=== PATIENT | female | born 1975 | race Asian ===

== ENCOUNTER 2020-04-06 10:17 | Outpatient (REF) | payer OTHER, SELFPAY ==
--- NOTE | 2020-04-06 10:37 | PM.PROC ---
Brief Operative Note Procedure: Patient presented for FNA biopsy of a LMP 1.0 cm thyroid nodule today. US at the time of procedure revealed that this nodule was measuring 0.75 cm in maximum dimension. No FNA biopsy indicated given that this nodule is less than 1 cm and has decreased in size. No concerning radiographic features were seen. This was explained to the Patient in detail.
== END 2020-04-06 10:18 | disposition home or self-care (01) ==
LOC: HO.US 10:17
PROVIDERS: PCP Internal Medicine; Visit Provider Internal Medicine
DX: E04.2 Nontoxic multinodular goiter (principal)
CPT/HCPCS: 76536

== ENCOUNTER 2020-04-21 13:35 | Outpatient (REF) | payer OTHER, SELFPAY ==
[2020-04-21 15:33] LABS: Vitamin D 25-OH Total 47.9 ng/mL (>30)
== END 2020-04-21 13:36 | disposition home or self-care (01) ==
LOC: HO.LAB 13:35
PROVIDERS: PCP Hospitalist; Visit Provider Internal Medicine
DX: E55.9 Vitamin D deficiency, unspecified (principal)
CPT/HCPCS: 82306

== ENCOUNTER 2020-05-02 11:58 | Outpatient (REF) | payer OTHER, SELFPAY ==
[2020-05-02 13:24] LABS: Alanine Aminotransferase 19 U/L (0-31); Albumin Level 4.3 g/dL (3.5-5.0); Alkaline Phosphatase 59 U/L (39-117); Anion Gap 17 (12-20); Aspartate Amino Transferase 13 U/L (5-31); Bilirubin Total 0.6 mg/dL (0.0-1.0); Blood Urea Nitrogen 15 mg/dL (9-16); Calcium 9.3 mg/dL (8.4-10.2); Carbon Dioxide 21 mmol/L (22-29); Chloride 103 mmol/L (96-108); Estimated Glomerular Filt Rate > 60; Glucose Random 197 mg/dL (60-115); Potassium 3.7 mmol/l (3.3-5.1); Sodium 137 mmol/L (135-145); Total Protein 6.9 g/dL (6.5-8.0)
[2020-05-02 13:33] LABS: Vitamin D 25-OH Total 48.9 ng/mL (>30)
== END 2020-05-02 11:59 | disposition home or self-care (01) ==
LOC: HO.LAB 11:58
PROVIDERS: PCP Hospitalist; Visit Provider Internal Medicine
DX: E11.65 Type 2 diabetes mellitus with hyperglycemia (principal); E78.5 Hyperlipidemia, unspecified; I10 Essential (primary) hypertension; E55.9 Vitamin D deficiency, unspecified; E04.2 Nontoxic multinodular goiter
CPT/HCPCS: 80053; 82306

== ENCOUNTER → 2020-05-31 09:43 | Outpatient (BNVA) | payer OTHER, SELFPAY | PROVIDERS: PCP Hospitalist; Referring Provider Hospitalist; Visit Provider Internal Medicine | DX: Z76.89 Persons encountering health services in other specified circumstances (principal) ==

== ENCOUNTER → 2020-07-11 15:00 | Outpatient (BNV) | payer OTHER, SELFPAY | PROVIDERS: PCP Hospitalist; Visit Provider Internal Medicine Medical Oncology | DX: D51.9 Vitamin B12 deficiency anemia, unspecified (principal); D50.9 Iron deficiency anemia, unspecified | CPT/HCPCS: 99212; 99213; 99214 ==

== ENCOUNTER → 2020-09-14 08:20 | Outpatient (BNVA) | payer OTHER, SELFPAY | PROVIDERS: PCP Hospitalist; Visit Provider Internal Medicine | DX: E11.65 Type 2 diabetes mellitus with hyperglycemia (principal); E78.5 Hyperlipidemia, unspecified; E04.2 Nontoxic multinodular goiter; E55.9 Vitamin D deficiency, unspecified; I10 Essential (primary) hypertension; Z71.3 Dietary counseling and surveillance | CPT/HCPCS: 82947; 99212 ==

== ENCOUNTER 2020-12-15 09:58 | Outpatient (REF) | payer OTHER, SELFPAY ==
[2020-12-15 11:55] LABS: Alanine Aminotransferase 13 U/L (0-31); Albumin Level 4.2 g/dL (3.5-5.0); Alkaline Phosphatase 64 U/L (39-117); Anion Gap 13 (12-20); Aspartate Amino Transferase 13 U/L (5-31); Bilirubin Total 0.3 mg/dL (0.0-1.0); Blood Urea Nitrogen 12 mg/dL (9-16); Calcium 9.1 mg/dL (8.4-10.2); Carbon Dioxide 26 mmol/L (22-29); Chloride 106 mmol/L (96-108); Cholesterol 106 mg/dL; Estimated Glomerular Filt Rate > 60; Glucose Random 154 mg/dL (60-115); HDL Cholesterol 28 mg/dL; LDL Cholesterol Calculated 64 mg/dl; Sodium 141 mmol/L (135-145); Total Protein 6.9 g/dL (6.5-8.0); Triglycerides 73 mg/dL
[2020-12-15 12:22] LABS: Estimated Average Glucose 154 mg/dL
[2020-12-16 06:52] LABS: LDL Cholesterol Direct 70 mg/dL (<100)
== END 2020-12-15 09:59 | disposition home or self-care (01) ==
LOC: HO.LAB 09:58
PROVIDERS: PCP Hospitalist; Visit Provider Internal Medicine
DX: E11.65 Type 2 diabetes mellitus with hyperglycemia (principal)
CPT/HCPCS: 36415; 80053; 80061; 82043; 83036; 83721

== ENCOUNTER → 2020-12-18 11:05 | Outpatient (BNVA) | payer OTHER, SELFPAY | PROVIDERS: PCP Hospitalist; Visit Provider Internal Medicine | DX: E11.65 Type 2 diabetes mellitus with hyperglycemia (principal); E78.5 Hyperlipidemia, unspecified; E04.2 Nontoxic multinodular goiter; E55.9 Vitamin D deficiency, unspecified; I10 Essential (primary) hypertension | CPT/HCPCS: 82947; 99212 ==

== ENCOUNTER 2021-02-22 08:43 | Outpatient (REF) | payer OTHER, SELFPAY ==
--- NOTE | ~2021-02-22 | US_ITS ---
EXAMINATION: US THYROID CLINICAL INFORMATION: Nontoxic multinodular goiter. COMPARISON: Ultrasound soft tissue head/neck thyroid dated 02/08/2020 and 06/04/2018. TECHNIQUE: Linear transducer grayscale and color Doppler examination with attention to the region of the thyroid. FINDINGS: SIZE: Measurements of the thyroid lobes and nodules are given in sagittal, anteroposterior and transverse dimensions respectively. Right Thyroid Lobe: 4.7 x 1.6 x 2.1 cm, volume 8.4 mL. Previously 4.7 x 1.7 x 2.0 cm, volume 8.4 mL. Parenchyma: The gland echotexture is heterogeneous. Thyroid vascularity is normal. Left Thyroid Lobe: 5.4 x 1.7 x 2.0 cm, volume 9.5 mL. Previously 4.6 x 1.6 x 2.1 cm, volume 8.0 mL. Parenchyma: The gland echotexture is heterogeneous. Thyroid vascularity is normal. Isthmus: 0.3 cm in maximum AP dimension. Previously 0.4 cm. Estimated total number of nodules greater than or equal to 1 cm: 1. Rental Representative nodules are described as follows: 1. Location: Right superior. Size: 0.44 x 0.34 x 0.45 cm, volume 0.03 mL. Previously: 0.44 x 0.40 x 0.42 cm, volume 0.04 mL. Nodule characteristics: Composition: Cystic(0). ACR TI-RADS total points: 0 ACR TI-RADS category: 1 Significant change in size (>/= 20% in 2 dimensions and minimal increase of 2 mm or 50% or greater increase in volume): No Change in features: No Change in ACR TI-RADS risk category: No 2. Location: Left mid. Size: 0.7 x 0.59 x 0.63 cm, volume 0.14 mL. Previously: 0.75 x 0.59 x 0.61 cm, volume 0.14 mL. Nodule characteristics: Composition: Spongiform (0). Echogenicity: Anechoic (0). Shape: Not taller than wide (0). Margins: Smooth (0). Echogenic Foci: None (0). ACR TI-RADS total points: 0 ACR TI-RADS category: 1 Significant change in size (>/= 20% in 2 dimensions and minimal increase of 2 mm or 50% or greater increase in volume): No Change in features: No Change in ACR TI-RADS risk category: No 3. Location: Left inferior. Size: 1.59 x 1.3 x 1.5 cm, volume 1.62 mL. Previously: 1.42 x 1.17 x 1.17 cm, volume 1.02 mL. Nodule characteristics: Composition: Solid/almost completely solid (2). Echogenicity: Hypoechoic (2). Shape: Not taller than wide (0). Margins: Lobulated (2). Echogenic Foci: None (0). ACR TI-RADS total points: 6 ACR TI-RADS category: 4 Significant change in size (>/= 20% in 2 dimensions and minimal increase of 2 mm or 50% or greater increase in volume): Yes Change in features: No Change in ACR TI-RADS risk category: No 4. Location: Left inferior lateral. Size: 0.87 x 0.46 x 0.45 cm, volume 0.09 mL. Previously: 1.03 x 0.58 x 0.4 cm, volume 0.12 mL. Nodule characteristics: Composition: Solid (2). Echogenicity: Hypoechoic (2). Shape: Taller than wide (3). Margins: Smooth (0). Echogenic Foci: None (0). ACR TI-RADS total points: 7 ACR TI-RADS category: 5 Significant change in size (>/= 20% in 2 dimensions and minimal increase of 2 mm or 50% or greater increase in volume): No Change in features: No Change in ACR TI-RADS risk category: No NODES: No lymphadenopathy is seen in the tissue surrounding the thyroid gland. US/US thyroid IMPRESSION: 1. An increased 1.6 cm in maximal diameter inferior left thyroid lobe nodule meets ACR biopsy criteria and is amenable to ultrasound-guided biopsy, if clinically indicated and not already performed. 2. There is heterogeneous thyroid echotexture, which can be associated with thyroiditis. 3. There is a borderline goiter. ACR TI-RADS RECOMMENDATION REFERENCE: Ultrasound-guided fine-needle aspiration, followup ultrasound, no further follow up. * TR1 (0 point) and TR 2 (2 points): No FNA or follow up * TR3 (3 points): FNA if more than or equal to 2.5 cm in maximum dimension, followup ultrasound in 1, 3 and 5 years if 1.5 to 2.4 cm in maximum dimension. * TR4 (4-6 points): FNA if more than or equal to 1.5 cm in maximum dimension, followup ultrasound in 1, 2, 3 and 5 years if 1 to 1.4 cm in maximum dimension. * TR5 (more than or equal to 7 points): FNA if more than or equal to 1 cm in maximum dimension, followup ultrasound every year for 5 years if 0.5 to 0.9 cm in maximum dimension. * TR3, TR4 or TR5 nodules that are below the size threshold for follow up receive no follow up.
== END 2021-02-22 08:44 | disposition home or self-care (01) ==
LOC: HO.US 08:43
PROVIDERS: PCP Internal Medicine; Visit Provider Internal Medicine
DX: E04.2 Nontoxic multinodular goiter (principal)
CPT/HCPCS: 76536

== ENCOUNTER → 2021-03-21 13:39 | Outpatient (BNVA) | payer OTHER, SELFPAY | PROVIDERS: Visit Provider Physician Assistant ==

== ENCOUNTER → 2021-03-26 12:57 | Outpatient (BNVA) | payer OTHER, SELFPAY | PROVIDERS: Visit Provider Internal Medicine | DX: I95.9 Hypotension, unspecified (principal); E04.2 Nontoxic multinodular goiter; R42 Dizziness and giddiness; R10.9 Unspecified abdominal pain; R11.2 Nausea with vomiting, unspecified; E11.9 Type 2 diabetes mellitus without complications; E78.5 Hyperlipidemia, unspecified; E55.9 Vitamin D deficiency, unspecified; Z79.4 Long term (current) use of insulin; Z79.899 Other long term (current) drug therapy | CPT/HCPCS: 82947; 83036; 99212 ==

== ENCOUNTER 2021-03-26 14:03 | Emergency (ER) | payer OTHER, SELFPAY ==
--- NOTE | ~2021-03-26 | CT_ITS ---
EXAMINATION: CT ABDOMEN AND PELVIS WITH CONTRAST CLINICAL INFORMATION: Epigastric pain and hypotension COMPARISON: Previous abdominal ultrasound December 2017 TECHNIQUE: Multidetector volumetric images were obtained from the superior aspect of the liver through the pubic symphysis following administration 85 mL of Omnipaque 350 intravenous contrast. Sagittal and coronal reformatted images were obtained on the technologist's workstation. Oral contrast: Yes This CT examination was performed using dose optimization techniques as appropriate, variously including the following: *Automated exposure control *Adjustment of mA and/or kV according to patient size (this includes techniques or standardized protocols for targeted exams where dose is matched to indication/reason for exam; i.e. extremities or head) *Use of iterative reconstruction technique DLP: 843 mGy-cm FINDINGS: LUNG BASES: The visualized lung bases are unremarkable. LIVER, GALLBLADDER, AND BILIARY TREE: The liver is normal in size, shape, and attenuation. No focal hepatic lesion or biliary ductal dilatation is present. The gallbladder is unremarkable with no evidence of radiopaque gallstones, gallbladder wall thickening, or obvious pericholecystic inflammatory changes. PANCREAS: Unremarkable. SPLEEN: Unremarkable. ADRENAL GLANDS: Unremarkable. KIDNEYS AND URETERS: The kidneys are normal in size, shape, and attenuation. No hydronephrosis, hydroureter, or calculi seen. No perinephric stranding. BLADDER: Unremarkable. GASTROINTESTINAL TRACT: The colon is slightly distended and filled with fluid suggestive of an ileus. The small and large bowel are otherwise unremarkable. The appendix is unremarkable. No ascites or free air is seen. There is question of mild wall thickening of the distal stomach versus changes due to contraction/peristalsis. Stomach is otherwise unremarkable. ABDOMINAL WALL: No significant hernia is appreciated. LYMPH NODES: Normal. VASCULAR: Unremarkable. PELVIC VISCERA: Unremarkable. OSSEOUS STRUCTURES: Unremarkable. CT/CT abdomen pelvis w con IMPRESSION: Slightly distended fluid-filled colon suggestive of an ileus. Question mild wall thickening of the distal stomach versus changes due to contraction/peristalsis.
--- NOTE | ~2021-03-26 | XR_ITS ---
EXAMINATION: XR CHEST CLINICAL INFORMATION: Dizziness. Hypotension. COMPARISON: None TECHNIQUE: Frontal view of the chest was obtained. FINDINGS: No significant abnormality is noted involving the heart, lungs, mediastinum, bony thorax or soft tissues. XR/XR chest 1V IMPRESSION: Unremarkable examination.
[2021-03-26 14:11] VITALS: BP 95/65; O2SAT 95
[2021-03-26 14:13] VITALS: BP 105/63; PULSE 80; RESP 18; O2SAT 99; BMI 37.9
--- NOTE | 2021-03-26 14:18 | ECG_ITS ---
Test Reason : MEDICL Blood Pressure : / mmHG Vent. Rate : 078 BPM Atrial Rate : 078 BPM P-R Int : 168 ms QRS Dur : 090 ms QT Int : 396 ms P-R-T Axes : 056 045 043 degrees QTc Int : 451 ms Normal sinus rhythm Normal ECG No previous ECGs available Referred By: Ross Worthington Electronically Signed By:KATELIN ELIZONDO
--- NOTE | 2021-03-26 14:27 | ED.GENADULT ---
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 She states that she has been feeling dizzy, like the room is spinning around her for about 3 days, and it seems to be worsening over time. She denies any falls or loss of conciousness. She states she has had nausea, and vomiting for 3 days. She has not been able to keep down solids, or liquids. Every time she tries to eat, she states that she vomits her food. She reports they epigastric pain with no radiation. Past medical history significant for GERD, diabetes, multinodular thyroid, and anemia. She denies chest pain, shortness of breath, fevers, chills, blood per rectum, hematemesis, diarrhea, recent sick contacts. She is not currently taking any NSAIDs,or aspirin. Onset (ago): day(s) (3) Associated symptoms: nausea/vomiting and other (Dizziness) Treatments prior to arrival: none Related Data Home Medications Medication Instructions Recorded Confirmed baclofen 10 mg tablet 10 mg PO BID PRN 05/31/20 03/26/21 duloxetine 30 mg capsule,delayed 30 mg PO DAILY 05/31/20 03/26/21 release fluticasone propionate 50 1 spray INTRANASAL DAILY 05/31/20 03/26/21 mcg/actuation nasal spray,suspension gabapentin 300 mg capsule 300 mg PO DAILY 05/31/20 03/26/21 hydrocortisone valerate 0.2 % 0.2 applic TOPICAL DAILY 05/31/20 03/26/21 topical cream lisinopril 20 1 tab PO DAILY 05/31/20 03/26/21 mg-hydrochlorothiazide 25 mg tablet loratadine 10 mg tablet 10 mg PO DAILY 05/31/20 03/26/21 lorazepam 0.5 mg tablet 0.5 mg PO DAILY 05/31/20 03/26/21 omeprazole 40 mg capsule,delayed 40 mg PO DAILY 05/31/20 03/26/21 release topiramate 50 mg tablet 50 mg PO DAILY 05/31/20 03/26/21 zolpidem 10 mg tablet 10 mg PO BEDTIME PRN 05/31/20 03/26/21 bupropion HCl (smoking deter) 150 150 mg PO DAILY 03/21/21 03/26/21 mg tablet,12 hr sustained-release(smoking deterrent) docusate sodium 100 mg capsule 100 mg PO BID 03/21/21 03/26/21 hydroxyzine pamoate 25 mg capsule 25 mg PO BID 03/21/21 03/26/21 mirtazapine 45 mg tablet 45 mg PO BEDTIME 03/21/21 03/26/21 sennosides 8.6 mg tablet (Senna mg PO 03/21/21 03/26/21 Laxative) sucralfate 1 gram tablet 1 g PO BID 03/21/21 03/26/21 Previous Rx's Medication Instructions Recorded blood sugar diagnostic (FreeStyle #100 ea 05/10/20 Lite Strips) atorvastatin 40 mg tablet 40 mg PO DAILY 30 Days #30 tab 05/31/20 blood sugar diagnostic (Blood #100 ea 05/31/20 Glucose Test) metformin 1,000 mg tablet 1,000 mg PO BID 30 Days #60 tab 06/26/20 metoclopramide HCl 10 mg tablet 10 mg PO TID 30 Days #90 tab 06/28/20 pioglitazone 15 mg tablet (Actos) 15 mg PO DAILY 30 Days #30 tab 12/25/20 liraglutide 0.6 mg/0.1 mL (18 mg/3 1.8 mg SUBCUT DAILY 30 Days #9 ml 01/28/21 mL) subcutaneous pen injector empagliflozin 25 mg tablet 25 mg PO QAM 30 Days #30 tab 02/25/21 pen needle, diabetic 32 gauge x #100 ea 02/25/21 omeprazole 20 mg capsule,delayed 20 mg PO DAILY #30 cap 03/21/21 release meclizine 25 mg tablet (Dramamine 25 mg PO TID PRN #20 tab 03/26/21 Less Drowsy) Allergies Allergy/AdvReac Type Severity Reaction Status Date / Time No Known Allergies Allergy Verified 03/26/21 13:17 [No Known Allergies*] Review of Systems Review of Systems: Yes all other systems are reviewed and are negative Constitutional: Constitutional: Reports anorexia Eyes: Eyes: Reports no additional eye complaints ENT: Reports system reviewed and no additional complaints, except as documented, Reports vertigo and Reports dizziness Cardiovascular: Cardiovascular: Reports no additional cardiovascular complaints and Reports epigastric discomfort Respiratory: Respiratory: Reports no additional respiratory complaints and Reports no additional respiratory complaints Gastrointestinal: Gastrointestinal: Reports no additional gastrointestinal complaints, Reports nausea and Reports vomiting Genitourinary: Genitourinary: Reports no additional female genitourinary complaints Musculoskeletal: Musculoskeletal: Reports no additional musculoskeletal complaints Neurologic: Reports vertigo and Reports dizziness Psychiatric: Psychiatric: Reports no additional psychiatric complaints Endocrine: Endocrine: Reports no additional endocrine complaints [facility] Past Medical History Medical History (Updated 03/26/21 @ 16:48 by Ross Worthington MD) HLD (hyperlipidemia) HTN (hypertension) Hypotension Multinodular thyroid T2DM (type 2 diabetes mellitus) Vitamin D deficiency Surgical History History of carpal tunnel surgery of left wrist Hx of esophagogastroduodenoscopy Family History Family History Father No family history of disorders Mother No family history of disorders Social History Social History Housing Other:: spouse/ kids Alcohol intake: never Patient Tobacco Use Status: Never used Tobacco Use of substances other than those prescribed or required for medical reasons: No Advance Directives: No Advance Directives Information Provided: No Patient : No Current occupational status: unemployed Physical Exam Vital Signs: Vital Signs: Last Vital Signs Pulse 90 03/26/21 16:32 Resp 18 03/26/21 16:32 BP 108/65 03/26/21 16:32 Pulse Ox 98 03/26/21 16:32 Body Mass Index 37.9 Const: General: cooperative and no acute distress Orientation/consciousness: oriented to person and oriented to place Limitations: no limitations HENMT: Head: Yes normal to inspection, Yes normocephalic and Yes atraumatic Ears: external ears normal General nose exam: Normal external nose present Face and sinus: Yes normal facial exam Mouth: Normal oral and palatal mucosa present Throat: Yes posterior oropharynx normal Eyes: General: appearance normal, both eyes and all related structures Pupils: Equal, round and reactive pupils present Neck: Neck: Yes normal visual inspection, Yes no lymphadenopathy, Yes trachea midline and Yes supple Chest: Chest palpation & inspection: normal inspection of the chest and normal palpation of entire chest wall Resp: Effort & Inspection: normal respiratory effort and able to speak in complete sentences Auscultation: clear to auscultation bilaterally Cardio: Rate: regular rate Rhythm: regular rhythm Heart sounds: S1 normal heart sound present, S2 normal heart sound present and no murmurs GI: Inspection: Yes normal to inspection Palpation (GI): Soft to palpation, Tenderness to palpation present (GI) in the epigastrum and no guarding Auscultation: normal bowel sounds : General: Yes no CVA tenderness Back/Spine/Pelvis: Back: no CVA tenderness Skin: General skin exam: no rashes or lesions noted Neuro: General: oriented to person and oriented to place Cranial nerves: Yes CN's II-XII intact bilaterally and Yes Equal, round and reactive pupils present Cognition (Neuro): normal cognition Motor exam (neuro): 5/5 motor strength present throughout Extrem: General: Yes normal to inspection Psych: Appearance: grossly normal Speech and movement: Normal speech and movement present Affect: normal affect Attitude: cooperative Thought process: Normal thought process present Thought content: Normal thought content present Course Course Course Narrative: This is a 45-year-old female that is brought in to the emergency department via EMS from her court recording monitor's office for symptomatic hypotension her blood pressure court recording monitor office was 84/48. She felt dizzy at the time. Today she reports nausea, vomiting, vertigo X3 days. Upon physical examination there is tenderness to palpation in the epigastric region. Her blood pressure was 105/63. And she reports dizziness with changes in position. 1425- Basic laboratories have been ordered as well as a CT of the abdomen and pelvis, EKG, urine, orthostatic vital signs, troponin, COVID test, lactic and blood cultures. Reevaluation(s) Reevaluation #1: No significant findings on laboratory studies. Chest x-ray is normal. Pending normal CT of abd/pelvis patient will be discharged home with Meclozine for vertigo. Reevaluation #2: Patient on liter 2/2 here in the emergency department. BP have improved 103/67, patient is no longer dizzy and has recieved meclizine [address] of the abdomen and pelvis shoes slightly distended fluid filled colon suggestive of an illeus, however, this does not meet the patients clinical picture. Patient is not constipated, she has normo active bowel sounds in all four quadrants and she has tenderness to palpation only to the epigastric region. Plan is to discharge the patient home on meclizine for vertigo, she has been instructed to drink plenty of fluids. She is safe to be discharged home and to follow up with her PCP in two days. Time: 16:42 Medical Decision Making Lab Data Result diagrams: 03/26/21 14:47 03/26/21 14:47 Labs: Lab Results 03/26/21 03/26/21 03/26/21 Range/Units 14:47 14:47 14:47 WBC 7.5 (4.8-10.8) X10*3/uL RBC 5.06 (4.20-5.50) X10*6/uL Hgb 12.0 (12.0-16.0) g/dl Hct 38.2 (37-47) % MCV 75.5 L (80-98) fL MCH 23.7 L (27.0-33.0) pg MCHC 31.4 (31.0-35.0) g/dl RDW 15.6 (11.0-16.0) % Plt Count 343 (160-400) X10*3/uL MPV 9.9 (9.4-12.3) fL Immature Gran % (Auto) 0.8 H (0.0-0.4) % Neut % (Auto) 56.1 (45-73) % Lymph % (Auto) 30.1 (20-40) % Hitchcock % (Auto) 7.5 (2-11) % Eos % (Auto) 4.8 H (0-4) % Baso % (Auto) 0.7 (0-2) % Lymph # (Auto) 2.2 (1.2-4.9) X10*3/uL Hitchcock # (Auto) 0.6 (0.1-1.2) X10*3/uL Eos # (Auto) 0.4 (0.0-0.4) X10*3/uL Baso # (Auto) 0.1 (0.0-0.2) X10*3/uL Abs Immat Gran (auto) 0.06 H (0.00-0.03) X10*3/uL Absolute Neuts (auto) 4.2 (2.0-8.3) X10*3/uL Absolute Nucleated RBC 0.000 (0.0-0.012) X10*3/uL Nucleated RBC % (auto) 0.0 (0.0-0.2) /100WBC Sodium Cancelled 136 Potassium Cancelled 4.3 Chloride Cancelled 106 Carbon Dioxide Cancelled 18 L Anion Gap Cancelled 16 BUN Cancelled 20 H Creatinine Cancelled 1.05 Estim Creat Clear Calc Cancelled 75.8 Estimated GFR Cancelled 57 Random Glucose Cancelled 122 H Lactic Acid (0.5-2.0) mmol/L Calcium Cancelled 9.3 Total Bilirubin Cancelled 0.5 AST Cancelled 16 ALT Cancelled 15 Alkaline Phosphatase Cancelled 53 D Troponin I High Sens (<3.5-17.0) ng/L Total Protein Cancelled 7.4 Albumin Cancelled 4.5 Lipase 55 (8-78) U/L COVID-19 (REGLA) (Negative) COVID-19 Clin Com 03/26/21 03/26/21 03/26/21 Range/Units 14:47 14:47 14:48 WBC (4.8-10.8) X10*3/uL RBC (4.20-5.50) X10*6/uL Hgb (12.0-16.0) g/dl Hct (37-47) % MCV (80-98) fL MCH (27.0-33.0) pg MCHC (31.0-35.0) g/dl RDW (11.0-16.0) % Plt Count (160-400) X10*3/uL MPV (9.4-12.3) fL Immature Gran % (Auto) (0.0-0.4) % Neut % (Auto) (45-73) % Lymph % (Auto) (20-40) % Hitchcock % (Auto) (2-11) % Eos % (Auto) (0-4) % Baso % (Auto) (0-2) % Lymph # (Auto) (1.2-4.9) X10*3/uL Hitchcock # (Auto) (0.1-1.2) X10*3/uL Eos # (Auto) (0.0-0.4) X10*3/uL Baso # (Auto) (0.0-0.2) X10*3/uL Abs Immat Gran (auto) (0.00-0.03) X10*3/uL Absolute Neuts (auto) (2.0-8.3) X10*3/uL Absolute Nucleated RBC (0.0-0.012) X10*3/uL Nucleated RBC % (auto) (0.0-0.2) /100WBC Sodium Potassium Chloride Carbon Dioxide Anion Gap BUN Creatinine Estim Creat Clear Calc Estimated GFR Random Glucose Lactic Acid 1.7 (0.5-2.0) mmol/L Calcium Total Bilirubin AST ALT Alkaline Phosphatase Troponin I High Sens < 3.5 (<3.5-17.0) ng/L Total Protein Albumin Lipase (8-78) U/L COVID-19 (REGLA) Negative (Negative) COVID-19 Clin Com See Note Imaging Data Chest x-ray: Attestation: I personally reviewed and interpreted this imaging study as follows: Radiologist's impression: FINDINGS: No significant abnormality is noted involving the heart, lungs, mediastinum, bony thorax or soft tissues. XR/XR chest 1V IMPRESSION: Unremarkable examination. ? ECG Data Attestation: I personally reviewed and interpreted this ECG as follows: Prior ECG tracings: not available for review Interpretation: 1711- Ventricular rate 78 CT interval normal QRS normal QTC QTC normal normal sinus rhythm normal ECG no signs of acute ischemia. No prior EKG to compare. Discharge Plan Discharge Clinical Impression: Dehydration, Vertigo Hypotension Qualifiers: Hypotension type: unspecified hypotension type Qualified Code(s): I95.9 - Hypotension, unspecified Abdominal pain Qualifiers: Abdominal location: epigastric Qualified Code(s): R10.13 - Epigastric pain Patient Disposition: Home, Self-Care Instructions: Dehydration (ED), Vertigo (ED), Abdominal Pain (ED) Additional Instructions: Follow up with PCP in 2 days Drink plenty of fluids Meclizine was sent to your pharmacy take it as prescribed for dizziness, nausea and vomiting Return to the emergency department with new or worsening symptoms or if you develop chest pain, shortness of breath, fevers or chills. Prescriptions: New meclizine [Dramamine Less Drowsy] 25 mg tablet 25 mg PO TID PRN (Reason: dizziness) Qty: 20 RF: 0 No Action (DME) FreeStyle Lite Strips Strip See Rx Instructions .ROUTE .MEDSUPPLY Qty: 100 RF: 11 metformin 1,000 mg tablet 1,000 mg PO BID 30 Days Qty: 60 RF: 11 metoclopramide HCl 10 mg tablet 10 mg PO TID 30 Days Qty: 90 RF: 3 pioglitazone [Actos] 15 mg tablet 15 mg PO DAILY 30 Days Qty: 30 RF: 11 liraglutide 0.6 mg/0.1 mL (18 mg/3 mL) pen injector 1.8 mg subcut DAILY 30 Days Qty: 9 RF: 11 (DME) pen needle, diabetic 32 gauge x 5/32 needle See Rx Instructions ea subcut DAILY Qty: 100 RF: 11 empagliflozin 25 mg tablet 25 mg PO QAM 30 Days Qty: 30 RF: 11 topiramate 50 mg tablet 50 mg PO DAILY RF: 0 duloxetine 30 mg capsule,delayed release(DR/EC) 30 mg PO DAILY RF: 0 lisinopril-hydrochlorothiazide 20-25 mg tablet 1 tab PO DAILY RF: 0 omeprazole 40 mg capsule,delayed release(DR/EC) 40 mg PO DAILY RF: 0 baclofen 10 mg tablet 10 mg PO BID PRN (Reason: Pain) RF: 0 loratadine 10 mg tablet 10 mg PO DAILY RF: 0 fluticasone propionate 50 mcg/actuation spray,suspension 1 spray intranasal DAILY RF: 0 gabapentin 300 mg capsule 300 mg PO DAILY RF: 0 zolpidem 10 mg tablet 10 mg PO BEDTIME PRN (Reason: Insomnia) RF: 0 lorazepam 0.5 mg tablet 0.5 mg PO DAILY RF: 0 hydrocortisone valerate 0.2 % cream 0.2 applic topical DAILY RF: 0 atorvastatin 40 mg tablet 40 mg PO DAILY 30 Days Qty: 30 RF: 11 (DME) Blood Glucose Test Strip See Rx Instructions .ROUTE .MEDSUPPLY Qty: 100 RF: 11 mirtazapine 45 mg tablet 45 mg PO BEDTIME RF: 0 bupropion HCl (smoking deter) 150 mg tablet extended release 12 hr 150 mg PO DAILY RF: 0 sucralfate 1 gram tablet 1 g PO BID RF: 0 docusate sodium 100 mg capsule 100 mg PO BID RF: 0 sennosides [Senna Laxative] 8.6 mg tablet PO RF: 0 hydroxyzine pamoate 25 mg capsule 25 mg PO BID RF: 0 omeprazole 20 mg capsule,delayed release(DR/EC) 20 mg PO DAILY Qty: 30 RF: 5 Referrals: Edgar Centeno MD [Primary Care Provider] - 2 days
[2021-03-26] MEDS: ondansetron HCL 4 MG/2 ML VIAL IVPUSH (14:53)
[2021-03-26] MEDS: 0.9 % Sodium Chloride 1,000 ML 999 ML IV ×2 (14:53→16:28)
[2021-03-26 14:56] LABS: MANUAL DIFF FLAG NO
[2021-03-26 14:57] LABS: Basophils Absolute Auto 0.1 X10*3/uL (0.0-0.2); Basophils Percent Auto 0.7 % (0-2); Eosinophils Absolute Auto 0.4 X10*3/uL (0.0-0.4); Eosinophils Percent Auto 4.8 % (0-4); Hematocrit 38.2 % (37-47); Imm Gran Abs Auto 0.06 X10*3/uL (0.00-0.03); Imm Gran Pct Auto 0.8 % (0.0-0.4); Lymphocytes Absolute Auto 2.2 X10*3/uL (1.2-4.9); Lymphocytes Percent Auto 30.1 % (20-40); Mean Corpuscular HGB Conc 31.4 g/dl (31.0-35.0); Mean Corpuscular Hemoglobin 23.7 pg (27.0-33.0); Mean Corpuscular Volume 75.5 fL (80-98); Mean Platelet Volume 9.9 fL (9.4-12.3); Monocytes Absolute Auto 0.6 X10*3/uL (0.1-1.2); Monocytes Percent Auto 7.5 % (2-11); Neutrophils Absolute Auto 4.2 X10*3/uL (2.0-8.3); Neutrophils Percent Auto 56.1 % (45-73); Platelet Count 343 X10*3/uL (160-400); Red Blood Count 5.06 X10*6/uL (4.20-5.50); Red Cell Distribution Width 15.6 % (11.0-16.0); White Blood Count 7.5 X10*3/uL (4.8-10.8)
[2021-03-26 15:08] LABS: Lactic Acid 1.7 mmol/L (0.5-2.0)
[2021-03-26 15:12] LABS: COVID-19 Test Negative (Negative); IDNOW Serial# 9DD0AD1C
[2021-03-26 15:17] LABS: Troponin-I High Sensitivity < 3.5 ng/L (<3.5-17.0)
[2021-03-26 15:21] LABS: Alanine Aminotransferase 15 U/L (0-31); Albumin Level 4.5 g/dL (3.5-5.0); Alkaline Phosphatase 53 U/L (39-117); Anion Gap 16 (12-20); Aspartate Amino Transferase 16 U/L (5-31); Bilirubin Total 0.5 mg/dL (0.0-1.0); Blood Urea Nitrogen 20 mg/dL (9-16); Calcium 9.3 mg/dL (8.4-10.2); Carbon Dioxide 18 mmol/L (22-29); Chloride 106 mmol/L (96-108); Creatinine Clr Calc Pharmacy 75.8; Estimated Glomerular Filt Rate 57; Glucose Random 122 mg/dL (60-115); Lipase 55 U/L (8-78); Potassium 4.3 mmol/L (3.3-5.1); Sodium 136 mmol/L (135-145); Total Protein 7.4 g/dL (6.5-8.0)
[2021-03-26] MEDS: iohexoL 350 MG/ML 100 ML INFUS..BTL IV (15:55)
[2021-03-26 16:32] VITALS: BP 108/65; PULSE 90; RESP 18; O2SAT 98
[2021-03-26] MEDS: Meclizine HCl 25 MG TABLET PO (16:32)
[2021-03-26 17:50] VITALS: BP 96/52; PULSE 82
[2021-03-26 17:52] VITALS: BP 95/49; PULSE 83
[2021-03-26 17:54] VITALS: BP 98/45; PULSE 85
== END 2021-03-26 18:13 | disposition home or self-care (01) ==
PROVIDERS: Emergency Provider Emergency Medicine Emergency Medical Services; PCP Internal Medicine
DX: I95.9 Hypotension, unspecified (principal); R10.13 Epigastric pain; R42 Dizziness and giddiness; Z79.899 Other long term (current) drug therapy; Z20.822 Contact with and (suspected) exposure to COVID-19
CPT/HCPCS: 36415; 71045; 74177; 80053; 82947; 83036; 83605; 83690; 84484; 85025; 87040; 87635; 93005; 96361; 96374; 99212; 99284; 99285; J2405; Q9967

== ENCOUNTER → 2021-04-05 14:46 | Outpatient (BNVA) | payer OTHER, SELFPAY | PROVIDERS: PCP Internal Medicine; Visit Provider Internal Medicine | DX: E11.65 Type 2 diabetes mellitus with hyperglycemia (principal); E78.5 Hyperlipidemia, unspecified; E04.2 Nontoxic multinodular goiter; E55.9 Vitamin D deficiency, unspecified; I10 Essential (primary) hypertension | CPT/HCPCS: 82947; 99212 ==

== ENCOUNTER 2021-05-17 08:28 | Outpatient (REF) | payer OTHER, SELFPAY ==
--- NOTE | 2021-05-17 09:30 | PM.OP ---
Brief Operative Note Date of Service: 05/17/21 Pre-op diagnosis: Multinodular Thyroid Procedure: This is doctor Lydia Boyer. This is an ultrasound-guided fine-needle aspiration report. Date of Examination: 05/17/2021 Indication: Multinodular Thyroid Porcedure: Procedure was explained to the patient. Alternatives, the risk and benefits were discussed. Written consent was obtained. A time-out was also obtained. After sterile preparation, fine-needle aspiration of a left inferior pole 1.6 cm thyroid nodule was performed using direct ultrasound guidance to confirm accurate needle placement. Four aspirations were made using 27 gauge needles. Samples were submitted for cytology. One pass was dedicated for [employer] Gene sequencing vinyl dipper testing. The patient tolerated the procedure well. Aftercare instructions were provided. Impression: Uncomplicated fine needle aspiration biopsy of a left inferior pole 1.6 cm thyroid nodule under ultrasound guidance. Surgeon: Lydia Boyer, DO Was an Gifted Program Teacher used for this Procedure?: No Estimated blood loss (mL): 0
[2021-05-17] MEDS: Lidocaine HCl 1 % MPF 5 ML VIAL SUBCUT (10:52)
== END 2021-05-17 08:29 | disposition home or self-care (01) ==
LOC: HO.US 08:28
PROVIDERS: PCP Internal Medicine; Visit Provider Internal Medicine
DX: E04.2 Nontoxic multinodular goiter (principal)
CPT/HCPCS: 10005; 88172; 88173

== ENCOUNTER → 2021-06-08 10:15 | Outpatient (BNVA) | payer OTHER, SELFPAY | PROVIDERS: PCP Internal Medicine; Visit Provider Internal Medicine Gastroenterology ==

== ENCOUNTER 2021-06-13 11:14 | Outpatient (REF) | payer OTHER, SELFPAY ==
[2021-06-13 13:00] LABS: Estimated Average Glucose 134 mg/dL; Hemoglobin A1c % 6.3 %
[2021-06-13 13:15] LABS: Alanine Aminotransferase 23 U/L (0-31); Albumin Level 4.1 g/dL (3.5-5.0); Alkaline Phosphatase 46 U/L (39-117); Anion Gap 13 (12-20); Aspartate Amino Transferase 18 U/L (5-31); Bilirubin Total 0.6 mg/dL (0.0-1.0); Blood Urea Nitrogen 11 mg/dL (9-16); Calcium 9.6 mg/dL (8.4-10.2); Carbon Dioxide 27 mmol/L (22-29); Chloride 105 mmol/L (96-108); Estimated Glomerular Filt Rate > 60; Glucose Random 113 mg/dL (60-115); Potassium 4.3 mmol/L (3.3-5.1); Sodium 141 mmol/L (135-145); Total Protein 6.7 g/dL (6.5-8.0)
[2021-06-13 13:41] LABS: Free T4 (Free Thyroxine) 0.91 ng/dL (0.71-1.85)
[2021-06-13 14:11] LABS: Thyroid Stimulating Hormone 1.31 uIU/mL (0.32-4.0); Vitamin D 25-OH Total 19.5 ng/mL (>30)
== END 2021-06-13 11:15 | disposition home or self-care (01) ==
LOC: HO.LAB 11:14
PROVIDERS: PCP Hospitalist; Visit Provider Internal Medicine
DX: E11.65 Type 2 diabetes mellitus with hyperglycemia (principal); E04.2 Nontoxic multinodular goiter; E55.9 Vitamin D deficiency, unspecified
CPT/HCPCS: 36415; 80053; 82306; 83036; 84439; 84443

== ENCOUNTER → 2021-06-18 08:51 | Outpatient (BNVA) | payer OTHER, SELFPAY | PROVIDERS: PCP Hospitalist; Visit Provider Internal Medicine ==

== ENCOUNTER 2021-08-23 07:47 | Outpatient (REF) | payer OTHER, SELFPAY | END 2021-08-23 07:48 | disposition home or self-care (01) | LOC: HO.MDS 07:47 | PROVIDERS: PCP Hospitalist; Visit Provider Internal Medicine Medical Oncology | DX: D50.9 Iron deficiency anemia, unspecified (principal) | CPT/HCPCS: 96365; 96372; J2916 ==

== ENCOUNTER 2021-08-30 11:44 | Outpatient (REF) | payer OTHER, SELFPAY | END 2021-08-30 11:45 | disposition home or self-care (01) | LOC: HO.MDS 11:44 | PROVIDERS: Visit Provider Internal Medicine Medical Oncology | DX: D50.9 Iron deficiency anemia, unspecified (principal) | CPT/HCPCS: 96365; J2916 ==

== ENCOUNTER 2021-09-04 07:50 | Outpatient (REF) | payer OTHER, SELFPAY | END 2021-09-04 07:51 | disposition home or self-care (01) | LOC: HO.MDS 07:50 | PROVIDERS: Visit Provider Internal Medicine Medical Oncology | DX: D50.9 Iron deficiency anemia, unspecified (principal) | CPT/HCPCS: 96365; J2916 ==

== ENCOUNTER → 2021-09-05 14:11 | Outpatient (BNVA) | payer OTHER, SELFPAY | PROVIDERS: PCP Hospitalist; Visit Provider Internal Medicine | DX: E11.65 Type 2 diabetes mellitus with hyperglycemia (principal); E11.40 Type 2 diabetes mellitus with diabetic neuropathy, unspecified; E11.21 Type 2 diabetes mellitus with diabetic nephropathy; I10 Essential (primary) hypertension; E04.2 Nontoxic multinodular goiter; E78.5 Hyperlipidemia, unspecified; E55.9 Vitamin D deficiency, unspecified; Z79.84 Long term (current) use of oral hypoglycemic drugs; Z79.899 Other long term (current) drug therapy | CPT/HCPCS: 82947; 99212 ==

== ENCOUNTER 2021-09-14 07:45 | Outpatient (REF) | payer OTHER, SELFPAY ==
[2021-09-14 08:43] LABS: MANUAL DIFF FLAG NO
[2021-09-14 08:47] LABS: Basophils Percent Auto 0.6 % (0-2); Eosinophils Absolute Auto 0.4 X10*3/uL (0.0-0.4); Eosinophils Percent Auto 7.8 % (0-4); Hematocrit 35.6 % (37.0-47.0); Hemoglobin 10.2 g/dl (12.0-16.0); Imm Gran Abs Auto 0.02 X10*3/uL (0.00-0.03); Imm Gran Pct Auto 0.4 % (0.0-0.4); Lymphocytes Absolute Auto 1.8 X10*3/uL (1.2-4.9); Lymphocytes Percent Auto 36.9 % (20-40); Mean Corpuscular HGB Conc 28.7 g/dl (31.0-35.0); Mean Corpuscular Hemoglobin 20.9 pg (27.0-33.0); Mean Corpuscular Volume 73.1 fL (80.0-98.0); Mean Platelet Volume 10.2 fL (9.4-12.3); Monocytes Absolute Auto 0.3 X10*3/uL (0.1-1.2); Monocytes Percent Auto 6.8 % (2-11); Neutrophils Absolute Auto 2.4 x10*3/uL (2.0-8.3); Neutrophils Percent Auto 47.5 % (45-73); Platelet Count 323 X10*3/uL (160-400); Red Blood Count 4.87 X10*6/uL (4.20-5.50); Red Cell Distribution Width 23.8 % (11.0-16.0)
== END 2021-09-14 07:46 | disposition home or self-care (01) ==
LOC: HO.MDS 07:45
PROVIDERS: Visit Provider Internal Medicine Medical Oncology
DX: D50.9 Iron deficiency anemia, unspecified (principal)
CPT/HCPCS: 36415; 85025; 96365; 96372; J2916

== ENCOUNTER → 2021-09-21 09:11 | Outpatient (BNVA) | payer OTHER, SELFPAY | PROVIDERS: PCP Hospitalist; Referring Provider Hospitalist; Visit Provider Internal Medicine Gastroenterology | DX: Z13.89 Encounter for screening for other disorder (principal) ==

== ENCOUNTER 2021-09-27 13:46 | Day surgery (SDC) | payer OTHER, SELFPAY ==
--- NOTE | 2021-09-26 10:38 | HO.ANESPROP2 ---
Documented by User: Zara Gonzales NP 09/26/21 10:40 HPI - Anesthesia Eval Consult details Narrative: 45yo F for Upper Endoscopy PMFSH Active Problems Active Problems: All Active Problems (Updated 07/20/21 @ 15:27 by Irlanda Farooq MD) Gastric wall thickening (Acute) Ileus, unspecified (Acute) Hypotension (Acute) Chronic GERD (Acute) Poor historian (Acute) Anemia (Acute) Multinodular thyroid (Acute) HLD (hyperlipidemia) (Acute) HTN (hypertension) (Acute) T2DM (type 2 diabetes mellitus) (Acute) Vitamin D deficiency (Acute) Past Medical History Medical History HLD (hyperlipidemia) HTN (hypertension) Hypotension Multinodular thyroid T2DM (type 2 diabetes mellitus) Vitamin D deficiency Family History Family History Father No family history of disorders Mother No family history of disorders Surgical History Surgical History History of carpal tunnel surgery of left wrist Hx of colonoscopy Hx of esophagogastroduodenoscopy Social History Social History Housing Other:: spouse/ kids Alcohol intake: never Patient Tobacco Use Status: Never used Tobacco Use of substances other than those prescribed or required for medical reasons: No Are you DNR?: No Advance Directives: No Advance Directives Information Provided: Yes Recently lost weight without trying: No Patient : No (ug negative) Current occupational status: unemployed Meds Allergies Allergy/AdvReac Type Severity Reaction Status Date / Time No Known Allergies Allergy Verified 09/21/21 09:17 [No Known Allergies*] Home Medications Medication Instructions Recorded Confirmed Last Taken Type baclofen 10 mg tablet 10 mg PO BID PRN 05/31/20 09/05/21 Unknown History duloxetine 30 mg capsule,delayed 30 mg PO DAILY 05/31/20 09/05/21 Unknown History release fluticasone propionate 50 1 spray INTRANASAL DAILY 05/31/20 09/05/21 Unknown History mcg/actuation nasal spray,suspension lisinopril 20 1 tab PO DAILY 05/31/20 09/05/21 Unknown History mg-hydrochlorothiazide 25 mg tablet topiramate 50 mg tablet 50 mg PO DAILY 05/31/20 09/05/21 Unknown History bupropion HCl (smoking deter) 150 150 mg PO DAILY 03/21/21 09/05/21 Unknown History mg tablet,12 hr sustained-release(smoking deterrent) hydroxyzine pamoate 25 mg capsule 25 mg PO BID 03/21/21 09/05/21 Unknown History mirtazapine 45 mg tablet 45 mg PO BEDTIME 03/21/21 09/05/21 Unknown History gabapentin 300 mg capsule 300 mg PO DAILY 04/05/21 09/05/21 Unknown History omeprazole 20 mg capsule,delayed 20 mg PO DAILY 09/05/21 09/05/21 Unknown History release Exam Exam Date and Time: September 26, 2021 1038 Pertinent Lab Results Pertinent Lab Results: Laboratory Tests 07/20/21 09/14/21 15:04 08:26 WBC 5.0 Hgb 10.2 L Hct 35.6 L Plt Count 323 Sodium 140 Potassium 3.9 Chloride 108 Carbon Dioxide 23 BUN 13 Creatinine 0.74 Assessment and Plan Assessment Anesthesia Assessment: Chart Reviewed Documented by User: Vane Isaac MD 09/27/21 14:15 PMF Past Medical History Medical History HLD (hyperlipidemia) HTN (hypertension) Hypotension Multinodular thyroid T2DM (type 2 diabetes mellitus) Vitamin D deficiency Functional capacity: independent ambulation Patient : No Family History Family History Father No family history of disorders Mother No family history of disorders Surgical History Surgical History History of carpal tunnel surgery of left wrist Hx of colonoscopy Hx of esophagogastroduodenoscopy History of Problems with Anesthesia: No Social History Social History Housing Other:: spouse/ kids Alcohol intake: never Patient Tobacco Use Status: Never used Tobacco Use of substances other than those prescribed or required for medical reasons: No Are you DNR?: No Advance Directives: No Advance Directives Information Provided: Yes Recently lost weight without trying: No Patient : No (ug negative) Current occupational status: unemployed Meds Allergies Allergy/AdvReac Type Severity Reaction Status Date / Time No Known Allergies Allergy Verified 09/21/21 09:17 [No Known Allergies*] Home Medications Medication Instructions Recorded Confirmed Last Taken Type baclofen 10 mg tablet 10 mg PO BID PRN 05/31/20 09/05/21 Unknown History duloxetine 30 mg capsule,delayed 30 mg PO DAILY 05/31/20 09/05/21 Unknown History release fluticasone propionate 50 1 spray INTRANASAL DAILY 05/31/20 09/05/21 Unknown History mcg/actuation nasal spray,suspension lisinopril 20 1 tab PO DAILY 05/31/20 09/05/21 Unknown History mg-hydrochlorothiazide 25 mg tablet topiramate 50 mg tablet 50 mg PO DAILY 05/31/20 09/05/21 Unknown History bupropion HCl (smoking deter) 150 150 mg PO DAILY 03/21/21 09/05/21 Unknown History mg tablet,12 hr sustained-release(smoking deterrent) hydroxyzine pamoate 25 mg capsule 25 mg PO BID 03/21/21 09/05/21 Unknown History mirtazapine 45 mg tablet 45 mg PO BEDTIME 03/21/21 09/05/21 Unknown History gabapentin 300 mg capsule 300 mg PO DAILY 04/05/21 09/05/21 Unknown History omeprazole 20 mg capsule,delayed 20 mg PO DAILY 09/05/21 09/05/21 Unknown History release Exam Airway Mallampati Class: III TM Dist: >3cm Neck ROM: Full Heart: RRR Lungs: CTA Assessment and Plan Final Anesthetic Review History of Problems with Anesthesia: No ASA Class: III Final Preanesthetic Review: No Changes in Pt Med Stat, Meds/Allgs Chart Reviewed, Consent Obtained/Reviewed and Anes Risks/Benef Reviewed Patient Risk: Low Procedure Risk: Low Anesthetic Plan Anesthetic Plan: MAC: Disposition: Standard PACU
[2021-09-27 14:07] LABS: UPreg QC Valid YES; Urine Pregnancy NEGATIVE (NEGATIVE)
[2021-09-27 14:10] VITALS: BMI 37.2
--- NOTE | 2021-09-27 14:11 | MHC.SHP ---
Pre-Procedural Eval Section A Date of Service: 09/27/21 The patient is an INPATIENT: No The History & Physical has been completed within 30 days and I have reviewed it.: Yes Section B Chief Complaint: Epigastric pain Allergies: Allergies Allergy/AdvReac Type Severity Reaction Status Date / Time No Known Allergies Allergy Verified 09/21/21 09:17 [No Known Allergies*] Review of Systems Sugical H&P ROS: Negative: Constitution, Cardiovascular, Respiratory, Neurological, Psychiatric, Hem-Onc, Allergic/Immunologic, Gastrointestinal, Genitourinary, Musculoskeletal, Integumentary, Endocrine and Eyes/Ears/Nose/Throat Exam Surgical H&P Exam: Normal: HEENT, Normal: Heart, Normal: Lungs, Normal: Extremities, Normal: Abdomen, Normal: Skin and Normal: Neurological Plan Diagnosis/Plan: Unchanged I have reviewed the history and physical and performed a pertinent physical examination on my patient. No changes have occurred unless specified.
[2021-09-27 14:15] VITALS: BP 130/71; PULSE 86; RESP 18; TEMP 37.6; O2SAT 98
--- NOTE | 2021-09-27 14:20 | HO.ANESPROP2 ---
[facility] Active Problems Active Problems: All Active Problems (Updated 07/20/21 @ 15:27 by Irlanda Farooq MD) Gastric wall thickening (Acute) Ileus, unspecified (Acute) Hypotension (Acute) Chronic GERD (Acute) Poor historian (Acute) Anemia (Acute) Multinodular thyroid (Acute) HLD (hyperlipidemia) (Acute) HTN (hypertension) (Acute) T2DM (type 2 diabetes mellitus) (Acute) Vitamin D deficiency (Acute) Past Medical History Medical History HLD (hyperlipidemia) HTN (hypertension) Hypotension Multinodular thyroid T2DM (type 2 diabetes mellitus) Vitamin D deficiency Functional capacity: independent ambulation Family History Family History Father No family history of disorders Mother No family history of disorders Family history of problems with anesthesia: No Surgical History Surgical History History of carpal tunnel surgery of left wrist Hx of colonoscopy Hx of esophagogastroduodenoscopy History of Problems with Anesthesia: No Social History Social History Housing Other:: spouse/ kids Alcohol intake: never Patient Tobacco Use Status: Never used Tobacco Use of substances other than those prescribed or required for medical reasons: No Are you DNR?: No Advance Directives: No Advance Directives Information Provided: Yes Recently lost weight without trying: No Patient : No Current occupational status: unemployed Meds Allergies Allergy/AdvReac Type Severity Reaction Status Date / Time No Known Allergies Allergy Verified 09/21/21 09:17 [No Known Allergies*] Active Medications: Current Medications Lactated Ringer's (Lr) 1,000 mls @ 100 mls/hr IVCONT .Q10H [facility] Home Medications Medication Instructions Recorded Confirmed Last Taken Type baclofen 10 mg tablet 10 mg PO BID PRN 05/31/20 09/05/21 Unknown History duloxetine 30 mg capsule,delayed 30 mg PO DAILY 05/31/20 09/05/21 Unknown History release fluticasone propionate 50 1 spray INTRANASAL DAILY 05/31/20 09/05/21 Unknown History mcg/actuation nasal spray,suspension lisinopril 20 1 tab PO DAILY 05/31/20 09/05/21 Unknown History mg-hydrochlorothiazide 25 mg tablet topiramate 50 mg tablet 50 mg PO DAILY 05/31/20 09/05/21 Unknown History bupropion HCl (smoking deter) 150 150 mg PO DAILY 03/21/21 09/05/21 Unknown History mg tablet,12 hr sustained-release(smoking deterrent) hydroxyzine pamoate 25 mg capsule 25 mg PO BID 03/21/21 09/05/21 Unknown History mirtazapine 45 mg tablet 45 mg PO BEDTIME 03/21/21 09/05/21 Unknown History gabapentin 300 mg capsule 300 mg PO DAILY 04/05/21 09/05/21 Unknown History omeprazole 20 mg capsule,delayed 20 mg PO DAILY 09/05/21 09/05/21 Unknown History release Exam Exam Date and Time: September 27, 2021 1420 Height,Weight and Vital Signs: Height 5 ft 3 in Weight 95 kg Pertinent Lab Results Pertinent Lab Results: Laboratory Tests 09/27/21 13:45 Urine Test NEGATIVE Airway Mallampati Class: III TM Dist: >3cm Neck ROM: Full Heart: RRR Lungs: CTA Assessment and Plan Assessment Anesthesia Assessment: Anesthesia Plan Discussed Final Anesthetic Review Family History of Problems with Anesthesia: No History of Problems with Anesthesia: No NPO: Yes ASA Class: III Final Preanesthetic Review: No Changes in Pt Med Stat, Meds/Allgs Chart Reviewed, Consent Obtained/Reviewed and Anes Risks/Benef Reviewed Patient Risk: Intermediate Procedure Risk: Low Anesthetic Plan Anesthetic Plan: MAC: Disposition: Standard PACU
[2021-09-27] MEDS: Lactated Ringers 1,000 ML 100 ML IVCONT (14:35)
[2021-09-27 14:47] LABS: Glucose, Whole Blood 104 mg/dL (60-115)
--- NOTE | 2021-09-27 14:56 | P.BOP_ITS ---
Brief Operative Note Date of Service: 09/27/21 Pre-op diagnosis: epigastric pain Post-op diagnosis: same Procedure: see op note Surgeon: Dean Grubbs MD Anesthesia: MAC Was an Business Performance Advisor used for this Procedure?: No Estimated blood loss (mL): 0 Condition: stable Disposition: PACU
--- NOTE | 2021-09-27 14:57 | W.PM.OPN ---
Operative Note Operative Note Date of Service: 09/27/21 Narrative: Procedure Description: EGD FLEXIBLE TRANSORAL UPPER GASTROINTESTINAL ENDOSCOPY UPPER ENDOSCOPY Consent: Indications for the procedure and potential complications of bleeding, perforation, reaction to medications and missed diagnosis were discussed with the patient and informed consent was obtained. Instrument: Olympus GIF H 190 J mid size upper endoscope Monitoring: Vital signs and clinical assessment, continuous EKG monitoring, Pulse oximetry, Carbon Dioxide monitoring and blood pressure monitoring were done throughout the procedure. Procedure: The patient was placed in the left lateral decubitis position and pre-procedure medications were administered and a bite block was placed. The endoscope was inserted into the mouth and advanced under direct vision to the third part of duodenum. A careful inspection was made as the upper endoscope was withdrawn including a retroflexed examination of the proximal stomach; Findings and interventions are described below. Findings: Larynx:normal Esophagus: GE junction at 38 cm, diaphragm hiatus at 38 cm, no varices or esophagitis. random esophagus biopsies taken. Stomach: very mild gastric erythema. Biopsies were obtained. Grade 2 flap valve on retroflexed examination of the cardia. There appeared to be a lack of gastric peristasis. Duodenum: Normal bulb and descending duodenum, bx taken Intervention: Biopsies as noted above Impression/Findings: possible gastroparesis PLAN: await bx results, if neg then GES to evaluate for gastroparesis
[2021-09-27 15:30] VITALS: BP 118/73; PULSE 85; RESP 16; TEMP 36.7; O2SAT 98
[2021-09-27 15:45] VITALS: BP 121/77; PULSE 82; RESP 16; TEMP 36.3; O2SAT 100
[2021-09-27] MEDS: Magnesium Hydrox/Alum Hydrox 30 ML ORAL.SUSP 15 ML PO (15:52)
[2021-09-27 16:00] VITALS: BP 121/71; PULSE 84; RESP 16; TEMP 36.4; O2SAT 100
--- NOTE | 2021-09-27 16:01 | HO.POSTANES ---
Post Anesthesia Evaluation Post Anesthesia Evaluation Vital Signs: Vital Signs Temp Pulse Resp BP Pulse Ox 09/27/21 15:45 97.4 F 82 16 121/77 100 09/27/21 15:30 98.0 F 85 16 118/73 98 09/27/21 14:15 99.6 F 86 18 130/71 98 Anesthesia: Monitored Mental Status: Awake Pain Control: Satisfactory Nausea/Vomiting: None Hydration: Adequate Anesthesia-Related Issues: No Anes. Related Issues
== END 2021-09-27 16:24 | disposition home or self-care (01) ==
PROVIDERS: Nurse Practitioner; PCP Hospitalist; Visit Provider Internal Medicine Gastroenterology
PROC: 0DJ08ZZ Inspection of Upper Intestinal Tract, Via Natural or Artificial Opening Endoscopic (ICD-10-PCS; CPT 43235; principal; 2021-09-27 14:20)
DX: R10.13 Epigastric pain (principal); K29.50 Unspecified chronic gastritis without bleeding; K44.9 Diaphragmatic hernia without obstruction or gangrene; K21.9 Gastro-esophageal reflux disease without esophagitis; K59.00 Constipation, unspecified; E78.5 Hyperlipidemia, unspecified; I10 Essential (primary) hypertension; I95.9 Hypotension, unspecified; E11.9 Type 2 diabetes mellitus without complications; E55.9 Vitamin D deficiency, unspecified; E04.2 Nontoxic multinodular goiter; F32.9 Major depressive disorder, single episode, unspecified; Z79.4 Long term (current) use of insulin; Z79.899 Other long term (current) drug therapy
CPT/HCPCS: 43239; 81025; 82947; 88305; 88342

== ENCOUNTER 2022-01-10 10:42 | Outpatient (REF) | payer OTHER, SELFPAY ==
[2022-01-10 11:32] LABS: Estimated Average Glucose 126 mg/dL
[2022-01-10 12:03] LABS: Alanine Aminotransferase 11 U/L (0-31); Albumin Level 3.9 g/dL (3.5-5.0); Alkaline Phosphatase 48 U/L (39-117); Anion Gap 11 (12-20); Aspartate Amino Transferase 12 U/L (5-31); Bilirubin Total 0.4 mg/dL (0.0-1.0); Blood Urea Nitrogen 13 mg/dL (9-16); Calcium 9.1 mg/dL (8.4-10.2); Carbon Dioxide 28 mmol/L (22-29); Chloride 105 mmol/L (96-108); Cholesterol 139 mg/dL; Estimated Glomerular Filt Rate > 60; Glucose Random 106 mg/dL (60-115); HDL Cholesterol 38 mg/dL; LDL Cholesterol Calculated 81 mg/dl; Potassium 4.6 mmol/L (3.3-5.1); Sodium 139 mmol/L (135-145); Total Protein 6.5 g/dL (6.5-8.0); Triglycerides 104 mg/dL
[2022-01-10 12:20] LABS: Vitamin B12 343 pg/mL (200-900)
[2022-01-10 12:26] LABS: Free T4 (Free Thyroxine) 0.92 ng/dL (0.71-1.85); Vitamin D 25-OH Total 29.2 ng/mL (>30)
[2022-01-10 12:52] LABS: Creatinine Urine 157.11 mg/dL; Microalbum/Creatinine Ratio Ur 5.7 ug/mg cr
[2022-01-12 13:12] LABS: LDL Cholesterol Direct 89 mg/dL (<100)
== END 2022-01-10 10:43 | disposition home or self-care (01) ==
LOC: HO.LAB 10:42
PROVIDERS: PCP Hospitalist; Visit Provider Internal Medicine
DX: E11.65 Type 2 diabetes mellitus with hyperglycemia (principal); E04.2 Nontoxic multinodular goiter; E55.9 Vitamin D deficiency, unspecified
CPT/HCPCS: 36415; 80053; 80061; 82043; 82306; 82607; 83036; 83721; 84439; 84443

== ENCOUNTER → 2022-01-14 10:53 | Outpatient (BNVA) | payer OTHER, SELFPAY | PROVIDERS: PCP Hospitalist; Visit Provider Internal Medicine | DX: E11.65 Type 2 diabetes mellitus with hyperglycemia (principal); E78.5 Hyperlipidemia, unspecified; I10 Essential (primary) hypertension; E55.9 Vitamin D deficiency, unspecified; E04.2 Nontoxic multinodular goiter; Z79.84 Long term (current) use of oral hypoglycemic drugs; Z79.899 Other long term (current) drug therapy | CPT/HCPCS: 82947; 99212 ==

== ENCOUNTER → 2022-03-25 12:20 | Outpatient (BNVA) | payer OTHER, SELFPAY | PROVIDERS: PCP Hospitalist; Referring Provider Hospitalist; Visit Provider Internal Medicine Gastroenterology | DX: G89.29 Other chronic pain (principal); R10.11 Right upper quadrant pain; Z98.890 Other specified postprocedural states | CPT/HCPCS: 99212 ==

== ENCOUNTER 2022-03-29 08:33 | Outpatient (REF) | payer OTHER, SELFPAY ==
--- NOTE | ~2022-03-29 | US_ITS ---
EXAMINATION: US ABDOMEN COMPLETE CLINICAL INFORMATION: Right upper quadrant pain. COMPARISON: CT abdomen and pelvis 03/26/2021. Ultrasound abdomen complete 01/16/2021 and 12/22/2017. TECHNIQUE: Real-time imaging of the abdominal viscera. FINDINGS: PANCREAS: Not well visualized due to bowel gas ABDOMINAL AORTA: The proximal, mid, and distal segments are normal in caliber. INFERIOR VENA CAVA: Visualized portions are normal. LIVER: The liver is normal in size. The liver contour is normal. Liver echotexture is normal. No focal hepatic lesion. There is no intrahepatic biliary duct dilatation seen. GALLBLADDER: There is a 5 x 3 x 5 mm hyperechoic area adjacent to the gallbladder wall questionable for a small polyp versus sludge. Gallbladder wall is slightly thickened measuring 4 mm. The gallbladder is normal in size. No gallstones. No pericholecystic fluid. COMMON BILE DUCT: Normal in caliber measuring 0.2 cm in diameter. RIGHT KIDNEY: Normal. No hydronephrosis. No renal calculi or focal parenchymal lesions. The kidney measures 11.9 cm in maximum dimension. LEFT KIDNEY: Normal. No hydronephrosis. No renal calculi or focal parenchymal lesions. The kidney measures 11.9 cm in maximum dimension. SPLEEN: Upper normal in size. The spleen measures 13.4 cm in maximum dimension. FREE FLUID: None. US/US abdomen complete IMPRESSION: Question small polyp or sludge in the gallbladder. No definite gallstones are seen. Upper normal-size spleen. Limited visualization of the pancreas.
== END 2022-03-29 08:34 | disposition home or self-care (01) ==
LOC: HO.US 08:33
PROVIDERS: Visit Provider Internal Medicine Gastroenterology
DX: R10.11 Right upper quadrant pain (principal); G89.29 Other chronic pain
CPT/HCPCS: 76700

== ENCOUNTER 2022-04-08 12:51 | Outpatient (REF) | payer OTHER, SELFPAY ==
--- NOTE | ~2022-04-08 | US_ITS ---
EXAMINATION: US THYROID CLINICAL INFORMATION: Nontoxic multinodular goiter. COMPARISON: Ultrasound thyroid 02/22/2021 and 02/08/2020. US-guided thyroid biopsy 05/17/2021. TECHNIQUE: Linear transducer grayscale and color Doppler examination with attention to the region of the thyroid. FINDINGS: SIZE: Measurements of the thyroid lobes and nodules are given in sagittal, anteroposterior and transverse dimensions respectively. Right Thyroid Lobe: 5.4 x 1.3 x 2.0 cm, volume 7.2 mL. Previously 4.7 x 1.6 x 2.1 cm, volume 8.4 mL. Parenchyma: The gland echotexture is heterogeneous. Thyroid vascularity is normal. Left Thyroid Lobe: 5.4 x 1.6 x 2.0 cm, volume 8.9 mL. Previously 5.4 x 1.7 x 2.0 cm, volume 9.5 mL. Parenchyma: The gland echotexture is heterogeneous. Thyroid vascularity is normal. Isthmus: 0.3 cm in maximum AP dimension. Previously 0.3 cm. Estimated total number of nodules greater than or equal to 1 cm: 2. Pan Devulcanizer nodules are described as follows: 1. Location: Right superior. Size: 0.4 x 0.4 x 0.4 cm, volume 0.03 mL. Previously: 0.4 x 0.4 x 0.4 cm, volume 0.04 mL. Nodule characteristics: Composition: Solid/almost completely solid (2). Echogenicity: Hypoechoic (2). Shape: Not taller than wide (0). Margins: Smooth (0). Echogenic Foci: Comet-tail artifacts (0). ACR TI-RADS total points: 4 Previous: 0 ACR TI-RADS category: 4 Previous: 1 Significant change in size (>/= 20% in 2 dimensions and minimal increase of 2 mm or 50% or greater increase in volume): None. Change in features: Slight change. Change in ACR TI-RADS risk category: Slight increase in total points and Ti-Rads no. 2. Location: Right mid. Size: 0.5 x 0.3 x 0.4 cm, volume 0.03 mL. Previously: New since the previous study. Nodule characteristics: Composition: Solid (2). Echogenicity: Isoechoic (1). Shape: Not taller than wide (0). Margins: Ill-defined (0). Echogenic Foci: None (0). ACR TI-RADS total points: 3 ACR TI-RADS category: 3 3. Location: Left superior. Size: 0.8 x 0.7 x 0.8 cm, volume 0.2 mL. Previously: 0.7 x 0.5 x 0.6 cm, volume 0.14 mL. Nodule characteristics: Composition: Solid/almost completely solid (2). Echogenicity: Hypoechoic (2). Shape: Not taller than wide (0). Margins: Irregular (2). Echogenic Foci: Punctate echogenic foci (3). ACR TI-RADS total points: 9 Previous: 0 ACR TI-RADS category: 5 Previous: 1 Significant change in size (>/= 20% in 2 dimensions and minimal increase of 2 mm or 50% or greater increase in volume): None. Change in features: Slight change. Change in ACR TI-RADS risk category: Increase in total points and TI-RADS however still subcentimeter in size. 4. Location: Left mid/inferior. Size: 1.7 x 1.0 x 1.2 cm, volume 1.1 mL. Previously: 1.59 x 1.3 x 1.5 cm, volume 1.6 mL. Nodule characteristics: Composition: Solid (2). Echogenicity: Hypoechoic (2). Shape: Not taller than wide (0). Margins: Lobulated (2). Echogenic Foci: None (0). ACR TI-RADS total points: 6 Previous: 6 ACR TI-RADS category: 4 Previous: 4 Significant change in size (>/= 20% in 2 dimensions and minimal increase of 2 mm or 50% or greater increase in volume): None. Change in features: None. Change in ACR TI-RADS risk category: None. 5. Location: Left inferior lateral. Size: 1.1 x 0.4 x 0.5 cm, volume 0.1 mL. Previously: 0.87 x 0.46 x 0.45 cm, volume 0.09 mL. Nodule characteristics: Composition: Solid (2). Echogenicity: Isoechoic (1). Shape: Not taller than wide (0). Margins: Ill-defined (0). Echogenic Foci: None (0). ACR TI-RADS total points: 3 Previous: 7 ACR TI-RADS category: 3 Previous: 5 Significant change in size (>/= 20% in 2 dimensions and minimal increase of 2 mm or 50% or greater increase in volume): None. Change in features: Improved. Change in ACR TI-RADS risk category: Improved. NODES: Solitary 2.0 x 0.4 x 0.6 cm lymph node left lateral neck level 3. US/US thyroid IMPRESSION: Heterogeneous thyroid gland with multiple nodules. There is only one solitary nodule which is 1.1 cm and nonsuspicious and improved in total points and TI-RADS category from previous exam 02/22/2021. Recommend continued followup. ACR TI-RADS RECOMMENDATION REFERENCE: Ultrasound-guided fine-needle aspiration, followup ultrasound, no further follow up. * TR1 (0 point) and TR 2 (2 points): No FNA or follow up. * TR3 (3 points): FNA if more than or equal to 2.5 cm in maximum dimension, followup ultrasound in 1, 3 and 5 years if 1.5 to 2.4 cm in maximum dimension. * TR4 (4-6 points): FNA if more than or equal to 1.5 cm in maximum dimension, followup ultrasound in 1, 2, 3 and 5 years if 1 to 1.4 cm in maximum dimension. * TR5 (more than or equal to 7 points): FNA if more than or equal to 1 cm in maximum dimension, followup ultrasound every year for 5 years if 0.5 to 0.9 cm in maximum dimension. * TR3, TR4 or TR5 nodules that are below the size threshold for followup receive no follow up.
== END 2022-04-08 12:52 | disposition home or self-care (01) ==
LOC: HO.US 12:51
PROVIDERS: Visit Provider Internal Medicine
DX: E04.2 Nontoxic multinodular goiter (principal)
CPT/HCPCS: 76536

== ENCOUNTER 2022-05-20 11:49 | Outpatient (REF) | payer OTHER, SELFPAY | END 2022-05-20 11:50 | disposition home or self-care (01) | LOC: HO.MDS 11:49 | PROVIDERS: Visit Provider Internal Medicine Medical Oncology | DX: D50.9 Iron deficiency anemia, unspecified (principal) | CPT/HCPCS: 96365; J1756 ==

== ENCOUNTER 2022-05-27 11:12 | Outpatient (REF) | payer OTHER, SELFPAY | END 2022-05-27 11:13 | disposition home or self-care (01) | LOC: HO.MDS 11:12 | PROVIDERS: Visit Provider Internal Medicine Medical Oncology | DX: D50.9 Iron deficiency anemia, unspecified (principal) | CPT/HCPCS: 96365; J1756 ==

== ENCOUNTER 2022-06-03 13:26 | Outpatient (REF) | payer OTHER, SELFPAY ==
[2022-06-03 16:50] LABS: Estimated Average Glucose 108 mg/dL; Hemoglobin A1c % 5.4 %
[2022-06-03 17:19] LABS: Alanine Aminotransferase 16 U/L (0-31); Albumin Level 4.1 g/dL (3.5-5.0); Alkaline Phosphatase 49 U/L (39-117); Anion Gap 13 (12-20); Aspartate Amino Transferase 17 U/L (5-31); Bilirubin Total 0.3 mg/dL (0.0-1.0); Blood Urea Nitrogen 13 mg/dL (9-16); Calcium 9.7 mg/dL (8.4-10.2); Carbon Dioxide 26 mmol/L (22-29); Chloride 105 mmol/L (96-108); Estimated Glomerular Filt Rate > 60; Glucose Random 80 mg/dL (60-115); Sodium 140 mmol/L (135-145); Thyroid Stimulating Hormone 0.94 uIU/mL (0.32-4.0); Total Protein 6.7 g/dL (6.5-8.0)
== END 2022-06-03 13:27 | disposition home or self-care (01) ==
LOC: HO.MDS 13:26
PROVIDERS: Absent Provider Internal Medicine; PCP Hospitalist; Visit Provider Internal Medicine Medical Oncology
DX: D50.9 Iron deficiency anemia, unspecified (principal); E11.65 Type 2 diabetes mellitus with hyperglycemia; E04.2 Nontoxic multinodular goiter
CPT/HCPCS: 36415; 80053; 83036; 84439; 84443; 96365; J1756

== ENCOUNTER → 2022-06-05 13:42 | Outpatient (BNVA) | payer OTHER, SELFPAY | PROVIDERS: PCP Hospitalist; Visit Provider Internal Medicine | DX: E11.65 Type 2 diabetes mellitus with hyperglycemia (principal); E78.5 Hyperlipidemia, unspecified; I10 Essential (primary) hypertension; E55.9 Vitamin D deficiency, unspecified; E04.2 Nontoxic multinodular goiter | CPT/HCPCS: 82947; 99212 ==

== ENCOUNTER 2022-06-10 13:27 | Outpatient (REF) | payer OTHER, SELFPAY ==
[2022-06-10 13:56] LABS: Baso%MD 0.7 %; Hematocrit 35.6 % (37.0-47.0); Hemoglobin 10.6 g/dl (12.0-16.0); IG%MD 0.4 %; Lymph%MD 24.4 %; Mean Corpuscular HGB Conc 29.8 g/dl (31.0-35.0); Mean Corpuscular Hemoglobin 21.3 pg (27.0-33.0); Mean Corpuscular Volume 71.6 fL (80.0-98.0); Mean Platelet Volume 9.5 fL (9.4-12.3); Mono%MD 7.6 %; Neut%MD 61.9 %; Platelet Count 304 X10*3/uL (160-400); Red Blood Count 4.97 X10*6/uL (4.20-5.50); Red Cell Distribution Width 25.3 % (11.0-16.0); White Blood Count 5.4 X10*3/uL (4.8-10.8)
[2022-06-10 15:40] LABS: Eosinophils Absolute Manual 0.1 X10*3/uL (0.0-0.4); Eosinophils Percent Manual 1 % (0-4); Lymphocytes Absolute Manual 1.5 X10*3/uL (1.2-4.9); Lymphocytes Percent Manual 28 % (20-40); Monocytes Absolute Manual 0.3 X10*3/uL (0.1-1.2); Monocytes Percent Manual 6 % (2-11); Neutrophils Percent Manual 65 % (45-73)
[2022-06-10 15:41] LABS: Platelet Estimate NORMAL (NORMAL); Platelet Morphology Comment NORMAL; RBC Morphology NORMAL
[2022-06-10 15:42] LABS: Neutrophils Absolute Manual 3.5 X10*3/uL (2.0-8.3)
== END 2022-06-10 13:28 | disposition home or self-care (01) ==
LOC: HO.MDS 13:27
PROVIDERS: Visit Provider Internal Medicine Medical Oncology
DX: D50.9 Iron deficiency anemia, unspecified (principal)
CPT/HCPCS: 36415; 85007; 85027; 96365; J1756

== ENCOUNTER 2022-06-17 13:54 | Outpatient (REF) | payer OTHER, SELFPAY | END 2022-06-17 13:55 | disposition home or self-care (01) | LOC: HO.MDS 13:54 | PROVIDERS: Visit Provider Internal Medicine Medical Oncology | DX: D50.9 Iron deficiency anemia, unspecified (principal) | CPT/HCPCS: 96365; J1756 ==

== ENCOUNTER → 2022-06-18 08:07 | Outpatient (REF) | payer OTHER, SELFPAY ==
--- NOTE | ~2022-06-18 | NM_ITS ---
EXAMINATION: NV RADIONUCLIDE SOLID FOOD GASTRIC EMPTYING 4-HOUR STUDY CLINICAL INFORMATION: Early satiety. COMPARISON: None TECHNIQUE: A standard meal consisting of 4 oz of Egg Beaters brand tagged with 970 microcuries Tc-99m Sulfur Colloid, 8 oz water and 2 slices of toast with jelly was administered orally to the patient. Images were obtained using a dual head gamma camera in the anterior and posterior projections over of the stomach immediately post ingestion and at hourly intervals up to 4 hours post ingestion. The anterior and posterior counts at each time interval were averaged using the geometric mean and expressed as percentage of the immediate post ingestion counts. FINDINGS: There is good visualization of activity in the stomach immediately post ingestion. As the study progresses, there is good clearance of activity from the stomach and visualization of progressively increasing small bowel activity. By the end of the study, there is almost no retention noted in the stomach. Retention in the stomach at each time interval was: 1 hour 87% (normal 37%-90%) 2 hours 47% (normal 30%-60%) 3 hours 7% 4 hours 2% (normal 0%-10%) NV/NV gastric emptying study IMPRESSION: Normal 4-hour solid food gastric emptying study.
== END ==
LOC: HO.NUCMED 08:07
PROVIDERS: Visit Provider Internal Medicine Gastroenterology
DX: R68.81 Early satiety (principal)
CPT/HCPCS: 78264; A9541

== ENCOUNTER 2022-06-24 13:45 | Outpatient (REF) | payer OTHER, SELFPAY | END 2022-06-24 13:46 | disposition home or self-care (01) | LOC: HO.MDS 13:45 | PROVIDERS: Visit Provider Internal Medicine Medical Oncology | DX: D50.9 Iron deficiency anemia, unspecified (principal) | CPT/HCPCS: 96365; J1756 ==

== ENCOUNTER 2022-07-02 13:50 | Outpatient (REF) | payer OTHER, SELFPAY | END 2022-07-02 13:51 | disposition home or self-care (01) | LOC: HO.MDS 13:50 | PROVIDERS: Visit Provider Internal Medicine Medical Oncology | DX: D50.9 Iron deficiency anemia, unspecified (principal) | CPT/HCPCS: 96365; J1756 ==

== ENCOUNTER → 2022-07-03 07:37 | Outpatient (REF) | payer OTHER, SELFPAY ==
--- NOTE | ~2022-07-03 | NM_ITS ---
EXAMINATION: BILIARY TRACT IMAGING STUDY WITH CCK CLINICAL INFORMATION: Right upper quadrant pain.. COMPARISON: No previous biliary scan is available for comparison. Abdominal ultrasound dated 03/29/[address] scan of the abdomen and pelvis dated 03/26/2021 are available for comparison.. TECHNIQUE: Serial gamma scintillation camera images were obtained over the abdomen for a total observation period of 100 minutes following the intravenous administration of 5 mCi Tc-99m Mebrofenin. FINDINGS: There is good concentration of activity in the liver by 5 minutes post injection. Biliary activity is visualized by a minutes. The gallbladder is well visualized by 20 minutes. Small bowel is well visualized by 75 minutes. At 70 minutes post radiopharmaceutical injection, a 30-minute infusion of 2.0 micrograms Sincalide was then begun and an additional 40 minutes of images were obtained. There is good emptying of the gallbladder. By the end of the study there is good clearance of activity from the liver and visualization of diffuse small bowel activity. The calculated gallbladder ejection fraction is 85% (normal gallbladder ejection fraction is greater than 35%). NM/NM hepatobiliary w pharm IMPRESSION: Visualization of the gallbladder is evidence of a patent cystic duct and strong evidence against the diagnosis of acute cholecystitis. The common bile duct is patent. Gallbladder emptying and ejection fraction are normal. Liver function appears normal.
== END ==
LOC: HO.NUCMED 07:37
PROVIDERS: Visit Provider Internal Medicine Gastroenterology
DX: R10.11 Right upper quadrant pain (principal); G89.29 Other chronic pain
CPT/HCPCS: 78227; A9537

== ENCOUNTER 2022-07-11 13:40 | Outpatient (REF) | payer OTHER, SELFPAY ==
[2022-07-11 14:18] LABS: Basophils Percent Auto 0.6 % (0-2); Eosinophils Absolute Auto 0.4 X10*3/uL (0.0-0.4); Eosinophils Percent Auto 5.2 % (0-4); Hematocrit 40.8 % (37.0-47.0); Hemoglobin 12.7 g/dl (12.0-16.0); Imm Gran Abs Auto 0.02 X10*3/uL (0.00-0.03); Imm Gran Pct Auto 0.3 % (0.0-0.4); Lymphocytes Absolute Auto 1.8 X10*3/uL (1.2-4.9); Lymphocytes Percent Auto 27.2 % (20-40); MANUAL DIFF FLAG NO; Mean Corpuscular HGB Conc 31.1 g/dl (31.0-35.0); Mean Corpuscular Hemoglobin 24.3 pg (27.0-33.0); Mean Corpuscular Volume 78.2 fL (80.0-98.0); Mean Platelet Volume 9.8 fL (9.4-12.3); Monocytes Absolute Auto 0.5 X10*3/uL (0.1-1.2); Monocytes Percent Auto 7.7 % (2-11); Platelet Count 275 X10*3/uL (160-400); Red Blood Count 5.22 X10*6/uL (4.20-5.50); Red Cell Distribution Width 24.3 % (11.0-16.0); White Blood Count 6.7 X10*3/uL (4.8-10.8)
== END 2022-07-11 13:41 | disposition home or self-care (01) ==
LOC: HO.MDS 13:40
PROVIDERS: Visit Provider Internal Medicine Medical Oncology
DX: D50.9 Iron deficiency anemia, unspecified (principal)
CPT/HCPCS: 36415; 85025; 96365; J1756

== ENCOUNTER → 2022-08-23 11:30 | Outpatient (BNVA) | payer OTHER, SELFPAY | PROVIDERS: PCP Hospitalist; Visit Provider Internal Medicine Gastroenterology | DX: K21.9 Gastro-esophageal reflux disease without esophagitis (principal); E66.9 Obesity, unspecified; E11.9 Type 2 diabetes mellitus without complications; E78.5 Hyperlipidemia, unspecified; E55.9 Vitamin D deficiency, unspecified | CPT/HCPCS: 99212 ==

== ENCOUNTER 2022-11-29 11:09 | Outpatient (REF) | payer OTHER, SELFPAY ==
[2022-11-29 11:58] LABS: Estimated Average Glucose 108 mg/dL; Hemoglobin A1c % 5.4 %
[2022-11-29 12:29] LABS: Alanine Aminotransferase 12 U/L (0-31); Albumin Level 4.1 g/dL (3.5-5.0); Alkaline Phosphatase 47 U/L (39-117); Anion Gap 12 (12-20); Aspartate Amino Transferase 10 U/L (5-31); Bilirubin Total 0.5 mg/dL (0.0-1.0); Blood Urea Nitrogen 14 mg/dL (9-16); Calcium 9.1 mg/dL (8.4-10.2); Carbon Dioxide 23 mmol/L (22-29); Chloride 110 mmol/L (96-108); Cholesterol 156 mg/dL; Estimated Glomerular Filt Rate > 60; Glucose Random 120 mg/dL (60-115); HDL Cholesterol 43 mg/dL; LDL Cholesterol Calculated 99 mg/dl; Potassium 3.9 mmol/L (3.3-5.1); Sodium 141 mmol/L (135-145); Total Protein 6.7 g/dL (6.5-8.0); Triglycerides 71 mg/dL
[2022-11-29 12:43] LABS: Creatinine Urine 107.31 mg/dL; Microalbum/Creatinine Ratio Ur 7.4 ug/mg cr
[2022-11-29 12:53] LABS: Free T4 (Free Thyroxine) 0.94 ng/dL (0.71-1.85); Thyroid Stimulating Hormone 1.08 uIU/mL (0.32-4.0); Vitamin D 25-OH Total 24.2 ng/mL (>30)
[2022-12-02 05:28] LABS: LDL Cholesterol Direct 102 mg/dL (<100)
== END 2022-11-29 11:10 | disposition home or self-care (01) ==
LOC: HO.LAB 11:09
PROVIDERS: PCP Hospitalist; Visit Provider Internal Medicine
DX: E11.65 Type 2 diabetes mellitus with hyperglycemia (principal); E04.2 Nontoxic multinodular goiter; E55.9 Vitamin D deficiency, unspecified
CPT/HCPCS: 36415; 80053; 80061; 82043; 82306; 83036; 83721; 84439; 84443

== ENCOUNTER → 2023-01-01 09:44 | Outpatient (BNVA) | payer OTHER, SELFPAY | PROVIDERS: PCP Hospitalist; Visit Provider Internal Medicine ==

== ENCOUNTER 2023-02-21 12:03 | Outpatient (AMB) | payer OTHER, SELFPAY ==
--- NOTE | 2023-02-21 12:06 | MHC.OFFVIS ---
Intake Vital Signs 02/21/23 12:16 Height 5 ft 3 in Weight 214 lb BMI 37.9 BP 130/80 Blood Pressure Location Lt brachial Position Sitting Pulse 80 Intake Visit Reasons: 6 month fu Intake Note: Patient 6 month follow up for quadrant pain. Patient cc: Nauseas, abdominal cramping, and acid reflex. Driver License Reviewing Officer Required: Yes Accompanied by: Self / Same As Patient Allergies No Known Allergies [No Known Allergies*] Allergy (Verified 02/21/23 12:06) HPI 6 month fu HPI Details 47 yr old f here for f/u RECAP: she has chronic joint pains in back and spine--takes gabapentin ongoing depression with poor sleep--erratic hours EGD July 2019 with biopsies no H pylori, inactive gastritis GES was nml CT 03/2021-- ileus, fluid filled colon, wall thickening of distal stomach, EGD: 09/2021-- essentially normal US 03/28- GB with sludge vs polyp, otherwise nml GES 06/2022-- nml 4 hr emptying, fast in the 1st hour HIDA- 06/27---nml INTERIM: she tried nortriptiline for 1 month and felt no benefit she felt some benefit from ABx in the past lasted about 1 month depression is ongoing she only manages 3-4 hours a night she has had sleep study-and was told to take melatonin --?done at [facility] or [facility] ongoing bloating and discomfort EXAM: GENERAL: The patient is frail VITAL SIGNS:see workflow HEENT: Nonicteric sclerae, PERRLA, EOMI. Oropharynx clear. Moist mucous membranes. Conjunctivae appear well perfused. No thyroid mass. CHEST: Chest wall is nontender. HEART: Regular rate and rhythm without murmurs. LUNGS: Clear to auscultation bilaterally. ABDOMEN: Soft, positive bowel sounds, tender epigastrium and RUQ, no organomegaly.no flank tenderness SKIN: No rash, no excessive bruising, petechiae, or purpura. NEUROLOGIC: Cranial nerves II-XII intact without motor/sensory deficit. A/P: 1/ Ongoing sx with upper abdo pain, bloating---appears functional given severe depressive overlap also related to poor sleep, also maybe related to her meds PLAN: 1/ will get new sleep study, discussed techniques for helping sleep, diet, and environmental factors 2/ discussed CBT again and referral to [facility], she will consider 3/ ? refilled on Vit D and PPI 4/ trial of probiotics ? PFSH Medical History HLD (hyperlipidemia) HTN (hypertension) Hypotension Multinodular thyroid T2DM (type 2 diabetes mellitus) Vitamin D deficiency Surgical History History of carpal tunnel surgery of left wrist History of esophagogastroduodenoscopy (EGD) Hx of colonoscopy Hx of esophagogastroduodenoscopy Family History Father No family history of disorders Mother No family history of disorders Social History Household Members: Spouse and Children Housing: House Housing Other:: spouse/ kids Are you a primary neonatal intensive care nurse to a significant other at home: Yes Do you presently have visiting nurse or other home services: No Alcohol intake: never Patient Tobacco Use Status: Never used Tobacco service: No Current occupational status: unemployed Assessment & Plan Assessment & Plan (1) Disordered sleep: Code(s): G47.9 - Sleep disorder, unspecified (2) Chronic GERD: Code(s): K21.9 - Gastro-esophageal reflux disease without esophagitis (3) Functional dyspepsia: Code(s): K30 - Functional dyspepsia Orders: Referrals Sleep Medicine Referral G47.9 - Sleep disorder, unspecified Medications: New pantoprazole 20 mg PO DAILY 90 tabs 2RF Refilled cholecalciferol (vitamin D3) 50 mcg PO DAILY 90 days 90 caps 11RF E55.9 - Vitamin D deficiency, unspecified Discontinued nortriptyline Discontinued Reason: Doctor's Order 10 mg PO BEDTIME 30 caps 2RF Coding Level of Care Code Est Pt Level 3 (21768) Diagnoses Disordered sleep G47.9 Chronic GERD K21.9 Functional dyspepsia K30
[2023-02-21 12:16] VITALS: BP 130/80; PULSE 80; BMI 37.9
== END 2023-02-21 12:39 | disposition home or self-care (01) ==
PROVIDERS: Visit Provider Internal Medicine Gastroenterology
DX: G47.9 Sleep disorder, unspecified (principal); K21.9 Gastro-esophageal reflux disease without esophagitis; K30 Functional dyspepsia
CPT/HCPCS: 99213

== ENCOUNTER → 2023-02-21 12:03 | Outpatient (BNVA) | payer OTHER, SELFPAY | PROVIDERS: Visit Provider Internal Medicine Gastroenterology | DX: G47.9 Sleep disorder, unspecified (principal); K21.9 Gastro-esophageal reflux disease without esophagitis; K30 Functional dyspepsia | CPT/HCPCS: 99212 ==

== ENCOUNTER 2023-04-01 13:08 | Outpatient (REF) | payer OTHER, SELFPAY | END 2023-04-01 13:09 | disposition home or self-care (01) | LOC: HO.MDS 13:08 | PROVIDERS: Visit Provider Internal Medicine Medical Oncology | DX: D50.8 Other iron deficiency anemias (principal) | CPT/HCPCS: 96365; J1756 ==

== ENCOUNTER 2023-04-07 15:13 | Outpatient (REF) | payer OTHER, SELFPAY | END 2023-04-07 15:14 | disposition home or self-care (01) | LOC: HO.MDS 15:13 | PROVIDERS: Visit Provider Internal Medicine Medical Oncology | DX: D50.8 Other iron deficiency anemias (principal) | CPT/HCPCS: 96365; J1756 ==

== ENCOUNTER 2023-04-16 14:58 | Outpatient (REF) | payer OTHER, SELFPAY | END 2023-04-16 14:59 | disposition home or self-care (01) | LOC: HO.MDS 14:58 | PROVIDERS: Visit Provider Internal Medicine Medical Oncology | DX: D50.8 Other iron deficiency anemias (principal) | CPT/HCPCS: 96365; J1756 ==

== ENCOUNTER 2023-04-23 15:06 | Outpatient (REF) | payer OTHER, SELFPAY ==
[2023-04-23 16:03] LABS: MANUAL DIFF FLAG NO
[2023-04-23 16:06] LABS: Basophils Percent Auto 0.7 % (0-2); Eosinophils Absolute Auto 0.3 X10*3/uL (0.0-0.4); Eosinophils Percent Auto 4.9 % (0-4); Hematocrit 40.4 % (37.0-47.0); Hemoglobin 12.6 g/dl (12.0-16.0); Imm Gran Abs Auto 0.02 X10*3/uL (0.00-0.03); Imm Gran Pct Auto 0.4 % (0.0-0.4); Lymphocytes Absolute Auto 1.4 X10*3/uL (1.2-4.9); Lymphocytes Percent Auto 24.9 % (20-40); Mean Corpuscular HGB Conc 31.2 g/dl (31.0-35.0); Mean Corpuscular Hemoglobin 24.8 pg (27.0-33.0); Mean Corpuscular Volume 79.5 fL (80.0-98.0); Mean Platelet Volume 9.8 fL (9.4-12.3); Monocytes Absolute Auto 0.5 X10*3/uL (0.1-1.2); Monocytes Percent Auto 8.2 % (2-11); Neutrophils Absolute Auto 3.4 x10*3/uL (2.0-8.3); Neutrophils Percent Auto 60.9 % (45-73); Platelet Count 273 X10*3/uL (160-400); Red Blood Count 5.08 X10*6/uL (4.20-5.50); Red Cell Distribution Width 19.9 % (11.0-16.0); White Blood Count 5.5 X10*3/uL (4.8-10.8)
== END 2023-04-23 15:07 | disposition home or self-care (01) ==
LOC: HO.MDS 15:06
PROVIDERS: Visit Provider Internal Medicine Medical Oncology
DX: D50.8 Other iron deficiency anemias (principal)
CPT/HCPCS: 36415; 85025; 96365; J1756

== ENCOUNTER 2023-06-03 09:06 | Outpatient (AMB) | payer OTHER, SELFPAY ==
--- NOTE | 2023-06-03 09:15 | MHC.OFFVIS ---
Intake Vital Signs 06/03/23 09:19 Height 5 ft 3 in Weight 216 lb 14.958 oz BMI 38.4 BP 132/78 Blood Pressure Location Rt brachial Position Sitting Pulse 78 Pulse Source Pulse Oximeter Intake Visit Reasons: F/U [id number] Intake Note: Patient present today to follow up on Type 2 Diabetes Mellitus. Previously followed by Dr. Bautista. Last Diabetic Eye exam: approx 2 months ago Last Podiatry Visit: Does not see a Hearing Instrument Specialist Random Glucose: 90 mg/dl HgA1C: 5.8% Routing Machine Operator Required: Yes Routing Machine Operator Language: Polish Routing Machine Operator Name: Anabel [id number] Information Interpreted: non-clinical & clinical Allergies No Known Allergies [No Known Allergies*] Allergy (Verified 06/03/23 09:24) Medication List - Last Reviewed 06/03/23 by OLEG Yancey ammonium lactate 12% 1 appl topical DAILY atorvastatin 40 mg PO DAILY 30 days blood sugar diagnostic (Blood Glucose Test strips) 3x daily blood sugar diagnostic (FreeStyle Lite Strips) 3x daily bupropion HCl (smoking deter) 150 mg PO DAILY cholecalciferol (vitamin D3) 50 mcg PO DAILY 90 days clotrimazole 1% 1 appl topical BID diltiazem HCl ER 120 mg PO DAILY duloxetine 30 mg PO DAILY empagliflozin (Jardiance) 25 mg PO QAM empagliflozin (Jardiance) 25 mg PO DAILY ferrous sulfate 325 mg PO BID fluticasone propionate 50 mcg/actuation 1 spray intranasal DAILY gabapentin 300 mg PO DAILY hydrocortisone valerate 0.2% 1 appl topical BID hydroxyzine pamoate (Vistaril) 25 mg PO BID liraglutide (Victoza 3-Mor) 1.8 mg (0.3 mL) subcut DAILY lisinopril-hydrochlorothiazide 20-25 mg 1 tab PO DAILY lorazepam 0.5 mg PO DAILY meclizine 25 mg PO TID meloxicam 7.5 mg PO DAILY PRN metformin 1,000 mg PO BID 90 days metoclopramide HCl (Reglan) 10 mg PO TID pantoprazole 20 mg PO DAILY pen needle, diabetic 4x daily pioglitazone 30 mg PO DAILY polysaccharide iron complex 150 mg PO DAILY propafenone 225 mg PO BID sucralfate 1 g PO BID topiramate 25 mg PO DAILY PRN tramadol 50 mg PO DAILY PRN triamcinolone acetonide 0.1% 1 appl topical BID HPI HPI Comments History of Present Illness Details 47 YO F with PMHx T2DM, Nontoxic MNG who is seen in F/U for the same. She was previously a patient of Iona Smith. The patient last saw Dr. Bautista on 01/01/2023 Initially diagnosed with T2DM in 2011. Current regimen is Metformin 1000 mg PO BID, Jardiance 25 mg PO daily Pioglitazone 30 mg PO daily and Victoza 1.8 mg daily. Review her glucometer of she is checking her point cares sporadically shows readings in the glucometer. The range 101-142 . Average is 121. Has hypoglycemia awareness, but has not had a low sugar in a long time. She is aware of the rule of 15's to treat. Denies a family history of T2DM. Has eyes checked yearly, last eye exam 2 mos ago No retinopathy. Has neuropathy. Has nephropathy, on Lisinopril 20 mg PO daily. UAC 5.7 01/10/2022. Has HLD, On Atorvastatin 40 mg PO daily. LDL 89 01/10/2022. Denies any history of CAD. 6 Has not had diabetes education. Has refused. 2) NTMNG: Has longstanding nontoxic MNG. Had prior FNA biopsy by Dr. Washington 12/05/16 of the L lower pole 1.2 cm nodule, with benign cytology. Underwent FNA biopsy 05/17/2021 of her L inferior pole 1.6 cm thyroid nodule, with benign (bethesda category II) cytology. Thyroid US: 04/08/2022 Right Thyroid Lobe: 5.4 x 1.3 x 2.0 cm, volume 7.2 mL. Previously 4.7 x 1.6 x 2.1 cm, volume 8.4 mL. Parenchyma: The gland echotexture is heterogeneous. Thyroid vascularity is normal. Left Thyroid Lobe: 5.4 x 1.6 x 2.0 cm, volume 8.9 mL. Previously 5.4 x 1.7 x 2.0 cm, volume 9.5 mL. Parenchyma: The gland echotexture is heterogeneous. Thyroid vascularity is normal. Isthmus: 0.3 cm in maximum AP dimension. Previously 0.3 cm. Estimated total number of nodules greater than or equal to 1 cm: 2. Safety Belt Installer nodules are described as follows: 1.? Location: Right superior. ?? ? Size: 0.4 x 0.4 x 0.4 cm, volume 0.03 mL. ?? ? Previously: 0.4 x 0.4 x 0.4 cm, volume 0.04 mL. ?? ? Nodule characteristics: ?? ? Composition: Solid/almost completely solid (2). ?? ? Echogenicity: Hypoechoic (2). ?? ? Shape: Not taller than wide (0). ?? ? Margins: Smooth (0). ?? ? Echogenic Foci: Comet-tail artifacts (0).? ACR TI-RADS total points: 4 Previous: 0 ?? ? ACR TI-RADS category: 4 Previous: 1 ? Significant change in size (>/= 20% in 2 dimensions and minimal increase of 2 mm or 50% or greater increase in volume): None. ?? ? Change in features: Slight change. ?? ? Change in ACR TI-RADS risk category: Slight increase in total points and Ti-Rads no. 2.? Location: Right mid. ?? ? Size: 0.5 x 0.3 x 0.4 cm, volume 0.03 mL. ?? ? Previously: New since the previous study. ?? ? Nodule characteristics: ?? ? Composition: Solid (2). ?? ? Echogenicity: Isoechoic (1). ?? ? Shape: Not taller than wide (0). ?? ? Margins: Ill-defined (0). ?? ? Echogenic Foci: None (0). ?? ? ACR TI-RADS total points: 3 ?? ? ACR TI-RADS category: 3 3.? Location: Left superior. ?? ? Size: 0.8 x 0.7 x 0.8 cm, volume 0.2 mL. ?? ? Previously: 0.7 x 0.5 x 0.6 cm, volume 0.14 mL. ?? ? Nodule characteristics: ?? ? Composition: Solid/almost completely solid (2). ?? ? Echogenicity: Hypoechoic (2). ?? ? Shape: Not taller than wide (0). ?? ? Margins: Irregular (2). ?? ? Echogenic Foci: Punctate echogenic foci (3).? ACR TI-RADS total points: 9 Previous: 0 ?? ? ACR TI-RADS category: 5 Previous: 1 ? Significant change in size (>/= 20% in 2 dimensions and minimal increase of 2 mm or 50% or greater increase in volume): None. ?? ? Change in features: Slight change. ?? ? Change in ACR TI-RADS risk category: Increase in total points and TI-RADS however still subcentimeter in size. 4.? Location: Left mid/inferior. ?? ? Size: 1.7 x 1.0 x 1.2 cm, volume 1.1 mL. ?? ? Previously: 1.59 x 1.3 x 1.5 cm, volume 1.6 mL. ?? ? Nodule characteristics: ?? ? Composition: Solid (2). ?? ? Echogenicity: Hypoechoic (2). ?? ? Shape: Not taller than wide (0). ?? ? Margins: Lobulated (2). ?? ? Echogenic Foci: None (0). ?? ? ACR TI-RADS total points: 6 Previous: 6 ?? ? ACR TI-RADS category: 4 Previous: 4 ? Significant change in size (>/= 20% in 2 dimensions and minimal increase of 2 mm or 50% or greater increase in volume): None. ?? ? Change in features: None. ?? ? Change in ACR TI-RADS risk category: None. 5.? Location: Left inferior lateral. ?? ? Size: 1.1 x 0.4 x 0.5 cm, volume 0.1 mL. ?? ? Previously: 0.87 x 0.46 x 0.45 cm, volume 0.09 mL. ?? ? Nodule characteristics: ?? ? Composition: Solid (2). ?? ? Echogenicity: Isoechoic (1). ?? ? Shape: Not taller than wide (0). ?? ? Margins: Ill-defined (0). ?? ? Echogenic Foci: None (0). ? ACR TI-RADS total points: 3 Previous: 7 ?? ? ACR TI-RADS category: 3 Previous: 5 ? Significant change in size (>/= 20% in 2 dimensions and minimal increase of 2 mm or 50% or greater increase in volume): None. ?? ? Change in features: Improved. ?? ? Change in ACR TI-RADS risk category: Improved. NODES: Solitary 2.0 x 0.4 x 0.6 cm lymph node left lateral neck level 3. Labs: Laboratory Tests 11/29/22 11/29/22 11/29/22 11:13 11:13 11:13 Hemoglobin A1c % 5.4 LDL Cholesterol Di rect 102 H TSH 1.08 Microalb/Creat Rat io 11/29/22 11:13 Hemoglobin A1c % LDL Cholesterol Di rect TSH Microalb/Creat Rat io 7.4 PFSH Medical History (Updated 05/01/23 @ 16:11 by Irlanda Farooq MD) Hypotension Multinodular thyroid HLD (hyperlipidemia) HTN (hypertension) T2DM (type 2 diabetes mellitus) Vitamin D deficiency Surgical History History of carpal tunnel surgery of left wrist History of esophagogastroduodenoscopy (EGD) Hx of colonoscopy Hx of esophagogastroduodenoscopy Family History Father No family history of disorders Mother No family history of disorders Household Members: Spouse and Children Housing: House Housing Other:: spouse/ kids Are you a primary manager wound care to a significant other at home: Yes Do you presently have visiting nurse or other home services: No Alcohol intake: never Patient Tobacco Use Status: Never used Tobacco service: No Current occupational status: unemployed Physical Exam Vital Signs: Last Vital Signs Pulse 78 06/03/23 09:19 BP 132/78 06/03/23 09:19 BMI result Body Mass Index 38.4 Absence of Cushingoid features. Absence of acromegalic features. Neck exam reveals nl size thyroid about 15 gms. No thyroid nodules palpable. No carotid bruits present. Lungs CTA. Heart S1 S2, Reg R/R. No M/R/ G. Skin exam reveals absence of vitiligo or acanthosis nigricans. Abdominal exam reveals Soft NT/ND with NA BS. No organomegaly present. Neck Other: . Extrem Other: Visual exam of foot performed. No ulcerations or open lesions. No onchomycosis, no callouses.Pulses 2 + distally Sensation intact to monofilament exam. Vibratory sensation sensed is intact with 128 Hz tuning fork Results AMB Hemoglobin A1c AMB Hemoglobin A1c 5.8 % Last Edit by OLEG Yancey on 06/03/23 09:45 Results Reviewed Results Reviewed: Laboratory Last Values Glucose (Clinic) 90 mg/dL (60-115) 06/03/23 09:32 Assessment & Plan Assessment & Plan (1) T2DM (type 2 diabetes mellitus): Code(s): E11.9 - Type 2 diabetes mellitus without complications Qualifiers: Diabetes mellitus residential insulin use: without terminal clerk use Diabetes mellitus complication status: with hyperglycemia Qualified Code(s): E11.65 - Type 2 diabetes mellitus with hyperglycemia Plan: This is a 47-year-old female with history of type 2 diabetes being treated with Metformin 1000 mg PO BID, Jardiance 25 mg PO daily Pioglitazone 30 mg PO daily and Victoza 1.8 mg daily with glycemic control and no known microvascular macrovascular complication. Plan is to continue the current regimen. At this point, patient returned to the care of her primary care provider for management of diabetes and back to endocrinology sure HbA1c deteriorate (2) Multinodular thyroid: Code(s): E04.2 - Nontoxic multinodular goiter Plan: Status post FNA of left lower pole nodule twice with benign cytology. Recent thyroid ultrasound shows stability in the size of the nodules. She appears to be clinically biochemically euthyroid. At This point, patient can follow up with primary care provider. A follow-up ultrasound should be obtained about 2-3 years time in the patient's primary care provider. Should be any significant change in the size or characteristics of the nodules, the patient returned back to endocrine Orders: Orders AMB Hemoglobin A1c Today E11.9 - Type 2 diabetes mellitus without complications Coding Level of Care Code Est Pt Level 4 (36204) Diagnoses Type 2 diabetes mellitus with hyperglycemia, without long-term current use of insulin E11.65 Diabetes mellitus residential insulin use: without residential use Diabetes mellitus complication status: with hyperglycemia Multinodular thyroid E04.2
[2023-06-03 09:19] VITALS: BP 132/78; PULSE 78; BMI 38.4
[2023-06-03 09:37] LABS: Glucose, Whole Blood 90 mg/dL (60-115)
== END 2023-06-03 09:51 | disposition home or self-care (01) ==
PROVIDERS: PCP Hospitalist; Visit Provider Internal Medicine Endocrinology, Diabetes & Metabolism
DX: E11.65 Type 2 diabetes mellitus with hyperglycemia (principal); E04.2 Nontoxic multinodular goiter; E11.9 Type 2 diabetes mellitus without complications
CPT/HCPCS: 99214

== ENCOUNTER → 2023-06-03 09:06 | Outpatient (BNVA) | payer OTHER, SELFPAY | PROVIDERS: PCP Hospitalist; Visit Provider Internal Medicine Endocrinology, Diabetes & Metabolism | DX: E11.65 Type 2 diabetes mellitus with hyperglycemia (principal); E04.2 Nontoxic multinodular goiter; Z79.84 Long term (current) use of oral hypoglycemic drugs | CPT/HCPCS: 82947; 83036; 99212 ==

== ENCOUNTER 2023-08-22 12:00 | Outpatient (AMB) | payer OTHER, SELFPAY ==
--- NOTE | 2023-08-22 12:13 | MHC.OFFVIS ---
Intake Vital Signs 08/22/23 12:14 Height 5 ft 3 in Weight 217 lb BMI 38.4 BP 117/60 Blood Pressure Location Lt brachial Position Sitting Pulse 83 Intake Visit Reasons: 6 month follow up Intake Note: Patient follow up for chronic abdominal pain Patient cc: chronic abdominal pain with heartburn with burning sensation. Wooden Tank Erector Required: Yes Wooden Tank Erector Name: Phuc [id number] Accompanied by: Self / Same As Patient Allergies No Known Allergies [No Known Allergies*] Allergy (Verified 08/22/23 12:09) HPI 6 month follow up HPI Details 47 yr old f here for f/u RECAP: she has chronic joint pains in back and spine--takes gabapentin ongoing depression with poor sleep--erratic hours EGD July 2019 with biopsies no H pylori, inactive gastritis GES was nml CT 03/2021-- ileus, fluid filled colon, wall thickening of distal stomach, EGD: 09/2021-- essentially normal US 03/28- GB with sludge vs polyp, otherwise nml GES 06/2022-- nml 4 hr emptying, fast in the 1st hour HIDA- 06/27---nml INTERIM: she still never had sleep study she denies nausea or vomiting she has ongoing heartburn with food she is off PPI, it helped her she can have ongoing pain in the epigastrium EXAM: GENERAL: The patient is frail VITAL SIGNS:see workflow HEENT: Nonicteric sclerae, PERRLA, EOMI. Oropharynx clear. Moist mucous membranes. Conjunctivae appear well perfused. No thyroid mass. CHEST: Chest wall is nontender. HEART: Regular rate and rhythm without murmurs. LUNGS: Clear to auscultation bilaterally. ABDOMEN: Soft, positive bowel sounds, tender epigastrium and RUQ, no organomegaly.no flank tenderness SKIN: No rash, no excessive bruising, petechiae, or purpura. NEUROLOGIC: Cranial nerves II-XII intact without motor/sensory deficit. A/P: 1/ Ongoing sx with upper abdo pain, reflux, depression---liekly realted to poor sleep and medication side effects jeri her DM meds PLAN: 1/ recheck on the sleep med referral that was done 2/ resent on new PPi lansoprazole [facility] Medical History (Updated 05/01/23 @ 16:11 by Irlanda Farooq MD) Hypotension Multinodular thyroid HLD (hyperlipidemia) HTN (hypertension) T2DM (type 2 diabetes mellitus) Vitamin D deficiency Surgical History History of esophagogastroduodenoscopy (EGD) Hx of colonoscopy Hx of esophagogastroduodenoscopy History of carpal tunnel surgery of left wrist Family History Father No family history of disorders Mother No family history of disorders Social History Household Members: Spouse and Children Housing: House Housing Other:: spouse/ kids Are you a primary health care aide to a significant other at home: Yes Do you presently have visiting nurse or other home services: No Alcohol intake: never Patient Tobacco Use Status: Never used Tobacco service: No Current occupational status: unemployed Physical Exam Vital Signs: Last Vital Signs Pulse 83 08/22/23 12:14 BP 117/60 08/22/23 12:14 BMI result Body Mass Index 38.4 Assessment & Plan Assessment & Plan (1) Functional dyspepsia: Code(s): K30 - Functional dyspepsia Plan: 1/ Ongoing sx with upper abdo pain, reflux, depression---liekly realted to poor sleep and medication side effects jeri her DM meds PLAN: 1/ recheck on the sleep med referral that was done 2/ resent on new PPi lansoprazole (2) Chronic GERD: Code(s): K21.9 - Gastro-esophageal reflux disease without esophagitis Plan: 1/ Ongoing sx with upper abdo pain, reflux, depression---liekly realted to poor sleep and medication side effects jeri her DM meds PLAN: 1/ recheck on the sleep med referral that was done 2/ resent on new PPi lansoprazole Medications: New lansoprazole 30 mg PO DAILY 90 caps 0RF Discontinued pantoprazole Discontinued Reason: Doctor's Order 20 mg PO DAILY 90 tabs 2RF Coding Level of Care Code Est Pt Level 3 (83333) Diagnoses Functional dyspepsia K30 Chronic GERD K21.9
[2023-08-22 12:14] VITALS: BP 117/60; PULSE 83; BMI 38.4
== END 2023-08-22 12:36 | disposition home or self-care (01) ==
PROVIDERS: PCP Hospitalist; Visit Provider Internal Medicine Gastroenterology
DX: K30 Functional dyspepsia (principal); K21.9 Gastro-esophageal reflux disease without esophagitis
CPT/HCPCS: 99213

== ENCOUNTER → 2023-08-22 12:00 | Outpatient (BNVA) | payer OTHER, SELFPAY | PROVIDERS: PCP Hospitalist; Visit Provider Internal Medicine Gastroenterology | DX: K30 Functional dyspepsia (principal); K21.9 Gastro-esophageal reflux disease without esophagitis | CPT/HCPCS: 99212 ==

== ENCOUNTER 2023-09-08 10:18 | Outpatient (AMB) | payer OTHER, SELFPAY ==
--- NOTE | 2023-09-08 10:28 | A.OFFVIS_ITS ---
Intake Vital Signs 09/08/23 10:39 Height 5 ft 3 in Weight 218 lb 6 oz BMI 38.7 BP 115/72 Blood Pressure Location Lt brachial Position Sitting Pulse 76 Pulse Source Pulse Oximeter Pulse Oximetry (%) 100 Oxygen Delivery Method Room Air Intake Visit Reasons: INP- Sleep disorder - LVM w/address Intake Note: Patient presents for sleep disorder. Trouble sleeping at night Allergies No Known Allergies [No Known Allergies*] Allergy (Verified 09/08/23 10:35) HPI HPI Comments History of Present Illness Details 47 y/o female patient presents for new i n-person visit for sleep consultation. Amharic interpretation ID # [id number] utilized. Pt reports difficulty falling asleep. She goes to bed around 11 pm, but tosses and turns, it takes couple of hours to fall asleep. She finally can sleep 1-3 am and wakes up 6 am, and goes back to sleep until 10 am. She tried hydroxyzine but it did not help to fall asleep. She has not tried melatonin yet. Pt also reports snoring, and daytime sleepiness. Sleep questionnaire: Have you ever been diagnosed with a sleep disorder? No. Have you ever had a sleep study in the past? No. Have you ever been treated for a sleep disorder? No. Do you take medications for a sleep disorder? No. Do you snore? Yes sometimes. Do you wake up gasping at night? No. Do you have episodes of apneas? No. If yes, are they witnessed? No. Do you have episodes of nocturnal chest pain or dyspnea? No. Do you have difficulty initiating sleep? Yes. Do you have difficulty maintaining sleep? No. Do you wake up tired? Yes. Do you have headaches upon awakening? Yes. Do you wake up with dry mouth or throat? Yes, sometimes. Do you have GERD? Yes. Do you have nocturia? Yes. Do you have nocturnal leg cramps? Yes. Do you have symptoms of restless legs? Yes, sometimes. Do you act out your dreams? No. Sleep hygiene questionnaire: What is your usual sleep routine? Usual bedtime is at 11 pm; Usual wake up time is at 6 am, and going back to sleep, wake up 10 am. Do you take naps? No. Is your sleep environment cool, dark, and quiet? Yes. Do you exercise? No. Do you take caffeine or other stimulants? tea in the morning. soda lunch time. Do you use electronics in bed? Yes, playing with her phone. What is your work schedule? N/A. Hypersomnolence questionnaire: Do you have daytime tiredness or fatigue? Yes. Do you easily fall asleep when inactive? No. Have you ever had episodes of sudden weakness? No. Have you ever had episodes of sudden weakness associated with strong emotions? No. PFSH Medical History (Updated 09/09/23 @ 09:17 by Filemon Lewis CNP) Hypotension Multinodular thyroid HLD (hyperlipidemia) HTN (hypertension) T2DM (type 2 diabetes mellitus) Vitamin D deficiency Surgical History History of esophagogastroduodenoscopy (EGD) Hx of colonoscopy Hx of esophagogastroduodenoscopy History of carpal tunnel surgery of left wrist Family History (Updated 09/08/23 @ 10:38 by Cinda Cid CMA) Father No family history of disorders History of high blood pressure Mother No family history of disorders Social History Household Members: Spouse and Children Housing: House Housing Other:: spouse/ kids Are you a primary childcare administrator to a significant other at home: Yes Do you presently have visiting nurse or other home services: No Alcohol intake: never Patient Tobacco Use Status: Never used Tobacco service: No Current occupational status: unemployed Review of Systems Const All systems reviewed & are unremarkable except as noted in HPI and below Physical Exam Vital Signs: Last Vital Signs Pulse 76 09/08/23 10:39 BP 115/72 09/08/23 10:39 Pulse Ox 100 09/08/23 10:39 Oxygen Delivery Method Room Air 09/08/23 10:39 BMI result Body Mass Index 38.7 Const General: cooperative Nutritional Appearance: obese Orientation/consciousness: patient oriented x3 Limitations: language barrier Neck Neck: Yes full ROM and Yes supple Resp Effort & Inspection: normal respiratory effort and able to speak in complete sentences Neuro General: patient oriented x3, gait normal and moves all extremities Cranial nerves: Yes CN's II-XII intact bilaterally Cognition (Neuro): normal cognition Gait exam (Neuro): Normal gait present Motor exam (neuro): 5/5 motor strength present throughout Psych Appearance: grossly normal Mental Status: mental status grossly normal Speech and movement: Normal speech and movement present Affect: normal affect Attitude: cooperative Assessment & Plan Assessment & Plan (1) Disordered sleep: Code(s): G47.9 - Sleep disorder, unspecified (2) Daytime sleepiness: Code(s): R40.0 - Somnolence (3) Snoring: Code(s): R06.83 - Snoring Plan Pt is advised to undergo home sleep study to assess for sleep apnea. Will f/u with pt after study to discuss results and appropriate treatment options. Sleep hygiene education provided. Limit electronic use before bedtime, Advised patient to increase daily activities. 30 min walking daily. Advised patient to try magnesium 400 mg along with melatonin 3-6 mg qHS to promote sleep. Pt to call with any worsening concerns or questions. Orders: Orders RT home sleep study 09/08/23 G47.9 - Sleep disorder, unspecified, R40.0 - Somnolence Medications: New melatonin 1-2 tab orally bedtime PRN; 30 days 60 tabs 3RF sleep magnesium oxide 400 mg PO BEDTIME 30 days 30 tabs 3RF Coding Level of Care Code New Pt Level 3 (90431) Diagnoses Disordered sleep G47.9 Daytime sleepiness R40.0 Snoring R06.83
[2023-09-08 10:39] VITALS: BP 115/72; PULSE 76; O2SAT 100; BMI 38.7
== END 2023-09-08 11:13 | disposition home or self-care (01) ==
PROVIDERS: PCP Hospitalist; Visit Provider Nurse Practitioner Family
DX: G47.9 Sleep disorder, unspecified (principal); R40.0 Somnolence; R06.83 Snoring
CPT/HCPCS: 99203

== ENCOUNTER → 2023-09-08 10:18 | Outpatient (BNVA) | payer OTHER, SELFPAY | PROVIDERS: PCP Hospitalist; Visit Provider Nurse Practitioner Family | DX: G47.9 Sleep disorder, unspecified (principal); R40.0 Somnolence; R06.83 Snoring | CPT/HCPCS: 99202 ==

== ENCOUNTER → 2023-10-22 10:40 | Outpatient (REF) | payer OTHER, SELFPAY | LOC: HO.SL 10:40 | PROVIDERS: PCP Hospitalist; Visit Provider Nurse Practitioner Family | DX: G47.9 Sleep disorder, unspecified (principal); R40.0 Somnolence; R06.83 Snoring | CPT/HCPCS: 95806 ==

== ENCOUNTER → 2023-10-22 10:48 | Outpatient (BNV) | payer OTHER, SELFPAY | PROVIDERS: PCP Hospitalist; Visit Provider Psychiatry & Neurology Neurology | DX: R06.83 Snoring (principal); R40.0 Somnolence | CPT/HCPCS: 95806 ==

== ENCOUNTER → 2023-11-17 20:30 | Outpatient (REF) | payer OTHER, SELFPAY | LOC: HO.SL 20:30 | PROVIDERS: PCP Hospitalist; Visit Provider Nurse Practitioner Family | DX: G47.9 Sleep disorder, unspecified (principal); R06.83 Snoring; R40.0 Somnolence | CPT/HCPCS: 95810 ==

== ENCOUNTER → 2023-11-17 21:23 | Outpatient (BNV) | payer OTHER, SELFPAY | PROVIDERS: PCP Hospitalist; Visit Provider Psychiatry & Neurology Neurology | DX: R06.83 Snoring (principal); R40.0 Somnolence | CPT/HCPCS: 95810 ==

== ENCOUNTER 2023-11-18 10:27 | Outpatient (REF) | payer OTHER, SELFPAY ==
--- NOTE | ~2023-11-18 | US_ITS ---
EXAMINATION: US THYROID CLINICAL INFORMATION: Multiple thyroid nodules. COMPARISON: Ultrasound soft tissue head/neck thyroid dated 04/08/2022 and 02/22/2021. TECHNIQUE: Linear transducer grayscale and color Doppler examination with attention to the region of the thyroid. FINDINGS: SIZE: Measurements of the thyroid lobes and nodules are given in sagittal, anteroposterior and transverse dimensions respectively. Right Thyroid Lobe: 5.2 x 1.5 x 2.1 cm, volume 8.3 mL. Previously 5.4 x 1.3 x 2.0 cm, volume 7.2 mL. Parenchyma: The gland echotexture is homogeneous. Thyroid vascularity is normal. Left Thyroid Lobe: 5.2 x 2.0 x 2.0 cm, volume 10.6 mL. Previously 5.4 x 1.6 x 2.0 cm, volume 8.9 mL. Parenchyma: The gland echotexture is homogeneous. Thyroid vascularity is normal. Isthmus: 0.4 cm in maximum AP dimension. Previously 0.3 cm. Estimated total number of nodules greater than or equal to 1 cm: 1. Card Tape Converter Operator nodules are described as follows: 1. Location: Right superior. Size: 0.5 x 0.3 x 0.4 cm, volume 0.036 mL. Previously: 0.4 x 0.4 x 0.4 cm, volume 0.04 mL. Nodule characteristics: Composition: Solid (2). Echogenicity: Hypoechoic (2). Shape: Not taller than wide (0). Margins: Smooth (0). Echogenic Foci: None (0). ACR TI-RADS total points: 4 Previous: 4 ACR TI-RADS category: 4 Previous: 4 Significant change in size (>/= 20% in 2 dimensions and minimal increase of 2 mm or 50% or greater increase in volume): No Change in features: No Change in ACR TI-RADS risk category: No 2. Location: Right mid. Size: 0.4 x 0.3 x 0.4 cm, volume 0.024 mL. Previously: Not seen on the previous study. Nodule characteristics: Composition: Cystic(0). ACR TI-RADS total points: 0 ACR TI-RADS category: 1 3. Location: Left superior. Size: 0.6 x 0.3 x 0.4 cm, volume 0.034 mL. Previously: Not seen on the previous study. Nodule characteristics: Composition: Cystic(0). ACR TI-RADS total points: 0 ACR TI-RADS category: 1 4. Location: Left superior. Size: 0.9 x 0.7 x 0.5 cm, volume 0.163 mL. Previously: 0.8 x 0.8 x 0.7 cm, volume 0.2 mL. Nodule characteristics: Composition: Solid (2). Echogenicity: Hypoechoic (2). Shape: Taller than wide (3). Margins: Smooth (0). Echogenic Foci: None (0). ACR TI-RADS total points: 7 Previous: 9 ACR TI-RADS category: 5 Previous: 5 Significant change in size (>/= 20% in 2 dimensions and minimal increase of 2 mm or 50% or greater increase in volume): No Change in features: Yes Change in ACR TI-RADS risk category: No 5. Location: Left mid. Size: 1.8 x 1.3 x 1.3 cm, volume 1.6 mL. Previously: 1.7 x 1.0 x 1.2 cm, volume 1.1 mL. Nodule characteristics: Composition: Solid (2). Echogenicity: Isoechoic (1). Shape: Not taller than wide (0). Margins: Irregular (2). Echogenic Foci: None (0). ACR TI-RADS total points: 5 Previous: 6 ACR TI-RADS category: 4 Previous: 4 Significant change in size (>/= 20% in 2 dimensions and minimal increase of 2 mm or 50% or greater increase in volume): Yes Change in features: Yes Change in ACR TI-RADS risk category: No NODES: No lymphadenopathy is seen in the tissue surrounding the thyroid gland. US/US thyroid IMPRESSION: 1. A 1.8 x 1.3 x 1.3 cm left mid TR 4 thyroid nodule meets criteria for biopsy and measured 1.7 x 1.0 x 1.2 cm, volume 1.1 mL. Correlation with prior biopsy results and clinical exam recommended to determine further management. 2. Additional subcentimeter thyroid nodules as detailed above including 0.9 cm left upper TR 5 thyroid nodule for which follow-up ultrasound in one year is recommended. ACR TI-RADS RECOMMENDATION REFERENCE: Ultrasound-guided fine-needle aspiration, follow up ultrasound, no further followup. * TR1 (0 point) and TR2 (2 points): No FNA or followup * TR3 (3 points): FNA if more than or equal to 2.5 cm in maximum dimension, follow up ultrasound in 1, 3 and 5 years if 1.5 to 2.4 cm in maximum dimension. * TR4 (4-6 points): FNA if more than or equal to 1.5 cm in maximum dimension, follow up ultrasound in 1, 2, 3 and 5 years if 1 to 1.4 cm in maximum dimension. * TR5 (more than or equal to 7 points): FNA if more than or equal to 1 cm in maximum dimension, follow up ultrasound every year for 5 years if 0.5 to 0.9 cm in maximum dimension. * TR3, TR4 or TR5 nodules that are below the size threshold for follow up receive no followup.
== END 2023-11-18 10:28 | disposition home or self-care (01) ==
LOC: HO.US 10:27
PROVIDERS: PCP Hospitalist; Visit Provider Internal Medicine Medical Oncology
DX: E04.1 Nontoxic single thyroid nodule (principal)
CPT/HCPCS: 76536

== ENCOUNTER 2023-12-25 13:01 | Outpatient (AMB) | payer OTHER, SELFPAY ==
[2023-12-25 13:04] VITALS: BP 112/68; PULSE 87; BMI 38.7
--- NOTE | 2023-12-25 13:04 | MHC.OFFVIS ---
Vital Signs 12/25/23 13:04 Height 5 ft 3 in Weight 218 lb 4.122 oz BMI 38.7 BP 112/68 Blood Pressure Location Lt brachial Position Sitting Pulse 87 Pulse Source Pulse Oximeter Intake Visit Reasons: Type 2 DM/lvm Intake Note: Patient present today to follow up on Type 2 Diabetes Mellitus. Last seen by Dr. Canales on 06/03/2024. Last Diabetic Eye exam: 09/2023 Last Podiatry Visit: Doesn't have one Random Glucose: 144 mg/dl HgA1C: 6.3% Favor Maker Required: Yes Favor Maker Language: Turkish Favor Maker Name: Jose Alfredo [id number] Accompanied by: Self / Same As Patient Allergies No Known Allergies [No Known Allergies*] Allergy (Verified 12/25/23 13:08) Medication List - Last Reconciled 12/25/23 by Hien Brito MD ammonium lactate 12% 1 appl topical DAILY atorvastatin 40 mg PO DAILY 30 days blood sugar diagnostic (Blood Glucose Test strips) 3x daily blood sugar diagnostic (FreeStyle Lite Strips) 3x daily bupropion HCl (smoking deter) 150 mg PO DAILY cholecalciferol (vitamin D3) 50 mcg PO DAILY 90 days clotrimazole 1% 1 appl topical BID diltiazem HCl ER 120 mg PO DAILY duloxetine 30 mg PO DAILY fluconazole 150 mg PO Q3D 2 doses fluticasone propionate 50 mcg/actuation 1 spray intranasal DAILY gabapentin 300 mg PO DAILY glipizide ER 10 mg PO DAILY 90 days hydrocortisone valerate 0.2% 1 appl topical BID hydroxyzine pamoate (Vistaril) 25 mg PO BID lansoprazole 30 mg PO DAILY lisinopril-hydrochlorothiazide 20-25 mg 1 tab PO DAILY lorazepam 0.5 mg PO DAILY magnesium oxide 400 mg PO BEDTIME 30 days meclizine 25 mg PO TID melatonin 1-2 tab orally bedtime PRN; 30 days meloxicam 7.5 mg PO DAILY PRN metformin 1,000 mg PO BID 90 days metoclopramide HCl (Reglan) 10 mg PO TID Mounjaro (tirzepatide) 5 mg (0.5 mL) subcut QWEEK NS pen needle, diabetic 4x daily pioglitazone 30 mg PO DAILY polysaccharide iron complex 150 mg PO DAILY propafenone 225 mg PO BID sucralfate 1 g PO BID topiramate 25 mg PO DAILY PRN tramadol 50 mg PO DAILY PRN triamcinolone acetonide 0.1% 1 appl topical BID HPI Comments Details: 48 YO F with PMHx T2DM, Nontoxic MNG 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 Current regimen is Metformin 1000 mg PO BID, Jardiance 25 mg PO daily Pioglitazone 30 mg PO daily and Victoza 1.8 mg daily. Having persistent recurrent vaginal yeast infections despite hygiene routine. Following with client technologies specialist Traditional freestyle glucometer-generally checks fasting am and then once in midday or afternoon. HbA1C today is 6.3%. No BG <70 Denies a family history of T2DM. Has eyes checked yearly, states UTD Has neuropathy-mild, stable Has nephropathy, on Lisinopril 20 mg PO daily. Due for microalb Has HLD, On Atorvastatin 40 mg PO daily. Due for lipids Denies any history of CAD. Declines diabetes education. 2) NTMNG: Has longstanding nontoxic MNG. Had prior FNA biopsy by Dr. Washington 12/05/16 of the L lower pole 1.2 cm nodule, with benign cytology. FNA biopsy of left inferior 1.6cm nodule 2020-benign. Thyroid u/s ordered by Dr Farooq. Patient tells me she has biopsy schedule at [facility] for march. She is unsure whether this is with endo or IR etc US THYROID CLINICAL INFORMATION: Multiple thyroid nodules. COMPARISON: Ultrasound soft tissue head/neck thyroid dated 04/08/2022 and 02/22/2021. TECHNIQUE: Linear transducer grayscale and color Doppler examination with attention to the region of the thyroid. FINDINGS: SIZE: Measurements of the thyroid lobes and nodules are given in sagittal, anteroposterior and transverse dimensions respectively. Right Thyroid Lobe: 5.2 x 1.5 x 2.1 cm, volume 8.3 mL. Previously 5.4 x 1.3 x 2.0 cm, volume 7.2 mL. Parenchyma: The gland echotexture is homogeneous. Thyroid vascularity is normal. Left Thyroid Lobe: 5.2 x 2.0 x 2.0 cm, volume 10.6 mL. Previously 5.4 x 1.6 x 2.0 cm, volume 8.9 mL. Parenchyma: The gland echotexture is homogeneous. Thyroid vascularity is normal. Isthmus: 0.4 cm in maximum AP dimension. Previously 0.3 cm. Estimated total number of nodules greater than or equal to 1 cm: 1. Hospital Personnel Director nodules are described as follows: 1. Location: Right superior. Size: 0.5 x 0.3 x 0.4 cm, volume 0.036 mL. Previously: 0.4 x 0.4 x 0.4 cm, volume 0.04 mL. Nodule characteristics: Composition: Solid (2). Echogenicity: Hypoechoic (2). Shape: Not taller than wide (0). Margins: Smooth (0). Echogenic Foci: None (0). ACR TI-RADS total points: 4 Previous: 4 ACR TI-RADS category: 4 Previous: 4 Significant change in size (>/= 20% in 2 dimensions and minimal increase of 2 mm or 50% or greater increase in volume): No Change in features: No Change in ACR TI-RADS risk category: No 2. Location: Right mid. Size: 0.4 x 0.3 x 0.4 cm, volume 0.024 mL. Previously: Not seen on the previous study. Nodule characteristics: Composition: Cystic(0). ACR TI-RADS total points: 0 ACR TI-RADS category: 1 3. Location: Left superior. Size: 0.6 x 0.3 x 0.4 cm, volume 0.034 mL. Previously: Not seen on the previous study. Nodule characteristics: Composition: Cystic(0). ACR TI-RADS total points: 0 ACR TI-RADS category: 1 4. Location: Left superior. Size: 0.9 x 0.7 x 0.5 cm, volume 0.163 mL. Previously: 0.8 x 0.8 x 0.7 cm, volume 0.2 mL. Nodule characteristics: Composition: Solid (2). Echogenicity: Hypoechoic (2). Shape: Taller than wide (3). Margins: Smooth (0). Echogenic Foci: None (0). ACR TI-RADS total points: 7 Previous: 9 ACR TI-RADS category: 5 Previous: 5 Significant change in size (>/= 20% in 2 dimensions and minimal increase of 2 mm or 50% or greater increase in volume): No Change in features: Yes Change in ACR TI-RADS risk category: No 5. Location: Left mid. Size: 1.8 x 1.3 x 1.3 cm, volume 1.6 mL. Previously: 1.7 x 1.0 x 1.2 cm, volume 1.1 mL. Nodule characteristics: Composition: Solid (2). Echogenicity: Isoechoic (1). Shape: Not taller than wide (0). Margins: Irregular (2). Echogenic Foci: None (0). ACR TI-RADS total points: 5 Previous: 6 ACR TI-RADS category: 4 Previous: 4 Significant change in size (>/= 20% in 2 dimensions and minimal increase of 2 mm or 50% or greater increase in volume): Yes Change in features: Yes Change in ACR TI-RADS risk category: No NODES: No lymphadenopathy is seen in the tissue surrounding the thyroid gland. US/US thyroid IMPRESSION: 1. A 1.8 x 1.3 x 1.3 cm left mid TR 4 thyroid nodule meets criteria for biopsy and measured 1.7 x 1.0 x 1.2 cm, volume 1.1 mL. Correlation with prior biopsy results and clinical exam recommended to determine further management. 2. Additional subcentimeter thyroid nodules as detailed above including 0.9 cm left upper TR 5 thyroid nodule for which follow-up ultrasound in one year is recommended. ? [facility] Medical History (Updated 12/25/23 @ 14:21 by Hien Brito MD) Hypotension Multinodular thyroid HLD (hyperlipidemia) HTN (hypertension) T2DM (type 2 diabetes mellitus) Vitamin D deficiency Surgical History History of esophagogastroduodenoscopy (EGD) Hx of colonoscopy Hx of esophagogastroduodenoscopy History of carpal tunnel surgery of left wrist Family History Father No family history of disorders History of high blood pressure Mother No family history of disorders Social History Household Members: Spouse and Children Housing: House Housing Other:: spouse/ kids Are you a primary physician locums urgent care to a significant other at home: Yes Do you presently have visiting nurse or other home services: No Alcohol intake: never Patient Tobacco Use Status: Never used Tobacco service: No Current occupational status: unemployed Review of Systems Const Details: see HPI Physical Exam Vital Signs: Last Vital Signs Pulse 87 12/25/23 13:04 BP 112/68 12/25/23 13:04 BMI result Body Mass Index 38.7 Const Other: PHYSICAL EXAM: GENERAL: Alert and oriented x 3. NAD EYES: EOMI. Anicteric. HENT: Moist mucous membranes. No scleral icterus. No cervical lymphadenopathy. Heterogenous thyroid LUNGS: Clear to auscultation bilaterally. CARDIOVASCULAR: Regular rate and rhythm. ABDOMEN: Soft, non-tender +bs EXTREMITIES: Mild right lateral malleoli swelling, no redness. Non-tender. Normal monofilament. Normal vibratory sense SKIN: No rashes or lesions. Warm. NEUROLOGIC: No focal neurological deficits. CN II-XII grossly intact PSYCHIATRIC: Cooperative. Appropriate mood and affect Results AMB Hemoglobin A1c AMB Hemoglobin A1c 6.3 % Last Edit by OLEG Wilson on 12/25/23 13:20 Results Reviewed Results Reviewed: Laboratory Last Values Glucose (Clinic) 144 mg/dL (60-115) H 12/25/23 13:10 Hgb A1c (Clinic) 6.3 % (4.0-6.0) H 12/25/23 13:20 Assessment & Plan Assessment & Plan (1) T2DM (type 2 diabetes mellitus): Code(s): E11.9 - Type 2 diabetes mellitus without complications Category: Medical Qualifiers: Diabetes mellitus community resource consultant insulin use: without community resource consultant use Diabetes mellitus complication status: with hyperglycemia Qualified Code(s): E11.65 - Type 2 diabetes mellitus with hyperglycemia Plan: controlled Interested in weekly GLP. Mounjaro ordered. If/once received then patient will DC victoza Persistent recurrent vaginal yeast infections -stop Jardiance, start ER glipizide. Discussed regular meal interval Fasting labs in the next two weeks (2) Multinodular thyroid: Code(s): E04.2 - Nontoxic multinodular goiter Category: Medical Plan: Unclear whether left mid pole nodule new or same as the previously noted left inferior nodule-she has biopsy scheduled for march (3) Recurrent candidiasis of vagina: Code(s): B37.31 - Acute candidiasis of vulva and vagina Category: Medical Plan Med changes as noted. Follow up in 3 months or sooner as needed Orders: Orders AMB Hemoglobin A1c Today E11.65 - Type 2 diabetes mellitus with hyperglycemia, Z13.9 - Encounter for screening, unspecified Microalbumin, Random (w Creat) Today E04.2 - Nontoxic multinodular goiter, E11.65 - Type 2 diabetes mellitus with hyperglycemia Thyroid Peroxidase Antibodies Today E04.2 - Nontoxic multinodular goiter TSH reflex Free T4 Today E04.2 - Nontoxic multinodular goiter, E11.65 - Type 2 diabetes mellitus with hyperglycemia Lipid Panel with Reflex Today E04.2 - Nontoxic multinodular goiter, E11.65 - Type 2 diabetes mellitus with hyperglycemia Comprehensive Met. Panel Today E04.2 - Nontoxic multinodular goiter, E11.65 - Type 2 diabetes mellitus with hyperglycemia Medications: New glipizide ER 10 mg PO DAILY 90 days 90 tabs 3RF fluconazole 150 mg PO Q3D 2 tabs 0RF Mounjaro (tirzepatide) 5 mg (0.5 mL) subcut QWEEK 6 mL 3RF NS Discontinued liraglutide (Victoza 3-Mor) Discontinued Reason: Doctor's Order 1.8 mg (0.3 mL) subcut DAILY 27 mL 11RF empagliflozin (Jardiance) Discontinued Reason: Duplicate 25 mg PO QAM 90 tabs 11RF Coding Level of Care Code Consult High [id number] Diagnoses Type 2 diabetes mellitus with hyperglycemia, without long-term current use of insulin E11.65 Diabetes mellitus community resource consultant insulin use: without usp use Diabetes mellitus complication status: with hyperglycemia Multinodular thyroid E04.2 Recurrent candidiasis of vagina B37.31 Time Spent (min) 67
[2023-12-25 13:15] LABS: Glucose, Whole Blood 144 mg/dL (60-115)
== END 2023-12-25 14:08 | disposition home or self-care (01) ==
PROVIDERS: PCP Hospitalist; Visit Provider Internal Medicine
DX: E11.65 Type 2 diabetes mellitus with hyperglycemia (principal); E04.2 Nontoxic multinodular goiter; B37.31 Acute candidiasis of vulva and vagina; Z13.9 Encounter for screening, unspecified
CPT/HCPCS: 99205

== ENCOUNTER → 2023-12-25 13:01 | Outpatient (BNVA) | payer OTHER, SELFPAY | PROVIDERS: PCP Hospitalist; Visit Provider Internal Medicine | DX: E11.65 Type 2 diabetes mellitus with hyperglycemia (principal); E11.21 Type 2 diabetes mellitus with diabetic nephropathy; B37.31 Acute candidiasis of vulva and vagina; E04.2 Nontoxic multinodular goiter; E78.5 Hyperlipidemia, unspecified; E55.9 Vitamin D deficiency, unspecified; Z79.85 Long-term (current) use of injectable non-insulin antidiabetic drugs; Z79.84 Long term (current) use of oral hypoglycemic drugs | CPT/HCPCS: 82947; 83036; 99202 ==

== ENCOUNTER 2024-01-02 11:06 | Outpatient (REF) | payer OTHER, SELFPAY ==
[2024-01-02 12:42] LABS: Alanine Aminotransferase 12 U/L (0-31); Albumin Level 3.7 g/dL (3.5-5.0); Alkaline Phosphatase 49 U/L (39-117); Anion Gap 14 (12-20); Aspartate Amino Transferase 18 U/L (5-31); Bilirubin Total 0.5 mg/dL (0.0-1.0); Blood Urea Nitrogen 9 mg/dL (9-16); Calcium 8.9 mg/dL (8.4-10.2); Carbon Dioxide 19 mmol/L (22-29); Chloride 113 mmol/L (96-108); Cholesterol 120 mg/dL (<200); Estimated Glomerular Filt Rate > 60; Glucose Random 122 mg/dL (60-115); HDL Cholesterol 47 mg/dL (>40); LDL Cholesterol Calculated 61 mg/dL (<100); Potassium 4.6 mmol/L (3.3-5.1); Sodium 141 mmol/L (135-145); Total Protein 6.8 g/dL (6.5-8.0); Triglycerides 64 mg/dL (<150)
[2024-01-02 12:59] LABS: Creatinine Urine 125.21 mg/dL; Microalbum/Creatinine Ratio Ur 9.5 ug/mg cr (<30)
[2024-01-02 13:34] LABS: Reflex LDLD? No
[2024-01-05 21:48] LABS: Thyroid Peroxidase Antibodies 3 IU/mL (<9)
== END 2024-01-02 11:07 | disposition home or self-care (01) ==
LOC: HO.LAB 11:06
PROVIDERS: PCP Hospitalist; Visit Provider Internal Medicine
DX: E11.65 Type 2 diabetes mellitus with hyperglycemia (principal); E04.2 Nontoxic multinodular goiter; K21.9 Gastro-esophageal reflux disease without esophagitis; Z79.899 Other long term (current) drug therapy
CPT/HCPCS: 36415; 80053; 80061; 82043; 82570; 84439; 84443; 86376; 99212

== ENCOUNTER 2024-01-02 11:48 | Outpatient (AMB) | payer OTHER, SELFPAY ==
--- NOTE | 2024-01-02 12:00 | MHC.OFFVIS ---
Vital Signs 01/02/24 12:02 Height 5 ft 3 in Weight 218 lb BMI 38.6 BP 114/56 L Blood Pressure Location Lt brachial Position Sitting Pulse 92 Intake Visit Reasons: 4 MONTH FOLLOW UP Intake Note: Patient 4 month follow up for Chronic GERD. Patient cc: Nauseas, Upper abdominal pain/bloating, heartburn with burning sensation and gassy. Also patient is complaining she is been with headaches in the morning and I know is that her Diastolic BP is low today. 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 Metal Mechanic Required: Yes 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 Metal Mechanic Name: Bola [id number] Accompanied by: Self / Same As Patient Allergies No Known Allergies [No Known Allergies*] Allergy (Verified 01/02/24 11:59) HPI HPI 4 MONTH FOLLOW UP: Details: 48 yr old f here for f/u RECAP: she has chronic joint pains in back and spine--takes gabapentin ongoing depression with poor sleep--erratic hours EGD July 2019 with biopsies no H pylori, inactive gastritis GES was nml CT 03/2021-- ileus, fluid filled colon, wall thickening of distal stomach, EGD: 09/2021-- essentially normal US 03/28- GB with sludge vs polyp, otherwise nml GES 06/2022-- nml 4 hr emptying, fast in the 1st hour HIDA- 06/27---nml INTERIM: she had sleep study, didnt have high AHI snoring was noted she still has epigastric pain she can have nausea at times jeri in the morning she is taking lansoprazole but ran out, takes double dose, and it helps EXAM: GENERAL: The patient is relaxed VITAL SIGNS:see workflow HEENT: Nonicteric sclerae, PERRLA, EOMI. Oropharynx clear. Moist mucous membranes. Conjunctivae appear well perfused. No thyroid mass. CHEST: Chest wall is nontender. HEART: Regular rate and rhythm without murmurs. LUNGS: Clear to auscultation bilaterally. ABDOMEN: Soft, positive bowel sounds, tender epigastrium and RUQ, no organomegaly.no flank tenderness SKIN: No rash, no excessive bruising, petechiae, or purpura. NEUROLOGIC: Cranial nerves II-XII intact without motor/sensory deficit. A/P: 1/ Ongoing sx with upper abdo pain, reflux, depression---PPI is working when taking but double dose PLAN: 1/ follow up sleep clinic 2/ resent on new PPi lansoprazole BID dosing PFSH Medical History (Updated 12/25/23 @ 14:21 by Hien Brito MD) Hypotension Multinodular thyroid HLD (hyperlipidemia) HTN (hypertension) T2DM (type 2 diabetes mellitus) Vitamin D deficiency Surgical History History of esophagogastroduodenoscopy (EGD) Hx of colonoscopy Hx of esophagogastroduodenoscopy History of carpal tunnel surgery of left wrist Family History Father No family history of disorders History of high blood pressure Mother No family history of disorders Social History Household Members: Spouse and Children Housing: House Housing Other:: spouse/ kids Are you a primary wound care physician to a significant other at home: Yes Do you presently have visiting nurse or other home services: No Alcohol intake: never Patient Tobacco Use Status: Never used Tobacco service: No Current occupational status: unemployed Physical Exam Vital Signs: Last Vital Signs Pulse 92 01/02/24 12:02 BP 114/56 L 01/02/24 12:02 BMI result Body Mass Index 38.6 Assessment & Plan Assessment & Plan (1) Chronic GERD: Code(s): K21.9 - Gastro-esophageal reflux disease without esophagitis Category: Medical Plan: see above Medications: Changed From lansoprazole 30 mg PO DAILY 90 caps 3RF To lansoprazole 30 mg PO BID 90 caps 3RF Refilled lansoprazole 30 mg PO DAILY 90 caps 3RF Coding Level of Care Code Est Pt Level 3 (04824) Diagnoses Chronic GERD K21.9
[2024-01-02 12:02] VITALS: BP 114/56; PULSE 92; BMI 38.6
== END 2024-01-02 13:17 | disposition home or self-care (01) ==
PROVIDERS: PCP Hospitalist; Visit Provider Internal Medicine Gastroenterology
DX: K21.9 Gastro-esophageal reflux disease without esophagitis (principal)
CPT/HCPCS: 99213

== ENCOUNTER 2024-01-12 14:21 | Outpatient (AMB) | payer OTHER, SELFPAY ==
--- NOTE | 2024-01-12 14:23 | A.OFFVIS_ITS ---
Vital Signs 01/12/24 14:24 Height 5 ft 3 in Weight 218 lb BMI 38.6 BP 126/80 Blood Pressure Location Rt brachial Position Sitting Respiration 16 Pulse 81 Pulse Source Pulse Oximeter Pulse Oximetry (%) 99 Oxygen Delivery Method Room Air Intake Visit Reasons: Sleep disorder-CONF Intake Note: Pt presents for follow up for snoring and to discuss sleep study results. Electronics Hardware Design Engineer Required: Yes Electronics Hardware Design Engineer Name: Sinhala stamping die try out worker on tablet Allergies No Known Allergies [No Known Allergies*] Allergy (Verified 01/12/24 14:24) HPI Comments Details: 47 y/o female patient presents for follow up Sinhala interpretation ID # [id number]. Patient takes melatonin which has helped with arousals but still takes 2 hrs to initiate sleep. she goes to bed at 11pm and wakes up at 9am.she has 2-3 arousals a night. It takes baout 2 hrs to fall asleep. Pt also reports snoring. Her in lab sleep study( 11/2023) was c/w loud snoring but no evidence of sleep apnea or sleep related movement disorders. [facility] Medical History (Updated 01/12/24 @ 14:39 by Jade Luu MD) Insomnia Hypotension Multinodular thyroid HLD (hyperlipidemia) HTN (hypertension) T2DM (type 2 diabetes mellitus) Vitamin D deficiency Surgical History History of esophagogastroduodenoscopy (EGD) Hx of colonoscopy Hx of esophagogastroduodenoscopy History of carpal tunnel surgery of left wrist Family History Father No family history of disorders History of high blood pressure Mother No family history of disorders Social History Household Members: Spouse and Children Housing: House Housing Other:: spouse/ kids Are you a primary animal care worker to a significant other at home: Yes Do you presently have visiting nurse or other home services: No Alcohol intake: never Patient Tobacco Use Status: Never used Tobacco service: No Current occupational status: unemployed Physical Exam Vital Signs: Last Vital Signs Pulse 81 01/12/24 14:24 Resp 16 01/12/24 14:24 BP 126/80 01/12/24 14:24 Pulse Ox 99 01/12/24 14:24 Oxygen Delivery Method Room Air 01/12/24 14:24 BMI result Body Mass Index 38.6 Const General: cooperative Nutritional Appearance: obese Orientation/consciousness: patient oriented x3 Limitations: language barrier Neck Neck: Yes full ROM and Yes supple Resp Effort & Inspection: normal respiratory effort and able to speak in complete sentences Neuro General: patient oriented x3, gait normal and moves all extremities Cranial nerves: Yes CN's II-XII intact bilaterally Cognition (Neuro): normal cognition Gait exam (Neuro): Normal gait present Motor exam (neuro): 5/5 motor strength present throughout Psych Appearance: grossly normal Mental Status: mental status grossly normal Speech and movement: Normal speech and movement present Affect: normal affect Attitude: cooperative Assessment & Plan Assessment & Plan (1) Snoring: Code(s): R06.83 - Snoring Category: Medical (2) Insomnia: Code(s): G47.00 - Insomnia, unspecified Category: Medical Plan Increase melatonin 10 mg qhs suggested snoring strips, avoid supine sleep, increase physical activity etc. discussed sleep hygiene. Medications: Changed From melatonin 1-2 tab orally bedtime PRN; 30 days 60 tabs 3RF sleep To melatonin 10 mg PO BEDTIME 30 days PRN 30 tabs 3RF sleep Coding Level of Care Code Est Pt Level 4 (74951) Diagnoses Snoring R06.83 Insomnia G47.00
[2024-01-12 14:24] VITALS: BP 126/80; PULSE 81; RESP 16; O2SAT 99; BMI 38.6
== END 2024-01-12 14:42 | disposition home or self-care (01) ==
PROVIDERS: PCP Hospitalist; Visit Provider Psychiatry & Neurology Neurology
DX: R06.83 Snoring (principal); G47.00 Insomnia, unspecified
CPT/HCPCS: 99214

== ENCOUNTER → 2024-01-12 14:21 | Outpatient (BNVA) | payer OTHER, SELFPAY | PROVIDERS: PCP Hospitalist; Visit Provider Psychiatry & Neurology Neurology | DX: R06.83 Snoring (principal); G47.00 Insomnia, unspecified | CPT/HCPCS: 99212 ==

== ENCOUNTER 2024-03-05 13:15 | Outpatient (RCR) | payer OTHER, SELFPAY ==
[2024-01-16 10:10] VITALS: BP 124/63; PULSE 100; RESP 18; TEMP 36.6
[2024-01-16] MEDS: Iron Sucrose Complex 200 MG in 0.9 % Sodium Chloride 100 ML 440 MG IV (10:21)
[2024-01-23 11:20] VITALS: BP 130/76; PULSE 84; RESP 16; TEMP 36.6; O2SAT 98
[2024-01-23] MEDS: Iron Sucrose Complex 200 MG in 0.9 % Sodium Chloride 100 ML 440 MG IV (11:45)
[2024-01-23] MEDS: 0.9 % Sodium Chloride Flush 10 ML SYRINGE 5 ML IVFLUSH (12:20)
--- NOTE | 2024-01-23 12:21 | HO.INF ---
PATIENT REQUESTED IV RUN OVER 1/2 HR. STATES LAST IV WAS UNCOMFORTABLE- NOT PAINFUL OR SORE IV INFUSION GIVEN OVER 1/2HR REQUESTED BY PATIENT. DENIES ALL PAIN, NO REDNESS OR SWELLING. DENIES ALL DISCOMFORT.
[2024-01-30 13:13] VITALS: BP 148/79; PULSE 78; RESP 18; TEMP 36.9
[2024-01-30] MEDS: Iron Sucrose Complex 200 MG in 0.9 % Sodium Chloride 100 ML 440 MG IV (13:37)
--- NOTE | 2024-01-30 14:12 | HO.INF ---
INFUSION RAN AT 220 ML/HR AT PATIENT REQUEST
[2024-02-06 13:41] VITALS: BP 133/65; PULSE 67; RESP 18; TEMP 36.3
[2024-02-06] MEDS: Iron Sucrose Complex 200 MG in 0.9 % Sodium Chloride 100 ML 220 MG IV (14:00)
[2024-02-06 14:49] LABS: MANUAL DIFF FLAG NO
[2024-02-06 14:52] LABS: Basophils Percent Auto 0.8 % (0-2); Eosinophils Absolute Auto 0.4 X10*3/uL (0.0-0.4); Eosinophils Percent Auto 7.2 % (0-4); Hematocrit 38.3 % (37.0-47.0); Hemoglobin 11.9 g/dl (12.0-16.0); Imm Gran Abs Auto 0.03 X10*3/uL (0.00-0.03); Imm Gran Pct Auto 0.6 % (0.0-0.4); Lymphocytes Absolute Auto 1.4 X10*3/uL (1.2-4.9); Lymphocytes Percent Auto 25.7 % (20-40); Mean Corpuscular HGB Conc 31.1 g/dl (31.0-35.0); Mean Corpuscular Hemoglobin 24.1 pg (27.0-33.0); Mean Corpuscular Volume 77.7 fL (80.0-98.0); Mean Platelet Volume 9.9 fL (9.4-12.3); Monocytes Absolute Auto 0.4 X10*3/uL (0.1-1.2); Monocytes Percent Auto 7.2 % (2-11); Neutrophils Absolute Auto 3.1 x10*3/uL (2.0-8.3); Neutrophils Percent Auto 58.5 % (45-73); Platelet Count 281 X10*3/uL (160-400); Red Blood Count 4.93 X10*6/uL (4.20-5.50); Red Cell Distribution Width 21.4 % (11.0-16.0); White Blood Count 5.3 X10*3/uL (4.8-10.8)
[2024-02-06 15:25] LABS: Ferritin 74 ng/mL (10-250)
[2024-02-13 13:02] VITALS: BP 137/85; PULSE 92; RESP 18; TEMP 36.6
[2024-02-13] MEDS: Iron Sucrose Complex 200 MG in 0.9 % Sodium Chloride 100 ML 220 MG IV (13:28)
[2024-02-20 13:36] VITALS: BP 149/78; PULSE 82; RESP 18; TEMP 36.6
[2024-02-20] MEDS: Iron Sucrose Complex 200 MG in 0.9 % Sodium Chloride 100 ML IV (13:52)
[2024-02-27 13:12] VITALS: BP 134/76; PULSE 79; RESP 18; TEMP 36.1; O2SAT 97
[2024-02-27] MEDS: Iron Sucrose Complex 200 MG in 0.9 % Sodium Chloride 100 ML 220 MG IV (13:34)
[2024-03-05 13:27] VITALS: BP 143/79; PULSE 81; RESP 20; TEMP 36.4; O2SAT 97
[2024-03-05] MEDS: Iron Sucrose Complex 200 MG in 0.9 % Sodium Chloride 100 ML 220 MG IV (13:39)
--- NOTE | 2024-03-05 14:17 | HO.INF ---
phlebotomy at bedside
[2024-03-05 14:22] LABS: MANUAL DIFF FLAG NO
[2024-03-05 14:25] LABS: Basophils Percent Auto 0.6 % (0-2); Eosinophils Absolute Auto 0.4 X10*3/uL (0.0-0.4); Eosinophils Percent Auto 7.9 % (0-4); Hematocrit 40.1 % (37.0-47.0); Hemoglobin 13.1 g/dl (12.0-16.0); Imm Gran Abs Auto 0.04 X10*3/uL (0.00-0.03); Imm Gran Pct Auto 0.8 % (0.0-0.4); Lymphocytes Percent Auto 20.6 % (20-40); Mean Corpuscular HGB Conc 32.7 g/dl (31.0-35.0); Mean Corpuscular Hemoglobin 26.5 pg (27.0-33.0); Mean Platelet Volume 9.5 fL (9.4-12.3); Monocytes Absolute Auto 0.5 X10*3/uL (0.1-1.2); Monocytes Percent Auto 10.8 % (2-11); Neutrophils Absolute Auto 2.8 x10*3/uL (2.0-8.3); Neutrophils Percent Auto 59.3 % (45-73); Platelet Count 231 X10*3/uL (160-400); Red Blood Count 4.95 X10*6/uL (4.20-5.50); Red Cell Distribution Width 21.6 % (11.0-16.0); White Blood Count 4.8 X10*3/uL (4.8-10.8)
[2024-03-05 15:05] LABS: Ferritin 148 ng/mL (10-250)
== END 2024-03-05 14:33 | disposition home or self-care (01) ==
LOC: HO.INF 13:15
PROVIDERS: Visit Provider Internal Medicine Medical Oncology
DX: D50.9 Iron deficiency anemia, unspecified (principal)
CPT/HCPCS: 36415; 82728; 85025; 96365; 96374; J1756

== ENCOUNTER 2024-03-25 13:47 | Outpatient (AMB) | payer OTHER, SELFPAY ==
[2024-03-25 13:55] VITALS: BP 116/78; PULSE 92; BMI 39.8
--- NOTE | 2024-03-25 13:55 | A.OFFVIS_ITS ---
Vital Signs 03/25/24 13:55 Height 5 ft 3 in Weight 224 lb 13.944 oz BMI 39.8 BP 116/78 Blood Pressure Location Rt brachial Pulse 92 Pulse Source Pulse Oximeter Intake Visit Reasons: 3DM, thyroid follow up GLP change/CONFIMRED Intake Note: Patient presents today to re-establish treatment for Type 2 Diabetes Mellitus & Thyroid: Last Diabetic eye exam was on: DUE Last Podiatry exam was on: Does not see a Data Processing Manager Most recent HbA1c: 6.3%, 03/25/2024 Random Glucose- 114mg/dL, Today Mechanical Engineering Director Required: Yes Mechanical Engineering Director Language: Kazakh Mechanical Engineering Director Services: Mechanical Engineering Director Present (via video call) Mechanical Engineering Director Name: #[id number] Accompanied by: Self / Same As Patient Allergies No Known Allergies [No Known Allergies*] Allergy (Verified 01/12/24 14:24) Medication List - Last Reconciled 04/01/24 by Hien Brito MD ammonium lactate 12% 1 appl topical DAILY atorvastatin 40 mg PO DAILY 90 days blood sugar diagnostic (FreeStyle Lite Strips) TEST 3 TIMES A DAY blood sugar diagnostic (Blood Glucose Test strips) 3x daily bupropion HCl (smoking deter) 150 mg PO DAILY cholecalciferol (vitamin D3) 50 mcg PO DAILY 90 days clotrimazole 1% 1 appl topical BID diltiazem HCl ER 120 mg PO DAILY duloxetine 30 mg PO DAILY fluconazole 150 mg PO Q3D 2 doses fluticasone propionate 50 mcg/actuation 1 spray intranasal DAILY gabapentin 300 mg PO DAILY glipizide ER 10 mg PO DAILY 90 days hydrocortisone valerate 0.2% 1 appl topical BID hydroxyzine pamoate (Vistaril) 25 mg PO BID lansoprazole 30 mg PO BID liraglutide (Victoza 3-Mor) 1.8 mg (0.3 mL) subcut DAILY 3 months lisinopril-hydrochlorothiazide 20-25 mg 1 tab PO DAILY lorazepam 0.5 mg PO DAILY magnesium oxide 400 mg PO BEDTIME 30 days meclizine 25 mg PO TID melatonin 10 mg PO BEDTIME PRN 30 days meloxicam 7.5 mg PO DAILY PRN metformin 1,000 mg PO BID 90 days metoclopramide HCl (Reglan) 10 mg PO TID pen needle, diabetic (BD Ultra-Fine Mini Pen Needle) USE 4 TIMES A DAY pioglitazone 30 mg PO DAILY polysaccharide iron complex 150 mg PO DAILY propafenone 225 mg PO BID sucralfate 1 g PO BID topiramate 25 mg PO DAILY PRN tramadol 50 mg PO DAILY PRN triamcinolone acetonide 0.1% 1 appl topical BID HPI Comments Details: 48 year old female with PMHx T2DM, Nontoxic MNG presenting for follow up Kazakh foreign language interpreter #[id number] Initially diagnosed with T2DM in 2011. Current prescriptions is Metformin 1000mg PO BID, Victoza 1.8 mg daily. She did receive the glipizide and pioglitazone but did not like side effects profile of either. Was on jardiance but was having very frequent yeast infection. These improved off the medication Traditional freestyle glucometer-generally checks fasting am and then once in midday or afternoon. HbA1C is stable today at 6.3%. No BG <70 Denies a family history of T2DM. Has eyes checked yearly, states UTD Has neuropathy-mild, stable Has nephropathy, on Lisinopril 20 mg Has HLD, On Atorvastatin 40 mg Denies any history of CAD. Declines diabetes education. NTMNG: Has longstanding nontoxic MNG. Had prior FNA biopsy by Dr. Washington 12/05/16 of the L lower pole 1.2 cm nodule, with benign cytology. FNA biopsy of left inferior 1.6cm nodule 2020-benign. Had thyroid u/s ordered by Dr Farooq 11/2023, underwent recent u/s biopsy at [facility]-pathology is pending. 1. A 1.8 x 1.3 x 1.3 cm left mid TR 4 thyroid nodule meets criteria for biopsy and measured 1.7 x 1.0 x 1.2 cm, volume 1.1 mL. Correlation with prior biopsy results and clinical exam recommended to determine further management. 2. Additional subcentimeter thyroid nodules as detailed above including 0.9 cm left upper TR 5 thyroid nodule for which follow-up ultrasound in one year is recommended. ROS CONSTITUTIONAL: Denies weight loss, fever and chills. HEENT: Denies changes in vision and hearing. RESPIRATORY: Denies SOB and cough. CV: Denies palpitations and CP GI: Denies abdominal pain, nausea, vomiting and diarrhea. : Denies dysuria and urinary frequency. MSK: Denies new myalgia and joint pain. SKIN: Denies rash and pruritus. NEUROLOGICAL: Denies headache PSYCHIATRIC: Denies recent changes in mood. PHYSICAL EXAM: GENERAL: Alert and oriented x 3. NAD EYES: EOMI. Anicteric. HENT: Moist mucous membranes. No scleral icterus. No cervical lymphadenopathy. LUNGS: Clear to auscultation bilaterally. CARDIOVASCULAR: Regular rate and rhythm. No murmur. No JVD. ABDOMEN: Soft, non-tender +bs EXTREMITIES: No edema. Non-tender. SKIN: No rashes or lesions. Warm. NEUROLOGIC: No focal neurological deficits. CN II-XII grossly intact PSYCHIATRIC: Cooperative. Appropriate mood and affect ? PFSH Medical History Insomnia Hypotension Multinodular thyroid HLD (hyperlipidemia) HTN (hypertension) T2DM (type 2 diabetes mellitus) Vitamin D deficiency Surgical History History of esophagogastroduodenoscopy (EGD) Hx of colonoscopy Hx of esophagogastroduodenoscopy History of carpal tunnel surgery of left wrist Family History Father No family history of disorders History of high blood pressure Mother No family history of disorders Social History Household Members: Spouse and Children Housing: House Housing Other:: spouse/ kids Are you a primary rn urgent care to a significant other at home: Yes Do you presently have visiting nurse or other home services: No Alcohol intake: never Patient Tobacco Use Status: Never used Tobacco service: No Current occupational status: unemployed Physical Exam Vital Signs: Last Vital Signs Pulse 92 03/25/24 13:55 BP 116/78 03/25/24 13:55 BMI result Body Mass Index 39.8 Results AMB Hemoglobin A1c AMB Hemoglobin A1c 6.3 % Last Edit by OLEG Hester on 03/25/24 14:15 Results Reviewed Results Reviewed: Laboratory Last Values Glucose (Clinic) 114 mg/dL (60-115) 03/25/24 14:02 Hgb A1c (Clinic) 6.3 % (4.0-6.0) H 03/25/24 14:13 Assessment & Plan Assessment & Plan (1) T2DM (type 2 diabetes mellitus): Code(s): E11.9 - Type 2 diabetes mellitus without complications Category: Medical Qualifiers: Diabetes mellitus usp insulin use: without intermediate accountant use Diabetes mellitus complication status: with hyperglycemia Qualified Code(s): E11.65 - Type 2 diabetes mellitus with hyperglycemia Plan: controlled on current medications. continue victoza, metformin. May start actos as needed but may not if glucose remains controlled. (2) Multinodular thyroid: Code(s): E04.2 - Nontoxic multinodular goiter Category: Medical Plan: Follow up pathology results Orders: Orders AMB Hemoglobin A1c 03/25/24 E11.65 - Type 2 diabetes mellitus with hypergl ycemia Medications: New diltiazem HCl ER 120 mg PO DAILY 90 tabs 3RF gabapentin 300 mg PO DAILY 90 caps 3RF Changed From atorvastatin 40 mg PO DAILY 30 days 30 tabs 6RF To atorvastatin 40 mg PO DAILY 90 days 90 tabs 3RF Refilled lansoprazole 30 mg PO BID 90 caps 3RF liraglutide (Victoza 3-Mor) 1.8 mg (0.3 mL) subcut DAILY 3 months 27 mL 3RF E11.65 - Type 2 diabetes mellitus with hyperglycemia Coding Level of Care Code Est Pt Level 4 (95970) Complex EM visit Add On G2211 Diagnoses Type 2 diabetes mellitus with hyperglycemia, without long-term current use of insulin E11.65 Diabetes mellitus usp insulin use: without intermediate accountant use Diabetes mellitus complication status: with hyperglycemia Multinodular thyroid E04.2
[2024-03-25 14:06] LABS: Glucose, Whole Blood 114 mg/dL (60-115)
== END 2024-03-25 14:38 | disposition home or self-care (01) ==
PROVIDERS: PCP Hospitalist; Visit Provider Internal Medicine
DX: E11.65 Type 2 diabetes mellitus with hyperglycemia (principal); E04.2 Nontoxic multinodular goiter

== ENCOUNTER → 2024-03-25 13:47 | Outpatient (BNVA) | payer OTHER, SELFPAY | PROVIDERS: PCP Hospitalist; Visit Provider Internal Medicine | DX: E11.65 Type 2 diabetes mellitus with hyperglycemia (principal); E04.2 Nontoxic multinodular goiter | CPT/HCPCS: 82947; 83036; 99212 ==

== ENCOUNTER 2024-06-23 12:47 | Outpatient (AMB) | payer OTHER, SELFPAY ==
--- NOTE | 2024-06-23 13:05 | MHC.OFFVIS ---
Vital Signs 06/23/24 13:07 Height 5 ft 3 in Weight 219 lb BMI 38.8 BP 120/78 Blood Pressure Location Rt brachial Position Sitting Pulse 76 Pulse Source Pulse Oximeter Intake Visit Reasons: DM follow up. Review pathology results Intake Note: Patient presents today for a follow-up on Type 2 Diabetes Mellitus & Thyroid: Last Diabetic eye exam was on: DUE Last Podiatry exam was on: Does not see a Director Marketing Most recent HbA1c: 6.1%, 06/23/2024 Random Glucose- 144 mg/dL, Today Research And Evaluation Manager Required: Yes Research And Evaluation Manager Language: Croatian Research And Evaluation Manager Services: Research And Evaluation Manager Present Research And Evaluation Manager Name: # Accompanied by: Self / Same As Patient Allergies No Known Allergies [No Known Allergies*] Allergy (Verified 01/12/24 14:24) HPI Comments Details: 48 year old female with PMHx T2DM, Nontoxic MNG 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 Current prescriptions is Metformin 1000mg PO BID, Victoza 1.8 mg daily, glipizide and pioglitazone. Was on jardiance but was having very frequent yeast infection. She feels tired a lot-thinks this may be due to lower glucose readings. Denies BG <70. Has chronic abdominal upset. She is frustrated with weight gain/difficulty losing weight. Traditional freestyle glucometer-generally checks fasting am and then once in midday or afternoon. HbA1C 6.1% from 6.3%. Denies a family history of T2DM. Has eyes checked yearly, states UTD Has neuropathy-mild, stable Has nephropathy, on Lisinopril 20 mg Has HLD, On Atorvastatin 40 mg Denies any history of CAD. Declines diabetes education. NTMNG: Has longstanding nontoxic MNG. Had prior FNA biopsy by Dr. Washington 12/05/16 of the L lower pole 1.2 cm nodule, with benign cytology. FNA biopsy of left inferior 1.6cm nodule 2020-benign. Had thyroid u/s ordered by Dr Farooq 11/2023, underwent recent u/s biopsy at [facility]-tells me this was benign 1. A 1.8 x 1.3 x 1.3 cm left mid TR 4 thyroid nodule meets criteria for biopsy and measured 1.7 x 1.0 x 1.2 cm, volume 1.1 mL. Correlation with prior biopsy results and clinical exam recommended to determine further management. 2. Additional subcentimeter thyroid nodules as detailed above including 0.9 cm left upper TR 5 thyroid nodule for which follow-up ultrasound in one year is recommended. ROS CONSTITUTIONAL: Denies weight loss, fever and chills. HEENT: Denies changes in vision and hearing. RESPIRATORY: Denies SOB and cough. CV: Denies palpitations and CP GI: Denies abdominal pain, nausea, vomiting and diarrhea. : Denies dysuria and urinary frequency. MSK: Denies new myalgia and joint pain. SKIN: Denies rash and pruritus. NEUROLOGICAL: Denies headache PSYCHIATRIC: Denies recent changes in mood. PHYSICAL EXAM: GENERAL: Alert and oriented x 3. NAD EYES: EOMI. Anicteric. HENT: Moist mucous membranes. No scleral icterus. No cervical lymphadenopathy. LUNGS: Clear to auscultation bilaterally. CARDIOVASCULAR: Regular rate and rhythm. No murmur. No JVD. ABDOMEN: Soft, non-tender +bs EXTREMITIES: No edema. Non-tender. SKIN: No rashes or lesions. Warm. NEUROLOGIC: No focal neurological deficits. CN II-XII grossly intact PSYCHIATRIC: Cooperative. Appropriate mood and affect ? [facility] Medical History Insomnia Hypotension Multinodular thyroid HLD (hyperlipidemia) HTN (hypertension) T2DM (type 2 diabetes mellitus) Vitamin D deficiency Surgical History History of esophagogastroduodenoscopy (EGD) Hx of colonoscopy Hx of esophagogastroduodenoscopy History of carpal tunnel surgery of left wrist Family History Father No family history of disorders History of high blood pressure Mother No family history of disorders Social History Household Members: Spouse and Children Housing: House Housing Other:: spouse/ kids Are you a primary rn wound care to a significant other at home: Yes Do you presently have visiting nurse or other home services: No Alcohol intake: never Patient Tobacco Use Status: Never used Tobacco service: No Current occupational status: unemployed Physical Exam Vital Signs: Last Vital Signs Pulse 76 06/23/24 13:07 BP 120/78 06/23/24 13:07 BMI result Body Mass Index 38.8 Results AMB Hemoglobin A1c AMB Hemoglobin A1c 6.1 % Last Edit by OLEG Hester on 06/23/24 13:20 Results Reviewed Results Reviewed: Laboratory Last Values Glucose (Clinic) 144 mg/dL (60-115) H 06/23/24 13:12 Hgb A1c (Clinic) 6.1 % (4.0-6.0) H 06/23/24 13:18 Assessment & Plan Assessment & Plan (1) T2DM (type 2 diabetes mellitus): Code(s): E11.9 - Type 2 diabetes mellitus without complications Category: Medical Qualifiers: Diabetes mellitus complication status: with hyperglycemia Diabetes mellitus terminal system operator insulin use: without prison use Qualified Code(s): E11.65 - Type 2 diabetes mellitus with hyperglycemia Plan: Spent a great deal of time discussing potential medication changes with medication-benefits, risks etc Would like to eliminate one medication. Considering switch to rybelsus if covered, but unlcear. May consider decreaseing or stopping glipizide but this will depend on where she is keeping the GLP Orders: Orders AMB Hemoglobin A1c 06/23/24 E11.65 - Type 2 diabetes mellitus with hyperglycemia Estradiol Ultra Sensitive 06/25/24 R63.5 - Abnormal weight gain Lutenizing Hormone 06/25/24 R63.5 - Abnormal weight gain Medications: New semaglutide (Rybelsus) 7 mg PO DAILY 90 tabs 3RF lancets once daily One touch lancets LOREE 100 ea 3RF NS OneTouch Verio test strips (blood sugar diagnostic) one daily 100 ea 3RF NS E11.65 - Type 2 diabetes mellitus with hyperglycemia Discontinued glipizide ER Discontinued Reason: Doctor's Order 10 mg PO DAILY 90 days 90 tabs 3RF Coding Level of Care Code Est Pt Level 5 (39877) Diagnoses Type 2 diabetes mellitus with hyperglycemia, without long-term current use of insulin E11.65 Diabetes mellitus complication status: with hyperglycemia Diabetes mellitus terminal system operator insulin use: without prison use Time Spent (min) 46
[2024-06-23 13:07] VITALS: BP 120/78; PULSE 76; BMI 38.8
[2024-06-23 13:15] LABS: Glucose, Whole Blood 144 mg/dL (60-115)
== END 2024-06-23 14:00 | disposition home or self-care (01) ==
PROVIDERS: PCP Hospitalist; Visit Provider Internal Medicine
DX: E11.65 Type 2 diabetes mellitus with hyperglycemia (principal)

== ENCOUNTER → 2024-06-23 12:47 | Outpatient (BNVA) | payer OTHER, SELFPAY | PROVIDERS: PCP Hospitalist; Visit Provider Internal Medicine | DX: E11.65 Type 2 diabetes mellitus with hyperglycemia (principal) | CPT/HCPCS: 82947; 83036; 99212 ==

== ENCOUNTER 2024-06-25 11:41 | Outpatient (REF) | payer OTHER, SELFPAY ==
[2024-06-27 09:29] LABS: Lutenizing Hormone 2.7 mIU/mL
[2024-07-03 00:49] LABS: Estradiol Ultra Sensitive 100 pg/mL
== END 2024-06-25 11:42 | disposition home or self-care (01) ==
LOC: HO.LAB 11:41
PROVIDERS: PCP Hospitalist; Visit Provider Internal Medicine
DX: R63.5 Abnormal weight gain (principal)
CPT/HCPCS: 36415; 82670; 83002

== ENCOUNTER 2024-07-02 09:51 | Outpatient (AMB) | payer OTHER, SELFPAY ==
--- NOTE | 2024-07-02 09:54 | A.OFFVIS_ITS ---
Vital Signs 07/02/24 09:56 Height 5 ft 3 in Weight 224 lb 13.944 oz BMI 39.8 BP 141/77 H Blood Pressure Location Lt brachial Position Sitting Pulse 77 Intake Visit Reasons: Chronic GERD Intake Note: Nell presents in the office as a follow up for chronic GERD. CC: She states that she still has all the same pains in the stomach and acid reflux - she takes the medications but she does not feel like they do not work ALL the way - they relieve some of the symptoms so they are not a severe. Biomechanical Engineer Required: Yes Allergies No Known Allergies [No Known Allergies*] Allergy (Verified 07/02/24 09:57) HPI HPI Chronic GERD: Details: 48 yr old f here for f/u RECAP: she has chronic joint pains in back and spine--takes gabapentin ongoing depression with poor sleep--erratic hours EGD July 2019 with biopsies no H pylori, inactive gastritis GES was nml CT 03/2021-- ileus, fluid filled colon, wall thickening of distal stomach, EGD: 09/2021-- essentially normal US 03/28- GB with sludge vs polyp, otherwise nml GES 06/2022-- nml 4 hr emptying, fast in the 1st hour HIDA- 06/27---nml INTERIM: she has nausea and vomiting after one hour of eating she denies diarrhea or constipation she has headaches in the morning she has poor appetite she feels some relief with lansoprazole EXAM: GENERAL: The patient is relaxed VITAL SIGNS:see workflow HEENT: Nonicteric sclerae, PERRLA, EOMI. Oropharynx clear. Moist mucous membranes. Conjunctivae appear well perfused. No thyroid mass. CHEST: Chest wall is nontender. HEART: Regular rate and rhythm without murmurs. LUNGS: Clear to auscultation bilaterally. ABDOMEN: Soft, positive bowel sounds, tender epigastrium and RUQ, no organomegaly.no flank tenderness SKIN: No rash, no excessive bruising, petechiae, or purpura. NEUROLOGIC: Cranial nerves II-XII intact without motor/sensory deficit. A/P: 1/ Ongoing sx with upper abdo pain, reflux, depression---PPI helps but not fully, no other cause on imaging PLAN: 1/ try colchcine in case of FMF, low dose due to interactions with other meds, advised to stop straight away if any musc cramps etc PFSH Medical History Insomnia Hypotension Multinodular thyroid HLD (hyperlipidemia) HTN (hypertension) T2DM (type 2 diabetes mellitus) Vitamin D deficiency Surgical History History of esophagogastroduodenoscopy (EGD) Hx of colonoscopy Hx of esophagogastroduodenoscopy History of carpal tunnel surgery of left wrist Family History Father No family history of disorders History of high blood pressure Mother No family history of disorders Social History Household Members: Spouse and Children Housing: House Housing Other:: spouse/ kids Are you a primary dialysis patient care technician to a significant other at home: Yes Do you presently have visiting nurse or other home services: No Alcohol intake: never Patient Tobacco Use Status: Never used Tobacco service: No Current occupational status: unemployed Physical Exam Vital Signs: Last Vital Signs Pulse 77 07/02/24 09:56 BP 141/77 H 07/02/24 09:56 BMI result Body Mass Index 39.8 Assessment & Plan Assessment & Plan (1) Chronic RUQ pain: Code(s): R10.11 - Right upper quadrant pain; G89.29 - Other chronic pain Category: Medical Plan: as above Coding Level of Care Code Est Pt Level 3 (53907) Diagnoses Chronic RUQ pain R10.11; G89.29
[2024-07-02 09:56] VITALS: BP 141/77; PULSE 77; BMI 39.8
== END 2024-07-02 10:30 | disposition home or self-care (01) ==
PROVIDERS: PCP Hospitalist; Visit Provider Internal Medicine Gastroenterology
DX: R10.11 Right upper quadrant pain (principal); G89.29 Other chronic pain
CPT/HCPCS: 99213

== ENCOUNTER → 2024-07-02 09:51 | Outpatient (BNVA) | payer OTHER, SELFPAY | PROVIDERS: PCP Hospitalist; Visit Provider Internal Medicine Gastroenterology | DX: K21.9 Gastro-esophageal reflux disease without esophagitis (principal); R10.11 Right upper quadrant pain; G89.29 Other chronic pain | CPT/HCPCS: 99212 ==

== ENCOUNTER 2024-07-21 12:55 | Outpatient (AMB) | payer OTHER, SELFPAY ==
--- NOTE | 2024-07-21 13:17 | A.OFFVIS_ITS ---
Vital Signs 07/21/24 13:18 Height 5 ft 3 in Weight 227 lb 1.218 oz BMI 40.2 BP 132/78 Blood Pressure Location Rt brachial Position Sitting Pulse 82 Pulse Source Pulse Oximeter Intake Visit Reasons: Discuss medication regimen Intake Note: Patient presents today for a follow-up on Type 2 Diabetes Mellitus & Thyroid: Last Diabetic eye exam was on: DUE Last Podiatry exam was on: Does not see a Cigar Making Machine Supervisor Most recent HbA1c: 6.1%, 06/23/2024 Random Glucose- 117 mg/dL, Today Boxing And Pressing Supervisor Required: Yes Boxing And Pressing Supervisor Language: English Boxing And Pressing Supervisor Services: Boxing And Pressing Supervisor Present Boxing And Pressing Supervisor Name: #[id number] Accompanied by: Self / Same As Patient Allergies No Known Allergies [No Known Allergies*] Allergy (Verified 07/08/24 15:20) HPI Comments Details: 48 year old female with PMHx T2DM, Nontoxic MNG presenting for 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 Current prescriptions is Metformin 1000mg PO BID, Victoza 1.8 mg daily, glipizide and pioglitazone. Plan at last visit was to stop the victoza and start rybelsus to aid weight loss if covered. This was covered. Also hoping that in near future we could decrease metformin to improve GI upset. Was on jardiance but was having very frequent yeast infection. She feels tired a lot-thinks this may be due to lower glucose readings. Denies BG <70. Has chronic abdominal upset. She is frustrated with weight gain/difficulty losing weight. Traditional freestyle glucometer-generally checks fasting am and then once in midday or afternoon. HbA1C 6.1% from 6.3%. Denies a family history of T2DM. Has eyes checked yearly, states UTD Has neuropathy-mild, stable Has nephropathy, on Lisinopril 20 mg Has HLD, On Atorvastatin 40 mg Denies any history of CAD. Declines diabetes education. NTMNG: Has longstanding nontoxic MNG. Had prior FNA biopsy by Dr. Washington 12/05/16 of the L lower pole 1.2 cm nodule, with benign cytology. FNA biopsy of left inferior 1.6cm nodule 2020-benign. Had thyroid u/s ordered by Dr Farooq 11/2023, underwent recent u/s biopsy at [facility]-tells pa this was benign 1. A 1.8 x 1.3 x 1.3 cm left mid TR 4 thyroid nodule meets criteria for biopsy and measured 1.7 x 1.0 x 1.2 cm, volume 1.1 mL. Correlation with prior biopsy results and clinical exam recommended to determine further management. 2. Additional subcentimeter thyroid nodules as detailed above including 0.9 cm left upper TR 5 thyroid nodule for which follow-up ultrasound in one year is recommended. ROS CONSTITUTIONAL: Denies weight loss, fever and chills. HEENT: Denies changes in vision and hearing. RESPIRATORY: Denies SOB and cough. CV: Denies palpitations and CP GI: Denies abdominal pain, nausea, vomiting and diarrhea. : Denies dysuria and urinary frequency. MSK: Denies new myalgia and joint pain. SKIN: Denies rash and pruritus. NEUROLOGICAL: Denies headache PSYCHIATRIC: Denies recent changes in mood. PHYSICAL EXAM: GENERAL: Alert and oriented x 3. NAD EYES: EOMI. Anicteric. HENT: Moist mucous membranes. No scleral icterus. No cervical lymphadenopathy. LUNGS: Clear to auscultation bilaterally. CARDIOVASCULAR: Regular rate and rhythm. No murmur. No JVD. ABDOMEN: Soft, non-tender +bs EXTREMITIES: No edema. Non-tender. SKIN: No rashes or lesions. Warm. NEUROLOGIC: No focal neurological deficits. CN II-XII grossly intact PSYCHIATRIC: Cooperative. Appropriate mood and affect ? [facility] Medical History Insomnia Hypotension Multinodular thyroid HLD (hyperlipidemia) HTN (hypertension) T2DM (type 2 diabetes mellitus) Vitamin D deficiency Surgical History History of esophagogastroduodenoscopy (EGD) Hx of colonoscopy Hx of esophagogastroduodenoscopy History of carpal tunnel surgery of left wrist Family History Father No family history of disorders History of high blood pressure Mother No family history of disorders Social History Household Members: Spouse and Children Housing: House Housing Other:: spouse/ kids Are you a primary medicare interviewer to a significant other at home: Yes Do you presently have visiting nurse or other home services: No Alcohol intake: never Patient Tobacco Use Status: Never used Tobacco service: No Current occupational status: unemployed Physical Exam Vital Signs: Last Vital Signs Pulse 82 07/21/24 13:18 BP 132/78 07/21/24 13:18 BMI result Body Mass Index 40.2 Results Reviewed Results Reviewed: Laboratory Last Values Glucose (Clinic) 117 mg/dL (60-115) H 07/21/24 13:23 Assessment & Plan Assessment & Plan (1) T2DM (type 2 diabetes mellitus): Code(s): E11.9 - Type 2 diabetes mellitus without complications Category: Medical Qualifiers: 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 well controlled. She will return in one month to see if we can decrease metformin Medications: Refilled 2 metformin 1,000 mg PO BID 240 tabs 3RF 90 days E11.65 - Type 2 diabetes mellitus with hyperglycemia Coding Level of Care Code Est Pt Level 4 (05519) Diagnoses Type 2 diabetes mellitus with hyperglycemia, without long-term current use of insulin E11.65 Diabetes mellitus intermodal truck driver insulin use: without intermodal truck driver use Diabetes mellitus complication status: with hyperglycemia
[2024-07-21 13:18] VITALS: BP 132/78; PULSE 82; BMI 40.2
[2024-07-21 13:27] LABS: Glucose, Whole Blood 117 mg/dL (60-115)
--- OUTSIDE RECORDS SUMMARY | 2024-07-21 15:26 | XMS_ITS | Continuity of Care Document ---
Author Organization [facility] Address [address] [place] [address] [address] [place] [phone] Phone Care Team Providers Care Casino Cage Manager Name Role Phone Orion RUIZ, YANNA, William [...] Mi- [place] & [place] [facility], [address] [place] [address] Dr [address], [id number], tel:[phone] [facility] Varicose veins of bilateral lower extremities with other complicationsPa in in right lower legPain in left lower legPain in right legRestless legs syndromeEssenti al (primary) hypertensionPru ritus, unspecifiedPain in left legCramp and spasmLocalized edema 4 Orion RUIZ, BRII RAINES. [address] [facility], [facility] [address], [place], [place], [id number] , [place]. tel:[phone] Referring Provider: Brianna Arauz MD, [address] [place], [address]. tel:[phone] [facility], [address] [place] [address] [address], [id number], tel:[phone] R - [place] [facility] Chronic venous hypertension (idiopathic) with other complications of bilateral lower extremity Orion RUIZ, RVT, RPCAROLE Thomas. [address] [facility], [address], [place], [place], [id number] , [place]. tel:[phone] Referring Provider: Brianna Arauz MD, [address] [place], [address]. tel:[phone] Family History Family Member Type Diagnosis Age At Onset No Information Payers Payer name Insurance type Covered democrat ID Leti barahona(s) [facility] [id number] Social History Type Description Quantity Date [...]
== END 2024-07-21 13:37 | disposition home or self-care (01) ==
PROVIDERS: PCP Hospitalist; Visit Provider Internal Medicine
DX: E11.65 Type 2 diabetes mellitus with hyperglycemia (principal)

== ENCOUNTER → 2024-07-21 12:55 | Outpatient (BNVA) | payer OTHER, SELFPAY | PROVIDERS: PCP Hospitalist; Visit Provider Internal Medicine | DX: E11.65 Type 2 diabetes mellitus with hyperglycemia (principal); Z79.84 Long term (current) use of oral hypoglycemic drugs | CPT/HCPCS: 82947; 99212 ==

== ENCOUNTER 2024-08-03 11:21 | Outpatient (AMB) | payer OTHER, SELFPAY ==
--- NOTE | 2024-08-03 11:30 | A.OFFVIS_ITS ---
Vital Signs 08/03/24 11:34 Height 5 ft 3 in Weight 228 lb 8 oz BMI 40.5 BP 126/74 Blood Pressure Location Lt brachial Position Sitting Pulse 84 Pulse Source Pulse Oximeter Pulse Oximetry (%) 96 Oxygen Delivery Method Room Air Intake Visit Reasons: Follow up Intake Note: Patient presents for a 6 mo fu for sleep disorder. Frame Wirer Required: No Accompanied by: Self / Same As Patient Allergies No Known Allergies [No Known Allergies*] Allergy (Verified 08/03/24 11:34) HPI Comments Details: 48 y/o female patient presents for follow up for migraine headaches. Daughter Noor on IPHONE for interpretation. She goes to bed at 11pm and has difficulty falling asleep, 2-3 hours then gets up and stays on her phone, or showers to help her go back to sleep. HST and PSG completed, no sleep apnea, she does have loud snoring. She is still having normal menses, with 28 day cycle, 14 days before her period faint red blood, spotting is f/u by rn gynecology. She has multi nodular thyroid disease and is followed by Endocrine. She takes melatonin each night, which has helped with arousals but still takes 2 hrs to initiate sleep. She goes to bed at 11pm and wakes up at 9 am she has 2-3 arousals a night. She doesn't grind her teeth, it feels like she is puts alot of pressure on her jaw at night, will f/u with her dentist. Morning headaches daily, starts at occipital neck and radiates to front, pounding 9am-noon usually, she takes tylenol otc 3-4 times a week, and they subside. Endorses phonophobia, photophobia, vertigo, dizziness, flashing lights in vision, and blurry vision. She wears reading glasses, has regular eye exams. RLS: She has pins and needles, muscle cramps at night bilaterally both feet. She constantly moves her feet. Memory STM is poor at baseline. Mood is irritable and sees a therapist once a month. [facility] Medical History Insomnia Hypotension Multinodular thyroid HLD (hyperlipidemia) HTN (hypertension) T2DM (type 2 diabetes mellitus) Vitamin D deficiency Surgical History History of esophagogastroduodenoscopy (EGD) Hx of colonoscopy Hx of esophagogastroduodenoscopy History of carpal tunnel surgery of left wrist Family History Father No family history of disorders History of high blood pressure Mother No family history of disorders Social History Household Members: Spouse and Children Housing: House Housing Other:: spouse/ kids Are you a primary ocular care technician to a significant other at home: Yes Do you presently have visiting nurse or other home services: No Alcohol intake: never Patient Tobacco Use Status: Never used Tobacco service: No Current occupational status: unemployed Review of Systems Const All systems reviewed & are unremarkable except as noted in HPI and below Physical Exam Vital Signs: Last Vital Signs Pulse 84 08/03/24 11:34 BP 126/74 08/03/24 11:34 Pulse Ox 96 08/03/24 11:34 Oxygen Delivery Method Room Air 08/03/24 11:34 BMI result Body Mass Index 40.5 Const General: cooperative, comfortable and no acute distress Orientation/consciousness: patient oriented x3 HEENT Face and sinus: Yes normal facial exam and Yes face symmetric Teeth and gingiva: other Eyes Pupils: Equal, round and reactive pupils present Neck Neck: Yes full ROM Resp Effort & Inspection: normal respiratory effort and able to speak in complete sentences Neuro General: patient oriented x3 Cranial nerves: Yes CN's II-XII intact bilaterally, Yes Facial sensation intact/muscles of mastication intact, Yes Equal, round and reactive pupils present, Yes Normal accommodation reflex present, Yes Bilaterally intact EOM present, Yes Nystagmus not present, Yes Normal facial strength present, Yes Midline tongue present, Yes Ability to bilaterally rotate head present and Yes Ability to bilaterally elevate shoulders present Gait exam (Neuro): Normal gait present Motor exam (neuro): 5/5 motor strength present throughout, Pronator motor function not present and no tremor noted Deep tendon reflexes (DTR's): Right triceps reflex intensity grade: 2+, Left triceps reflex intensity grade: 2+, Rt Biceps (C5, C6): 2+, Left biceps reflex intensity grade: 2+, Right brachioradialis reflex intensity grade: 2+, Left brachioradialis reflex intensity grade: 2+, Right patellar reflex intensity grade: 2+ and Left patellar reflex intensity grade: 2+ Psych Appearance: grossly normal Mental Status: mental status grossly normal Speech and movement: Normal speech and movement present Affect: normal affect Attitude: cooperative Insight: Good insight present (Psych) Judgement: Good judgement present (Psych) Results Reviewed Results Reviewed: Labs : Sleep Study not consistent with sleep apnea Endocrine Notes: Diabetes Type 2, not well controlled. ED Notes: GI complications [facility] Notes Thyroid - Multinodular disease / BX is benign Assessment & Plan Assessment & Plan (1) Cervicalgia: Code(s): M54.2 - Cervicalgia Category: Medical (2) Snoring: Code(s): R06.83 - Snoring Category: Medical (3) Insomnia: Code(s): G47.00 - Insomnia, unspecified Category: Medical Qualifiers: Insomnia type: unspecified Qualified Code(s): G47.00 - Insomnia, unspecified (4) Weight gain: Code(s): R63.5 - Abnormal weight gain Category: Medical Plan Insomnia with snoring Sleep Hygiene: Sleep in a dark room, cool temperatures below 68, no devices in bed, read a book, diffuse essential oils, avoid sleeping suppine, use nasal strips for snoring, taping mouth to decrease mouth breathing. Cervicalgia: PT for neck strengthening exercises, on Youtube, or yoga at night. PT referral today Pt. declined. Migraine cap use, Peppermint oil on the temples bilaterally. -Continue Baclofen PO 20mg at bedtime or as needed. -Continue taking Melatonin 20mg - increased today. -Continue taking Magnesium 400mg po at night daily, B6 pryidoxine 250mg po at bedtime, [place] 3 -otc as needed Botox/ ( Lunesta, Remeron?) may discuss in the future RLS: / Diabetic Neuropathy : Continue taking Gabapentin - Topiramate- Duloxetine as prescribed. F/U in 3 months if headaches/ Migraines are worse/ Memory declines and will consider MRI in the future. Medications: New magnesium oxide may take one tablet by mouth daily at bedtime 400 mg PO DAILY 30 tabs 3RF headaches MDD 400mg pyridoxine (vitamin B6) May take one tablet at bedtime for neuropathy. 250 mg PO DAILY 30 tabs 3RF neuropathy MDD 500 Changed From melatonin 10 mg PO BEDTIME 30 days PRN 30 tabs 3RF sleep G47.00 - Insomnia, unspecified To melatonin 20 mg (2 x 10 mg) PO BEDTIME 30 days PRN 30 tabs 3RF sleep disturbances G47.00 - Insomnia, unspecified Coding Level of Care Code Est Pt Level 4 (53756) Diagnoses Cervicalgia M54.2 Snoring R06.83 Insomnia, unspecified type G47.00 Insomnia type: unspecified Weight gain R63.5 Time Spent (min) 40
[2024-08-03 11:34] VITALS: BP 126/74; PULSE 84; O2SAT 96; BMI 40.5
--- OUTSIDE RECORDS SUMMARY | 2024-08-03 12:36 | XMS_ITS | Continuity of Care Document ---
Author Organization [facility] Address [address] [place] [address] [address] [place] [address] Phone Care Team Providers Care Electric Motor And Generator Assembler Name Role Phone Orion RUIZ, YANNA, William [...] Mi- [place] & [place] [facility], [address] [place] [address] Dr Mendoza [address]Maci [place], [id number], tel:[phone] [facility] Varicose veins of bilateral lower extremities with other complicationsPa in in right lower legPain in left lower legPain in right legRestless legs syndromeEssenti al (primary) hypertensionPru ritus, unspecifiedPain in left legCramp and spasmLocalized edema 4 Orion RUIZ, BRII RAINES. [address] [facility], [facility] [address], [place], [place], [id number] , [place]. tel:[phone] Referring Provider: Brianna Arauz MD, [address] [place], [address]. tel:[phone] [facility], [address] [place] [address] [address]Maci [place], [id number], tel:[phone] R - [place] [facility] [place] Chronic venous hypertension (idiopathic) with other complications of bilateral lower extremity Orion RUIZ, RVT, RPCAROLE Thomas. [address] [facility], [address], [place], [place], [id number] , [place]. tel:[phone] Referring Provider: Brianna Arauz MD, [address] [place], [address]. tel:[phone] Family History Family Member Type Diagnosis Age At Onset No Information Payers Payer name Insurance type Covered republican ID Leti barahona(s) [facility] [id number] Social History Type Description Quantity Date [...]
--- OUTSIDE RECORDS SUMMARY | 2024-08-03 12:36 | XMS_ITS | Clinical Summary ---
Author Organization [facility] Address [address] [place] [address] Phone Care Team Providers Care Charging Car Operator Name Role Phone Brianna Arauz MD Primary Care Provider Encounters Date Type Department Care Team Description 07/16/2024 1:58 PM EST - 07/16/2024 11:59 PM EST Hospital Encounter [facility] Xray [address] [place] [phone] Heel pain Discharge Disposition: Home or Self Care from Last 3 Months Surgical History Surgery Date Site/Laterality Comments HAND SURGERY PROCEDURE: HISTORICAL HAND SURGERY Medical History Medical History Date Comments Type 2 diabetes mellitus (CMS/HCC) DX:Type 2 diabetes mellitus (HCC) GERD (gastroesophageal reflux disease) DX:GERD (gastroesophageal reflux disease) Back pain DX:Back pain Hypercholesterolemia DX:Hypercho lesterolemia HTN (hypertension) DX:HTN (hyper tension) Acid reflux DX:Acid reflux Chronic back pain DX:Chronic paris k pain Supraventricular tachycardia (CMS/HCC) 12/24/2022 DX:Supraventricular tachycardia (HCC) Hypertension 12/31/2022 DX:Hypertension Social History Tobacco Use Types Packs/Day Years Used Date Smoking Tobacco: Never Smokeless Tobacco: Never Alcohol Use Standard Drinks/Week Comments No 0 (1 standard drink = 0.6 oz pur e alcohol) Sex and Gender Information Value Date Recorded Sex Assigned at Not on file Gender Identity Not on file Sexual Orientation Not on file Job Start Date Occupation Industry Not on file Not on file Not on file Obstetrics History Last Filed Vital Signs Vital Sign Reading Time Taken Comments Blood Pressure 118/74 05/01/2023 9:40 AM EDT Pulse 71 08/07/2023 9:31 AM EST Temperature - - Respiratory Rate - - Oxygen Saturation - - Inhaled Oxygen Concentration - - Weight 97.1 kg (214 lb) 08/07/2023 9:31 AM EST Height 160 cm (5' 3 ) 08/07/2023 9:31 AM EST Body Mass Index 37.91 08/07/2023 9:31 AM EST Plan of Treatment Health Maintenance Due Date Last Done Comments Breast Cancer Screening 1976 Diabetes: Annual GFR (Glomerular Filtration Rate) 1976 Diabetes: Annual Foot Exam 1986 Diabetes: Annual Retina Eye Exam 1986 Cervical Cancer Screening: Pap Smear 1997 IPV Vaccines (3 of 3 - Adult catch-up series) 06/28/2009 12/27/2008, 09/28/2008 Cholesterol Screening (Lipid Panel) 06/15/2022 Colorectal Cancer Screening: Colonoscopy 06/15/2022 Depression Screening 06/15/2022 HIV Screening 06/15/2022 Hepatitis C Screening 06/15/2022 Social Influencers of Health Screening 06/15/2022 Hypertension/CHF/CAD Annual BMP Blood Test 08/05/2023 Diabetes: Annual Urine Albumin-Creatinine Ratio (uACR) 08/21/2023 Diabetes: Blood Sugar Control Test (HGBA1C) 08/21/2023 COVID-19 Vaccine ( - season) 2024 02/22/2021, 02/01/2021 Influenza Vaccine (#1) 2024 8, 04/28/2017, 04/06/2015, Additional history exists DTaP,Tdap,and Td Vaccines (5 - Td or Tdap) 03/30/2028 03/30/2018, 03/13/2017, 11/08/2008, Additional history exists MMR Vaccines Aged Out 11/08/2008, 09/28/2008 No lo nger eligible based on patient's age to complete this topic Hepatitis A Vaccines Aged Out 07/10/2009 No long er eligible based on patient's age to complete this topic Pneumococcal Vaccine: Pediatrics (0 to 5 Years) and At-Risk Patients (6 to 64 Years) Aged Out 03/30/2018, 08/24/2013 No longer eligibl e based on patient's age to complete this topic Hepatitis B Vaccines Completed 12/03/2018, 06/11/2018, 05/12/2018, Additional history exists HIB Vaccines Aged Out No longer eligi ble based on patient's age to complete this topic HPV Vaccines Aged Out No longer eligi ble based on patient's age to complete this topic Meningococcal ACWY Vaccine Aged Out N o longer eligible based on patient's age to complete this topic RSV Immunization Patients Under 20 months Aged Out No longer eligible based on patient's age to complete this topic Varicella Vaccines Aged Out No longer eligible based on patient's age to complete this topic Procedures Procedure Name Priority Date/Time Associated Diagnosis Comments XR FOOT 3+ VIEWS RIGHT Routine 07/16/2024 2:24 PM EST Heel pain from Last 3 Months Results * XR Foot 3+ Views Right (07/16/2024 2:24 PM EST) Anatomical Region Laterality Modality Lower Extremities, Foot Right Radiogra phic Imaging 07/21/2024 8:17 AM EST Impressions 07/21/2024 8:19 AM EST Calcaneal spurring. Degenerative changes first MTP joint -------- FINAL REPORT -------- Dictated By: Kiel Ruiz Dictated Date: 07/21/2024 08:17 ET Assigned Physician: Kiel Ruiz Reviewed and Electronically Signed By: Kiel Ruiz Signed Date: 07/21/2024 08:19 ET Workstation ID: [id number] Transcribed By: Self Edit Transcribed Date: 07/21/2024 08:17 ET Narrative 07/21/2024 8:19 AM EST EXAMINATION: RIGHT FOOT CLINICAL INFORMATION: Heel pain. Symptoms for 2 months COMPARISON: 01/11/2022 TECHNIQUE: 3 views right foot FINDINGS: No acute fracture or subluxation. No suspicious focal lesion. Mild to moderate narrowing of the first MTP joint with some proliferative osteophyte. This has developed or worsened. Moderate dorsal and plantar calcaneal spurring. Procedure Note Kiel Ruiz MD - 07/21/2024 EXAMINATION: RIGHT FOOT CLINICAL INFORMATION: Heel pain. Symptoms for 2 months COMPARISON: 01/11/2022 TECHNIQUE: 3 views right foot FINDINGS: No acute fracture or subluxation. No suspicious focal lesion. Mild to moderate narrowing of the first MTP joint with some proliferativeosteophyte. This has developed or worsened. Moderate dorsal and plantar calcaneal spurring. IMPRESSION: Calcaneal spurring. Degenerative changes first MTP joint -------- FINAL REPORT -------- Dictated By: Kiel Ruiz Dictated Date: 07/21/2024 08:17 ET Assigned Physician: Kiel Ruiz Reviewed and Electronically Signed By: Kiel Ruiz Signed Date: 07/21/2024 08:19 ET Workstation ID: [id number] Transcribed By: Self Edit Transcribed Date: 07/21/2024 08:17 ET Bella Priest DO IMG XR PROCEDURES from Last 3 Months Care Teams Charging Car Operator Relationship Specialty Start Date End Date Brianna Arauz MD [address] [place] [address] PCP - General Internal Medicine 01/26/20
--- OUTSIDE RECORDS SUMMARY | 2024-08-03 12:36 | XMS_ITS ---
Author Organization [facility] Address [address] [facility] [address] [place] [address] Care Team Providers Care Glue Mounter Operator Name Role Phone ABIGAIL TAVERAS Primary Care Provider REASON FOR VISIT Notes to be sent Encounters Encounter Location Date Provider Diagnosis [facility] [address] [facility] [address] [place] [address] 04/13/2024 ABIGAIL TAVERAS Plan Of Treatment Next Appt Details Provider Name:Mario Wenantionette dean, 08/19/2024 01:00:00 PM, [address] [facility] [address], [place], [address], Progress Notes * Nell MORROWDOB: 7 (48 yo F)Acc No.[id number]:04/13/2024 Patient:?Napoleon MORROWzeb :1975???Age:48 Y???Sex:Female Address:[address] [place] [address] * true * Date:? Generated for Siennai karey/Rajinder/eTransmitting on:?08/03/2024 12:36 PM EST
--- OUTSIDE RECORDS SUMMARY | 2024-08-03 12:36 | XMS_ITS ---
Author Organization [facility] Address [address] [facility] [address] [place] [address] Care Team Providers Care Dietary Manager Name Role Phone ABIGAIL TAVERAS Primary Care Provider REASON FOR VISIT [facility] First form Encounters Encounter Location Date Provider Diagnosis [facility] [address] [facility] [address] [place] [address] 04/26/2024 ABIGAIL TAVERAS Plan Of Treatment Next Appt Details Provider Name:Alexismalvin Behzadantionette dean, 08/19/2024 01:00:00 PM, [address] [facility] [address], [place], [address], Progress Notes * Nell BLANCODOB: 7 (48 yo F)Acc No.[id number]:04/26/2024 Patient:?SIDNEYLARA Nell :1975???Age:48 Y???Sex:Female Address:[address] [place] [address] * true * Date:? Generated for Siennai karey/Rajinder/eTransmitting on:?08/03/2024 12:36 PM EST
--- OUTSIDE RECORDS SUMMARY | 2024-08-03 12:36 | XMS_ITS | Clinical Summary ---
Author Organization [facility] Address [address] [place] [address] Care Team Providers Care Construction Executive Name Role Phone Rochelle Engel PA-C Primary Care Provider [phone] Source Comments PLEASE NOTE, if this patient is a minor, it may be UNLAWFUL to discuss sensitive information that is contained in these records (such as FAMILY PLANNING, MENTAL HEALTH or SUBSTANCE ABUSE) with the minor patient's parent or other person without the patient's specific authorization.[facility] Allergies No known active allergies Medications blood-glucose meter monitoring kitIndications:DM type 2 (diabetes mellitus, type 2) ([facility]) as needed for blood glucose monitoring. Quantity: 1 meter freestyle lite. DX: 250.00 for a lifetime. 1 Each 0 08/19/19 15 Active lancetsIndication s:Type 2 diabetes mellitus without complication ([facility]) FREESTYLE. USE BID PRN. DX: 250.00 50 Each 11 03/20/20 15 Active etonogestrel-ethi nyl estradiol (NUVARING) 0.12-0.015 mg/24 hr vaginal ringIndications:F amily planning, contraceptive checking and surveillance Place 1 Each vaginally once. PER PIER MASTER ASSISTANT. Leave in place for 3 consecutive weeks, then remove for 1 week. 1 Each 08/11/19 16 Active Miscellaneous Medical Supply miscIndications:E ssential hypertension by miscellaneous route once daily. BLOOD PRESSURE MACHINE. DX: HTN 1 Each 0 12/12/19 16 Active fluticasone (FLONASE) 50 mcg/actuation nasal sprayIndications: Allergic otitis media of both ears, unspecified chronicity Place 1 [place] into the nostril(s) once daily. 16 g 1 02/26/20 16 Active metFORMIN (GLUMETZA) 500 mg 24 hr tabletIndications :Type 2 diabetes mellitus without complication, without long-term current use of insulin ([facility]) Take 2 Tabs by mouth once daily with dinner. Swallow whole. Do not break, crush or chew. 180 Tab 1 02/26/20 16 Active pregabalin (LYRICA) 50 mg capsuleIndication s:Fibromyalgia Take 1 Cap by mouth 2 (two) times daily. PER DR. RODRIGUEZ 05/23/20 16 Active blood sugar diagnostic (FREESTYLE TEST) stripsIndications :Type 2 diabetes mellitus without complication, without long-term current use of insulin ([facility]) 1 Strip 2 (two) times daily. Pt test sugar BID dx E11.9 50 Each 11 05/23/20 16 Active omeprazole (PRILOSEC) [address] capsuleIndication s:Gastroesophagea l reflux disease, esophagitis presence not specified Take 2 Caps by mouth every morning before breakfast. Do not crush or chew. 05/23/20 16 Active lisinopril (PRINIVIL,ZESTRIL ) 10 mg tablet take 1 tablet by mouth once daily 90 Tab 3 07/02/20 16 Active Active Problems Problem Noted Date Diagnosed Date Non-Chinese speaking patient- Telugu speaking control counseling 04/24/2016 Overview (04/24/2016): Advised stop NR- and ref to diagnostic assistant for ? Tubal 04/24/16 Essential hypertension 05/23/2015 H. pylori infection, tx 12/09/14 12/09/2014 Overview (12/09/2014): Positive urea breath test Iron deficiency anemia 12/06/2014 Overview (05/23/2016): Non-compliant with feso4. Vitamin B12 deficiency 12/06/2014 Overview (05/23/2016): 298. Non compliant with vitamin b 12. Type 2 diabetes mellitus without complication (H CC-CMS) 11/16/2012 Hand paresthesias, bilateral 09/11/2012 Overview (07/15/2013): Negative EMG right hand 05/16/09 Tinea corporis/intertrigo breasts 04/10/2012 GERD (gastroesophageal reflux disease) 2 Neck pain 07/10/2009 Overview (07/15/2013): X-rays 12/03/11 muscle spasm per Rheum. History of migraine 03/02/2009 Low back pain 02/27/2009 Overview (07/15/2013): X-rays revealed DJD of L-spine. MRI 2009 L5-S1 central disc herniation with right S1 nerve impingement. L5-S1 DDD per [facility]. Vitamin D deficiency 09/30/2008 Overview (05/23/2016): =11. Non-compliant with vitamin d Morbid obesity with BMI of 40.0-44.9, adult ([facility]) 09/28/2008 TB lung, latent 09/28/2008 Overview (07/15/2013): +PPD=10 mm 09/30/08; TX 12/13/08 @ [facility] Hirsutism Overview (07/15/2013): Per Derm Dr. Woodall Varicosities of leg Fibromyalgia Overview (07/15/2013): Dx: 2009 per [facility] Depression Overview (08/11/2015): Per psych Dr. Granado. Currently does not see anyone. Seeing Dania here. Insomnia Overview (08/11/2015): Formerly seen by Dr. Granado. Now seeing social services manager Dania. Immunizations Name Administration Dates Next Due HEP A-HEP B 07/10/2009 Hep B, Adult/Adol (ENERGIX/RECOMBIVAX) 9,11/08/2008 INFLUENZA, SEASONAL, INJECTABLE 04/06/2015,08/24,04/02/2012 IPV 12/27/2008,09/28/2008 MMR (MMR II/Priorix) 11/08/2008,09/28/2008 PNEUMOCOCCAL POLYSACCHARIDE PPV23 08/24/2013 PPD 09/28/2008 Td(adult),2 Lf tetanus toxoi d,preservative free 11/08/2008,09/28/2008 Social History Tobacco Use Types Packs/Day Years Used Date Smoking Tobacco: Never Smokeless Tobacco: Never Alcohol Use Standard Drinks/Week Comments No 0 (1 standard drink = 0.6 oz pur e alcohol) Social Connections Answer Date Recorded Social Connections and Isolation 0 02/27/2019 Financial Resource Strain Answer Date R ecorded Financial Resource Strain 0 2018 Stress Answer Date Recorded Stress 0 02/27/2019 Physical Activity Answer Date Recorded Physical Activity 0 02/27/2019 Food Insecurity Answer Date Recorded Food 0 02/27/2019 Transportation Needs Answer Date Record ed Transportation 0 02/27/2019 Housing Stability Answer Date Recorded Housing 0 02/27/2019 Safety and Environment Answer Date Tavon rded Safety 0 02/27/2019 Utilities Answer Date Recorded Utilities 0 02/27/2019 Employment Answer Date Recorded Employment 0 02/27/2019 Comments No Sex and Gender Information Value Date Recorded Sex Assigned at Not on file Legal Sex Female 11:36 AM PDT Gender Identity Not on file Sexual Orientation Not on file Last Filed Vital Signs Vital Sign Reading Time Taken Comments Blood Pressure 120/60 05/23/2016 10:15 AM EST Pulse 80 05/23/2016 10:15 AM EST Temperature 36.9 ??C (98.4 ??F) 05/23/2016 10:[address] Respiratory Rate 16 05/23/2016 10:15 AM EST Oxygen Saturation 99% 06/07/2015 1:57 PM EST RA Inhaled Oxygen Concentration - - Weight 101.2 kg (223 lb) 09/03/2016 2:51 PM EST Height 160 cm (5' 2.99 ) 09/03/2016 2:51 PM EST Body Mass Index 39.51 09/03/2016 2:51 PM EST Plan of Treatment Not on file Insurance [facility] D[facility] MEDICAID Care Teams Construction Executive Relationship Specialty Start Date End Date Rochelle Engel PA-C [address] [place] [address] PCP - General 09/01/18
--- OUTSIDE RECORDS SUMMARY | 2024-08-03 12:36 | XMS_ITS | Encounter Summary ---
Author Organization [facility] Address [address] [place] [address] Care Team Providers Care Biofuels Engineering Manager Name Role Phone Brianna Arauz MD Primary Care Provider [phone] Encounter Details Date Type Department Care Team (Latest Contact Info) Description 07/16/2024 1:58 PM EST - 07/16/2024 11:59 PM EST Hospital Encounter [facility] Xray [address] [place] [phone] Heel pain Discharge Disposition: Home or Self Care Social History Tobacco Use Types Packs/Day Years [...] file Not on file Not on file documented as of this encounter Discharge Disposition Disposition Code Departure Means Destination Home or Self Care documented in this encounter Plan of Treatment Not on file documented as of this encounter Procedures Procedure Name Priority Date/Time Associated Diagnosis Comments XR FOOT 3+ VIEWS RIGHT Routine 07/16/2024 2:24 PM EST Heel pain documented in this encounter Results * XR Foot 3+ Views Right [...] Signed Date: 07/21/2024 08:19 ET Workstation ID: [id number] Transcribed By: Self Edit Transcribed Date: 07/21/2024 [...] Signed Date: 07/21/2024 08:19 ET Workstation ID: [id number] Transcribed By: Self Edit Transcribed Date: 07/21/2024 08:17 ET Bella Priest DO IMG XR PROCEDURES documented in this encounter Visit Diagnoses Diagnosis Heel pain Pain in soft tissues of limb documented in this encounter Care Teams Biofuels Engineering Manager Relationship Specialty Start Date End Date Brianna Arauz MD [address] [place] [phone] (work) PCP - General Internal Medicine 01/26/20 documented as of this encounter
== END 2024-08-03 12:29 | disposition home or self-care (01) ==
PROVIDERS: PCP Hospitalist; Visit Provider Physician Assistant Medical
DX: M54.2 Cervicalgia (principal); R06.83 Snoring; G47.00 Insomnia, unspecified; R63.5 Abnormal weight gain
CPT/HCPCS: 99214

== ENCOUNTER → 2024-08-03 11:21 | Outpatient (BNVA) | payer OTHER, SELFPAY | PROVIDERS: PCP Hospitalist; Visit Provider Physician Assistant Medical | DX: G47.00 Insomnia, unspecified (principal); M54.2 Cervicalgia; R06.83 Snoring; R63.5 Abnormal weight gain | CPT/HCPCS: 99212 ==

== ENCOUNTER 2024-08-04 08:29 | Outpatient (AMB) | payer OTHER, SELFPAY ==
--- NOTE | 2024-08-04 08:41 | A.OFFVIS_ITS ---
Vital Signs 08/04/24 08:46 Height 5 ft 3 in Weight 229 lb 15.074 oz BMI 40.7 BP 118/76 Blood Pressure Location Rt brachial Position Sitting Pulse 81 Pulse Source Pulse Oximeter Intake Visit Reasons: Review blood glucose Intake Note: Patient present today to follow up on Type 2 Diabetes Mellitus. 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 Current prescriptions is Metformin 1000mg PO BID, rybelsus 7mg (started 2 weeks ago changed from Victoza 1.8 mg daily), glipizide and pioglitazone. Plan at last visit was to stop the victoza and start rybelsus to aid weight loss if covered. This was covered. Also hoping that in near future we could decrease metformin to improve GI upset. Was on jardiance but was having very frequent yeast infection. She feels tired a lot-thinks this may be due to lower glucose readings. Denies BG <70. Has chronic abdominal upset. She is frustrated with weight gain/difficulty losing weight. Traditional freestyle glucometer- reviewed range 67-151 with average of 115. HbA1C 06/23 6.1% from 6.3%. Denies a family history of T2DM. Has eyes checked yearly, states UTD Has neuropathy-mild, stable Has nephropathy, on Lisinopril 20 mg Has HLD, On Atorvastatin 40 mg Denies any history of CAD. Declines diabetes education. NTMNG: Has longstanding nontoxic MNG. Had prior FNA biopsy by Dr. Washington 12/05/16 of the L lower pole 1.2 cm nodule, with benign cytology. FNA biopsy of left inferior 1.6cm nodule 2020-benign. Had thyroid u/s ordered by Dr Farooq 11/2023, underwent recent u/s biopsy at [facility]-tells me this was benign 1. A 1.8 x 1.3 x 1.3 cm left mid TR 4 thyroid nodule meets criteria for biopsy and measured 1.7 x 1.0 x 1.2 cm, volume 1.1 mL. Correlation with prior biopsy results and clinical exam recommended to determine further management. 2. Additional subcentimeter thyroid nodules as detailed above including 0.9 cm left upper TR 5 thyroid nodule for which follow-up ultrasound in one year is recommended. ROS CONSTITUTIONAL: Denies weight loss, fever and chills. HEENT: Denies changes in vision and hearing. RESPIRATORY: Denies SOB and cough. CV: Denies palpitations and CP GI: Denies abdominal pain, nausea, vomiting and diarrhea. : Denies dysuria and urinary frequency. MSK: Denies new myalgia and joint pain. SKIN: Denies rash and pruritus. NEUROLOGICAL: Denies headache PSYCHIATRIC: Denies recent changes in mood. PHYSICAL EXAM: GENERAL: Alert and oriented x 3. NAD EYES: EOMI. Anicteric. HENT: Moist mucous membranes. No scleral icterus. No cervical lymphadenopathy. LUNGS: Clear to auscultation bilaterally. CARDIOVASCULAR: Regular rate and rhythm. No murmur. No JVD. ABDOMEN: Soft, non-tender +bs EXTREMITIES: No edema. Non-tender. SKIN: No rashes or lesions. Warm. NEUROLOGIC: No focal neurological deficits. CN II-XII grossly intact PSYCHIATRIC: Cooperative. Appropriate mood and affect ? [facility] Medical History Insomnia Hypotension Multinodular thyroid HLD (hyperlipidemia) HTN (hypertension) T2DM (type 2 diabetes mellitus) Vitamin D deficiency Surgical History History of esophagogastroduodenoscopy (EGD) Hx of colonoscopy Hx of esophagogastroduodenoscopy History of carpal tunnel surgery of left wrist Family History Father No family history of disorders History of high blood pressure Mother No family history of disorders Social History Household Members: Spouse and Children Housing: House Housing Other:: spouse/ kids Are you a primary healthcare network pricing consultant to a significant other at home: Yes Do you presently have visiting nurse or other home services: No Alcohol intake: never Patient Tobacco Use Status: Never used Tobacco service: No Current occupational status: unemployed Physical Exam Vital Signs: Last Vital Signs Pulse 81 08/04/24 08:46 BP 118/76 08/04/24 08:46 BMI result Body Mass Index 40.7 Assessment & Plan Assessment & Plan (1) T2DM (type 2 diabetes mellitus): Code(s): E11.9 - Type 2 diabetes mellitus without complications Category: Medical Qualifiers: Diabetes mellitus care home insulin use: without intermodal dispatcher use Diabetes mellitus complication status: with hyperglycemia Qualified Code(s): E11.65 - Type 2 diabetes mellitus with hyperglycemia Plan: Well controlled. Decrease metformin to 500 mg twice daily from 1000mg twice daily continue other medications. return in 6 weeks for A1C/follow up, or sooner as needed Medications: Changed From metformin 1,000 mg PO BID 90 days 240 tabs 3RF E11.65 - Type 2 diabetes mellitus with hyperglycemia To metformin 500 mg (1/2 x 1,000 mg) PO BID 90 days 90 tabs 3RF E11.65 - Type 2 diabetes mellitus with hyperglycemia Coding Level of Care Code Est Pt Level 4 (22185) Diagnoses Type 2 diabetes mellitus with hyperglycemia, without long-term current use of insulin E11.65 Diabetes mellitus care home insulin use: without intermodal dispatcher use Diabetes mellitus complication status: with hyperglycemia
[2024-08-04 08:46] VITALS: BP 118/76; PULSE 81; BMI 40.7
[2024-08-04 08:57] LABS: Glucose, Whole Blood 124 mg/dL (60-115)
== END 2024-08-04 09:01 | disposition home or self-care (01) ==
PROVIDERS: PCP Hospitalist; Visit Provider Internal Medicine
DX: E11.65 Type 2 diabetes mellitus with hyperglycemia (principal)

== ENCOUNTER → 2024-08-04 08:29 | Outpatient (BNVA) | payer OTHER, SELFPAY | PROVIDERS: PCP Hospitalist; Visit Provider Internal Medicine | DX: E11.65 Type 2 diabetes mellitus with hyperglycemia (principal); Z79.84 Long term (current) use of oral hypoglycemic drugs | CPT/HCPCS: 82947; 99212 ==

== ENCOUNTER 2024-08-19 08:21 | Outpatient (AMB) | payer OTHER, SELFPAY ==
[2024-08-19 08:23] VITALS: BP 122/78; PULSE 72; BMI 40.2
--- NOTE | 2024-08-19 08:23 | A.OFFVIS_ITS ---
Vital Signs 08/19/24 08:23 Height 5 ft 3 in Weight 227 lb 1.218 oz BMI 40.2 BP 122/78 Blood Pressure Location Rt brachial Position Sitting Pulse 72 Pulse Source Pulse Oximeter Intake Visit Reasons: [id number] check Intake Note: Patient presents today for a follow-up on Type 2 Diabetes Mellitus & Thyroid: Last Diabetic eye exam was on: DUE Last Podiatry exam was on: Does not see a Pest Control Applicator Most recent HbA1c: 6.1%, 06/23/2024 Random Glucose- 125 mg/dL, Today Reservations Manager Required: Yes Reservations Manager Language: Syriac Reservations Manager Services: Reservations Manager Present Reservations Manager Name: #[phone] Accompanied by: Self / Same As Patient Allergies No Known Allergies [No Known Allergies*] Allergy (Verified 08/19/24 08:26) HPI Comments Details: 48 year old female with past medical history of T2DM, Nontoxic MNG presenting for follow up Syriac shrimp cleaner video [id number] Initially diagnosed with T2DM in 2011. Current prescriptions is Metformin 500mg twice daily (decrease from 1000mg twice daily), rybelsus 7mg (started ~ 1 month ago changed from Victoza 1.8 mg daily), glipizide and pioglitazone. Plan at last visit was to stop the victoza and start rybelsus to aid weight loss if covered. This was covered. Also hoping that in near future we could decrease metformin to improve GI upset. Was on jardiance but was having very frequent yeast infection. She feels tired a lot-thinks this may be due to lower glucose readings. Denies BG <70. Has chronic abdominal upset. She is frustrated with weight gain/difficulty losing weight. Traditional freestyle glucometer- reviewed range 87-194 with average 127. HbA1C 06/23 6.1% from 6.3%. Denies a family history of T2DM. Has eyes checked yearly, states UTD Has neuropathy-mild, stable Has nephropathy, on Lisinopril 20 mg Has HLD, On Atorvastatin 40 mg Denies any history of CAD. Declines diabetes education. NTMNG: Has longstanding nontoxic MNG. Had prior FNA biopsy by Dr. Washington 12/05/16 of the L lower pole 1.2 cm nodule, with benign cytology. FNA biopsy of left inferior 1.6cm nodule 2020-benign. Had thyroid u/s ordered by Dr Farooq 11/2023, underwent recent u/s biopsy at [facility]-tells me this was benign 1. A 1.8 x 1.3 x 1.3 cm left mid TR 4 thyroid nodule meets criteria for biopsy and measured 1.7 x 1.0 x 1.2 cm, volume 1.1 mL. Correlation with prior biopsy results and clinical exam recommended to determine further management. 2. Additional subcentimeter thyroid nodules as detailed above including 0.9 cm left upper TR 5 thyroid nodule for which follow-up ultrasound in one year is recommended. ROS CONSTITUTIONAL: Denies weight loss, fever and chills. HEENT: Denies changes in vision and hearing. RESPIRATORY: Denies SOB and cough. CV: Denies palpitations and CP GI: Denies abdominal pain, nausea, vomiting and diarrhea. : Denies dysuria and urinary frequency. MSK: Denies new myalgia and joint pain. SKIN: Denies rash and pruritus. NEUROLOGICAL: Denies headache PSYCHIATRIC: Denies recent changes in mood. PHYSICAL EXAM: GENERAL: Alert and oriented x 3. NAD EYES: EOMI. Anicteric. HENT: Moist mucous membranes. No scleral icterus. No cervical lymphadenopathy. LUNGS: Clear to auscultation bilaterally. CARDIOVASCULAR: Regular rate and rhythm. No murmur. No JVD. ABDOMEN: Soft, non-tender +bs EXTREMITIES: No edema. Non-tender. SKIN: No rashes or lesions. Warm. NEUROLOGIC: No focal neurological deficits. CN II-XII grossly intact PSYCHIATRIC: Cooperative. Appropriate mood and affect ? [facility] Medical History Insomnia Hypotension Multinodular thyroid HLD (hyperlipidemia) HTN (hypertension) T2DM (type 2 diabetes mellitus) Vitamin D deficiency Surgical History History of esophagogastroduodenoscopy (EGD) Hx of colonoscopy Hx of esophagogastroduodenoscopy History of carpal tunnel surgery of left wrist Family History Father No family history of disorders History of high blood pressure Mother No family history of disorders Social History Household Members: Spouse and Children Housing: House Housing Other:: spouse/ kids Are you a primary care specialist to a significant other at home: Yes Do you presently have visiting nurse or other home services: No Alcohol intake: never Patient Tobacco Use Status: Never used Tobacco service: No Current occupational status: unemployed Physical Exam Vital Signs: Last Vital Signs Pulse 72 08/19/24 08:23 BP 122/78 08/19/24 08:23 BMI result Body Mass Index 40.2 Assessment & Plan Assessment & Plan (1) T2DM (type 2 diabetes mellitus): Code(s): E11.9 - Type 2 diabetes mellitus without complications Category: Medical Qualifiers: Diabetes mellitus jail insulin use: without joint terminal attack controller use Diabetes mellitus complication status: with hyperglycemia Qualified Code(s): E11.65 - Type 2 diabetes mellitus with hyperglycemia Plan: well controlled She is feeling well Will contine on current medications. She will follow up in six weeks. She will be due for A1C at that time Coding Level of Care Code Est Pt Level 4 (26977) Diagnoses Type 2 diabetes mellitus with hyperglycemia, without long-term current use of insulin E11.65 Diabetes mellitus jail insulin use: without joint terminal attack controller use Diabetes mellitus complication status: with hyperglycemia
--- OUTSIDE RECORDS SUMMARY | 2024-08-19 08:30 | XMS_ITS ---
Author Organization [facility] Address [address] [place] [address] [address] [place] [address] Care Team Providers Care Gold Tooler Name Role Phone ABIGAIL TAVERAS Primary Care Provider [phone] REASON FOR VISIT Notes to be sent Encounters Encounter Location Date Provider Diagnosis [facility] [address] [facility] [address] [place] [address] 04/13/2024 ABIGAIL TAVERAS Plan Of Treatment Next Appt Details Provider Name:Alexismalvin Behzadantionette dean, 08/20/2024 10:30:00 AM, [address] [facility] [address], [place], [address], Progress Notes * Nell BLANCODOB: 7 (48 yo F)Acc No.[id number]:04/13/2024 Patient:?ADAMJOY Nell :1975???Age:48 Y???Sex:Female Address:[address] [place] [id number] * true * Date:? Generated for Siennai karey/Rajinder/eTransmitting on:?08/19/2024 08:30 AM EST
--- OUTSIDE RECORDS SUMMARY | 2024-08-19 08:30 | XMS_ITS | Clinical Summary ---
Author Organization [facility] Address [address] [place] [address] Phone Care Team Providers Care Strap Cutter Name Role Phone Brianna Arauz MD Primary Care Provider [phone] Encounters Date Type Department Care Team Description 07/16/2024 1:58 PM EST - 07/16/2024 11:59 PM EST Hospital Encounter [facility] [address] [place] [id number] Heel pain Discharge Disposition: Home or Self [...] drink = 0.6 oz pur e alcohol) Comments Unknown Sex and Gender Information Value Date Recorded Sex Assigned at Not on file Legal Sex Female 12:48 AM EST Gender Identity Not on file Sexual Orientation Not on file Obstetrics History Last Filed [...] Signed Date: 07/21/2024 08:19 ET Workstation ID: [id number] Transcribed By: Self Edit Transcribed Date: 07/21/2024 [...] Signed Date: 07/21/2024 08:19 ET Workstation ID: [id number] Transcribed By: Self Edit Transcribed Date: 07/21/2024 08:17 ET Bella Priest DO IMG XR PROCEDURES Final Result from Last 3 Months Insurance MEDICAID - [place] Care Teams Strap Cutter Relationship Specialty Start Date End Date Brianna Arauz MD [address] [place] [address] PCP - General Internal Medicine 01/26/20
--- OUTSIDE RECORDS SUMMARY | 2024-08-19 08:30 | XMS_ITS | Clinical Summary ---
Author Organization [facility] Address [address] [place] [address] Care Team Providers Care Chief Gauger Name Role Phone Rochelle Engel PA-C Primary Care Provider [phone] Source Comments PLEASE NOTE, if this patient is a minor, it may be UNLAWFUL to discuss sensitive information that is contained in these records (such as FAMILY PLANNING, MENTAL HEALTH or SUBSTANCE ABUSE) with the minor patient's parent or other person without the patient's specific authorization.[facility] Allergies No known active allergies Medications blood-glucose meter monitoring kitIndications:DM type 2 (diabetes mellitus, type 2) ([facility]) as needed for blood glucose monitoring. Quantity: 1 meter freestyle lite. DX: 250.00 for a lifetime. 1 Each 0 08/19/19 15 Active lancetsIndication s:Type 2 diabetes mellitus without complication ([facility]) FREESTYLE. USE BID PRN. DX: 250.00 50 Each 11 03/20/20 15 Active etonogestrel-ethi nyl estradiol (NUVARING) 0.12-0.015 mg/24 hr vaginal ringIndications:F amily planning, contraceptive checking and surveillance Place 1 Each vaginally once. PER TEXTILE ARTIST. Leave in place for 3 consecutive weeks, then remove for 1 week. 1 Each 08/11/19 16 Active Miscellaneous Medical Supply miscIndications:E ssential hypertension by miscellaneous route once daily. BLOOD PRESSURE MACHINE. DX: HTN 1 Each 0 12/12/19 16 Active fluticasone (FLONASE) 50 mcg/actuation nasal sprayIndications: Allergic otitis media of both ears, unspecified chronicity Place 1 [place] into the nostril(s) once daily. 16 g 1 02/26/20 16 Active metFORMIN (GLUMETZA) 500 mg 24 hr tabletIndications :Type 2 diabetes mellitus without complication, without long-term current use of insulin ([facility]) Take 2 Tabs by mouth once daily with dinner. Swallow whole. Do not break, crush or chew. 180 Tab 1 02/26/20 16 Active pregabalin (LYRICA) 50 mg capsuleIndication s:Fibromyalgia Take 1 Cap by mouth 2 (two) times daily. PER DR. RODRIGUEZ 05/23/20 16 Active blood sugar diagnostic (FREESTYLE TEST) stripsIndications :Type 2 diabetes mellitus without complication, without long-term current use of insulin ([facility]) 1 Strip 2 (two) times daily. [...] Active Problems Problem Noted Date Diagnosed Date Non-Ethiopian speaking patient- Khmer speaking control counseling 04/24/2016 Overview (04/24/2016): Advised stop NR- and ref to dorr operator for ? Tubal 04/24/16 Essential hypertension 05/23/2015 [...] Morbid obesity with BMI of 40.0-44.9, adult ([facility]) 09/28/2008 TB lung, latent 09/28/2008 Overview (07/15/2013): +PPD=10 mm 09/30/08; [place] 12/13/08 @ [facility] Hirsutism Overview (07/15/2013): Per Derm Dr. Woodall Varicosities of leg Fibromyalgia Overview (07/15/2013): Dx: 2009 per [facility] Depression Overview (08/11/2015): Per psych Dr. Granado. Currently does not see anyone. Seeing Dania here. Insomnia Overview (08/11/2015): Formerly seen by Dr. Granado. Now seeing director social service Dania. Immunizations Name Administration Dates Next Due [...] Plan of Treatment Not on file Insurance [facility] Care Teams Chief Gauger Relationship Specialty Start Date End Date Rochelle Engel PA-C [address] [place] [address] PCP - General 09/01/18
--- OUTSIDE RECORDS SUMMARY | 2024-08-19 08:30 | XMS_ITS ---
Author Organization [facility] Address [address] [place] [address] Care Team Providers Care Receiving Dock Checker Name Role Phone MIRIAMJAY YangHAYES Primary Care Provider Allergies No Known Allergies Reason For Referral Reason Evaluation and manag ement - colonoscopy Diagnosis 1 Encounter for screen ing for malignant neoplasm of colon (Z12.11) Referral Organization [facility] Referring Provider First Name ABIGAIL Referring Provider Last Name [facility] Referring Provider Speciality Internal M edicine Referred Provider Specialty Gastroentero logy General Notes Referral sent to [facility] - Office will call patient for scheduling.Luisana Latraya 02/18/2024 09:32:34 AM > Referral Priority Routine Reason Evaluation and manag ement Diagnosis 1 Varicose veins of bi lateral lower extremities with pain (I83.813) Referral Organization [facility] Referring Provider First Name ABIGAIL Referring Provider Last Name MIRIAM Referring Provider Speciality Internal M edicine Referred Provider Specialty Vascular Andrez jeanette General Notes Referral sent to [facility] for Vein Voodoo - Office will call patient for scheduling.Luisana Latraya 02/18/2024 09:33:50 AM > Referral Priority Routine REASON FOR VISIT AWV Medications Medication SIG (Take, Route, Frequency, Duration) Notes Start Date End Date Status buPROPion HCl ER (SR) 150 MG 1 tablet in the morning Orally Once a day Active Melatonin 3 MG 1 tablet at bedtime as needed Orally Once a day Active hydrOXYzine Pamoate 25 MG 1 capsule Orally twice daily as needed Active dilTIAZem HCl ER 120 MG 1 capsule Orally one time daily Active Baclofen 5 MG 1 tablet as needed Orally Once a day Active traZODone HCl 50 MG 1 tablet at bedtime as needed Orally Once a day Not-Taking Biotin 300 MCG 1 tablet Orally Once a day for 30 day(s) Not-Taking guaiFENesin AC 100-10 MG/5ML 10 mL as needed Orally TID for 7 days 08/15/2022 Not-Taking Augmentin 875-125 MG 1 tablet Orally mark ry 12 hrs for 7 day(s) 08/15/2022 Not-Taking Zinc 50 MG 1 tablet Orally Once a day for 30 day(s) 08/15/2022 Not-Taking Griseofulvin Ultramicrosize 250 MG 1 tablet after a meal Orally twice a day Not-Taking Metoprolol Tartrate 25 MG TAKE 1/2 TABLET WITH FOOD ORALLY TWICE A DAY 90 DAYS for 90 Not-Taking Protonix 20 MG 1 tablet Orally Once a day for 30 day(s) 02/20/2022 Not-Taking Loratadine 10 MG 1 tablet Orally Once a day for 90 days Not-Taking Magnesium 250 MG 1 tablet with a meal Orally Once a day for 30 day(s) 10/01/2022 Not-Taking Mirtazapine 45 MG 1 tablet at bedtime Orally Once a day for 30 day(s) Not-Taking Fluticasone Propionate 50 MCG/ACT 1 spray in each nostril Nasally Once a day for 90 days Not-Taking Diclofenac Sodium 75 MG 1 tablet as need ed Orally Twice a day for 30 days 04/08/2022 Not-Taking DULoxetine HCl 30 MG 1 capsule Orally Twice a day Not-Taking Meloxicam 7.5 MG 1 tablet Orally Once a day Not-Taking Jardiance 25 MG 1 tablet Orally Once a day Not-Taking Topamax 25 MG 1 tablet Orally Once a day Dr Priest Not-Taking Lisinopril-hydroCHLOROt hiazide 20-25 MG TAKE 1 TABLET BY MOUTH EVERY DAY for 30 Not-Taking Diclofenac Sodium 1 % as directed Transdermal Not-Taking Victoza 18 MG/3ML as directed Subcutaneous once a day Active Clotrimazole-Betamethas one 1-0.05 % 1 application to affected area Externally Twice a day Not-Taking Sertraline HCl 100 MG 1.5 tablet Orally Once a day Not-Taking Atorvastatin Calcium 40 MG 1 tablet Orally Once a day for 90 days Active metFORMIN HCl 1000 MG 1 tablet with a me al Orally twice a day for 30 day(s) Active Vitamin D3 25 MCG (1000 UT) 1 tablet Orally Once a day Active Gabapentin 100 MG 1 capsule Orally Onc e a day Dr. Priest Active Propafenone HCl 225 MG 1 tablet Orally t wice daily Active Actos 30 MG 1 tablet Orally Once a day Active traMADol HCl 50 MG 1 tablet as needed Orally Once a day Dr Priest Not-Taking Social History Tobacco Use: Social History Observation Description Date Details (start date - stop date) Never Smoker NA - NA Tobacco Use/Smoking Question Answer Notes Are you a nonsmoker Alcohol Screen (Audit-C) Question Answer Notes Did you have a drink containing alcohol in the p ast year? No Points 0 Interpretation Negative Vital Signs Temperature 97.8 degrees Fahrenheit 02/17/20 Oximetry 98 % 02/17/2024 Heart Rate 84 /min 02/17/2024 Blood pressure systolic 130 mm Hg 02/17/20 24 Blood pressure diastolic 80 mm Hg 024 Weight 224.7 lbs 02/17/2024 BMI 39.8 kg/m2 02/17/2024 Height 63 in 02/17/2024 Encounters Encounter Location Date Provider Diagnosis [facility] [address] [address] 02/17/2024 ABIGAIL TAVERAS Type 2 diabetes mellitus with unspecified complications E11.8 ; Encounter for general adult medical examination without abnormal findings Z00.00 ; Essential (primary) hypertension I10 ; Major depressive disorder, recurrent, moderate F33.1 ; Insomnia, unspecified G47.00 ; Iron deficiency anemia, unspecified D50.9 and Pain in unspecified joint M25.50 Assessments Encounter Date Diagnosis (ICD Code) Assessment Notes Treatment Notes Treatment Clinical Notes Section Notes 02/17/2024 Type 2 diabetes mellitus with unspecified complications (ICD-10 - E11.8) Mrs. Blanco is a 48-year-old lady with DM type II with neuropathy and she sees boat rental clerk, hypertension, hyperlipidemia, acid reflux and chronic back pain and follows up with physiatry Dr. Priest here here for annual physical. Plan is as follows: Type II diabetes mellitus with neuropathy. A1c 6.0. Fasting sugars 126. She is on right medications. She has seen her interpretive program coordinator in the past 1 year. Foot care discussed. Referred to endocrinology. Check A1c. EKG is normal sinus rhythm at 78 bpm with no acute ST or T wave changes, no bundle branch blocks, normal intervals Hypertension. Blood pressure well controlled on current regimen. Hyperlipidemia. Last lipid panel within normal limits. Continue Atorvastatin 40 MG at night. Generalized anxiety/Major depressive disorder. Mood stable on current regimen. GERD. Continue Protonix 20 MG daily. Insomnia. Sleep is stable on hydroxyzine. Iron deficiency anemia. She gets iron infusions every [address] Nash. Check CBC. Morbid obesity. Advised dietary restrictions and regimental exercise. Goal is to lose 5-6 lbs a month. Reticular veins. Referred to Vascular surgery. Joint pains. Blood work ordered to check for any reversible causes. Degenerative disc disease/osteoarthr itis. She follows up with physiatry and she has intra-articular injection bilateral knee joints and she uses a cane to walk. She needs help with activities of daily living at home especially lifting, bathing, toileting and transportation Eye screening. She sees her interpretive program coordinator regularly. Dental screening. She sees dentist regularly. Colon cancer screening. Referred to GI for colonoscopy. Breast cancer screening. She is up-to-date on her mammogram. Female screening. She follows up with her theatre professor for breast and pelvic exams. Immunizations. She is up-to-date on her COVID, TDAP vaccinations. General health concerns discussed with patient. Scribe services used to formulate this note under HIPAA compliance and under [place] law mandated for scribe services. Patient aware of service. Verbal consent and written consent taken from the patient. Patient understands and verbalizes understanding of the scribes services and all questions answered regarding scribes services. Patient agrees to use of scribes services. 02/17/2024 Encounter for general adult medical examination without abnormal findings (ICD-10 - Z00.00) Mrs. Blanco is a 48-year-old lady with DM type II with neuropathy and she sees boat rental clerk, hypertension, hyperlipidemia, acid reflux and chronic back pain and follows up with physiatry Dr. Priest here here for annual physical. Plan is as follows: Type II diabetes mellitus with neuropathy. A1c 6.0. Fasting sugars 126. She is on right medications. She has seen her interpretive program coordinator in the past 1 year. Foot care discussed. Referred to endocrinology. Check A1c. EKG is normal sinus rhythm at 78 bpm with no acute ST or T wave changes, no bundle branch blocks, normal intervals Hypertension. Blood pressure well controlled on current regimen. Hyperlipidemia. Last lipid panel within normal limits. Continue Atorvastatin 40 MG at night. Generalized anxiety/Major depressive disorder. Mood stable on current regimen. GERD. Continue Protonix 20 MG daily. Insomnia. Sleep is stable on hydroxyzine. Iron deficiency anemia. She gets iron infusions every [address] Nash. Check CBC. Morbid obesity. Advised dietary restrictions and regimental exercise. Goal is to lose 5-6 lbs a month. Reticular veins. Referred to Vascular surgery. Joint pains. Blood work ordered to check for any reversible causes. Degenerative disc disease/osteoarthr itis. She follows up with physiatry and she has intra-articular injection bilateral knee joints and she uses a cane to walk. She needs help with activities of daily living at home especially lifting, bathing, toileting and transportation Eye screening. She sees her interpretive program coordinator regularly. Dental screening. She sees dentist regularly. Colon cancer screening. Referred to GI for colonoscopy. Breast cancer screening. She is up-to-date on her mammogram. Female screening. She follows up with her theatre professor for breast and pelvic exams. Immunizations. She is up-to-date on her COVID, TDAP vaccinations. General health concerns discussed with patient. Scribe services used to formulate this note under HIPAA compliance and under [place] law mandated for scribe services. Patient aware of service. Verbal consent and written consent taken from the patient. Patient understands and verbalizes understanding of the scribes services and all questions answered regarding scribes services. Patient agrees to use of scribes services. 02/17/2024 Essential (primary) hypertension (ICD-10 - I10) Mrs. Blanco is a 48-year-old lady with DM type II with neuropathy and she sees boat rental clerk, hypertension, hyperlipidemia, acid reflux and chronic back pain and follows up with physiatry Dr. Priest here here for annual physical. Plan is as follows: Type II diabetes mellitus with neuropathy. A1c 6.0. Fasting sugars 126. She is on right medications. She has seen her interpretive program coordinator in the past 1 year. Foot care discussed. Referred to endocrinology. Check A1c. EKG is normal sinus rhythm at 78 bpm with no acute ST or T wave changes, no bundle branch blocks, normal intervals Hypertension. Blood pressure well controlled on current regimen. Hyperlipidemia. Last lipid panel within normal limits. Continue Atorvastatin 40 MG at night. Generalized anxiety/Major depressive disorder. Mood stable on current regimen. GERD. Continue Protonix 20 MG daily. Insomnia. Sleep is stable on hydroxyzine. Iron deficiency anemia. She gets iron infusions every [address] Nash. Check CBC. Morbid obesity. Advised dietary restrictions and regimental exercise. Goal is to lose 5-6 lbs a month. Reticular veins. Referred to Vascular surgery. Joint pains. Blood work ordered to check for any reversible causes. Degenerative disc disease/osteoarthr itis. She follows up with physiatry and she has intra-articular injection bilateral knee joints and she uses a cane to walk. She needs help with activities of daily living at home especially lifting, bathing, toileting and transportation Eye screening. She sees her interpretive program coordinator regularly. Dental screening. She sees dentist regularly. Colon cancer screening. Referred to GI for colonoscopy. Breast cancer screening. She is up-to-date on her mammogram. Female screening. She follows up with her theatre professor for breast and pelvic exams. Immunizations. She is up-to-date on her COVID, TDAP vaccinations. General health concerns discussed with patient. Scribe services used to formulate this note under HIPAA compliance and under [place] law mandated for scribe services. Patient aware of service. Verbal consent and written consent taken from the patient. Patient understands and verbalizes understanding of the scribes services and all questions answered regarding scribes services. Patient agrees to use of scribes services. 02/17/2024 Major depressive disorder, recurrent, moderate (ICD-10 - F33.1) Mrs. Blanco is a 48-year-old lady with DM type II with neuropathy and she sees boat rental clerk, hypertension, hyperlipidemia, acid reflux and chronic back pain and follows up with physiatry Dr. Priest here here for annual physical. Plan is as follows: Type II diabetes mellitus with neuropathy. A1c 6.0. Fasting sugars 126. She is on right medications. She has seen her interpretive program coordinator in the past 1 year. Foot care discussed. Referred to endocrinology. Check A1c. EKG is normal sinus rhythm at 78 bpm with no acute ST or T wave changes, no bundle branch blocks, normal intervals Hypertension. Blood pressure well controlled on current regimen. Hyperlipidemia. Last lipid panel within normal limits. Continue Atorvastatin 40 MG at night. Generalized anxiety/Major depressive disorder. Mood stable on current regimen. GERD. Continue Protonix 20 MG daily. Insomnia. Sleep is stable on hydroxyzine. Iron deficiency anemia. She gets iron infusions every [address] Nash. Check CBC. Morbid obesity. Advised dietary restrictions and regimental exercise. Goal is to lose 5-6 lbs a month. Reticular veins. Referred to Vascular surgery. Joint pains. Blood work ordered to check for any reversible causes. Degenerative disc disease/osteoarthr itis. She follows up with physiatry and she has intra-articular injection bilateral knee joints and she uses a cane to walk. She needs help with activities of daily living at home especially lifting, bathing, toileting and transportation Eye screening. She sees her interpretive program coordinator regularly. Dental screening. She sees dentist regularly. Colon cancer screening. Referred to GI for colonoscopy. Breast cancer screening. She is up-to-date on her mammogram. Female screening. She follows up with her theatre professor for breast and pelvic exams. Immunizations. She is up-to-date on her COVID, TDAP vaccinations. General health concerns discussed with patient. Scribe services used to formulate this note under HIPAA compliance and under [place] law mandated for scribe services. Patient aware of service. Verbal consent and written consent taken from the patient. Patient understands and verbalizes understanding of the scribes services and all questions answered regarding scribes services. Patient agrees to use of scribes services. 02/17/2024 Insomnia, unspecified (ICD-10 - G47.00) Mrs. Blanco is a 48-year-old lady with DM type II with neuropathy and she sees boat rental clerk, hypertension, hyperlipidemia, acid reflux and chronic back pain and follows up with physiatry Dr. Priest here here for annual physical. Plan is as follows: Type II diabetes mellitus with neuropathy. A1c 6.0. Fasting sugars 126. She is on right medications. She has seen her interpretive program coordinator in the past 1 year. Foot care discussed. Referred to endocrinology. Check A1c. EKG is normal sinus rhythm at 78 bpm with no acute ST or T wave changes, no bundle branch blocks, normal intervals Hypertension. Blood pressure well controlled on current regimen. Hyperlipidemia. Last lipid panel within normal limits. Continue Atorvastatin 40 MG at night. Generalized anxiety/Major depressive disorder. Mood stable on current regimen. GERD. Continue Protonix 20 MG daily. Insomnia. Sleep is stable on hydroxyzine. Iron deficiency anemia. She gets iron infusions every [address] Nash. Check CBC. Morbid obesity. Advised dietary restrictions and regimental exercise. Goal is to lose 5-6 lbs a month. Reticular veins. Referred to Vascular surgery. Joint pains. Blood work ordered to check for any reversible causes. Degenerative disc disease/osteoarthr itis. She follows up with physiatry and she has intra-articular injection bilateral knee joints and she uses a cane to walk. She needs help with activities of daily living at home especially lifting, bathing, toileting and transportation Eye screening. She sees her interpretive program coordinator regularly. Dental screening. She sees dentist regularly. Colon cancer screening. Referred to GI for colonoscopy. Breast cancer screening. She is up-to-date on her mammogram. Female screening. She follows up with her theatre professor for breast and pelvic exams. Immunizations. She is up-to-date on her COVID, TDAP vaccinations. General health concerns discussed with patient. Scribe services used to formulate this note under HIPAA compliance and under [place] law mandated for scribe services. Patient aware of service. Verbal consent and written consent taken from the patient. Patient understands and verbalizes understanding of the scribes services and all questions answered regarding scribes services. Patient agrees to use of scribes services. 02/17/2024 Iron deficiency anemia, unspecified (ICD-10 - D50.9) Mrs. Blanco is a 48-year-old lady with DM type II with neuropathy and she sees boat rental clerk, hypertension, hyperlipidemia, acid reflux and chronic back pain and follows up with physiatry Dr. Priest here here for annual physical. Plan is as follows: Type II diabetes mellitus with neuropathy. A1c 6.0. Fasting sugars 126. She is on right medications. She has seen her interpretive program coordinator in the past 1 year. Foot care discussed. Referred to endocrinology. Check A1c. EKG is normal sinus rhythm at 78 bpm with no acute ST or T wave changes, no bundle branch blocks, normal intervals Hypertension. Blood pressure well controlled on current regimen. Hyperlipidemia. Last lipid panel within normal limits. Continue Atorvastatin 40 MG at night. Generalized anxiety/Major depressive disorder. Mood stable on current regimen. GERD. Continue Protonix 20 MG daily. Insomnia. Sleep is stable on hydroxyzine. Iron deficiency anemia. She gets iron infusions every [address] Nash. Check CBC. Morbid obesity. Advised dietary restrictions and regimental exercise. Goal is to lose 5-6 lbs a month. Reticular veins. Referred to Vascular surgery. Joint pains. Blood work ordered to check for any reversible causes. Degenerative disc disease/osteoarthr itis. She follows up with physiatry and she has intra-articular injection bilateral knee joints and she uses a cane to walk. She needs help with activities of daily living at home especially lifting, bathing, toileting and transportation Eye screening. She sees her interpretive program coordinator regularly. Dental screening. She sees dentist regularly. Colon cancer screening. Referred to GI for colonoscopy. Breast cancer screening. She is up-to-date on her mammogram. Female screening. She follows up with her theatre professor for breast and pelvic exams. Immunizations. She is up-to-date on her COVID, TDAP vaccinations. General health concerns discussed with patient. Scribe services used to formulate this note under HIPAA compliance and under [place] law mandated for scribe services. Patient aware of service. Verbal consent and written consent taken from the patient. Patient understands and verbalizes understanding of the scribes services and all questions answered regarding scribes services. Patient agrees to use of scribes services. 02/17/2024 Pain in unspecified joint (ICD-10 - M25.50) Mrs. Blanco is a 48-year-old lady with DM type II with neuropathy and she sees boat rental clerk, hypertension, hyperlipidemia, acid reflux and chronic back pain and follows up with physiatry Dr. Priest here here for annual physical. Plan is as follows: Type II diabetes mellitus with neuropathy. A1c 6.0. Fasting sugars 126. She is on right medications. She has seen her interpretive program coordinator in the past 1 year. Foot care discussed. Referred to endocrinology. Check A1c. EKG is normal sinus rhythm at 78 bpm with no acute ST or T wave changes, no bundle branch blocks, normal intervals Hypertension. Blood pressure well controlled on current regimen. Hyperlipidemia. Last lipid panel within normal limits. Continue Atorvastatin 40 MG at night. Generalized anxiety/Major depressive disorder. Mood stable on current regimen. GERD. Continue Protonix 20 MG daily. Insomnia. Sleep is stable on hydroxyzine. Iron deficiency anemia. She gets iron infusions every [address] Nash. Check CBC. Morbid obesity. Advised dietary restrictions and regimental exercise. Goal is to lose 5-6 lbs a month. Reticular veins. Referred to Vascular surgery. Joint pains. Blood work ordered to check for any reversible causes. Degenerative disc disease/osteoarthr itis. She follows up with physiatry and she has intra-articular injection bilateral knee joints and she uses a cane to walk. She needs help with activities of daily living at home especially lifting, bathing, toileting and transportation Eye screening. She sees her interpretive program coordinator regularly. Dental screening. She sees dentist regularly. Colon cancer screening. Referred to GI for colonoscopy. Breast cancer screening. She is up-to-date on her mammogram. Female screening. She follows up with her theatre professor for breast and pelvic exams. Immunizations. She is up-to-date on her COVID, TDAP vaccinations. General health concerns discussed with patient. Scribe services used to formulate this note under HIPAA compliance and under [place] law mandated for scribe services. Patient aware of service. Verbal consent and written consent taken from the patient. Patient understands and verbalizes understanding of the scribes services and all questions answered regarding scribes services. Patient agrees to use of scribes services. Plan Of Treatment Referrals Referral Date Details 02/17/2024 02/17/2024, Evaluati on and management - colonoscopy 02/17/2024 02/17/2024, Evaluati on and management Next Appt Details Follow Up: 6 Months, Reason: Provider Name:Mario dean, 08/20/2024 10:30:00 AM, [address] [place] [address], [id number], Progress Notes * Nell BLANCODOB: [birth year] (48 yo F)Acc No.[id number]:02/17/2024 Progress Notes Patient:?Nell BLANCO Provider:?ABIGAIL TAVERAS MD :1975???Age:48 Y???Sex:Female D ate:02/17/2024 Address:[address] [place], [place] [id number] Subjective: * Chief Complaints: * ???AWV * HPI: ???Depression Screening:?PHQ-9?Little interest or pleasure in doing things?More than half the days ?Feeling down, depressed, or hopeless?More than half the days ?Trouble falling or staying asleep, or sleeping too much?Nearly every day ?Feeling tired or having little energy?Nearly every day ?Poor appetite or overeating?Several days ?Feeling bad about yourself or that you are a failure, or have let yourself or your family down?Several days ?Trouble concentrating on things, such as reading the newspaper or watching television?Several days ?Moving or speaking so slowly that other people could have noticed; or the opposite, being so fidgety or restless that you have been moving around a lot more than usual?Several days ?Thoughts that you would be better off or of hurting yourself in some way?Not at all ?Total Score?14 ?Interpretation?Moderate Depression ???Internal Medicine:? Mrs. Blanco is a 48-year-old lady with DM type II with neuropathy and she sees boat rental clerk, hypertension, hyperlipidemia, acid reflux and chronic back pain and follows up with physiatry Dr. Priest here here for annual physical. She is here for [employer] paperwork. She is accompanied by her daughter. She is in her usual state of health. Vision and hearing are stable. She checks her blood sugars at home and readings are usually 135-140 in the morning and 100-120 in the afternoon. Denies any hypoglycemic or hyperglycemic episodes. She gained 8 lbs since last visit. She sees Dr. Priest. She uses a cane to walk. She needs help with ADLs and IADLs. She sleeps well, appetite is good. No GI or symptoms. She denies any other active issues or concerns. * ROS:?General/Constitutional:?Overall health?Good.?Change in appetite?denies.?Chills?denies.?Fever?denies.?Night sweats?denies.?Sleep disturbance?denies.?Weight gain?admits, 8?pounds.?Weight loss?denies.?Neurologic:?Difficulty speaking?denies.?Dizziness?denies.?Gait abnormality?denies.?Headache?denies.?Loss of strength?denies.?Memory loss?denies.?Seizures?denies.?Tingling/Numbness?denies ?.?Ophthalmologic:?Blurred vision?denies.?Discharge?denies.?Dry eye?denies.?Red eye?denies.?ENT:?Change in Voice?Denies.?Cold Symptoms?Denies.?Cough?Denies.?Dizziness?Denies.?Nasal Congestion?Denies.?Otalgia?Denies.?postnasal drip?Denies.?Blocked ear?denies.?Nosebleed?denies.?Snoring?denies.?Cardiovascular:?Diaphoresis?Denies.?Pedal Edema?Denies.?PND (Paroxsymal nocturnal dyspnea)?Denies.?Chest pain?denies.?Difficulty laying flat?denies.?Dyspnea on exertion?denies.?Heart murmur?denies.?Orthopnea?denies.?Respiratory:?Snoring?denies.?Asthma?denies.?Cough?denies.?Shortness of breath with exertion?denies.?Sputum production?denies.?Wheezing?denies.?Gastrointestinal:?Change in bowel habits?denies.?Constipation?denies.?Decreased appetite?denies.?Diarrhea?denies.?Heartburn?denies.?Nausea?denies.?Vomiting?jael es.?Musculoskeletal:?tingling/numbness?Denies.?myalgias?Denies.?Joint Swelling?Denies.?extremeties?normal.?Arthritis?denies.?Back problems?denies.?Carpal tunnel?denies.?Joint stiffness?denies.?Muscle aches?denies.?Endocrine:?Bowel Changes?Denies.?Breast Discharge?Denies.?poor libido?Denies.?Cold intolerance?denies.?Excessive sweating?denies.?Excessive thirst?denies.?Frequent urination?denies.?Thyroid problems?denies.?Skin:?Bruising?Denies.?Eczema?denies.?Hair changes?denies.?Rash?denies.?Skin lesion(s)?denies.?Psychiatric:?Anxiety?denies.?Depressed mood?denies.?Difficulty sleeping?denies.?Nervous breakdown?denies.?Substance abuse?denies.?Urology:?abnormal menstrual bleeding?denies.?blood in urine?denies.?burning on urination?denies.?difficulty urinating?denies.?discharge?denies.?dysuria?denies.? * Medical History:? * Surgical History:?left arm s urgery * Hospitalization/Major Diagno stic Procedure:?Denies Past Hospitalization * Family History:?Father: dece ased, diagnosed with Hypertension.?Mother: , diagnosed with Hypertension.? * Social History:?Tobacco Use:?Tobacco Use/Smoking?Are you a?nonsmoker ???Drugs/Alcohol:?Drugs?Have you used drugs other than those for medical reasons in the past 12 months??No ?Alcohol Screen (Audit-C)?Did you have a drink containing alcohol in the past year??No ?Points?0 ?Interpretation?Negative ???Miscellaneous:?Exercise: occasionally, walking. ?Marital status: . ?Occupation: Unemployed. * Medications:?TakingBaclofen 5 MG Tablet 1 tablet as needed Orally Once a day Melatonin 3 MG Tablet 1 tablet at bedtime as needed Orally Once a day buPROPion HCl ER (SR) 150 MG Tablet Extended Release 12 Hour 1 tablet in the morning Orally Once a day dilTIAZem HCl ER 120 MG Capsule Extended Release 12 Hour 1 capsule Orally one time daily hydrOXYzine Pamoate 25 MG Capsule 1 capsule Orally twice daily as needed Propafenone HCl 225 MG Tablet 1 tablet Orally twice daily Gabapentin 100 MG Capsule 1 capsule Orally Once a day , Notes to Pharmacist: Dr. Wang 30 MG Tablet 1 tablet Orally Once a day Atorvastatin Calcium 40 MG Tablet 1 tablet Orally Once a day Vitamin D3 25 MCG (1000 UT) Tablet 1 tablet Orally Once a day metFORMIN HCl 1000 MG Tablet 1 tablet with a meal Orally twice a day Victoza 18 MG/3ML Solution Pen-injector as directed Subcutaneous once a day Taking Baclofen 5 MG Tablet 1 tablet as needed Orally Once a day Taking Melatonin 3 MG Tablet 1 tablet at bedtime as needed Orally Once a day Taking buPROPion HCl ER (SR) 150 MG Tablet Extended Release 12 Hour 1 tablet in the morning Orally Once a day Taking dilTIAZem HCl ER 120 MG Capsule Extended Release 12 Hour 1 capsule Orally one time daily Taking hydrOXYzine Pamoate 25 MG Capsule 1 capsule Orally twice daily as needed Taking Propafenone HCl 225 MG Tablet 1 tablet Orally twice daily Taking Gabapentin 100 MG Capsule 1 capsule Orally Once a day , Notes to Pharmacist: Dr. Emilia Slaughter 30 MG Tablet 1 tablet Orally Once a day Taking Atorvastatin Calcium 40 MG Tablet 1 tablet Orally Once a day Taking Vitamin D3 25 MCG (1000 UT) Tablet 1 tablet Orally Once a day Taking metFORMIN HCl 1000 MG Tablet 1 tablet with a meal Orally twice a day Taking Victoza 18 MG/3ML Solution Pen-injector as directed Subcutaneous once a day Not-TakingtraMADol HCl 50 MG Tablet 1 tablet as needed Orally Once a day , Notes to Pharmacist: Dr Lopezertraline HCl 100 MG Tablet 1.5 tablet Orally Once a day Clotrimazole-Betamethasone 1-0.05 % Cream 1 application to affected area Externally Twice a day Diclofenac Sodium 1 % Gel as directed Transdermal Topamax 25 MG Tablet 1 tablet Orally Once a day , Notes to Pharmacist: Dr Chiangiance 25 MG Tablet 1 tablet Orally Once a day Lisinopril-hydroCHLOROthiazide 20-25 MG Tablet TAKE 1 TABLET BY MOUTH EVERY DAY Diclofenac Sodium 75 MG Tablet Delayed Release 1 tablet as needed Orally Twice a day Fluticasone Propionate 50 MCG/ACT Suspension 1 spray in each nostril Nasally Once a day Meloxicam 7.5 MG Tablet 1 tablet Orally Once a day DULoxetine HCl 30 MG Capsule Delayed Release Particles 1 capsule Orally Twice a day Mirtazapine 45 MG Tablet 1 tablet at bedtime Orally Once a day Protonix 20 MG Tablet Delayed Release 1 tablet Orally Once a day Magnesium 250 MG Tablet 1 tablet with a meal Orally Once a day Loratadine 10 MG Tablet 1 tablet Orally Once a day Metoprolol Tartrate 25 MG Tablet TAKE 1/2 TABLET WITH FOOD ORALLY TWICE A DAY 90 DAYS Griseofulvin Ultramicrosize 250 MG Tablet 1 tablet after a meal Orally twice a day Zinc 50 MG Tablet 1 tablet Orally Once a day Biotin 300 MCG Tablet 1 tablet Orally Once a day traZODone HCl 50 MG Tablet 1 tablet at bedtime as needed Orally Once a day Augmentin 875-125 MG Tablet 1 tablet Orally every 12 hrs guaiFENesin AC 100-10 MG/5ML Syrup 10 mL as needed Orally TID Medication List reviewed and reconciled with the patientNot-Taking traMADol HCl 50 MG Tablet 1 tablet as needed Orally Once a day , Notes to Pharmacist: Dr Henry-Taking Sertraline HCl 100 MG Tablet 1.5 tablet Orally Once a day Not-Taking Clotrimazole-Betamethasone 1-0.05 % Cream 1 application to affected area Externally Twice a day Not-Taking Diclofenac Sodium 1 % Gel as directed Transdermal Not-Taking Topamax 25 MG Tablet 1 tablet Orally Once a day , Notes to Pharmacist: Dr Henry-Taking Jardiance 25 MG Tablet 1 tablet Orally Once a day Not-Taking Lisinopril-hydroCHLOROthiazide 20-25 MG Tablet TAKE 1 TABLET BY MOUTH EVERY DAY Not-Taking Diclofenac Sodium 75 MG Tablet Delayed Release 1 tablet as needed Orally Twice a day Not-Taking Fluticasone Propionate 50 MCG/ACT Suspension 1 spray in each nostril Nasally Once a day Not-Taking Meloxicam 7.5 MG Tablet 1 tablet Orally Once a day Not-Taking DULoxetine HCl 30 MG Capsule Delayed Release Particles 1 capsule Orally Twice a day Not-Taking Mirtazapine 45 MG Tablet 1 tablet at bedtime Orally Once a day Not-Taking Protonix 20 MG Tablet Delayed Release 1 tablet Orally Once a day Not-Taking Magnesium 250 MG Tablet 1 tablet with a meal Orally Once a day Not-Taking Loratadine 10 MG Tablet 1 tablet Orally Once a day Not-Taking Metoprolol Tartrate 25 MG Tablet TAKE 1/2 TABLET WITH FOOD ORALLY TWICE A DAY 90 DAYS Not- Taking Griseofulvin Ultramicrosize 250 MG Tablet 1 tablet after a meal Orally twice a day Not-Taking Zinc 50 MG Tablet 1 tablet Orally Once a day Not-Taking Biotin 300 MCG Tablet 1 tablet Orally Once a day Not-Taking traZODone HCl 50 MG Tablet 1 tablet at bedtime as needed Orally Once a day Not-Taking Augmentin 875-125 MG Tablet 1 tablet Orally every 12 hrs Not-Taking guaiFENesin AC 100-10 MG/5ML Syrup 10 mL as needed Orally TID Medication List reviewed and reconciled with the patient * Allergies:?N.K.D.A.no[Allerg ies Verified] Objective: * Vitals:?Temp:97.8F, Oxygen s at %:98%, HR:84/min, BP:130/80mm Hg, Wt:224.7lbs, BMI:39.8Index, Ht: 63 in. * ???Past Orders: ???Lab:CBC (Order Date - ) (Collection Date & Time - 09/01/2023 03:24 PM) ? Value Reference Range ?HEMATOCRIT 39.6 35-47 - % ?HEMOGLOBIN 12.4 11.5-16.0 - g/dL ?MCH 25.6 L 27-32 - pg ?MCHC 31.3 L 32-37 - g/dL ?MCV 81.8 79-98 - fL ?MEAN PLATELET VOLUME 9.7 7-11 - fL ?NRBC # AUTO DIFF 0.00 <0. 1 - x10-3/uL ?NRBC % AUTO DIFF 0.0 <1 - % ?PLT COUNT 387 130-400 - x10-3/uL ?RBC 4.8 3.8-4.8 - x10-6 /uL ?RDW 14.2 11-15 - % ?WBC 7.2 4.8-10.8 - x10- 3/uL ???Lab:FERRITIN (Order Date 09/01/2023) (Collection Date & Time - 09/01/2023 03:24 PM) ? Value Reference Range ?FERRITIN 5 L 8-252 - ng/ mL ???Lab:GLYCOHEMOGLOBIN PROFI LE (Order 09/01/2023) (Collection Date & Time - 09/01/2023 03:24 PM) ? Value Reference Range ?ESTIMATED AVERAGE GLUCOSE 126 - mg/dL ?GLYCATED HEMOGLOBIN A1C 6.0 <6.5 - % ???Lab:TOTAL IRON BINDING CA PACITY (Order Date 09/01/2023) (Collection Date & Time - 09/01/2023 03:24 PM) ? Value Reference Range ?% FE SATURATION 5 L 15-5 0 - % ?IRON (FE) 22 L 40-150 - u g/dL ?TOTAL IRON BINDING CAPACITY 480 H 250-450 - ug/dL ???Lab:TSH (Order Date ) (Collection Date & Time - 09/01/2023 03:24 PM) ? Value Reference Range ?TSH 0.85 0.40-4.00 - uIU /ml ???Lab:COMPREHENSIVE METABOL IC PANEL (Order Date - 12/31/2022) (Collection Date & Time - 12/31/2022 08:28 AM) ? Value Reference Range ?ALBUMIN 4.0 (3.4-4.8) - GM/DL ?ALK PHOS 48 (35-104) - U/L ?BILIRUBIN,TOTAL 0.2 (0-1 .2) - MG/DL ?CALCIUM 9.3 (8.6-10.5) - MG/DL ?BICARBONATE 24 (22-29) - MMOL/L ?CHLORIDE 107 (98-107) - MMOL/L ?EST GFR NON 112 - ML/MIN/1.73 M2 ?CREATININE 0.6 (0.5-1.0) - MG/DL ?ANION GAP 9 (4-17) - ?GLUCOSE 113 H (70-99) - MG /DL ?AST 14 (0-32) - U/L ?ALT 12 (0-33) - U/L ?POTASSIUM 4.3 (3.6-5.2) - MMOL/L ?SODIUM 140 (133-145) - M MOL/L ?TOTAL PROTEIN 6.2 (6.2-8 .2) - GM/DL ?BUN 17 (6-20) - MG/DL ?AG RATIO 1.8 - ???Lab:FERRITIN (Order Date - 12/31/2022) (Collection Date & Time - 12/31/2022 08:28 AM) ? Value Reference Range ?FERRITIN 7 L (14-283) - NG/ML ???Lab:HEMOGLOBIN A1C WITH E ST GLUCOSE (Order Date - 12/31/2022) (Collection Date & Time - 12/31/2022 08:28 AM) ? Value Reference Range ?HEMOGLOBIN A1C 6.0 H (4.0- 5.6) - % ?ESTIMATE AVERAGE GLUCOSE 126 - MG/DL ???Lab:LIPID PANEL (Order Da te - 12/31/2022) (Collection Date & Time - 12/31/2022 08:28 AM) ? Value Reference Range ?LDL CHOLESTEROL, CALCULATED 77 (0-130) - MG/DL ?CHOLESTEROL, TOTAL 138 ( <200) - MG/DL ?HDL CHOL 47 (>39) - MG/ DL ?NON HDL CHOLESTEROL (CALC) 91 (<160) - MG/DL ?TRIGLYCERIDE 71 (<150) - MG/DL * Examination: ???General Examination: ?Psychiatry?Normal.?GENERAL APPEARANCE:?Well developed, well nourished, in no acute distress.?MUSCULOSKELETAL:?Normal.?HEAD:?Normocephalic, atraumatic.?EYES:?Pupils equal, round, reactive to light and accommodation, sclera non-icteric.?EARS:?Normal.?ORAL CAVITY:?Normal.?THROAT:?Clear.?OROPHARYNX?Normal.?SINUSES?Normal.?NECK/THYROID:?Neck supple, full range of motion, no cervical lymphadenopathy.?SKIN:?Warm and dry, no suspicious lesions.?HEART:?Normal.?LUNGS:?Normal.?BREASTS:?__.?ABDOMEN:?Soft, nontender, nondistended, bowel sounds present, normal.?EXTREMITIES:?reticular veins.?PERIPHERAL PULSES:?Normal.?NEUROLOGIC:?Nonfocal,? appropriate?motor strength normal upper and lower extremities, sensory exam intact.?FEMALE GENITOURINARY:?__.?MALE GENITOURINARY:?__.?PODIATRIC:?Normal.?Supplier Quality Manager? .?Diabetic Foot Exam: ?Appearance?normal.?Light Touch Sensation?normal.?Sense of Vibration?normal.?Pulse: Posterior Tibial?normal.?Pulse: Dorsal Pedis?normal.?Hammer Toe?normal.?Tinea Pedis?normal.?Skin Changes?normal.? Assessment: * Assessment: 1.?Encounter for general hoang lt medical examination without abnormal findings - Z00.00 (Primary)?2.?Type 2 diabetes mellitus with unspecified complications - E11.8?3.?Essential (primary) hypertension - I10?4.?Major depressive disorder, recurrent, moderate - F33.1?5.?Insomnia, unspecified - G47.00?6.?Iron deficiency anemia, unspecified - D50.9?7.?Pain in unspecified joint - M25.50? Mrs. 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 Priest here here for annual physical. Plan is as follows: Type II diabetes mellitus with neuropathy. A1c 6.0. Fasting sugars 126. She is on right medications. She has seen her interpretive program coordinator in the past 1 year. Foot care discussed. Referred to endocrinology. Check A1c. EKG is normal sinus rhythm at 78 [address]pm with no acute ST or T wave changes, no bundle branch blocks, normal intervals Hypertension. Blood pressure well controlled on current regimen. Hyperlipidemia. Last lipid panel within normal limits. Continue Atorvastatin 40 MG at night. Generalized anxiety/Major depressive disorder. Mood stable on current regimen. GERD. Continue Protonix 20 MG daily. Insomnia. Sleep is stable on hydroxyzine. Iron deficiency anemia. She gets iron infusions every [address] Nash. Check CBC. Morbid obesity. Advised dietary restrictions and regimental exercise. Goal is to lose 5-6 lbs a month. Reticular veins. Referred to Vascular surgery. Joint pains. Blood work ordered to check for any reversible causes. Degenerative disc disease/osteoarthritis. She follows up with physiatry and she has intra-articular injection bilateral knee joints and she uses a cane to walk. She needs help with activities of daily living at home especially lifting, bathing, toileting and transportation Eye screening. She sees her interpretive program coordinator regularly. Dental screening. She sees dentist regularly. Colon cancer screening. Referred to GI for colonoscopy. Breast cancer screening. She is up-to-date on her mammogram. Female screening. She follows up with her theatre professor for breast and pelvic exams. Immunizations. She is up-to-date on her COVID, TDAP vaccinations. General health concerns discussed with patient. Scribe services used to formulate this note under HIPAA compliance and under [place] law mandated for scribe services. Patient aware of service. Verbal consent and written consent taken from the patient. Patient understands and verbalizes understanding of the scribes services and all questions answered regarding scribes services. Patient agrees to use of scribes services. Plan: * Treatment: 2.?Essential (primary) hyper tension?LAB: Albumin/Creatinine Ratio,Urine-[id number] (Ordered for 02/17/2024) ?LAB: Comp. Metabolic Panel ([id number] (Ordered for 02/17/2024) ?LAB: Lipid Panel-[id number] (Ordered for 02/17/2024) 3.?Iron deficiency anemia, u nspecified?LAB: CBC, Platelet, No Differential-[id number] (Ordered for 02/17/2024) 4.?Pain in unspecified joint ?LAB: Antinuclear Ab by Multiplex-[id number] (Ordered for 02/17/2024) ?LAB: Rheumatoid Factor (RF)-[id number] (Ordered for 02/17/2024) ?LAB: C-Reactive Protein, Quant-[id number] (Ordered for 02/17/2024) ?LAB: Sedimentation Jxcb-Fmwlcjlnns-[id number] (Ordered for 02/17/2024) ?LAB: Anti-CCP Ab, IgG/IgA-[id number] (Ordered for 02/17/2024) 5.?Others? Referral To:Gastroenterology ?Reason:colonoscopy ? 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 * Follow Up:?6 Months * Images: * Sign off status: Completed true * Provider:?ABIGAIL TAVERAS MD Date:?02/16 Generated for Glenn eden/Rajinder/eTransmitting on:?08/19/2024 08:29 AM EST History and Physical Notes * HPI (History of Present Illness) Category Sub-Category Detail Notes Category Not es Depression Screening PHQ-9 Little inte rest or pleasure in doing things: More than half the days Feeling down, depressed, or hopeless: Mo re than half the days Trouble falling or staying asleep, or sl eeping too much: Nearly every day Feeling tired or having little energy: N early every day Poor appetite or overeating: Several day s Feeling bad about yourself o r that you are a failure, or have let yourself or your family down: Several days Trouble concentrating on thi ngs, such as reading the newspaper or watching television: Several days Moving or speaking so slowly that other people could have noticed; or the opposite, being so fidgety or restless that you have been moving around a lot more than usual: Several days Thoughts that you would be b tyrell off or of hurting yourself in some way: Not at all Total Score: 14 Interpretation: Moderate Depression Internal Medicine Mrs. Dalia ibarra is a 48-year-old lady with DM type II with neuropathy and she sees boat rental clerk, hypertension, hyperlipidemia, acid reflux and chronic back pain and follows up with physiatry Dr. Priest here here for annual physical. She is here for [place]. She is accompanied by her daughter. She is in her usual state of health. Vision and hearing are stable. She checks her blood sugars at home and readings are usually 135-140 in the morning and 100-120 in the afternoon. Denies any hypoglycemic or hyperglycemic episodes. She gained 8 lbs since last visit. She sees Dr. Priest. She uses a cane to walk. She needs help with ADLs and IADLs. She sleeps well, appetite is good. No GI or symptoms. She denies any other active issues or concerns. Examination Category Sub-Category Detail Notes Category Not es General Examination GENERAL APPEARANCE: Well dev eloped, well nourished, in no acute distress HEAD: Normocephalic, atrau matic EYES: Pupils equal, round, reactive to light and accommodation, sclera non-icteric EARS: Normal THROAT: Clear NECK/THYROID: Neck supple, full ra nge of motion, no cervical lymphadenopathy HEART: Normal LUNGS: Normal ABDOMEN: Soft, nontender, non distended, bowel sounds present, normal NEUROLOGIC: Nonfocal, appropriat e motor strength normal upper and lower extremities, sensory exam intact SKIN: Warm and dry, no nestor picious lesions EXTREMITIES: reticular veins PERIPHERAL PULSES: Normal BREASTS: __ MUSCULOSKELETAL: Normal MALE GENITOURINARY: __ FEMALE GENITOURINARY: __ ORAL CAVITY: Normal PODIATRIC: Normal Psychiatry Normal OROPHARYNX Normal SINUSES Normal Supplier Quality Manager Diabetic Foot Exam Appearance normal Light Touch Sensation normal Sense of Vibration normal Pulse: Posterior Tibial normal Pulse: Dorsal Pedis normal Hammer Toe normal Tinea Pedis normal Skin Changes normal Consultation Request Notes Referral Date Referring Provider Referred Provider Not es 02/17/2024 ABIGAIL TAVERAS , Evaluation and management - colonoscopy 02/17/2024 ABIGAIL TAVERAS , Evaluation and management
--- OUTSIDE RECORDS SUMMARY | 2024-08-19 08:30 | XMS_ITS ---
Author Organization [facility] Address [address] [facility] [address] [place] [address] Care Team Providers Care Children Librarian Name Role Phone ABIGAIL TAVERAS Primary Care Provider [phone] REASON FOR VISIT [facility] form Encounters Encounter Location Date Provider Diagnosis [facility] [address] [facility] [address] [place] [address] 04/26/2024 ABIGAIL TAVERAS Plan Of Treatment Next Appt Details Provider Name:Mario Behzadantionette dean, 08/20/2024 10:30:00 AM, [address] [facility] [address], [place], [address], Progress Notes * Nell BLANCODOB: [birth year] (48 yo F)Acc No.[id number]:04/26/2024 Patient:?CRISTHIAN Nell :1975???Age:48 Y???Sex:Female Address:[address] [place] [id number] * true * Date:? Generated for Siennai karey/Rajinder/eTransmitting on:?08/19/2024 08:29 AM EST
--- OUTSIDE RECORDS SUMMARY | 2024-08-19 08:31 | XMS_ITS | Patient Health Record ---
Author Organization [facility] Address [address] [place] [address] Care Team Providers Care Gas Jockey Name Role Phone ABIGAIL TAVERAS Primary Care Provider [phone] Allergies No Known Allergies Results Component Value Reference Range Notes LIPASE Reviewed date:03/04/2024 06:18:09 PM Interpretation: Performing Lab: Notes/Report: [employer], a member of [address] [address] Cytogeneticist - Lara Argueta MD LIPASE 40 13-75 U/L COMPREHENSIVE METABOLIC PANE L Reviewed date:03/04/2024 06:18:23 PM Interpretation: Performing Lab: Notes/Report: Original Ordering Provider: DOC ER GLUCOSE 107 70-100 mg/dL Reference range applicable to fasting specimens only BUN 12 5-25 mg/dL CREAT 0.60 0.5-1.1 mg/dL GLOMERULAR FILTRATION RATE 111 >60 This eGFR result was calculated using the CKD-EPI 2020 Creatinine Equation SODIUM 140 135-145 mEq/L POTASSIUM 3.9 3.5-5.5 mmol/L CHLORIDE 111 96-110 mmol/L CO2 25 21-32 mmol/L ANION GAP 4 3-11 CALCIUM 9.4 8.5-10.5 mg/dL TOTAL PROTEIN 7.0 6.0-8.0 G/dL ALBUMIN 4.1 3.2-5.0 G/dL BILI,TOTAL 0.4 0.0-1.4 mg/dL SGOT 13 10-42 U/L SGPT 24 10-60 U/L ALK PHOS 66 42-121 U/L CBC WITH AUTO DIFF Reviewed date:03/04/2024 06:18:40 PM Interpretation: Performing Lab: Notes/Report: Original Ordering Provider: BLAKE MOSQUEDA [employer], a member of [address] [address] Cytogeneticist - Lara Argueta MD WBC 5.5 4.8-10.8 x10-3/uL RBC 5.2 3.8-4.8 x10-6/uL HEMOGLOBIN 13.4 11.5-16.0 g/dL HEMATOCRIT 43.1 35-47 % MCV 82.6 79-98 fL MCH 25.7 27-32 pg MCHC 31.1 32-37 g/dL RDW 21.8 11-15 % PLT COUNT 266 130-400 x10-3/uL MEAN PLATELET VOLUME 9.3 7-11 fL NRBC % AUTO 0.0 <1 % NEUT % 68.0 LYMPH % 15.9 MONO % 8.6 EOS % 5.9 BASO % 0.5 IMMATURE GRANULOCYTES % 1.1 NRBC # AUTO 0.00 <0.1 x10-3/uL ABSOLUTE NEUT 3.71 1.5-7.0 x10-3/uL LYMPH # 0.87 1-5.0 x10-3/uL MONO # 0.47 0.2-1.0 x10-3/uL EOS # 0.32 0-0.5 x10-3/uL BASO # 0.03 0-0.2 x10-3/uL IMMATURE GRANULOCYTES # 0.06 0-0.03 x10-3/uL MICROALB/CREAT RATIO, RANDOM Reviewed date:02/20/2024 01:52:43 PM Interpretation: Performing Lab: Notes/Report: Original Ordering Provider: ABIGAIL TAVERAS MD [employer], a member of [address] [address] Cytogeneticist - Lara Argueta MD MICROALBUMIN, RANDOM 22.5 0.0-29.0 mg/L MICROALB/CRE RATIO RANDOM 10.0 0.0-30.0 mg/G CREATININE, RANDOM URINE 225 RHEUMATOID FACTOR Reviewed date:02/20/2024 01:52:48 PM Interpretation: Performing Lab: Notes/Report: RHEUMATOID FACTOR < 10 <15 IU/mL LIPID PROFILE Reviewed date:02/20/2024 01:52:50 PM Interpretation: Performing Lab: Notes/Report: CHOLESTEROL 117 0-200 mg/dL TRIGLYCERIDES 86 0-150 mg/dL HDL CHOLESTEROL 43 >40 mg/dL LDL CALCULATED 57 0-100 mg/dL TC-HDLC RATIO 2.7 0-4.4 mg/dL GLYCOHEMOGLOBIN PROFILE Reviewed date:02/20/2024 01:52:39 PM Interpretation: Performing Lab: Notes/Report: Original Ordering Provider: ABIGAIL TAVERAS MD [employer] [address] Cytogeneticist - Lara Argueta MD GLYCATED HEMOGLOBIN A1C 5.8 <6.5 % ESTIMATED AVERAGE GLUCOSE 120 ESR Reviewed date:02/20/2024 01:53:00 PM Interpretation: Performing Lab: Notes/Report: [employer], a member of [address] [address] Cytogeneticist - Lara Argueta MD ESR 8 0-20 mm/hr C-REACTIVE PROTEIN Reviewed date:02/20/2024 01:52:46 PM Interpretation: Performing Lab: Notes/Report: [employer] [address] Cytogeneticist - Lara Argueta MD C-REACTIVE PROTEIN 0.34 <0.5 mg/dl COMPREHENSIVE METABOLIC PANE L Reviewed date:02/20/2024 01:52:53 PM Interpretation: Performing Lab: Notes/Report: Original Ordering Provider: ABIGAIL TAVERAS MD GLUCOSE 117 70-100 mg/dL Reference range applicable to fasting specimens only BUN 9 5-25 mg/dL CREAT 0.58 0.5-1.1 mg/dL GLOMERULAR FILTRATION RATE 112 >60 This eGFR result was calculated using the CKD-EPI 2020 Creatinine Equation SODIUM 141 135-145 mEq/L POTASSIUM 3.9 3.5-5.5 mmol/L CHLORIDE 107 96-110 mmol/L CO2 25 21-32 mmol/L ANION GAP 9 3-11 CALCIUM 9.3 8.5-10.5 mg/dL TOTAL PROTEIN 6.8 6.0-8.0 G/dL ALBUMIN 3.7 3.2-5.0 G/dL BILI,TOTAL 0.4 0.0-1.4 mg/dL SGOT 13 10-42 U/L SGPT 18 10-60 U/L ALK PHOS 56 42-121 U/L CYCLIC CITRULLINATED PEPTIDE Reviewed date:02/24/2024 12:28:54 PM Interpretation: Performing Lab: Notes/Report: [employer], a member of [address] [address] Cytogeneticist - Lara Argueta MD CCP NEGATIVE NEGATIVE CCP QUANT 4 <20 UNITS CBC WITH AUTO DIFF Reviewed date:02/20/2024 01:52:55 PM Interpretation: Performing Lab: Notes/Report: Original Ordering Provider: ABIGAIL TAVERAS MD WBC 5.6 4.8-10.8 x10-3/uL RBC 5.3 3.8-4.8 x10-6/uL HEMOGLOBIN 13.2 11.5-16.0 g/dL HEMATOCRIT 41.9 35-47 % MCV 79.5 79-98 fL MCH 25.0 27-32 pg MCHC 31.5 32-37 g/dL RDW 22.2 11-15 % PLT COUNT 280 130-400 x10-3/uL MEAN PLATELET VOLUME 10.3 7-11 fL NRBC % AUTO 0.0 <1 % NEUT % 55.7 LYMPH % 27.8 MONO % 8.7 EOS % 6.2 BASO % 0.7 IMMATURE GRANULOCYTES % 0.9 NRBC # AUTO 0.00 <0.1 x10-3/uL ABSOLUTE NEUT 3.14 1.5-7.0 x10-3/uL LYMPH # 1.57 1-5.0 x10-3/uL MONO # 0.49 0.2-1.0 x10-3/uL EOS # 0.35 0-0.5 x10-3/uL BASO # 0.04 0-0.2 x10-3/uL IMMATURE GRANULOCYTES # 0.05 0-0.03 x10-3/uL ANTI-NUCLEAR ANTIBODY Reviewed date:02/24/2024 12:28:59 PM Interpretation: Performing Lab: Notes/Report: Original Ordering Provider: ABIGAIL TAVERAS MD ANTI-NUCLEAR ANTIBODY SCREEN NEGATIVE NEGATIVE Anti-CCP Ab, IgG/IgA-[id number] Reviewed date:03/26/2024 07:43:35 AM Interpretation: Performing Lab:[facility] [place], [address], [place], Phone - [phone], Director - Tracey Notes/Report: Anti-CCP Ab, IgG/IgA 3 0-19 units Negative <20 Weak positive 20 - 39 Moderate positive 40 - 59 Strong positive >59 CBC, Platelet, No Differenti al-[id number] Reviewed date:03/26/2024 07:43:37 AM Interpretation: Performing Lab:[address], Phone - [phone], - Tracey Notes/Report: WBC 4.7 3.4-10.8 x10E3/uL RBC 5.12 3.77-5.28 x10E6/uL Hemoglobin 14.1 11.1-15.9 g/dL Hematocrit 44.3 34.0-46.6 % MCV 87 79-97 fL MCH 27.5 26.6-33.0 pg MCHC 31.8 31.5-35.7 g/dL RDW 19.3 11.7-15.4 % Platelets 268 150-450 x10E3/uL Sedimentation Rate-[place]ester[place] n-[id number] Reviewed date:03/26/2024 07:43:39 AM Interpretation: Performing Lab:[address], Phone - [phone], Director Surjit Webb Notes/Report: Sedimentation Rate-[place] 2 0-32 mm/hr C-Reactive Protein, Quant-00 [id number] Reviewed date:03/26/2024 07:43:41 AM Interpretation: Performing Lab:[address], Phone - [phone], Director Surjit Webb Notes/Report: C-Reactive Protein, Quant 1 0-10 mg/L Rheumatoid Factor (RF)-40583 2 Reviewed date:03/26/2024 07:43:43 AM Interpretation: Performing Lab:[address], Phone - [phone], Director Surjit Webb Notes/Report: Rheumatoid Factor (RF) <10.0 <14.0 IU/mL Antinuclear Ab by Multiplex- [id number] Reviewed date:03/26/2024 07:44:26 AM Interpretation: Performing Lab:[address], Phone - [phone], Director Surjit Barkerdry Notes/Report: JAQUELINE Direct Negative Negative Lipid Panel-[id number] Reviewed date:03/26/2024 07:44:32 AM Interpretation: Performing Lab:[facility] [place], [address] [place] [address], Phone - [phone], Director - [facility] Notes/Report: Cholesterol, Total 115 100-199 mg/dL Triglycerides 72 0-149 mg/dL HDL Cholesterol 43 >39 mg/dL VLDL Cholesterol Gorge 15 5-40 mg/dL LDL Chol Calc (NIH) 57 0-99 mg/dL Comp. Metabolic Panel (14)-3 Reviewed date:03/26/2024 07:45:16 AM Interpretation: Performing Lab:[email or web address] [place], [address] [place] [address], Phone - [phone], Director - MNChris Notes/Report: Glucose 143 70-99 mg/dL BUN 11 6-24 mg/dL Creatinine 0.58 0.57-1.00 mg/dL eGFR 112 >59 mL/min/1.73 BUN/Creatinine Ratio 19 9-23 Sodium 139 134-144 mmol/L Potassium 4.3 3.5-5.2 mmol/L Chloride 104 96-106 mmol/L Carbon Dioxide, Total 23 20-29 mmol/L Calcium 8.8 8.7-10.2 mg/dL Protein, Total 6.2 6.0-8.5 g/dL Albumin 4.1 3.9-4.9 g/dL Globulin, Total 2.1 1.5-4.5 g/dL Bilirubin, Total 0.2 0.0-1.2 mg/dL Alkaline Phosphatase 58 44-121 IU/L AST (SGOT) 12 0-40 IU/L ALT (SGPT) 10 0-32 IU/L Albumin/Creatinine Ratio,Uri ne-[id number] Reviewed date:03/26/2024 07:45:21 AM Interpretation: Performing Lab:[facility] [address] [place] [address], [place], Phone - [phone], Director - Jacquiey Notes/Report: Creatinine, Urine 85.7 Not Estab. mg/dL Albumin, Urine 26.1 Not Estab. ug/mL Alb/Creat Ratio 30 0-29 mg/g creat Normal: 0 - 29 Moderately increased: 30 - 300 Severely increased: >300 Hemoglobin T4q-[id number] Reviewed date:03/26/2024 07:46:22 AM Interpretation: Performing Lab:[facility] [place], [address], [place], Phone - [phone], Director - Tracey Notes/Report: Hemoglobin A1c 6.2 4.8-5.6 % . Prediabetes: 5.7 - 6.4 Diabetes: >6.4 Glycemic control for adults with diabetes: <7.0 XR FOOT 3+ VIEWS RIGHT Reviewed date:07/21/2024 12:34:45 PM Interpretation: Performing Lab: Notes/Report: Note See Note [facility], a member of [facility] Patient Name: NELL BLANCO Date of : 1975 Reason for Exam: pain Exam Date: 07/16/2024 [id number] EST Report Status: Final Ordering Provider: BELLA PRIEST PCP: ABIGAIL TAVERAS EXAMINATION: RIGHT FOOT CLINICAL INFORMATION: Heel pain. Symptoms for 2 months COMPARISON: 01/11/2022 TECHNIQUE: 3 views right foot FINDINGS: No acute fracture or subluxation. No suspicious focal lesion. Mild to moderate narrowing of the first MTP joint with some proliferative osteophyte. This has developed or worsened. Moderate dorsal and plantar calcaneal spurring. IMPRESSION: Calcaneal spurring. Degenerative changes first MTP joint -------- FINAL REPOR T -------- Dictated By: Kiel Al Dictated Date: 07/21/2024 08:17 ET Assigned Physician: Kiel Ruiz Reviewed and Electronically Signed By: Kiel Ruiz Signed Date: 025 08:19 ET Workstation ID: [id number] Transcribed By: Self Edit Transcribed Date: 07/21/2024 08:17 ET TSH Reviewed date:09/01/2023 05:46:14 PM Interpretation: Performing Lab: Notes/Report: [employer], a member of [address] [address] Cytogeneticist - Lara Argueta MD TSH 0.85 0.40-4.00 uIU/ml TOTAL IRON BINDING CAPACITY Reviewed date:09/01/2023 05:45:23 PM Interpretation: Performing Lab: Notes/Report: Original Ordering Provider: ABIGAIL TAVERAS MD TOTAL IRON BINDING CAPACITY 480 250-450 ug/dL IRON (FE) 22 40-150 ug/dL % FE SATURATION 5 15-50 % GLYCOHEMOGLOBIN PROFILE Reviewed date:09/02/2023 07:47:32 AM Interpretation: Performing Lab: Notes/Report: Original Ordering Provider: ABIGAIL TAVERAS MD [employer], [place] [address] Cytogeneticist - Lara Argueta MD GLYCATED HEMOGLOBIN A1C 6.0 <6.5 % ESTIMATED AVERAGE GLUCOSE 126 FERRITIN Reviewed date:09/03/2023 07:55:25 AM Interpretation: Performing Lab: Notes/Report: FERRITIN 5 8-252 ng/mL CBC Reviewed date:09/01/2023 05:25:39 PM Interpretation: Performing Lab: Notes/Report: Original Ordering Provider: ABIGAIL TAVERAS MD [employer], [place] [address] Cytogeneticist - Lara Argueta MD WBC 7.2 4.8-10.8 x10-3/uL RBC 4.8 3.8-4.8 x10-6/uL HEMOGLOBIN 12.4 11.5-16.0 g/dL HEMATOCRIT 39.6 35-47 % MCV 81.8 79-98 fL MCH 25.6 27-32 pg MCHC 31.3 32-37 g/dL RDW 14.2 11-15 % PLT COUNT 387 130-400 x10-3/uL MEAN PLATELET VOLUME 9.7 7-11 fL NRBC % AUTO 0.0 <1 % NRBC # AUTO 0.00 <0.1 x10-3/uL Hgb A1c with eAG Estimation- [id number] Reviewed date:03/25/2024 07:47:27 AM Interpretation: Performing Lab:[facility] [place], [address], [place], Phone - [phone], Director - Tracey Notes/Report: Hemoglobin A1c 6.7 4.8-5.6 % . Prediabetes: 5.7 - 6.4 Diabetes: >6.4 Glycemic control for adults with diabetes: <7.0 Estim. Avg Glu (eAG) 146 CBC, Platelet, No Differenti al-[id number] Reviewed date:03/25/2024 07:47:36 AM Interpretation: Performing Lab:[facility] [place], [address] [place] [address], Phone - [phone], Director - MDJodry Notes/Report: WBC 4.7 3.4-10.8 x10E3/uL RBC 5.25 3.77-5.28 x10E6/uL Hemoglobin 14.1 11.1-15.9 g/dL Hematocrit 44.8 34.0-46.6 % MCV 85 79-97 fL MCH 26.9 26.6-33.0 pg MCHC 31.5 31.5-35.7 g/dL RDW 18.5 11.7-15.4 % Platelets 284 150-450 x10E3/uL Ferritin-[id number] Reviewed date:03/25/2024 07:34:29 AM Interpretation: Performing Lab:[facility] [place], [address] [place] [address], Phone - [phone], Director - MDJodry Notes/Report: Ferritin 99 15-150 ng/mL TSH-[id number] Reviewed date:03/25/2024 07:34:36 AM Interpretation: Performing Lab:[facility] [place], [address] [place] [address], Phone - [phone], Director - MDJodry Notes/Report: TSH 1.530 0.450-4.500 uIU/mL Iron and TIBC-[id number] Reviewed date:03/25/2024 07:47:29 AM Interpretation: Performing Lab:[facility] [place], [address] [place] [address], Phone - [phone], Director - MDJodry Notes/Report: Iron Bind.Cap.(TIBC) 339 250-450 ug/dL UIBC 262 131-425 ug/dL Iron 77 27-159 ug/dL Iron Saturation 23 15-55 % Reason For Referral Reason T2DM Diagnosis 1 Type 2 diabetes dea itus without complications (E11.9) Referral Organization [facility] Referring Provider First Name ABIGAIL Referring Provider Last Name NITIN Referring Provider Speciality Internal M edicine Referred Provider Specialty Endocrinolog y General Notes Sent [place] [facility] [place], [place] [address] fax# [phone] phone# [phone]., Vijay Reyes 08/21/2023 08:45:00 AM > Clinical Notes called [facility] office is closed today. Will callback tomorrow., Vijay Reyes 08/25/2023 09:46:27 AM >, called [facility] they did not receive the referral. Refaxed: 08/26/2023., Vijay Reyes 08/26/2023 02:38:30 PM > Referral Priority Routine Reason anemia Diagnosis 1 Anemia, unspecified (D64.9) Referral Organization [facility] Referring Provider First Name ABIGAIL Referring Provider Last Name GU Referring Provider Speciality Internal edicine Referred Provider Specialty Hematology General Notes Referral faxed to [facility] oncology.Anais Crystal 09/03/2023 07:54:56 AM > Referral Priority Routine Reason Evaluation and manag ement - colonoscopy Diagnosis 1 Encounter for screen ing for malignant neoplasm of colon (Z12.11) Referral Organization [facility] Referring Provider First Name ABIGAIL Referring Provider Last Name [facility] Referring Provider Speciality Internal edicine Referred Provider Specialty Gastroentero logy General Notes Referral sent to [facility] - Office will call patient for scheduling., Edu Lieberman 02/18/2024 09:32:34 AM > Referral Priority Routine Reason Evaluation and manag ement Diagnosis 1 Varicose veins of bi lateral lower extremities with pain (I83.813) Referral Organization [facility] Referring Provider First Name ABIGAIL Referring Provider Last Name GU Referring Provider Speciality Internal edicine Referred Provider Specialty Vascular Andrez jeanette General Notes Referral sent to [facility] for [facility] - Office will call patient for scheduling.Luisana Latraya 02/18/2024 09:33:50 AM > Referral Priority Routine Medications Medication SIG (Take, Route, Frequency, Duration) Notes Start Date End Date Status Fluticasone Propionate 50 MCG/ACT 1 spray in each nostril Nasally Once a day for 90 days Not-Taking Diclofenac Sodium 75 MG 1 tablet as need ed Orally Twice a day for 30 days 04/08/2022 Not-Taking Baclofen 5 MG 1 tablet as needed Orally Once a day Active DULoxetine HCl 30 MG 1 capsule Orally Twice a day Not-Taking Meloxicam 7.5 MG 1 tablet Orally Once a day Not-Taking Gabapentin 100 MG 1 capsule Orally Onc e a day Dr. Priest Active Griseofulvin Ultramicrosize 250 MG 1 tablet after a meal Orally twice a day Not-Taking Propafenone HCl 225 MG 1 tablet Orally t wice daily Active Metoprolol Tartrate 25 MG TAKE 1/2 TABLET WITH FOOD ORALLY TWICE A DAY 90 DAYS for 90 Not-Taking Actos 30 MG 1 tablet Orally Once a day Active traMADol HCl 50 MG 1 tablet as needed Orally Once a day Dr Priest Not-Taking buPROPion HCl ER (SR) 150 MG 1 tablet in the morning Orally Once a day Active Protonix 20 MG 1 tablet Orally Once a day for 30 day(s) 02/20/2022 Not-Taking Melatonin 3 MG 1 tablet at bedtime as needed Orally Once a day Active Mirtazapine 45 MG 1 tablet at bedtime Orally Once a day for 30 day(s) Not-Taking hydrOXYzine Pamoate 25 MG 1 capsule Orally twice daily as needed Active Loratadine 10 MG 1 tablet Orally Once a day for 90 days Not-Taking dilTIAZem HCl ER 120 MG 1 capsule Orally one time daily Active Magnesium 250 MG 1 tablet with a meal Orally Once a day for 30 day(s) 10/01/2022 Not-Taking Atorvastatin Calcium 40 MG 1 tablet Orally Once a day for 90 days Active traZODone HCl 50 MG 1 tablet at bedtime as needed Orally Once a day Not-Taking Biotin 300 MCG 1 tablet Orally Once a day for 30 day(s) Not-Taking metFORMIN HCl 1000 MG 1 tablet with a me al Orally twice a day for 30 day(s) Active guaiFENesin AC 100-10 MG/5ML 10 mL as needed Orally TID for 7 days 08/15/2022 Not-Taking Vitamin D3 25 MCG (1000 UT) 1 tablet Orally Once a day Active Augmentin 875-125 MG 1 tablet Orally mark ry 12 hrs for 7 day(s) 08/15/2022 Not-Taking Zinc 50 MG 1 tablet Orally Once a day for 30 day(s) 08/15/2022 Not-Taking Jardiance 25 MG 1 tablet Orally Once a day Not-Taking Topamax 25 MG 1 tablet Orally Once a day Dr Priest Not-Taking Lisinopril-hydroCHLOROt hiazide 20-25 MG TAKE 1 TABLET BY MOUTH EVERY DAY for 30 Not-Taking Clotrimazole-Betamethas one 1-0.05 % 1 application to affected area Externally Twice a day Not-Taking Sertraline HCl 100 MG 1.5 tablet Orally Once a day Not-Taking Diclofenac Sodium 1 % as directed Transdermal Not-Taking Victoza 18 MG/3ML as directed Subcutaneous once a day Active Immunizations Vaccine Route Administration Date Status Comme nts COVID 19 Pfizer Unknown 02/01/2021 Administered COVID 19 Pfizer Unknown 02/22/2021 Administered Hep B, adult dosage, for intramuscular use Unknown 05/12/2018 Administered Hep B, adult dosage, for intramuscular use Unknown 06/11/2018 Administered Hep B, adult dosage, for intramuscular use Unknown 12/03/2018 Administered Pneumococcal polysaccharide PPV23 Unknown 03/30/2018 Ad ministered Td (adult), absorbed Unknown 03/13/2017 Administered Tdap Unknown 03/30/2018 Administered Social History Tobacco Use: Social History Observation Description Date Details (start date - stop date) Never Smoker NA - NA Tobacco Use/Smoking Question Answer Notes Are you a nonsmoker Alcohol Screen (Audit-C) Question Answer Notes Did you have a drink containing alcohol in the p ast year? No Points 0 Interpretation Negative Problems Problem Type SNOMED Code ICD Code Onset Dates Problem Status W/U Status Risk Notes Problem Iron deficiency anemia (97549305) Iron deficiency anemia, unspecified (D50.9) Active confirmed Problem Disorder due to type 2 diabetes mellitus (247082186) Type 2 diabetes mellitus with unspecified complications (E11.8) Active confirmed Problem Type II diabetes mellitus without complication (544347728) Type 2 diabetes mellitus without complications (E11.9) Active confirmed Problem Morbid obesity (disorder) (623896988) Morbid (severe) obesity due to excess calories (E66.01) Active confirmed Problem Moderate recurrent major depression (29768492) Major depressive disorder, recurrent, moderate (F33.1) Active confirmed Problem Insomnia (865409202) Insomnia, unspecified (G47.00) Active confirmed Problem Pain co-occurrent and due to varicose veins of bilateral legs (45710468225924151) Varicose veins of bilateral lower extremities with pain (I83.813) Active confirmed Problem Gastro-esophageal reflux disease without esophagitis (892103885) Gastro-esophageal reflux disease without esophagitis (K21.9) Active confirmed Problem Degeneration of thoracolumbar intervertebral disc (17554185) Other intervertebral disc degeneration, 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) Active confirmed Problem Essential hypertension (77493998) Essential (primary) hypertension (I10) Active confirmed Problem Supraventricular tachycardia (0223284) Supraventricular tachycardia (I47.1) Active confirmed Vital Signs Heart Rate 84 /min 02/17/2024 Temperature 97.8 degrees Fahrenheit 02/17/2024 Blood pressure diastolic 80 mm Hg 02/17/2024 Oximetry 98 % 02/17/2024 Height 63 in 02/17/2024 Blood pressure systolic 130 mm Hg 02/17/2024 Weight 224.7 lbs 02/17/2024 BMI 39.8 kg/m2 02/17/2024 Encounters Encounter Location Date Provider Diagnosis [address] [address] 08/20/2023 ABIGAIL TAVERAS Type 2 diabetes dea itus with unspecified complications E11.8 ; Essential (primary) hypertension I10 ; Major depressive disorder, recurrent, moderate F33.1 ; Gastro-esophageal reflux disease without esophagitis K21.9 ; Insomnia, unspecified G47.00 ; Iron deficiency anemia, unspecified D50.9 and Other intervertebral disc degeneration, thoracolumbar region M51.[address] [address] 02/17/2024 ABIGAIL TAVERAS Type 2 diabetes dea itus with unspecified complications E11.8 ; Encounter for general adult medical examination without abnormal findings Z00.00 ; Essential (primary) hypertension I10 ; Major depressive disorder, recurrent, moderate F33.1 ; Insomnia, unspecified G47.00 ; Iron deficiency anemia, unspecified D50.9 and Pain in unspecified joint M25.[address] [address] 04/13/2024 ABIGAIL TAVERAS [address] [address] 04/26/2024 ABIGAIL TAVERAS Assessments Encounter Date Diagnosis (ICD Code) Assessment Notes Treatment Notes Treatment Clinical Notes Section Notes 08/20/2023 Type 2 diabetes mellitus with unspecified complications (ICD-10 - E11.8) Mrs. Blanco is a 47-year-old lady with DM type II with neuropathy and she sees machine assembler for puller over, hypertension, hyperlipidemia, acid reflux and chronic back pain and follows up with physiatry Dr. Priest here here for follow up. Plan is as follows: Type II diabetes mellitus with neuropathy. A1c 6.0. Fasting sugars 126. She is on right medications. She has seen her bill hiker in the past 1 year. Foot care discussed. Referred to endocrinology. Check A1c. Hypertension. Blood pressure well controlled on current regimen. Hyperlipidemia. Last lipid panel within normal limits. Continue Atorvastatin 40 MG at night. Generalized anxiety/Major depressive disorder. Mood stable on current regimen. GERD. Continue Protonix 20 MG daily. Insomnia. Sleep is stable on hydroxyzine. Iron deficiency anemia. She gets iron infusions every [address] Nash. Check CBC, ferritin and iron studies. Morbid obesity. Advised dietary restrictions and regimental exercise. Goal is to lose 5-6 lbs a month. Degenerative disc disease/osteoarthr itis. She follows up with physiatry and she has intra-articular injection bilateral knee joints and she uses a cane to walk. She needs help with activities of daily living at home especially lifting, bathing, toileting and transportation Blood work reviewed with patient and questions answered. Screening blood work before next appointment. General health concerns discussed with patient. Scribe services used to formulate this note under HIPAA compliance and under [place] law mandated for scribe services. Patient aware of service. Verbal consent and written consent taken from the patient. Patient understands and verbalizes understanding of the scribes services and all questions answered regarding scribes services. Patient agrees to use of scribes services. 02/17/2024 Type 2 diabetes mellitus with unspecified complications (ICD-10 - E11.8) Mrs. Blanco is a 48-year-old lady with DM type II with neuropathy and she sees machine assembler for puller over, hypertension, hyperlipidemia, acid reflux and chronic back pain and follows up with physiatry Dr. Priest here here for annual physical. Plan is as follows: Type II diabetes mellitus with neuropathy. A1c 6.0. Fasting sugars 126. She is on right medications. She has seen her bill hiker in the past 1 year. Foot care [...] and transportation Eye screening. She sees her bill hiker regularly. Dental screening. She sees dentist regularly. Colon cancer screening. Referred to GI for colonoscopy. Breast cancer screening. She is up-to-date on her mammogram. Female screening. She follows up with her box office clerk for breast and pelvic exams. Immunizations. She is up-to-date on her COVID, TDAP vaccinations. General health concerns discussed with patient. Scribe services used to formulate this note under HIPAA compliance and under [place] law mandated for scribe services. Patient aware of service. Verbal consent and written consent taken from the patient. Patient understands and verbalizes understanding of the scribes services and all questions answered regarding scribes services. Patient agrees to use of scribes services. 08/20/2023 Essential (primary) hypertension (ICD-10 - I10) Mrs. Blanco is a 47-year-old lady with DM type II with neuropathy and she sees machine assembler for puller over, hypertension, hyperlipidemia, acid reflux and chronic back pain and follows up with physiatry Dr. Priest here here for follow up. Plan is as follows: Type II diabetes mellitus with neuropathy. A1c 6.0. Fasting sugars 126. She is on right medications. She has seen her bill hiker in the past 1 year. Foot care discussed. Referred to endocrinology. Check A1c. Hypertension. Blood pressure well controlled on current regimen. Hyperlipidemia. Last lipid panel within normal limits. Continue Atorvastatin 40 MG at night. Generalized anxiety/Major depressive disorder. Mood stable on current regimen. GERD. Continue Protonix 20 MG daily. Insomnia. Sleep is stable on hydroxyzine. Iron deficiency anemia. She gets iron infusions every [address] Nash. Check CBC, ferritin and iron studies. Morbid obesity. Advised dietary restrictions and regimental exercise. Goal is to lose 5-6 lbs a month. Degenerative disc disease/osteoarthr itis. She follows up with physiatry and she has intra-articular injection bilateral knee joints and she uses a cane to walk. She needs help with activities of daily living at home especially lifting, bathing, toileting and transportation Blood work reviewed with patient and questions answered. Screening blood work before next appointment. General health concerns discussed with patient. Scribe services used to formulate this note under HIPAA compliance and under [place] law mandated for scribe services. Patient aware [...] type II with neuropathy and she sees machine assembler for puller over, hypertension, hyperlipidemia, acid reflux and chronic back pain and follows up with physiatry Dr. Priest here here for annual physical. Plan is as follows: Type II diabetes mellitus with neuropathy. A1c 6.0. Fasting sugars 126. She is on right medications. She has seen her bill hiker in the past 1 year. Foot care [...] and transportation Eye screening. She sees her bill hiker regularly. Dental screening. She sees dentist regularly. Colon cancer screening. Referred to GI for colonoscopy. Breast cancer screening. She is up-to-date on her mammogram. Female screening. She follows up with her box office clerk for breast and pelvic exams. Immunizations. She is up-to-date on her COVID, TDAP vaccinations. General health concerns discussed with patient. Scribe services used to formulate this note under HIPAA compliance and under [place] law mandated for scribe services. Patient aware of service. Verbal consent and written consent taken from the patient. Patient understands and verbalizes understanding of the scribes services and all questions answered regarding scribes services. Patient agrees to use of scribes services. 02/17/2024 Essential (primary) hypertension (ICD-10 - I10) Mrs. Blanco is a 48-year-old lady with DM type II with neuropathy and she sees machine assembler for puller over, hypertension, hyperlipidemia, acid reflux and chronic back pain and follows up with physiatry Dr. Priest here here for annual physical. Plan is as follows: Type II diabetes mellitus with neuropathy. A1c 6.0. Fasting sugars 126. She is on right medications. She has seen her bill hiker in the past 1 year. Foot care [...] and transportation Eye screening. She sees her bill hiker regularly. Dental screening. She sees dentist regularly. Colon cancer screening. Referred to GI for colonoscopy. Breast cancer screening. She is up-to-date on her mammogram. Female screening. She follows up with her box office clerk for breast and pelvic exams. Immunizations. She is up-to-date on her COVID, TDAP vaccinations. General health concerns discussed with patient. Scribe services used to formulate this note under HIPAA compliance and under [place] law mandated for scribe services. Patient aware of service. Verbal consent and written consent taken from the patient. Patient understands and verbalizes understanding of the scribes services and all questions answered regarding scribes services. Patient agrees to use of scribes services. 08/20/2023 Major depressive disorder, recurrent, moderate (ICD-10 - F33.1) Mrs. Blanco is a 47-year-old lady with DM type II with neuropathy and she sees machine assembler for puller over, hypertension, hyperlipidemia, acid reflux and chronic back pain and follows up with physiatry Dr. Priest here here for follow up. Plan is as follows: Type II diabetes mellitus with neuropathy. A1c 6.0. Fasting sugars 126. She is on right medications. She has seen her bill hiker in the past 1 year. Foot care discussed. Referred to endocrinology. Check A1c. Hypertension. Blood pressure well controlled on current regimen. Hyperlipidemia. Last lipid panel within normal limits. Continue Atorvastatin 40 MG at night. Generalized anxiety/Major depressive disorder. Mood stable on current regimen. GERD. Continue Protonix 20 MG daily. Insomnia. Sleep is stable on hydroxyzine. Iron deficiency anemia. She gets iron infusions every [address] Nash. Check CBC, ferritin and iron studies. Morbid obesity. Advised dietary restrictions and regimental exercise. Goal is to lose 5-6 lbs a month. Degenerative disc disease/osteoarthr itis. She follows up with physiatry and she has intra-articular injection bilateral knee joints and she uses a cane to walk. She needs help with activities of daily living at home especially lifting, bathing, toileting and transportation Blood work reviewed with patient and questions answered. Screening blood work before next appointment. General health concerns discussed with patient. Scribe services used to formulate this note under HIPAA compliance and under [place] law mandated for scribe services. Patient aware of service. Verbal consent and written consent taken from the patient. Patient understands and verbalizes understanding of the scribes services and all questions answered regarding scribes services. Patient agrees to use of scribes services. 08/20/2023 Gastro-esophageal reflux disease without esophagitis (ICD-10 - K21.9) Mrs. Blanco is a 47-year-old lady with DM type II with neuropathy and she sees machine assembler for puller over, hypertension, hyperlipidemia, acid reflux and chronic back pain and follows up with physiatry Dr. Priest here here for follow up. Plan is as follows: Type II diabetes mellitus with neuropathy. A1c 6.0. Fasting sugars 126. She is on right medications. She has seen her bill hiker in the past 1 year. Foot care discussed. Referred to endocrinology. Check A1c. Hypertension. Blood pressure well controlled on current regimen. Hyperlipidemia. Last lipid panel within normal limits. Continue Atorvastatin 40 MG at night. Generalized anxiety/Major depressive disorder. Mood stable on current regimen. GERD. Continue Protonix 20 MG daily. Insomnia. Sleep is stable on hydroxyzine. Iron deficiency anemia. She gets iron infusions every [address] Nash. Check CBC, ferritin and iron studies. Morbid obesity. Advised dietary restrictions and regimental exercise. Goal is to lose 5-6 lbs a month. Degenerative disc disease/osteoarthr itis. She follows up with physiatry and she has intra-articular injection bilateral knee joints and she uses a cane to walk. She needs help with activities of daily living at home especially lifting, bathing, toileting and transportation Blood work reviewed with patient and questions answered. Screening blood work before next appointment. General health concerns discussed with patient. Scribe services used to formulate this note under HIPAA compliance and under [place] law mandated for scribe services. Patient aware [...] type II with neuropathy and she sees machine assembler for puller over, hypertension, hyperlipidemia, acid reflux and chronic back pain and follows up with physiatry Dr. Priest here here for annual physical. Plan is as follows: Type II diabetes mellitus with neuropathy. A1c 6.0. Fasting sugars 126. She is on right medications. She has seen her bill hiker in the past 1 year. Foot care [...] and transportation Eye screening. She sees her bill hiker regularly. Dental screening. She sees dentist regularly. Colon cancer screening. Referred to GI for colonoscopy. Breast cancer screening. She is up-to-date on her mammogram. Female screening. She follows up with her box office clerk for breast and pelvic exams. Immunizations. She is up-to-date on her COVID, TDAP vaccinations. General health concerns discussed with patient. Scribe services used to formulate this note under HIPAA compliance and under [place] law mandated for scribe services. Patient aware of service. Verbal consent and written consent taken from the patient. Patient understands and verbalizes understanding of the scribes services and all questions answered regarding scribes services. Patient agrees to use of scribes services. 02/17/2024 Insomnia, unspecified (ICD-10 - G47.00) Mrs. Blanco is a 48-year-old lady with DM type II with neuropathy and she sees machine assembler for puller over, hypertension, hyperlipidemia, acid reflux and chronic back pain and follows up with physiatry Dr. Priest here here for annual physical. Plan is as follows: Type II diabetes mellitus with neuropathy. A1c 6.0. Fasting sugars 126. She is on right medications. She has seen her bill hiker in the past 1 year. Foot care [...] and transportation Eye screening. She sees her bill hiker regularly. Dental screening. She sees dentist regularly. Colon cancer screening. Referred to GI for colonoscopy. Breast cancer screening. She is up-to-date on her mammogram. Female screening. She follows up with her box office clerk for breast and pelvic exams. Immunizations. She is up-to-date on her COVID, TDAP vaccinations. General health concerns discussed with patient. Scribe services used to formulate this note under HIPAA compliance and under [place] law mandated for scribe services. Patient aware of service. Verbal consent and written consent taken from the patient. Patient understands and verbalizes understanding of the scribes services and all questions answered regarding scribes services. Patient agrees to use of scribes services. 08/20/2023 Insomnia, unspecified (ICD-10 - G47.00) Mrs. Blanco is a 47-year-old lady with DM type II with neuropathy and she sees machine assembler for puller over, hypertension, hyperlipidemia, acid reflux and chronic back pain and follows up with physiatry Dr. Priest here here for follow up. Plan is as follows: Type II diabetes mellitus with neuropathy. A1c 6.0. Fasting sugars 126. She is on right medications. She has seen her bill hiker in the past 1 year. Foot care discussed. Referred to endocrinology. Check A1c. Hypertension. Blood pressure well controlled on current regimen. Hyperlipidemia. Last lipid panel within normal limits. Continue Atorvastatin 40 MG at night. Generalized anxiety/Major depressive disorder. Mood stable on current regimen. GERD. Continue Protonix 20 MG daily. Insomnia. Sleep is stable on hydroxyzine. Iron deficiency anemia. She gets iron infusions every [address] Nash. Check CBC, ferritin and iron studies. Morbid obesity. Advised dietary restrictions and regimental exercise. Goal is to lose 5-6 lbs a month. Degenerative disc disease/osteoarthr itis. She follows up with physiatry and she has intra-articular injection bilateral knee joints and she uses a cane to walk. She needs help with activities of daily living at home especially lifting, bathing, toileting and transportation Blood work reviewed with patient and questions answered. Screening blood work before next appointment. General health concerns discussed with patient. Scribe services used to formulate this note under HIPAA compliance and under [place] law mandated for scribe services. Patient aware of service. Verbal consent and written consent taken from the patient. Patient understands and verbalizes understanding of the scribes services and all questions answered regarding scribes services. Patient agrees to use of scribes services. 08/20/2023 Iron deficiency anemia, unspecified (ICD-10 - D50.9) Mrs. Blanco is a 47-year-old lady with DM type II with neuropathy and she sees machine assembler for puller over, hypertension, hyperlipidemia, acid reflux and chronic back pain and follows up with physiatry Dr. Priest here here for follow up. Plan is as follows: Type II diabetes mellitus with neuropathy. A1c 6.0. Fasting sugars 126. She is on right medications. She has seen her bill hiker in the past 1 year. Foot care discussed. Referred to endocrinology. Check A1c. Hypertension. Blood pressure well controlled on current regimen. Hyperlipidemia. Last lipid panel within normal limits. Continue Atorvastatin 40 MG at night. Generalized anxiety/Major depressive disorder. Mood stable on current regimen. GERD. Continue Protonix 20 MG daily. Insomnia. Sleep is stable on hydroxyzine. Iron deficiency anemia. She gets iron infusions every [address] Nash. Check CBC, ferritin and iron studies. Morbid obesity. Advised dietary restrictions and regimental exercise. Goal is to lose 5-6 lbs a month. Degenerative disc disease/osteoarthr itis. She follows up with physiatry and she has intra-articular injection bilateral knee joints and she uses a cane to walk. She needs help with activities of daily living at home especially lifting, bathing, toileting and transportation Blood work reviewed with patient and questions answered. Screening blood work before next appointment. General health concerns discussed with patient. Scribe services used to formulate this note under HIPAA compliance and under [place] law mandated for scribe services. Patient aware [...] type II with neuropathy and she sees machine assembler for puller over, hypertension, hyperlipidemia, acid reflux and chronic back pain and follows up with physiatry Dr. Priest here here for annual physical. Plan is as follows: Type II diabetes mellitus with neuropathy. A1c 6.0. Fasting sugars 126. She is on right medications. She has seen her bill hiker in the past 1 year. Foot care [...] and transportation Eye screening. She sees her bill hiker regularly. Dental screening. She sees dentist regularly. Colon cancer screening. Referred to GI for colonoscopy. Breast cancer screening. She is up-to-date on her mammogram. Female screening. She follows up with her box office clerk for breast and pelvic exams. Immunizations. She is up-to-date on her COVID, TDAP vaccinations. General health concerns discussed with patient. Scribe services used to formulate this note under HIPAA compliance and under [place] law mandated for scribe services. Patient aware of service. Verbal consent and written consent taken from the patient. Patient understands and verbalizes understanding of the scribes services and all questions answered regarding scribes services. Patient agrees to use of scribes services. 08/20/2023 Other intervertebral disc degeneration, thoracolumbar region (ICD-10 - M51.35) Mrs. Blanco is a 47-year-old lady with DM type II with neuropathy and she sees machine assembler for puller over, hypertension, hyperlipidemia, acid reflux and chronic back pain and follows up with physiatry Dr. Priest here here for follow up. Plan is as follows: Type II diabetes mellitus with neuropathy. A1c 6.0. Fasting sugars 126. She is on right medications. She has seen her bill hiker in the past 1 year. Foot care discussed. Referred to endocrinology. Check A1c. Hypertension. Blood pressure well controlled on current regimen. Hyperlipidemia. Last lipid panel within normal limits. Continue Atorvastatin 40 MG at night. Generalized anxiety/Major depressive disorder. Mood stable on current regimen. GERD. Continue Protonix 20 MG daily. Insomnia. Sleep is stable on hydroxyzine. Iron deficiency anemia. She gets iron infusions every [address] Nash. Check CBC, ferritin and iron studies. Morbid obesity. Advised dietary restrictions and regimental exercise. Goal is to lose 5-6 lbs a month. Degenerative disc disease/osteoarthr itis. She follows up with physiatry and she has intra-articular injection bilateral knee joints and she uses a cane to walk. She needs help with activities of daily living at home especially lifting, bathing, toileting and transportation Blood work reviewed with patient and questions answered. Screening blood work before next appointment. General health concerns discussed with patient. Scribe services used to formulate this note under HIPAA compliance and under [place] law mandated for scribe services. Patient aware [...] type II with neuropathy and she sees machine assembler for puller over, hypertension, hyperlipidemia, acid reflux and chronic back pain and follows up with physiatry Dr. Priest here here for annual physical. Plan is as follows: Type II diabetes mellitus with neuropathy. A1c 6.0. Fasting sugars 126. She is on right medications. She has seen her bill hiker in the past 1 year. Foot care [...] and transportation Eye screening. She sees her bill hiker regularly. Dental screening. She sees dentist regularly. Colon cancer screening. Referred to GI for colonoscopy. Breast cancer screening. She is up-to-date on her mammogram. Female screening. She follows up with her box office clerk for breast and pelvic exams. Immunizations. She is up-to-date on her COVID, TDAP vaccinations. General health concerns discussed with patient. Scribe services used to formulate this note under HIPAA compliance and under [place] law mandated for scribe services. Patient aware of service. Verbal consent and written consent taken from the patient. Patient understands and verbalizes understanding of the scribes services and all questions answered regarding scribes services. Patient agrees to use of scribes services. Plan Of Treatment Pending Test Test Name Order Date ALT (SGPT) 04/08/2022 ANTI-NUCLEAR ANTIBODY SCREEN, REFLEX TO TITER 04/08/2022 AST (SGOT) 04/08/2022 CBC (COMPLETE BLOOD COUNT) WITH DIFF 09/2021 CITRULLINE PEPTIDE ANTIBODY 04/08/2022 C-REACTIVE PROTEIN 04/08/2022 FERRITIN 04/16/2022 HEMOGLOBIN A1C WITH EST GLUCOSE 04/08/20 22 IRON 04/16/2022 IRON BINDING CAPACITY, UNSATURATED 04/16 RHEUMATOID FACTOR 04/08/2022 SEDIMENTATION RATE 04/08/2022 URIC ACID 04/08/2022 Future Test Test Name Order Date COMPREHENSIVE METABOLIC PANEL 08/16/2022 HEMOGLOBIN A1C WITH EST GLUCOSE 08/16/19 23 LIPID PANEL 08/16/2022 MICROALBUMIN, URINE 08/16/2022 HEMOGLOBIN A1C WITH EST GLUCOSE 02/14/20 23 CBC (COMPLETE BLOOD COUNT) 08/20/2023 FERRITIN 08/20/2023 HEMOGLOBIN A1C WITH EST GLUCOSE 08/20/19 24 IRON & TIBC 08/20/2023 TSH 08/20/2023 Next Appt Details Provider Name:Mario dean, 08/20/2024 10:30:00 AM, [address] [place] [address], [place], [address], Insurance Providers Payer Name Payer Address Payer Phone Subscriber Number Group Number Insured Name Patient Relationship to Insured Coverage Start Date Coverage End Date [facility] [address] [address] [place] [phone] [id number] Nell Blanco Self - patient is the insured [place] [address] [place] [address] [id number] Bella Nell Self - patient is the insured Medical (General) History Medical History History ICD Code type II diabetes [place] [facility] [place] And see ophthalmology every year hypertension, benign acid reflux Upper endoscopy in 2018 and was negative depression see a Councellor and Prescrib er Y [place] Back pain and she sees varicose veins Surgical History Surgery Date(Month/Year) left arm surgery
--- OUTSIDE RECORDS SUMMARY | 2024-08-19 08:31 | XMS_ITS | Continuity of Care Document ---
Author Organization [facility] Address [address] [place] [address] [address] [place] [id number] Phone Care Team Providers Care Transmission Inspector Name Role Phone Orion RUIZ, YANNA, William [...] Mi- [place] & [place] [facility], [address] [place] [address] Dr Mendoza [address], [id number], tel:[phone] R [facility] Varicose veins of bilateral lower extremities with other complicationsPa in in right lower legPain in left lower legPain in right legRestless legs syndromeEssenti al (primary) hypertensionPru ritus, unspecifiedPain in left legCramp and spasmLocalized edema 4 Orion RUIZ, BRII RAINES. [address] [facility], [facility] [address], [place], [place], [id number] , [place]. tel:[phone] Referring Provider: Brianna Arauz MD, [address] [place], [address]. tel:[phone] [facility], [address] [place] [address] [address], [id number], tel:[phone] [facility] [place] [facility] [place] Chronic venous hypertension (idiopathic) with other complications of bilateral lower extremity Orion RUIZ, RVT, RPVI William. [address] [facility], [address], [place], [place], [id number] , [place]. tel:[phone] Referring Provider: Brianna Arauz MD, [address] [place], [address]. tel:[phone] Family History Family Member Type Diagnosis Age At Onset No Information Payers Payer name Insurance type Covered republican ID Authorjohn barahona(s) [facility] [id number] Social History Type Description Quantity Date [...] Information Instructions Date Instruction Additional Infor mation Lifestyle education Related to B james mass index (BMI) 39.0-39.9, adult Diet education Related to Body mass index (BMI) 39.0-39.9, adult Pre and post instruc tions reviewed and provided Related to Varicose veins of bilateral lower extremities with other complications Patient education booklet given Related to Varicose veins of bilateral lower extremities with other complications Giving Encouragement to exercise Related to Body mass index (BMI) 39.0-39.9, adult Assessments Type Assessment Date No Information Patient Care Teams Name Effective Dates (start - stop) Status Members No Information
[2024-08-19 08:45] LABS: Glucose, Whole Blood 125 mg/dL (60-115)
== END 2024-08-19 08:57 | disposition home or self-care (01) ==
PROVIDERS: PCP Hospitalist; Visit Provider Internal Medicine
DX: E11.65 Type 2 diabetes mellitus with hyperglycemia (principal)

== ENCOUNTER → 2024-08-19 08:21 | Outpatient (BNVA) | payer OTHER, SELFPAY | PROVIDERS: PCP Hospitalist; Visit Provider Internal Medicine | DX: E11.65 Type 2 diabetes mellitus with hyperglycemia (principal) | CPT/HCPCS: 82947; 99212 ==

== ENCOUNTER 2024-10-20 13:59 | Outpatient (AMB) | payer OTHER, SELFPAY ==
--- NOTE | 2024-10-20 14:05 | A.OFFVIS_ITS ---
Vital Signs 10/20/24 14:08 Height 5 ft 3 in Weight 240 lb 4.862 oz BMI 42.6 BP 160/70 H Blood Pressure Location Rt brachial Position Sitting Pulse 78 Pulse Source Pulse Oximeter Pulse Oximetry (%) 98 Oxygen Delivery Method Room Air Intake Visit Reasons: DM Intake Note: Patient presents today for a follow-up on Type 2 Diabetes Mellitus & Thyroid: Last Diabetic eye exam was on: aug 2024 Last Podiatry exam was on: Does not see a It Desktop Support Specialist Most recent HbA1c: 6.5% Random Glucose- 164 mg/dL, Today Thermal Molder Required: Yes Information Interpreted: non-clinical & clinical Accompanied by: Self / Same As Patient Allergies No Known Allergies [No Known Allergies*] Allergy (Verified 08/19/24 08:26) Medication List - Last Reconciled 10/20/24 by Hien Brito MD ammonium lactate 12% 1 appl topical DAILY aspirin 81 mg PO DAILY atorvastatin 40 mg PO DAILY 90 days baclofen 10 mg PO DAILY blood sugar diagnostic (FreeStyle Lite Strips) TEST 3 TIMES A DAY blood sugar diagnostic (Blood Glucose Test strips) 3x daily bupropion HCl (smoking deter) 150 mg PO DAILY clotrimazole 1% 1 appl topical BID colchicine 0.3 mg (1/2 x 0.6 mg) PO DAILY diltiazem HCl ER 120 mg PO DAILY duloxetine 30 mg PO DAILY fluticasone propionate 50 mcg/actuation 1 spray intranasal DAILY FreeStyle Lancets (lancets) once daily NS FreeStyle Lite Meter (blood-glucose meter) As directed NS gabapentin 300 mg PO DAILY glipizide ER mg PO DAILY hydrocortisone 2.5% 2.5 appl topical DAILY hydroxyzine pamoate (Vistaril) 25 mg PO BID lancets once daily One touch lancets LOREE NS lansoprazole 30 mg PO BID lisinopril-hydrochlorothiazide 20-25 mg 1 tab PO DAILY lorazepam 0.5 mg PO DAILY magnesium oxide 400 mg PO DAILY magnesium oxide 400 mg PO DAILY MDD 400mg meclizine 25 mg PO TID melatonin 20 mg (2 x 10 mg) PO BEDTIME PRN 30 days meloxicam 7.5 mg PO DAILY PRN metformin 500 mg (1/2 x 1,000 mg) PO BID 90 days metoclopramide HCl (Reglan) 10 mg PO TID OneTouch Verio test strips (blood sugar diagnostic) one daily NS pen needle, diabetic (BD Ultra-Fine Mini Pen Needle) USE 4 TIMES A DAY pioglitazone 30 mg PO DAILY polysaccharide iron complex 150 mg PO DAILY propafenone 225 mg PO BID pyridoxine (vitamin B6) 250 mg PO DAILY MDD 500 semaglutide (Rybelsus) 7 mg PO DAILY sucralfate 1 g PO BID topiramate 25 mg PO DAILY PRN triamcinolone acetonide 0.1% 1 appl topical BID HPI Comments Details: 48 year old female with past medical history of T2DM, Nontoxic MNG presenting for follow up 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 Current prescriptions is Metformin 500mg twice daily (decrease from 1000mg twice daily), rybelsus 7mg (started ~ 1 month ago changed from Victoza 1.8 mg daily), glipizide and pioglitazone. Plan at last visit was to stop the victoza and start rybelsus to aid weight loss if covered. This was covered. Also hoping that in near future we could decrease metformin to improve GI upset. Was on jardiance but was having very frequent yeast infection. She feels tired a lot-thinks this may be due to lower glucose readings. Denies BG <70. Has chronic abdominal upset. She is frustrated with weight gain/difficulty losing weight. Traditional freestyle glucometer- range from 74-159 with average 134, checking 1.2/day. 100% at TGT. HbA1c 6.5% from HbA1C 06/23 6.1% from 6.3%. She notes that she feels quite low when her BG is in the 80s. Patient has gained 13 pounds despite no change in diet. Denies a family history of T2DM. Has eyes checked yearly, states UTD Has neuropathy-mild, stable Has nephropathy, on Lisinopril 20 mg Has HLD, On Atorvastatin 40 mg Denies any history of CAD. Declines diabetes education. NTMNG: Has longstanding nontoxic MNG. Had prior FNA biopsy by Dr. Washington 12/05/16 of the L lower pole 1.2 cm nodule, with benign cytology. FNA biopsy of left inferior 1.6cm nodule 2020-benign. Had thyroid u/s ordered by Dr Farooq 11/2023, underwent recent u/s biopsy at [facility]-tells me this was benign 1. A 1.8 x 1.3 x 1.3 cm left mid TR 4 thyroid nodule meets criteria for biopsy and measured 1.7 x 1.0 x 1.2 cm, volume 1.1 mL. Correlation with prior biopsy results and clinical exam recommended to determine further management. 2. Additional subcentimeter thyroid nodules as detailed above including 0.9 cm left upper TR 5 thyroid nodule for which follow-up ultrasound in one year is recommended. ROS CONSTITUTIONAL: Denies weight loss, fever and chills. HEENT: Denies changes in vision and hearing. RESPIRATORY: Denies SOB and cough. CV: Denies palpitations and CP GI: Denies abdominal pain, nausea, vomiting and diarrhea. : Denies dysuria and urinary frequency. MSK: Denies new myalgia and joint pain. SKIN: Denies rash and pruritus. NEUROLOGICAL: Denies headache PSYCHIATRIC: Denies recent changes in mood. PHYSICAL EXAM: GENERAL: Alert and oriented x 3. NAD EYES: EOMI. Anicteric. HENT: Moist mucous membranes. No scleral icterus. No cervical lymphadenopathy. LUNGS: Clear to auscultation bilaterally. CARDIOVASCULAR: Regular rate and rhythm. No murmur. No JVD. ABDOMEN: Soft, non-tender +bs EXTREMITIES: No edema. Non-tender. SKIN: No rashes or lesions. Warm. NEUROLOGIC: No focal neurological deficits. CN II-XII grossly intact PSYCHIATRIC: Cooperative. Appropriate mood and affect ? [facility] Medical History Insomnia Hypotension Multinodular thyroid HLD (hyperlipidemia) HTN (hypertension) T2DM (type 2 diabetes mellitus) Vitamin D deficiency Surgical History History of esophagogastroduodenoscopy (EGD) Hx of colonoscopy Hx of esophagogastroduodenoscopy History of carpal tunnel surgery of left wrist Family History Father No family history of disorders History of high blood pressure Mother No family history of disorders Social History Household Members: Spouse and Children Housing: House Housing Other:: spouse/ kids Are you a primary career development consultant to a significant other at home: Yes Do you presently have visiting nurse or other home services: No Alcohol intake: never Patient Tobacco Use Status: Never used Tobacco service: No Current occupational status: unemployed Physical Exam Vital Signs: Last Vital Signs Pulse 78 10/20/24 14:08 BP 160/70 H 10/20/24 14:08 Pulse Ox 98 10/20/24 14:08 Oxygen Delivery Method Room Air 10/20/24 14:08 BMI result Body Mass Index 42.6 Results Reviewed Results Reviewed: Laboratory Last Values Glucose (Clinic) 164 mg/dL (60-115) H 10/20/24 14:18 Assessment & Plan Assessment & Plan (1) T2DM (type 2 diabetes mellitus): Code(s): E11.9 - Type 2 diabetes mellitus without complications Category: Medical Qualifiers: Diabetes mellitus terminal clerk insulin use: without shelter use Diabetes mellitus complication status: with hyperglycemia Qualified Code(s): E11.65 - Type 2 diabetes mellitus with hyperglycemia Plan Controlled on current medications Will stop pioglitazone in case it is contributing to her weight gain. Moreover she is having hypoglycemic symptoms in the 80s Will switch her oral ozempic to injection with hopes of increasing to 2mg Medications: New Ozempic (semaglutide) 1 mg (0.75 mL) subcut QWEEK 9 mL 0RF NS Ozempic (semaglutide) 1 mg (0.75 mL) subcut QWEEK 9 mL 0RF NS Discontinued pioglitazone Discontinued Reason: Doctor's Order 30 mg PO DAILY 90 tabs 3RF semaglutide (Rybelsus) Discontinued Reason: Doctor's Order 7 mg PO DAILY 90 tabs 3RF Coding Level of Care Code Est Pt Level 4 (95730) Diagnoses Type 2 diabetes mellitus with hyperglycemia, without long-term current use of insulin E11.65 Diabetes mellitus shelter insulin use: without terminal clerk use Diabetes mellitus complication status: with hyperglycemia
[2024-10-20 14:08] VITALS: BP 160/70; PULSE 78; O2SAT 98; BMI 42.6
[2024-10-20 14:23] LABS: Glucose, Whole Blood 164 mg/dL (60-115)
--- OUTSIDE RECORDS SUMMARY | 2024-10-20 16:45 | XMS_ITS | Encounter Summary ---
[facility] Address [address] [place] [address] Care Team Providers Care Vamp Presser Name Role Phone Brianna Arauz MD Primary Care Provider [phone] Encounter Details Date Type Department Care Team (Late st Contact Info) Description 09/17/2024 Telephone [facility] [address] [place] [id number] Duglas Cummings MD [address] [place] [address] [address] [place] [address] Social History Tobacco Use Types Packs/Day Years Used Date Smoking Tobacco: Never Smokeless Tobacco: Never Alcohol Use Standard Drinks/Week Comments No 0 (1 standard drink = 0.6 oz pur e alcohol) Comments Unknown Sex and Gender Information Value Date Recorded Sex Assigned at Not on file Legal Sex Female 12:48 AM EST Gender Identity Not on file Sexual Orientation Not on file documented as of this encounter Progress Notes * Duglas Cummings MD - 09/17/2024 12:52 PM EDT Please schedule patient for a cardiac CT scan to be done at [facility]. Diagnosis: Chest pain. documented in this encounter Plan of Treatment Upcoming Encounters Date Type Department Care Team (Latest Contact Info) Description 10/27/2024 2:30 PM EDT Evaluation [address] [place] [phone] Delia Oneil, TALHA 11/15/2024 12:30 PM EDT Ancillary Procedure [facility] - [facility] [address] [facility] [address] [place] [phone] documented as of this encounter Visit Diagnoses Not on filedocumented in this encounter Care Teams Vamp Presser Relationship Specialty Start Date End Date Brianna Arauz MD [address] [place] [address] PCP - General Internal Medicine 01/26/20 documented as of this encounter
--- OUTSIDE RECORDS SUMMARY | 2024-10-20 16:45 | XMS_ITS | Clinical Summary ---
Author Organization [facility] Address [address] [place] [address] Care Team Providers Care Personal Lines Agent Name Role Phone Rochelle Engel PA-C Primary Care Provider [phone] Source Comments PLEASE NOTE, if this patient is a minor, it may be UNLAWFUL to discuss sensitive information that is contained in these records (such as FAMILY PLANNING, MENTAL HEALTH or SUBSTANCE ABUSE) with the minor patient's parent or other person without the patient's specific authorization.[facility] Allergies No known active allergies Medications blood-glucose meter monitoring kitIndications:DM type 2 (diabetes mellitus, type 2) ([facility]) as needed for blood glucose monitoring. Quantity: 1 meter freestyle lite. DX: 250.00 for a lifetime. 1 Each 0 08/19/19 15 Active lancetsIndication s:Type 2 diabetes mellitus without complication ([facility]) FREESTYLE. USE BID PRN. DX: 250.00 50 Each 11 03/20/20 15 Active etonogestrel-ethi nyl estradiol (NUVARING) 0.12-0.015 mg/24 hr vaginal ringIndications:F amily planning, contraceptive checking and surveillance Place 1 Each vaginally once. PER TOWER SUPERVISOR. Leave in place for 3 consecutive weeks, then remove for 1 week. 1 Each 08/11/19 16 Active Miscellaneous Medical Supply miscIndications:E ssential hypertension by miscellaneous route once daily. BLOOD PRESSURE MACHINE. DX: HTN 1 Each 0 12/12/19 16 Active fluticasone (FLONASE) 50 mcg/actuation nasal sprayIndications: Allergic otitis media of both ears, unspecified chronicity Place 1 [place] into the nostril(s) once daily. 16 g 1 02/26/20 16 Active metFORMIN (GLUMETZA) 500 mg 24 hr tabletIndications :Type 2 diabetes mellitus without complication, without long-term current use of insulin ([facility]) Take 2 Tabs by mouth once daily with dinner. Swallow whole. Do not break, crush or chew. 180 Tab 1 02/26/20 16 Active pregabalin (LYRICA) 50 mg capsuleIndication s:Fibromyalgia Take 1 Cap by mouth 2 (two) times daily. PER DR. RODRIGUEZ 05/23/20 16 Active blood sugar diagnostic (FREESTYLE TEST) stripsIndications :Type 2 diabetes mellitus without complication, without long-term current use of insulin ([facility]) 1 Strip 2 (two) [...] Active Problems Problem Noted Date Diagnosed Date Non-Kazakh speaking patient- Persian speaking control counseling 04/24/2016 Overview (04/24/2016): Advised stop NR- and ref to administrative medical director for ? Tubal 04/24/16 Essential hypertension 05/23/2015 [...] Morbid obesity with BMI of 40.0-44.9, adult ([facility]) 09/28/2008 TB lung, latent 09/28/2008 Overview (07/15/2013): +PPD=10 mm 09/30/08; [place] 12/13/08 @ [facility] Hirsutism Overview (07/15/2013): Per Derm Dr. Woodall Varicosities of leg Fibromyalgia Overview (07/15/2013): Dx: 2009 per [facility] Depression Overview (08/11/2015): Per psych Dr. Granado. Currently does not see anyone. Seeing Dania here. Insomnia Overview (08/11/2015): Formerly seen by Dr. Granado. Now seeing outreach and education social worker Dania. Immunizations Immunization Administration Dates Next Due HEP A-HEP B [...] Plan of Treatment Not on file Insurance [facility] [employer] Care Teams Personal Lines Agent Relationship Specialty Start Date End Date Rochelle Engel PA-C [address] [place] [address] PCP - General 09/01/18
--- OUTSIDE RECORDS SUMMARY | 2024-10-20 16:45 | XMS_ITS | Clinical Summary ---
Author Organization [facility] Address [address] [place] [address] Phone Care Team Providers Care Abnormal Psychology Teacher Name Role Phone Brianna Arauz MD Primary Care Provider [phone] Allergies No known active allergies Medications pioglitazone (ACTOS) 30 mg tablet Take 1 tablet (30 mg total) by mouth 1 (one) time each day. Active empagliflozin (Jardiance) 25 mg tablet Take 1 tablet (25 mg total) by mouth 1 (one) time each day. Active DULoxetine (CYMBALTA) [address] capsule Take 1 capsule (30 mg total) by mouth 1 (one) time each day. Do not crush or chew. Active hydrOXYzine pamoate (VISTARIL) 25 mg capsule Take 1 capsule (25 mg total) by mouth 3 (three) times a day if needed for itching. Active baclofen (LIORESAL) 5 mg tablet Take 1 tablet (5 mg total) by mouth 3 (three) times a day. Active atorvastatin (LIPITOR) 10 mg tablet Take 1 tablet (10 mg total) by mouth at bedtime. Active senna (SENOKOT) 8.6 mg tablet Take 1 tablet (8.6 mg total) by mouth 1 (one) time each day. Active LORazepam (ATIVAN) 0.5 mg tablet Take 1 tablet (0.5 mg total) by mouth every 6 (six) hours if needed for anxiety. Max Daily Amount: 2 mg Active zolpidem (AMBIEN) 10 mg tablet Take 1 tablet (10 mg total) by mouth at bedtime as needed for sleep. Max Daily Amount: 10 mg Active cholecalciferol (Vitamin D3) 5,000 Units tablet Take 1 tablet (5,000 Units total) by mouth 1 (one) time each day. Active multivitamin with minerals tablet Take 1 tablet by mouth 1 (one) time each day. Active ANTIFUNGAL, CLOTRIMAZOLE, TOP Apply topically. Active gabapentin (NEURONTIN) 300 mg capsule 1 capsule (300 mg total). Active liraglutide (SAXENDA) 3 mg/0.5 mL (18 mg/3 mL) injection Inject under the skin 1 (one) time each day. Active lisinopriL (PRINIVIL,ZESTRI L) 10 mg tablet Take 1 tablet (10 mg total) by mouth 1 (one) time each day. Active DICLOFENAC SODIUM TOP Place on the skin. Active hydrocortisone 1 % lotion Apply topically 2 (two) times a day. Active aspirin 81 mg EC tabletIndication s:Other chest pain Take 1 tablet (81 mg total) by mouth 1 (one) time each day. 90 each 3 5 09/18/19 26 Active dilTIAZem CD (CARDIZEM CD) 120 mg 24 hr capsuleIndicatio ns:Atrial tachycardia (CMS/HCC V24) Take 1 capsule (120 mg total) by mouth 1 (one) time each day. 30 each 5 09/18/19 26 Active propafenone SR (RYTHMOL SR) 225 mg 12 hr capsuleIndicatio ns:Atrial tachycardia (CMS/HCC V24) Take 1 capsule (225 mg total) by mouth 2 (two) times a day. Do not crush, chew, or split. 60 capsule 5 09/18/19 26 Active Active Problems Problem Noted Date Diagnosed Date Other chest pain 09/17/2024 Assessment & Plan (09/17/2024 12:52 PM EDT): The patient came for evaluation due to episodes of chest pain. The description of the symptoms is consistent with atypical chest pain. The patient has the following risk factors for coronary artery disease: Hypertension, obesity, hyperlipidemia, diabetes mellitus type 2. Given the patient's age, gender, description of the symptoms, and risk factors for CAD, the patient has an intermediate risk for coronary artery disease. As such, will order a cardiac CT scan in order to rule out the presence of underlying coronary artery disease as a cause of the patient's symptoms. The use of a cardiac CT scan is recommended by the [employer] chest pain guidelines (level 1 is recommendation). Will also order an echocardiogram to rule out any underlying structural heart disease that may be associated with her symptoms. In the meantime, the patient will continue current calcium channel jose therapy with diltiazem and statin therapy with atorvastatin. The patient will start aspirin 81 mg orally daily. The patient is being evaluated to rule out the presence of coronary artery disease. During today's visit, we reviewed the warning signs that should prompt an urgent medical evaluation. Specifically, we discussed that the patient should go to the hospital if she develops any chest discomfort at rest lasting for more than 10 minutes or worsening chest discomfort with exertion. Orders: Transthoracic echocardiogram (TTE) complete with PRN contrast, bubble, strain, and 3D order panel; Future perflutren lipid microsphere (DEFINITY) 1.3 mL in sodium chloride 0.9% 8.[address] Angio Heart w 3D Imaging/Function; Future aspirin 81 mg EC tablet; Take 1 tablet (81 mg total) by mouth 1 (one) time each day. Electrolyte abnormality 04/30/2023 Atrial tachycardia (CMS/HCC V24) 04/30/2023 Overview (09/16/2024): Last Assessment & Plan: This 47-year-old female continues to have PAT well-controlled generally with propafenone but with recent increase in palpitations. I went through the various types of monitors and we agreed to do a patch monitor for up to a week. She thinks she may return it when she has clear symptoms reflective of her current symptoms. We went through the pros and cons of continuing or propafenone and diltiazem and she is comfortable with those medicines. Will we will increase the dose if she is having breakthrough arrhythmia. We did briefly discuss the potential to perform an EP study or catheter ablation and she is not interested in that at this time. She will continue treatment of her diabetes and hypertension and healthy diet. Assessment & Plan (09/17/2024 12:52 PM EDT): The patient has a history of SVT (apparent atrial tachycardia). She has been evaluated by the electrophysiology service in the past (Dr. Lamb). Her last evaluation with Dr. Lamb was in August 2023. The patient has continued on propafenone as a rhythm control agent and diltiazem as a rate control agent. EKG done today showed a normal QRS interval and normal QTc interval. As such, at this point, the patient will continue her current medication regimen. Will request for the patient to complete a comprehensive metabolic panel and magnesium level. Orders: Cardiac holter monitor (<= 48 hours); Future Transthoracic echocardiogram (TTE) complete with PRN contrast, bubble, strain, and 3D order panel; Future perflutren lipid microsphere (DEFINITY) 1.3 mL in sodium chloride 0.9% 8.7 mL injection Comprehensive metabolic panel; Future Magnesium; Future dilTIAZem CD (CARDIZEM CD) 120 mg 24 hr capsule; Take 1 capsule (120 mg total) by mouth 1 (one) time each day. propafenone SR (RYTHMOL SR) 225 mg 12 hr capsule; Take 1 capsule (225 mg total) by mouth 2 (two) times a day. Do not crush, chew, or split. HLD (hyperlipidemia) 12/24/2022 Overview (09/16/2024): Last Assessment & Plan: Patient continues on atorvastatin 10mg daily. Assessment & Plan (09/17/2024 12:52 PM EDT): The patient has a history of hyperlipidemia. The patient is currently on atorvastatin 10 mg orally daily. We will order a new lipid panel to evaluate the patient's current lipid control and determine if any adjustment are needed in the lipid lowering therapy. Orders: CBC and differential; Future Lipid panel with reflex to direct LDL; Future Supraventricular tachycardia (CMS/HCC V24) 12/24 Overview (09/16/2024): Last Assessment & Plan: This delightful 47-year-old [place] woman has recurrent palpitations that appear to be due to a paroxysmal atrial tachycardia likely from the right atrium. I do not see a clear etiology as she does not have severe asthma and her thyroid levels are normal. She does not appear to have structural heart disease or arrhythmic inherited syndromes. I reviewed both pharmacologic options and ablation strategies with her using a gasateria attendant. I went through the procedure for an EP study and ablation in detail. I discussed the potential to use several antiarrhythmic medications and the fact that those would include trial and error to see if we can find one that adequately suppresses the arrhythmia without adverse effects. She understands her heart potential proarrhythmic effects of any antiarrhythmic medication. We ultimately elected to start propafenone. The diltiazem was not effective but we will keep the 2 together and given she has not had any evidence of atrial flutter I would likely stop the diltiazem at her next follow-up if she is having adequate response to the propafenone. I would consider sotalol or Multaq as alternative options. Essential hypertension 05/23/2015 Overview (09/16/2024): Last Assessment & Plan: Primary hypertension that appears to be well-controlled on her current medicines. Encouraged continued efforts at weight loss, low-sodium diet and antihypertensives. Assessment & Plan (09/17/2024 12:52 PM EDT): The patient has a history of arterial hypertension. The patient's blood pressure today was noted to be well controlled. We'll continue the current antihypertensive medication regimen. Orders: Comprehensive metabolic panel; Future Magnesium; Future CBC and differential; Future Lipid panel with reflex to direct LDL; Future Resolved Problems Problem Noted Date Diagnosed Date Resolved Date Palpitation 12/31/2022 09/17/2024 Overview (09/16/2024): Last Assessment & Plan: We did discuss her palpitations. Its not clear what the cause of these are is. Her ED work-up showed sinus tachycardia. She did have a low potassium and I have asked her to repeat this. Have also asked her to check a magnesium level. We will have her undergo an echocardiogram to rule out any structural abnormalities that could be contributing. I have also asked her to wear a 48-hour Holter monitor. This will allow us to further delineate what she could be having. She is already been tried on metoprolol 12.5 mg. This did not help to improve her symptoms. We may try her on diltiazem in the future depending on what her Holter monitor shows. If her symptoms worsen she will call us and let us know. We will call her with the results of her testing and let her know what the plan is. If her work-up is unremarkable she may need a D-dimer or CT angio/VQ scan. At this point she is having no chest pain and no shortness of breath or other symptoms to suggest a pulmonary embolism as a cause. Encounters Date Type Department Care Team Description 10/13/2024 3:00 PM EDT Ancillary Procedure [facility] Cardiology [facility] [address] [place] [id number] Atrial tachycardia (CMS/HCC V24) 09/24/[address] [facility] [address] [facility] [address] [place] [address] Andi Terrell MD Appointment (Coronary CTA) 09/17/2024 10:20 AM EDT Office Visit [facility] [address] [place] [address] Andi Terrell MD Atrial tachycardia (CMS/HCC V24) (Primary Dx); Essential hypertension; Pure hypercholesterolemi a; Other chest pain; Atrial fibrillation, unspecified type (CMS/HCC V24, CMS/HCC V28) 09/17/[address] [facility] [address] [facility] [address] [place] [address] Andi Terrell MD from Last 3 Months Surgical History Surgery Date Site/Laterality Comments HAND SURGERY PROCEDURE: HISTORICAL HAND SURGERY Medical History Medical History Date Comments Type 2 diabetes mellitus (CM S/HCC V24, CMS/HCC V28) DX:Type 2 diabetes mellitus (HCC) GERD (gastroesophageal reflux disease) DX:GERD (gastroesophageal reflux disease) Back pain DX:Back pain Hypercholesterolemia DX:Hypercho lesterolemia HTN (hypertension) DX:HTN (hyper tension) Acid reflux DX:Acid reflux Chronic back pain DX:Chronic paris k pain Supraventricular tachycardia (CMS/HCC V24) 2022 DX:Supraventricular tachycardia (HCC) Hypertension 12/31/2022 DX:Hypertension Other chest pain 09/17/2024 Social History Tobacco Use Types Packs/Day Years [...] Sign Reading Time Taken Comments Blood Pressure 120/72 09/17/2024 10:34 AM EDT Pulse 77 09/17/2024 10:34 AM EDT Temperature - - Respiratory Rate - - Oxygen Saturation 96% 09/17/2024 10:34 AM EDT Inhaled Oxygen Concentration - - Weight 103 kg (228 lb) 09/17/2024 10:34 AM EDT Height 160 cm (5' 3 ) 09/17/2024 10:34 AM EDT Body Mass Index 40.39 09/17/2024 10:34 AM EDT Plan of Treatment Upcoming Encounters Date Type Department Care Team (Latest Contact Info) Description 10/27/2024 2:[address] [facility] [address] [facility] [address] [place] [id number] Delia Oneil, TALHA 11/15/2024 12:30 PM EDT Ancillary Procedure [facility] [address] [facility] [address] [place] [id number] Health Maintenance Due Date Last Done Comments Breast Cancer Screening 1976 Cervical Cancer Screening: Pap Smear 1997 IPV Vaccines (3 of 3 - Adult catch-up series) 06/28/2009 12/27/2008, 09/28/2008 Colorectal Cancer Screening: Colonoscopy 06/15/2022 Depression Screening 06/15/2022 HIV Screening 06/15/2022 Hepatitis C Screening 06/15/2022 Social Influencers of Health Screening 06/15/2022 COVID-19 Vaccine ( season) 2024 02/22/2021, 02/01/2021 Influenza Vaccine (Season Ended) 2025 03/30/2018, 04/28/2017, 04/06/2015, Additional history exists Hypertension/CHF/CAD Annual BMP Blood Test 09/30/2025 09/30/2024 DTaP,Tdap,and Td Vaccines (5 - Td or Tdap) 03/30/2028 03/30/2018, 03/13/2017, 11/08/2008, Additional history exists Cholesterol Screening (Lipid Panel) 09/30/2029 09/30/2024 MMR Vaccines Aged Out 11/08/2008, 09/28/2008 No [...] patient's age to complete this topic Meningococcal B Vaccine Aged Out No l onger eligible based on patient's age to complete this topic RSV Immunization Patients Under 20 months Aged Out No longer eligible based on patient's age to complete this topic Varicella Vaccines Aged Out No longer eligible based on patient's age to complete this topic Procedures Procedure Name Priority Date/Time Associated Diagnosis Comments CBC WITH AUTO DIFFERENTIAL Routine 09/30/2024 10:19 AM EDT Essential hypertension Pure hypercholesterolemia COMPREHENSIVE METABOLIC PANEL Routine 09/30/2024 10:19 AM EDT Atrial tachycardia (CMS/HCC V24) Essential hypertension MAGNESIUM Routine 09/30/2024 10:19 AM EDT Atrial tachycardia (CMS/HCC V24) Essential hypertension CBC AND DIFFERENTIAL Routine 09/30/2024 10:19 AM EDT Essential hypertension Pure hypercholesterolemia LIPID PANEL WITH REFLEX TO DIRECT LDL Routine 09/30/2024 10:19 AM EDT Essential hypertension Pure hypercholesterolemia ECG 12-LEAD Routine 09/17/2024 10:41 AM EDT Atrial fibrillation, unspecified type (CMS/HCC V24, CMS/HCC V28) from Last 3 Months Results * Lipid panel with reflex to direct LDL (09/30/2024 10:19 AM EDT) Cholesterol 140 0 - 200 mg/dL LAB CHEMISTRY METHOD 09/30/2024 11:48 AM EDT [facility] Triglycerides 81 0 - 150 mg/dL LAB CHEMISTRY METHOD 09/30/2024 11:48 AM EDT [facility] HDL 43 >=40 mg/dL LAB CHEMISTRY METHOD 09/30/2024 11:48 AM EDT [facility] LDL Calculated 81 0 - 100 mg/dL LAB CHEMISTRY METHOD 09/30/2024 11:48 AM EDT [facility] VLDL Cholesterol [place] 16.2 mg/dL LAB CHEMISTRY METHOD 09/30/2024 11:48 AM EDT [facility] Non HDL Chol. (LDL+VLDL) 97 <145 mg/dL LAB CHEMISTRY METHOD 09/30/2024 11:48 AM EDT [facility] Chol/HDL Ratio 3.3 0.0 - 4.4 LAB CHEMISTRY METHOD 09/30/2024 11:48 AM EDT [facility] Blood Venous blood specimen / Unknown Venipuncture / Unknown 09/30/2024 10:19 AM EDT 09/30/2024 10:47 AM EDT us Andi Terrell MD LAB BLOOD ORDERABLES F inal Result [facility] [address] [place] [address], * CBC auto differential (09/30/2024 10:19 AM EDT) [facility] WBC 6.1 4.8 - 10.8 K/mcL LAB HEMETOLOGY METHOD 09/30/2024 11:09 AM [facility] RBC 4.60 3.80 - 4.80 M/mcL LAB HEMETOLOGY METHOD 09/30/2024 11:09 AM [facility] Hemoglobin 12.9 11.5 - 16.0 g/dL LAB HEMETOLOGY METHOD 09/30/2024 11:09 AM [facility] Hematocrit 40.1 35.0 - 47.0 % LAB HEMETOLOGY METHOD 09/30/2024 11:09 AM [facility] MCV 87.7 79.0 - 98.0 FL LAB HEMETOLOGY METHOD 09/30/2024 11:09 AM [facility] MCH 28.2 27.0 - 32.0 pcg LAB HEMETOLOGY METHOD 09/30/2024 11:09 AM [facility] MCHC 32.2 32.0 - 37.0 g/dL LAB HEMETOLOGY METHOD 09/30/2024 11:09 AM [facility] RDW 13.4 11.0 - 15.0 % LAB HEMETOLOGY METHOD 09/30/2024 11:09 AM [facility] Platelets 277 130 - 400 K/mcL LAB HEMETOLOGY METHOD 09/30/2024 11:09 AM [facility] MPV 10.2 7.0 - 11.0 FL LAB HEMETOLOGY METHOD 09/30/2024 11:09 AM [facility] NRBC 0.0 <1.0 % LAB HEMETOLOGY METHOD 09/30/2024 11:09 AM [facility] NRBC Absolute 0.00 <0.10 K/mcL LAB HEMETOLOGY METHOD 09/30/2024 11:09 AM [facility] Neutrophils Relative 54.5 % LAB HEMETOLOGY METHOD 09/30/2024 11:09 AM [facility] Lymphocytes Relative 28.8 % LAB HEMETOLOGY METHOD 09/30/2024 11:09 AM [facility] Monocytes Relative 9.4 % LAB HEMETOLOGY METHOD 09/30/2024 11:09 AM [facility] Eosinophils Relative 6.0 % LAB HEMETOLOGY METHOD 09/30/2024 11:09 AM [facility] Basophils Relative 0.8 % LAB HEMETOLOGY METHOD 09/30/2024 11:09 AM [facility] Immature Granulocytes Relative 0.5 % LAB HEMETOLOGY METHOD 09/30/2024 11:09 AM [facility] Neutrophils Absolute 3.34 1.50 - 7.00 K/mcL LAB HEMETOLOGY METHOD 09/30/2024 11:09 AM [facility] Lymphocytes Absolute 1.77 1.00 - 5.00 K/mcL LAB HEMETOLOGY METHOD 09/30/2024 11:09 AM [facility] Monocytes Absolute 0.58 0.20 - 1.00 K/mcL LAB HEMETOLOGY METHOD 09/30/2024 11:09 AM [facility] Eosinophils Absolute 0.37 0.00 - 0.50 K/mcL LAB HEMETOLOGY METHOD 09/30/2024 11:09 AM [facility] Basophils Absolute 0.05 0.00 - 0.20 K/mcL LAB HEMETOLOGY METHOD 09/30/2024 11:09 AM [facility] Immature Granulocytes Absolute 0.03 0.00 - 0.03 K/mcL LAB HEMETOLOGY METHOD 09/30/2024 11:09 AM [facility] Blood Venous blood specimen / Unknown Venipuncture / Unknown 09/30/2024 10:19 AM EDT 09/30/2024 10:54 AM EDT Andi Terrell MD LAB BLOOD ORDERABLES F inal Result Performing Organization Address [facility]/ZIP Co de Phone Number [facility] [address] [place] [address], [place] [phone] * (ABNORMAL) Magnesium (09/30/2024 10:19 AM EDT) Pathologist [facility] Magnesium 1.8(L) 1.9 - 2.6 mg/dL LAB CHEMISTRY METHOD 09/30/2024 11:40 AM EDT [facility] Blood Venous blood specimen / Unknown Venipuncture / Unknown 09/30/2024 10:19 AM EDT 09/30/2024 10:47 AM EDT Andi Terrell MD LAB BLOOD ORDERABLES F inal Result Performing Organization Address [facility]/ZIP Co de Phone Number [facility] [address] [place] [address], [place] [phone] * (ABNORMAL) Comprehensive metabolic panel (09/30/2024 10:19 AM EDT) Pathologist [facility] Sodium 139 133 - 145 mmol/L LAB CHEMISTRY METHOD 09/30/2024 11:48 AM EDT [facility] Potassium 3.7 3.5 - 5.5 mmol/L LAB CHEMISTRY METHOD 09/30/2024 11:48 AM EDT [facility] Chloride 107 96 - 110 mmol/L LAB CHEMISTRY METHOD 09/30/2024 11:48 AM EDT [facility] CO2 27 21 - 32 mmol/L LAB CHEMISTRY METHOD 09/30/2024 11:48 AM EDT [facility] Anion Gap 5 3 - 11 LAB CHEMISTRY METHOD 09/30/2024 11:48 AM [facility] Glucose 175(H) 70 - 100 mg/dL LAB CHEMISTRY METHOD 09/30/2024 11:48 AM [facility] BUN 14 5 - 25 mg/dL LAB CHEMISTRY METHOD 09/30/2024 11:48 AM [facility] Creatinine 0.65 0.50 - 1.10 mg/dL LAB CHEMISTRY METHOD 09/30/2024 11:48 AM [facility] eGFR 109 >=60 mL/min/1. 73m2 LAB CHEMISTRY METHOD 09/30/2024 11:48 AM [facility] Comment:Calculation based on the??Chronic Kidney Disease Epidemiology Collaboration (CKD-EPI) equation refit??without adjustment for race. BUN/Creatinine Ratio 21.5 LAB CHEMISTRY METHOD 09/30/2024 11:48 AM [facility] Calcium 9.1 8.5 - 10.5 mg/dL LAB CHEMISTRY METHOD 09/30/2024 11:48 AM [facility] AST (SGOT) 7(L) 10 - 42 unit/L LAB CHEMISTRY METHOD 09/30/2024 11:48 AM [facility] ALT (SGPT) 16 10 - 60 unit/L LAB CHEMISTRY METHOD 09/30/2024 11:48 AM [facility] Alkaline Phosphatase 56 42 - 121 unit/L LAB CHEMISTRY METHOD 09/30/2024 11:48 AM [facility] Total Protein 6.4 6.0 - 8.0 g/dL LAB CHEMISTRY METHOD 09/30/2024 11:48 AM [facility] Albumin 3.4 3.2 - 5.0 g/dL LAB CHEMISTRY METHOD 09/30/2024 11:48 AM [facility] Total Bilirubin 0.2 0.0 - 1.4 mg/dL LAB CHEMISTRY METHOD 09/30/2024 11:48 AM EDT [facility] Blood Venous blood specimen / Unknown Venipuncture / Unknown 09/30/2024 10:19 AM EDT 09/30/2024 10:47 AM EDT Andi Terrell MD LAB BLOOD ORDERABLES F inal Result Performing Organization Address City/[facility]/ZIP Co de Phone Number [facility] [address] [place] [address], * ECG 12 lead (09/17/2024 10:41 AM EDT) Ventricular Rate ECG 77 BPM [facility] Atrial Rate 77 BPM G[facility] P-R Interval 170 ms GEMUSE QRS Duration 84 ms GEMUSE Q-T Interval 382 ms GEMUSE QTc 432 ms GEMUSE P Wave [place] 64 degrees GEMUSE R [place] 72 degrees GEMUSE T [place] 70 degrees GEMUSE ECG Interpretation Normal sinus rhythm Normal ECG When compared with ECG of 30-SEP-2022 02:17, Premature atrial complexes are no longer Present Vent. rate has decreased BY ??49 BPM Confirmed by ANDI TERRELL ([id number]) on 09/17/2024 11:18:11 AM [facility] 09/17/2024 10:4 1 AM EDT 09/17/2024 11:18 AM EDT Andi Terrell MD ECG ORDERABLES Final Result Performing Organization Address City/[facility]/ZIP Co de Phone Number [facility] from Last 3 Months Insurance [facility] Care Teams Abnormal Psychology Teacher Relationship Specialty Start Date End Date Brianna Arauz MD [address] [place] [address] PCP - General Internal Medicine 01/26/20
--- OUTSIDE RECORDS SUMMARY | 2024-10-20 16:45 | XMS_ITS | Continuity of Care Document ---
Author Organization [facility] Address [address] [place] [address] [address] [place] [address] Phone Care Team Providers Care Door Attendant Name Role Phone Orion RUIZ, YANNA, William [...] Mi- [place] & [place] [facility], [address] [place] [address] Dr [address], [id number], tel:[phone] R [facility] Varicose veins of bilateral lower extremities with other complicationsPa in in right lower legPain in left lower legPain in right legRestless legs syndromeEssenti al (primary) hypertensionPru ritus, unspecifiedPain in left legCramp and spasmLocalized edema 4 Orion RUIZ, BRII RAINES. [address] [facility], [facility] [address], [place], [place], [id number] , [place]. tel:[phone] Referring Provider: Brianna Arauz MD, [address] [place], [address]. tel:[phone] [facility], [address] [place] [address] [address], [id number], tel:[phone] R - [place] [facility] [place] Chronic venous hypertension (idiopathic) with other complications of bilateral lower extremity Orion RUIZ, RVT, RPCAROLE Thomas. [address] [facility], [address], [place], [place], [id number] , [place]. tel:[phone] Referring Provider: Brianna Arauz MD, [address] [place], [address]. tel:[phone] Family History Family Member Type Diagnosis Age At Onset No Information Payers Payer name Insurance type Covered green party ID Leti barahona(s) [facility] [id number] Social History Type Description Quantity Date [...]
== END 2024-10-20 14:44 | disposition home or self-care (01) ==
LOC: HO.ENCR 14:00
PROVIDERS: PCP Hospitalist; Visit Provider Internal Medicine
DX: E11.65 Type 2 diabetes mellitus with hyperglycemia (principal)

== ENCOUNTER → 2024-10-20 13:59 | Outpatient (BNVA) | payer OTHER, SELFPAY | PROVIDERS: PCP Hospitalist; Visit Provider Internal Medicine | DX: E11.65 Type 2 diabetes mellitus with hyperglycemia (principal); Z79.84 Long term (current) use of oral hypoglycemic drugs | CPT/HCPCS: 82947; 83036; 99212 ==

== ENCOUNTER 2024-10-26 11:25 | Outpatient (AMB) | payer OTHER, SELFPAY ==
--- NOTE | 2024-10-26 11:30 | MHC.OFFVIS ---
Vital Signs 10/26/24 11:31 Height 5 ft 3 in Weight 233 lb BMI 41.3 BP 126/82 Blood Pressure Location Lt brachial Position Sitting Pulse 83 Pulse Source Pulse Oximeter Pulse Oximetry (%) 97 Oxygen Delivery Method Room Air Intake Visit Reasons: 3mon follow-up Intake Note: Patient presents follow up Sleep medication. Allergies No Known Allergies [No Known Allergies*] Allergy (Verified 10/26/24 11:35) HPI Comments Details: 48 y/o female patient presents for follow up for migraine headaches. [employer]ali [employer] on Ipad HST and PST completed no evidence of sleep apnea, however she continues to snore loudly and wakes herself up Sleep has improved with 11pm -3am, she goes to bed at various times as she continues to have difficulty falling asleep. She takes Melatonin 10mg at 9pm at night and she feels dizzy in the morning. She takes Melatonin each night, which has helped with arousals but still takes 2 hrs to initiate sleep. She feel a lot of pressure on her jaw at night, she wakes up with bilateral jaw pain and headaches in the AM lasting until the afternoon, 3-4 times a week. She says they radiate from front of the forehead, with punching and stabbing pain, 6-7 in intensity, they can become into migraines with photo/phonophobia nausea, no vomiting but vertigo, dizziness, blurry vision, and spots. She takes Tylenol otc and it subsides and or eats a meal if she is hungry. Sometimes warm tea helps to alleviate the pain. or drinks tea RLS: She has bilateral pins and needles, muscle cramps at night bilaterally and has a surgical consult for heel pain. She constantly moves her feet at night and has an uncomfortable sensation bilaterally all the way up to her shins. Gabapentin 300mg helps to alleviate pain also, but makes her more tired. Her memory tends to be poor, she continues to forget tasks, misplaces things, going into rooms and not remembering why she is there. Her mood is more irritable and sees a therapist once a month. Her diet is okay she is seeing endocrine to manage her ozempic and A1c levels. [facility] Medical History Insomnia Hypotension Multinodular thyroid HLD (hyperlipidemia) HTN (hypertension) T2DM (type 2 diabetes mellitus) Vitamin D deficiency Surgical History History of esophagogastroduodenoscopy (EGD) Hx of colonoscopy Hx of esophagogastroduodenoscopy History of carpal tunnel surgery of left wrist Family History Father No family history of disorders History of high blood pressure Mother No family history of disorders Social History Household Members: Spouse and Children Housing: House Housing Other:: spouse/ kids Are you a primary manager intensive care unit to a significant other at home: Yes Do you presently have visiting nurse or other home services: No Alcohol intake: never Patient Tobacco Use Status: Never used Tobacco service: No Current occupational status: unemployed Physical Exam Vital Signs: Last Vital Signs Pulse 83 10/26/24 11:31 BP 126/82 10/26/24 11:31 Pulse Ox 97 10/26/24 11:31 Oxygen Delivery Method Room Air 10/26/24 11:31 BMI result Body Mass Index 41.3 Const General: cooperative, comfortable and no acute distress Orientation/consciousness: patient oriented x3 HEENT Face and sinus: Yes normal facial exam and Yes face symmetric Teeth and gingiva: other Eyes Pupils: Equal, round and reactive pupils present Neck Neck: Yes full ROM Resp Effort & Inspection: normal respiratory effort and able to speak in complete sentences Neuro General: patient oriented x3 Cranial nerves: Yes CN's II-XII intact bilaterally, Yes Facial sensation intact/muscles of mastication intact, Yes Equal, round and reactive pupils present, Yes Normal accommodation reflex present, Yes Bilaterally intact EOM present, Yes Nystagmus not present, Yes Normal facial strength present, Yes Midline tongue present, Yes Ability to bilaterally rotate head present and Yes Ability to bilaterally elevate shoulders present Gait exam (Neuro): Normal gait present Motor exam (neuro): 5/5 motor strength present throughout, Pronator motor function not present and no tremor noted Deep tendon reflexes (DTR's): Right triceps reflex intensity grade: 2+, Left triceps reflex intensity grade: 2+, Rt Biceps (C5, C6): 2+, Left biceps reflex intensity grade: 2+, Right brachioradialis reflex intensity grade: 2+, Left brachioradialis reflex intensity grade: 2+, Right patellar reflex intensity grade: 2+ and Left patellar reflex intensity grade: 2+ Psych Appearance: grossly normal Mental Status: mental status grossly normal Speech and movement: Normal speech and movement present Affect: normal affect Attitude: cooperative Insight: Good insight present (Psych) Judgement: Good judgement present (Psych) Results Reviewed Results Reviewed: PSG and HST 2023, no evidence of Sleep apnea. Oncology note 2021 Multinodular Thyroid. Assessment & Plan Assessment & Plan (1) Cervicalgia: Code(s): M54.2 - Cervicalgia Category: Medical (2) Insomnia: Code(s): G47.00 - Insomnia, unspecified Category: Medical Qualifiers: Insomnia type: unspecified Qualified Code(s): G47.00 - Insomnia, unspecified (3) Bilateral headaches: Code(s): R51.9 - Headache, unspecified Category: Medical (4) Neuropathic pain of both feet: Code(s): G57.93 - Unspecified mononeuropathy of bilateral lower limbs Category: Medical (5) Numbness and tingling of both feet: Code(s): R20.0 - Anesthesia of skin; R20.2 - Paresthesia of skin Category: Medical (6) Forgetfulness: Code(s): R68.89 - Other general symptoms and signs Category: Medical (7) Snoring: Code(s): R06.83 - Snoring Category: Medical Plan Insomnia continue taking Melatonin 10mg at 4pm in the evening and may take an additional 10mg at bedtime. She declines sleep aid today. Headaches / Migraines Sumatriptan 100mg at the onset of headache, if the headache does not abort, may take one additional tablet in 2 hours and no more than 200mg in a 24 hour period. RLS will do NCS /EEG for bilateral foot pain, may use Gabapentin 300mg at night and topically use Magnilife or Restless leg cream. Cervicalgia continue Baclofen PO 20mg at bedtime or as needed. Continue taking Magnesium 400mg po at night daily, B6 pryidoxine 250mg po at bedtime, [place] 3 -otc as needed. We can discuss Botox/ MRI at next visit. Cognitive Decline and Mood irritability will evaluate with MMSE at next visit. Orders: Orders NE nerve conduction velocity Today G57.93 - Unspecified mononeuropathy of bilateral lower limbs, R20.0 - Anesthesia of skin, R20.2 - Paresthesia of skin NE electromyogram (EMG) Today G57.93 - Unspecified mononeuropathy of bilateral lower limbs, R20.0 - Anesthesia of skin, R20.2 - Paresthesia of skin Referrals Dentistry Referral G47.00 - Insomnia, unspecified, R06.83 - Snoring Medications: New sumatriptan succinate take 1 tab at onset of headache; if no relief, may repeat 1 tab after at least 2 hrs; max = 2 tabs/24 hrs PO 10 tabs 1RF headaches MDD 200mg PO G47.00 - Insomnia, unspecified, M54.2 - Cervicalgia, R51.9 - Headache, unspecified Patient Instructions: Sleep Hygiene provided: set a scheduled bedtime and wake time to help regulate the circadian rhythm and balance the release of pituitary hormones. Sleep in a dark room, temperatures below 68 degrees, and no devices n bed. Limit caffeinated products 6 hours prior to bed, and limit fluids 2-4 hours prior to bed. Gentle night yoga, diffusing essential oils, and playing soft music can be relaxing. Preventative migraine therapy The G-pants - Sumatriptan 100mg PO at onset of migraine may take one additional tablet as needed, if migraine does not abort, may repeat one more tablet 2 hours later as needed. Do not exceed 2 tablets in a 24 hour period. Chronic Migraine Prevention: may use daily as prescribed. Topiramate 25mg PO daily at bedtime. May put on your migraine cap, and lie down for 15-30min in a dark, quiet room. May use peppermint oil on the temples as needed. Drink at least 50% of body weight in water. -RLS apply Magnilife topically or Restless leg cream, may use weighted blanket, and will evaluate after NCS/ EMG, study. -Sleep dentistry referral for oral appliance device/ Mouthgaurd will help to open up the airway and improve oxygenation, by preventing airway collapse at night. Continue to walk and lose weight with Ozempic as needed. F/u in 3 months with Sleep and neurology. Coding Level of Care Code Est Pt Level 4 (40512) Complex EM visit Add On G2211 Diagnoses Cervicalgia M54.2 Insomnia, unspecified type G47.00 Insomnia type: unspecified Bilateral headaches R51.9 Neuropathic pain of both feet G57.93 Numbness and tingling of both feet R20.0; R20.2 Forgetfulness R68.89 Snoring R06.83 Time Spent (min) 40
[2024-10-26 11:31] VITALS: BP 126/82; PULSE 83; O2SAT 97; BMI 41.3
--- OUTSIDE RECORDS SUMMARY | 2024-10-26 13:45 | XMS_ITS ---
Author Organization [facility] Address [address] [address] Care Team Providers Care Lot Associate Name Role Phone NITIN ABIGAIL Primary Care Provider Reason For Referral Reason Diabetic foot exam; [facility] Podiatry Please evaluate and treat Diagnosis 1 Type 2 diabetes dea itus with unspecified complications (E11.8) Referral Organization [facility] Referring Provider First Name ABIGAIL Referring Provider Last Name NITIN Referring Provider Speciality Internal M edicine Referred Provider Specialty Podiatry General Notes Please call the sp ent to schedule the appointment, Sary Kendall 10/05/2024 04:02:25 PM > Referral Priority Routine REASON FOR VISIT Podiatry Encounters Encounter Location Date Provider Diagnosis [address] [address] 09/06/2024 ABIGAIL TAVERAS Plan Of Treatment Referrals Referral Date Details 09/27/2024 09/27/2024, Diabetic foot exam; [facility] Podiatry Please evaluate and treat Next Appt Details Provider Name:Mario dean, 03/03/2025 08:00:00 AM, [address] [place] [address] [address], [place], [address], Progress Notes * Nell BLANCODOB: 7 (48 yo F)Acc No.[id number]:09/06/2024 Patient:?Nell BLANCO :1975???Age:48 Y???Sex:Female Address:[address] [place] [phone] Subjective: * Chief Complaints: * ???Podiatry * Medical History:? * Surgical History:? * Hospitalization/Major Diagno stic Procedure:? * Medications:? Objective: * Vitals:? * Physical Examination:? Assessment: Plan: * Treatment: * Procedure Codes:? * true * Date:? Generated for Glenn eden/Rajinder/eTelvissmitting on:?10/26/2024 01:45 PM EDT Consultation Request Notes Referral Date Referring Provider Referred Provider Not es 09/27/2024 ABIGAIL TAVERAS , Diabetic foot exam; [facility] Please evaluate and treat
--- OUTSIDE RECORDS SUMMARY | 2024-10-26 13:45 | XMS_ITS | Clinical Summary ---
Author Organization [facility] Address [address] [place] [address] Phone Care Team Providers Care Security Attendant Name Role Phone Brianna Arauz MD Primary Care Provider [phone] Allergies No known active allergies Medications pioglitazone [...] CT scan is recommended by the [employer] chest pain guidelines (level [...] Last Assessment & Plan: This delightful 47-year-old Telugu woman has recurrent palpitations that appear to [...] and ablation strategies with her using a financial compliance manager. I went through the procedure for an [...] Description 10/13/2024 3:00 PM EDT Ancillary Procedure [facility] Cardiology [facility] [address] [place] [phone] Atrial tachycardia (CMS/HCC V24) 09/24/2024 [address]phone [facility] [address] [facility] [address] [place] [address] Andi Terrell MD Appointment (Coronary CTA) 09/17/2024 10:20 AM EDT Office Visit [facility] [address] [facility] [address] [place] [address] Andi Terrell MD Atrial tachycardia (CMS/HCC V24) (Primary Dx); Essential hypertension; Pure hypercholesterolemi a; Other chest pain; Atrial fibrillation, unspecified type (CMS/HCC V24, CMS/HCC V28) 09/17/2024 Telephone [facility] [address] [facility] [address] [place] [address] Andi Terrell MD from Last [...] Info) Description 10/27/2024 2:30 PM EDT Evaluation [facility] [address] [facility] [address] [place] [phone] Delia Oneil, TALHA 11/15/2024 12:30 PM EDT Ancillary Procedure [facility] [address] [facility] [address] [place] [phone] Health Maintenance Due Date Last Done Comments [...] history exists Hypertension/CHF/CAD Annual BMP Blood Test 10/21/2025 10/21/2024, 09/30/2024 DTaP,Tdap,and Td Vaccines (5 - Td [...] Procedure Name Priority Date/Time Associated Diagnosis Comments VITAMIN D 25 HYDROXY Routine 10/21/2024 3:50 PM EDT Muscle pain Avitaminosis D SEDIMENTATION RATE Routine 10/21/2024 3: 50 PM EDT Muscle pain Avitaminosis D RHEUMATOID FACTOR Routine 10/21/2024 3:5 0 PM EDT Muscle pain Avitaminosis D VITAMIN B12 Routine 10/21/2024 3:50 PM EDT Muscle pain Avitaminosis D THYROID STIMULATING HORMONE WITH REFLEX TO FREE T4 AND FREE T3 Routine 10/21/2024 3:50 PM EDT Muscle pain Avitaminosis D COMPREHENSIVE METABOLIC PANEL Routine 10/21/2024 3:50 PM EDT Muscle pain Avitaminosis D CBC WITH AUTO DIFFERENTIAL Routine 09/30/2024 10:19 [...] V28) from Last 3 Months Results * Thyroid stimulating hormone with reflex to free t4 and free t3 (10/21/2024 3:50 PM EDT) TSH 1.61 0.40 - 4.00 mcIU/mL LAB CHEMISTRY METHOD 10/21/2024 5:48 PM EDT [facility] Blood Venous blood specimen / Unknown Venipuncture / Unknown 10/21/2024 3:50 PM EDT 10/21/2024 4:11 PM EDT us Bella Priest DO LAB BLOOD ORDERABLES Final Res ult [facility] [address] [place] [address], [place] [phone] * (ABNORMAL) Vitamin D 25 hydroxy (10/21/2024 3:50 PM EDT) Vit D, 25-Hydroxy 20.4(L) 30.0 - 80.0 ng/mL LAB CHEMISTRY METHOD 10/21/2024 5:47 PM EDT [facility] Blood Venous blood specimen / Unknown Venipuncture / Unknown 10/21/2024 3:50 PM EDT 10/21/2024 4:11 PM EDT [facility] LAB BLOOD ORDERABLES Final Res ult [facility] [address] [place] [address], [place] [phone] * Sedimentation rate (10/21/2024 3:50 PM EDT) Pathologist [facility] Sed Rate 5 0 - 20 mm/hr LAB HEMETOLOGY METHOD 10/21/2024 4:24 PM EDT [facility] Blood Venous blood specimen / Unknown Venipuncture / Unknown 10/21/2024 3:50 PM EDT 10/21/2024 4:10 PM EDT [facility] LAB BLOOD ORDERABLES Final Res ult [facility] [address] [place] [address], [place] [phone] * Rheumatoid factor (10/21/2024 3:50 PM EDT) Pathologist [facility] Rheumatoid Factor <10.0 <15.0 I Unit/mL LAB CHEMISTRY METHOD 10/21/2024 4:53 PM EDT [facility] Blood Venous blood specimen / Unknown Venipuncture / Unknown 10/21/2024 3:50 PM EDT 10/21/2024 4:11 PM EDT [facility] LAB BLOOD ORDERABLES Final Res ult [facility] [address] [place] [address], [place] [phone] * Vitamin B12 (10/21/2024 3:50 PM EDT) [facility] Vitamin B-12 796 250 - 900 pcg/mL LAB CHEMISTRY METHOD 10/21/2024 5:17 PM EDT [facility] Blood Venous blood specimen / Unknown Venipuncture / Unknown 10/21/2024 3:50 PM EDT 10/21/2024 4:11 PM EDT [facility] LAB BLOOD ORDERABLES Final Res ult Performing Organization Address [facility]/ZIP Co de Phone Number [facility] [address] [place] [address], [place] [phone] * Comprehensive metabolic panel (10/21/2024 3:50 PM EDT) Only the most recent of2 resultswithin the time period is included. [facility] Sodium 140 133 - 145 mmol/L LAB CHEMISTRY METHOD 10/21/2024 5:17 PM EDT [facility] Potassium 4.0 3.5 - 5.5 mmol/L LAB CHEMISTRY METHOD 10/21/2024 5:17 PM EDT [facility] Chloride 107 96 - 110 mmol/L LAB CHEMISTRY METHOD 10/21/2024 5:17 PM EDT [facility] CO2 24 21 - 32 mmol/L LAB CHEMISTRY METHOD 10/21/2024 5:17 PM EDT [facility] Anion Gap 9 3 - 11 LAB CHEMISTRY METHOD 10/21/2024 5:17 PM EDT [facility] Glucose 81 70 - 100 mg/dL LAB CHEMISTRY METHOD 10/21/2024 5:17 PM [facility] BUN 13 5 - 25 mg/dL LAB CHEMISTRY METHOD 10/21/2024 5:17 PM [facility] Creatinine 0.60 0.50 - 1.10 mg/dL LAB CHEMISTRY METHOD 10/21/2024 5:17 PM [facility] eGFR 112 >=60 mL/min/1. 73m2 LAB CHEMISTRY METHOD 10/21/2024 5:17 PM [facility] Comment:Calculation based on the??Chronic Kidney Disease Epidemiology Collaboration (CKD-EPI) equation refit??without adjustment for race. BUN/Creatinine Ratio 21.7 LAB CHEMISTRY METHOD 10/21/2024 5:17 PM [facility] Calcium 9.4 8.5 - 10.5 mg/dL LAB CHEMISTRY METHOD 10/21/2024 5:17 PM [facility] AST (SGOT) 15 10 - 42 unit/L LAB CHEMISTRY METHOD 10/21/2024 5:17 PM [facility] ALT (SGPT) 17 10 - 60 unit/L LAB CHEMISTRY METHOD 10/21/2024 5:17 PM [facility] Alkaline Phosphatase 61 42 - 121 unit/L LAB CHEMISTRY METHOD 10/21/2024 5:17 PM [facility] Total Protein 6.8 6.0 - 8.0 g/dL LAB CHEMISTRY METHOD 10/21/2024 5:17 PM [facility] Albumin 3.6 3.2 - 5.0 g/dL LAB CHEMISTRY METHOD 10/21/2024 5:17 PM [facility] Total Bilirubin 0.3 0.0 - 1.4 mg/dL LAB CHEMISTRY METHOD 10/21/2024 5:17 PM [facility] Blood Venous blood specimen / Unknown Venipuncture / Unknown 10/21/2024 3:50 PM EDT 10/21/2024 4:11 PM EDT us Bella Priest DO LAB BLOOD ORDERABLES Final Res ult [facility] [address] [place] [address], [place] [phone] * Lipid panel with reflex to direct [...] inal Result [facility] [address] [place] [address], [place] [phone] * CBC auto differential (09/30/2024 10:19 AM EDT) [facility] WBC 6.1 4.8 - 10.8 K/mcL LAB HEMETOLOGY METHOD 09/30/2024 11:09 AM [facility] RBC 4.60 3.80 - 4.80 M/mcL LAB HEMETOLOGY METHOD 09/30/2024 11:09 AM [facility] Hemoglobin 12.9 11.5 - 16.0 g/dL LAB HEMETOLOGY METHOD 09/30/2024 11:09 AM [facility] Hematocrit 40.1 35.0 - 47.0 % LAB HEMETOLOGY METHOD 09/30/2024 11:09 AM [facility] MCV 87.7 79.0 - 98.0 FL LAB HEMETOLOGY METHOD 09/30/2024 11:09 AM [facility] MCH 28.2 27.0 - 32.0 pcg LAB HEMETOLOGY METHOD 09/30/2024 11:09 AM [facility] MCHC 32.2 32.0 - 37.0 g/dL LAB HEMETOLOGY METHOD 09/30/2024 11:09 AM [facility] RDW 13.4 11.0 - 15.0 % LAB HEMETOLOGY METHOD 09/30/2024 11:09 AM [facility] Platelets 277 130 - 400 K/mcL LAB HEMETOLOGY METHOD 09/30/2024 11:09 AM [facility] MPV 10.2 7.0 - 11.0 FL LAB HEMETOLOGY METHOD 09/30/2024 11:09 AM [facility] NRBC 0.0 <1.0 % LAB HEMETOLOGY METHOD 09/30/2024 11:09 AM [facility] NRBC Absolute 0.00 <0.10 K/mcL LAB HEMETOLOGY METHOD 09/30/2024 11:09 AM [facility] Neutrophils Relative 54.5 % LAB HEMETOLOGY METHOD 09/30/2024 11:09 AM [facility] Lymphocytes Relative 28.8 % LAB HEMETOLOGY METHOD 09/30/2024 11:09 AM [facility] Monocytes Relative 9.4 % LAB HEMETOLOGY METHOD 09/30/2024 11:09 AM [facility] Eosinophils Relative 6.0 % LAB HEMETOLOGY METHOD 09/30/2024 11:09 AM [facility] Basophils Relative 0.8 % LAB HEMETOLOGY METHOD 09/30/2024 11:09 AM [facility] Immature Granulocytes Relative 0.5 % LAB HEMETOLOGY METHOD 09/30/2024 11:09 AM [facility] Neutrophils Absolute 3.34 1.50 - 7.00 K/mcL LAB HEMETOLOGY METHOD 09/30/2024 11:09 AM [facility] Lymphocytes Absolute 1.77 1.00 - 5.00 K/mcL LAB HEMETOLOGY METHOD 09/30/2024 11:09 AM [facility] Monocytes Absolute 0.58 0.20 - 1.00 K/mcL LAB HEMETOLOGY METHOD 09/30/2024 11:09 AM [facility] Eosinophils Absolute 0.37 0.00 - 0.50 K/mcL LAB HEMETOLOGY METHOD 09/30/2024 11:09 AM [facility] Basophils Absolute 0.05 0.00 - 0.20 K/mcL LAB HEMETOLOGY METHOD 09/30/2024 11:09 AM [facility] Immature Granulocytes Absolute 0.03 0.00 - 0.03 K/mcL LAB HEMETOLOGY METHOD 09/30/2024 11:09 AM [facility] Blood Venous blood specimen / Unknown Venipuncture / Unknown 09/30/2024 10:19 AM EDT 09/30/2024 10:54 AM EDT Andi Terrell MD LAB BLOOD ORDERABLES F inal Result Performing Organization Address [facility]/ZIP Co de Phone Number [facility] [address] [place] [address], [place] [phone] * (ABNORMAL) Magnesium (09/30/2024 10:19 AM EDT) [facility] Magnesium 1.8(L) 1.9 - 2.6 mg/dL LAB CHEMISTRY METHOD 09/30/2024 11:40 AM EDT [facility] Blood Venous blood specimen / Unknown Venipuncture / Unknown 09/30/2024 10:19 AM EDT 09/30/2024 10:47 AM EDT Andi Terrell MD LAB BLOOD ORDERABLES F inal Result Performing Organization Address [facility] de Phone Number [facility] [address] [place] [address], [place] [phone] * ECG 12 lead (09/17/2024 10:41 AM EDT) [facility] Ventricular Rate ECG 77 BPM GEMUSE Atrial Rate 77 BPM GEMUSE P-R Interval 170 ms GEMUSE QRS Duration 84 ms GEMUSE Q-T Interval 382 ms GEMUSE QTc 432 ms GEMUSE P Wave [place] 64 degrees GEMUSE R [place] 72 degrees GEMUSE T [place] 70 degrees GEMUSE ECG Interpretation Normal sinus rhythm Normal ECG When compared with ECG of 30-SEP-2022 02:17, Premature atrial complexes are no longer Present Vent. rate has decreased BY ??49 BPM Confirmed by ANDI TERRELL ([id number]) on 09/17/2024 11:18:11 AM GEMUSE 09/17/2024 10:4 1 AM EDT 09/17/2024 11:18 AM EDT us Andi Terrell MD ECG ORDERABLES Final Result GEMUSE from Last 3 Months Insurance [facility] Care Teams Security Attendant Relationship Specialty Start Date End Date Brianna Arauz MD [address] [place] [phone] PCP - General Internal Medicine 01/26/20
--- OUTSIDE RECORDS SUMMARY | 2024-10-26 13:45 | XMS_ITS ---
Author Organization [facility] Address [address] [place] [address] [address] [place] [address] Care Team Providers Care Case Resolution Specialist Name Role Phone ABIGAIL TAVERAS Primary Care Provider REASON FOR VISIT reschedule Encounters Encounter Location Date Provider Diagnosis [facility] [address] [facility] [address] [place] [address] 08/26/2024 ABIGAIL TAVERAS Plan Of Treatment Next Appt Details Provider Name:Alexismalvin Behzadantionette dean, 03/03/2025 08:00:00 AM, [address] [facility] [address], [place], [address], Progress Notes * Nell BLANCODOB: 7 (48 yo F)Acc No.[id number]:08/26/2024 Patient:?Nell BLANCO :1975???Age:48 Y???Sex:Female Address:[address] [place] [phone] * true * Date:? Generated for Printi karey/Rajinder/eTransmitting on:?10/26/2024 01:45 PM EDT
--- OUTSIDE RECORDS SUMMARY | 2024-10-26 13:45 | XMS_ITS | Continuity of Care Document ---
Author Organization [facility] Address [address] [place] [address] [address] [place] [phone] Phone Care Team Providers Care Guard Dance Hall Name Role Phone Orion RUIZ, YANNA, William [...] Mi- [place] & [place] [facility] [facility], [address] [place] [address] Dr Mendoza [address]Maci [place], [id number], tel:[phone] Varicose veins of bilateral lower extremities with other complicationsPa in in right lower legPain in left lower legPain in right legRestless legs syndromeEssenti al (primary) hypertensionPru ritus, unspecifiedPain in left legCramp and spasmLocalized edema 4 Orion RUIZ, BRII RAINES. [address] [facility], [facility] [address], [place], [place], [id number] , [place]. tel:[phone] Referring Provider: Brianna Arauz MD, [address] [place], [address]. tel:[phone] [facility], [address] [place] [address] [address]Maci [place], [id number], tel:[phone] R - [place] - [place] Chronic venous hypertension (idiopathic) with other complications of bilateral lower extremity Orion RUIZ, RVT, RPCAROLE Thomas. [address] [facility], [address], [place], [place], [id number] , [place]. tel:[phone] Referring Provider: Brianna Arauz MD, [address] [place], [address]. tel:[phone] Family History Family Member Type Diagnosis Age At Onset No Information Payers Payer name Insurance type Covered democrat ID Leti barahona(s) [facility] [id number] Social History Type Description Quantity Date [...]
--- OUTSIDE RECORDS SUMMARY | 2024-10-26 13:46 | XMS_ITS ---
Author Organization [facility] Address [address] [facility] [address] [place] [address] Care Team Providers Care Bale Opener Name Role Phone ABIGAIL TAVERAS Primary Care Provider Mario Jesus Unavailable [phone] Allergies No Known Allergies Reason For Referral Reason Please evaluate and treat Diagnosis 1 Calcaneal spur, unsp ecified foot (M77.30) Referral Organization [facility] Referring Provider First Name Mario Referring Provider Last Name Edin Referred Provider Specialty Podiatry General Notes Referral was faxed [facility]. Please contact patient for scheduling., Liliam Burks 09/06/2024 09:48:24 AM > Referral Priority Routine REASON FOR VISIT 1 week follow up Medications Medication SIG (Take, Route, Frequency, Duration) Notes Start Date End Date Status Melatonin 3 MG 1 tablet at bedtime as needed Orally Once a day Active Baclofen 5 MG 1 tablet as needed Orally Once a day Active hydrOXYzine Pamoate 25 MG 1 capsule Orally twice daily as needed Active buPROPion HCl ER (SR) 150 MG 1 tablet in the morning Orally Once a day Active Propafenone HCl 225 MG 1 tablet Orally t wice daily Active Iqjbetlb-Hdvzatbtd-IT 3.5-70929-9 4 drops into affected ear Otic Three times a day for 7 days 09/03/2024 Active guaiFENesin AC 100-10 MG/5ML 10 mL as needed Orally TID for 7 days 08/15/2022 Not-Taking Rybelsus 7 MG 1 tablet at least 30 minutes before first food, beverage or other oral medicine of the day Orally Once a day Active glipiZIDE 10 MG 1 tablet 30 minutes before breakfast Orally Once a day Active Augmentin 875-125 MG 1 tablet Orally mark ry 12 hrs for 7 day(s) 08/15/2022 Not-Taking Griseofulvin Ultramicrosize 250 MG 1 tablet after a meal Orally twice a day Not-Taking Metoprolol Tartrate 25 MG TAKE 1/2 TABLET WITH FOOD ORALLY TWICE A DAY 90 DAYS for 90 Not-Taking Biotin 300 MCG 1 tablet Orally Once a day for 30 day(s) Not-Taking Zinc 50 MG 1 tablet Orally Once a day for 30 day(s) 08/15/2022 Not-Taking traZODone HCl 50 MG 1 tablet at bedtime as needed Orally Once a day Not-Taking Mirtazapine 45 MG 1 tablet at bedtime Orally Once a day for 30 day(s) Not-Taking DULoxetine HCl 30 MG 1 capsule Orally Twice a day Not-Taking Protonix 20 MG 1 tablet Orally Once a day for 30 day(s) 02/20/2022 Not-Taking Loratadine 10 MG 1 tablet Orally Once a day for 90 days Not-Taking Magnesium 250 MG 1 tablet with a meal Orally Once a day for 30 day(s) 10/01/2022 Not-Taking Topamax 25 MG 1 tablet Orally Once a day Dr Priest Not-Taking Lisinopril-hydroCHLOROt hiazide 20-25 MG TAKE 1 TABLET BY MOUTH EVERY DAY for 30 Not-Taking Jardiance 25 MG 1 tablet Orally Once a day Not-Taking Meloxicam 7.5 MG 1 tablet Orally Once a day Not-Taking Diclofenac Sodium 75 MG 1 tablet as need ed Orally Twice a day for 30 days 04/08/2022 Not-Taking traMADol HCl 50 MG 1 tablet as needed Orally Once a day Dr Priest Not-Taking Victoza 18 MG/3ML as directed Subcutaneous once a day Not-Taking Clotrimazole-Betamethas one 1-0.05 % 1 application to affected area Externally Twice a day Not-Taking Sertraline HCl 100 MG 1.5 tablet Orally Once a day Not-Taking Diclofenac Sodium 1 % as directed Transdermal Not-Taking Vitamin D3 25 MCG (1000 UT) 1 tablet Orally Once a day Active Amoxicillin 500 MG 1 capsule Orally every 8 hrs for 7 days 08/20/2024 Not-Taking metFORMIN HCl 1000 MG 1 tablet with a me al Orally twice a day for 30 day(s) Active dilTIAZem HCl ER 120 MG 1 capsule Orally one time daily for 30 days Active Fluticasone Propionate 50 MCG/ACT 1 spray in each nostril Nasally Twice a day for 90 days Not-Taking Atorvastatin Calcium 40 MG 1 tablet Orally Once a day for 90 days Active Actos 30 MG 1 tablet Orally Once a day Active Gabapentin 100 MG 1 capsule Orally Onc a day Dr. Priest Active Social History Tobacco Use: Social History Observation Description Date Details (start date - stop date) Never Smoker NA - NA Tobacco Use/Smoking Question Answer Notes Are you a nonsmoker Alcohol Screen (Audit-C) Question Answer Notes Did you have a drink containing alcohol in the p ast year? No Points 0 Interpretation Negative Vital Signs Temperature 97.3 degrees Fahrenheit 09/03/19 25 Oximetry 97 % 09/03/2024 Heart Rate 86 /min 09/03/2024 Blood pressure systolic 130 mm Hg 09/03/19 25 Blood pressure diastolic 78 mm Hg 025 Weight 228.0 lbs 09/03/2024 BMI 40.38 kg/m2 09/03/2024 Height 63 in 09/03/2024 Encounters Encounter Location Date Provider Diagnosis [facility] [address] [address] 09/03/2024 Alexismalvin Wenmarissa Essential (primary) hypertension I10 ; Otalgia, unspecified ear H92.09 and Calcaneal spur, unspecified foot M77.30 Assessments Encounter Date Diagnosis (ICD Code) Assessment Notes Treatment Notes Treatment Clinical Notes Section Notes 09/03/2024 Essential (primary) hypertension (ICD-10 - I10) Mrs. Blanco is a 48-year-old lady with DM type II with neuropathy and she sees spd tech, hypertension, hyperlipidemia, acid reflux and chronic back pain and follows up with physiatry Dr. Priest here here for follow-up on BP check. Plan as follows: HTN: - Blood pressure is well controlled. Continue the same regimen. Advised on reducing salt intake. Increase hydration. Weight loss with excercising is also recommended Otalgia: - She recently had sinusitis. Ears are erythematous BL. No signs of exudate or bulging. I will start patient on abx ear drop. Calcaneal spur - We will refer patient to chief technician I have rendered the services for this patient under direct supervision of Dr. Taveras, who did not see the patient but was available upon request 09/03/2024 Otalgia, unspecified ear (ICD-10 - H92.09) Mrs. Blanco is a 48-year-old lady with DM type II with neuropathy and she sees spd tech, hypertension, hyperlipidemia, acid reflux and chronic back pain and follows up with physiatry Dr. Priest here here for follow-up on BP check. Plan as follows: HTN: - Blood pressure is well controlled. Continue the same regimen. Advised on reducing salt intake. Increase hydration. Weight loss with excercising is also recommended Otalgia: - She recently had sinusitis. Ears are erythematous BL. No signs of exudate or bulging. I will start patient on abx ear drop. Calcaneal spur - We will refer patient to chief technician I have rendered the services for this patient under direct supervision of Dr. Taveras, who did not see the patient but was available upon request 09/03/2024 Calcaneal spur, unspecified foot (ICD-10 - M77.30) Mrs. Blanco is a 48-year-old lady with DM type II with neuropathy and she sees spd tech, hypertension, hyperlipidemia, acid reflux and chronic back pain and follows up with physiatry Dr. Priest here here for follow-up on BP check. Plan as follows: HTN: - Blood pressure is well controlled. Continue the same regimen. Advised on reducing salt intake. Increase hydration. Weight loss with excercising is also recommended Otalgia: - She recently had sinusitis. Ears are erythematous BL. No signs of exudate or bulging. I will start patient on abx ear drop. Calcaneal spur - We will refer patient to chief technician I have rendered the services for this patient under direct supervision of Dr. Taveras, who did not see the patient but was available upon request Plan Of Treatment Medication Medication Name Sig Start Date Stop Date Notes Oxzfkewt-Ozhnvmxme-RD 3.5-52051-6 4 drops into affected ear Otic Three times a day for 7 days 09/03/2024 Referrals Referral Date Details 09/05/2024 09/05/2024, Please e valuate and treat Next Appt Details Follow Up: 6 Months, Reason: Provider Name:Mario Zamudio jermaine, 03/03/2025 08:00:00 AM, [address] [address], [place], [address], Progress Notes * Nell BLANCODOB: [birth year] (48 yo F)Acc No.[id number]:09/03/2024 Progress Notes Patient:?Nell BLANCO Provider:?Mario Gillanalisa :1975???Age:48 Y???Sex:Female D ate:09/03/2024 Address:[address] [place], [place] [id number] Pcp:ABIGAIL TAVERAS Subjective: * Chief Complaints: * ???1 week follow up * HPI: ???Internal Medicine:?Mrs. Blanco is a 48-year-old lady with DM type II with neuropathy and she sees spd tech, hypertension, hyperlipidemia, acid reflux and chronic back pain and follows up with physiatry Dr. Priest here here for follow-up on BP check. She does not measure her BP at home. She recently started taking Diltiazem 120mg ER 12 HR capsule. As before she was missing dosage or taking a?half pill. She denies CP, SOB, CHAVEZ. She also states that she has been experiencing ear pain BL ever since she had sinusitis about a week ago. She denies fever, chills, n/v. She denies any other active issues. * ROS:?General/Constitutional:?Overall health?Good.?Change in appetite?denies.?Chills?denies.?Fever?denies.?Night sweats?denies.?Sleep disturbance?denies.?Weight gain?admits, 2 pounds.?Weight loss?denies.?Neurologic:?Difficulty speaking?denies.?Dizziness?denies.?Gait abnormality?denies.?Headache?,admits.?Loss of strength?denies.?Memory loss?denies.?Seizures?denies.?Tingling/Numbness?denies .?Ophthalmologic:?Blurred vision?denies.?Discharge?denies.?Dry eye?denies.?Red eye?denies.?ENT:?Change in Voice?Denies.?Cold Symptoms?Denies.?Cough?Denies.?Dizziness?Denies.?Nasal Congestion?Denies.?Otalgia?Denies.?postnasal drip?Denies.?Blocked ear?denies.?Admits?Ear pain,?admits,affecting both ears.?Nosebleed?denies.?Snoring?denies.?Cardiovascular:?Diaphoresis?Denies.?Pedal Edema?Denies.?PND (Paroxsymal nocturnal dyspnea)?Denies.?Chest pain?denies.?Difficulty laying flat?denies.?Dyspnea on exertion?denies.?Heart murmur?denies.?Orthopnea?denies.?Respiratory:?Snoring?denies.?Asthma?denies.?Cough?denies.?Shortness of breath with exertion?denies.?Sputum production?denies.?Wheezing?denies.?Gastrointestinal:?Change in bowel habits?denies.?Constipation?denies.?Decreased appetite?denies.?Diarrhea?denies.?Heartburn?denies.?Nausea?denies.?Vomiting?jael es.?Musculoskeletal:?tingling/numbness?Denies.?myalgias?Denies.?Joint Swelling?Denies.?extremeties?normal.?Arthritis?denies.?Back problems?,admits.?Carpal tunnel?denies.?Joint stiffness?denies.?Muscle aches?denies.?Endocrine:?Bowel Changes?Denies.?Breast Discharge?Denies.?poor libido?Denies.?Cold intolerance?denies.?Excessive sweating?denies.?Excessive thirst?denies.?Frequent urination?denies.?Thyroid problems?denies.?Skin:?Bruising?Denies.?Eczema?denies.?Hair changes?denies.?Rash?denies.?Skin lesion(s)?denies.?Psychiatric:?Anxiety?denies.?Depressed mood?denies.?Difficulty sleeping?denies.?Nervous breakdown?denies.?Substance abuse?denies.?Urology:?abnormal menstrual bleeding?denies.?blood in urine?denies.?burning on urination?denies.?difficulty urinating?denies.?discharge?denies.?dysuria?denies.? * Medical History:? * Surgical History:?left arm s urgery * Hospitalization/Major Diagno stic Procedure:? * Family History:?Father: dece ased, diagnosed with Hypertension.?Mother: , diagnosed with Hypertension.? * Social History:?Tobacco Use:?Tobacco Use/Smoking?Are you a?nonsmoker ???Drugs/Alcohol:?Drugs?Have you used drugs other than those for medical reasons in the past 12 months??No ?Alcohol Screen (Audit-C)?Did you have a drink containing alcohol in the past year??No ?Points?0 ?Interpretation?Negative ???Miscellaneous:?Exercise: occasionally, walking. ?Marital status: . ?Occupation: Unemployed. * Medications:?TakingglipiZIDE 10 MG Tablet 1 tablet 30 minutes before breakfast Orally Once a day Rybelsus 7 MG Tablet 1 tablet at least 30 minutes before first food, beverage or other oral medicine of the day Orally Once a day Baclofen 5 MG Tablet 1 tablet as needed Orally Once a day Melatonin 3 MG Tablet 1 tablet at bedtime as needed Orally Once a day buPROPion HCl ER (SR) 150 MG Tablet Extended Release 12 Hour 1 tablet in the morning Orally Once a day hydrOXYzine Pamoate 25 MG Capsule 1 capsule [...] with a meal Orally twice a day dilTIAZem HCl ER 120 MG Capsule Extended Release 12 Hour 1 capsule Orally one time daily Taking glipiZIDE 10 MG Tablet 1 tablet 30 minutes before breakfast Orally Once a day Taking Rybelsus 7 MG Tablet 1 tablet at least 30 minutes before first food, beverage or other oral medicine of the day Orally Once a day Taking Baclofen 5 MG Tablet 1 tablet as needed Orally Once a day Taking Melatonin 3 MG Tablet 1 tablet at bedtime as needed Orally Once a day Taking buPROPion HCl ER (SR) 150 MG Tablet Extended Release 12 Hour 1 tablet in the morning Orally Once a day Taking hydrOXYzine Pamoate 25 MG Capsule 1 capsule Orally twice daily as needed Taking Propafenone HCl 225 MG Tablet 1 tablet Orally twice daily Taking Gabapentin 100 MG Capsule 1 capsule Orally Once a day , Notes to Pharmacist: Dr. Nieto Actos 30 MG Tablet 1 tablet Orally Once a day Taking Atorvastatin Calcium 40 MG Tablet 1 tablet Orally Once a day Taking Vitamin D3 25 MCG (1000 UT) Tablet 1 tablet Orally Once a day Taking metFORMIN HCl 1000 MG Tablet 1 tablet with a meal Orally twice a day Taking dilTIAZem HCl ER 120 MG Capsule Extended Release 12 Hour 1 capsule Orally one time daily Not-TakingAmoxicillin 500 MG Capsule 1 capsule Orally every 8 hrs Fluticasone Propionate 50 MCG/ACT Suspension 1 spray in each nostril Nasally Twice a day Victoza 18 MG/3ML Solution Pen-injector as directed Subcutaneous once a day traMADol HCl 50 MG Tablet 1 tablet [...] tablet as needed Orally Twice a day Meloxicam 7.5 MG Tablet 1 [...] List reviewed and reconciled with the patientNot-Taking Amoxicillin 500 MG Capsule 1 capsule Orally every 8 hrs Not- Taking Fluticasone Propionate 50 MCG/ACT Suspension 1 spray in each nostril Nasally Twice a day Not-Taking Victoza 18 MG/3ML Solution Pen-injector as directed Subcutaneous once a day Not-Taking traMADol HCl 50 MG Tablet 1 tablet [...] as needed Orally Twice a day Not-Taking Meloxicam 7.5 MG Tablet [...] patient * Allergies:?N.K.D.A.no[Allerg ies Verified] Objective: * Vitals:?Temp:97.3F, Oxygen s at %:97%, HR:86/min, BP:130/78mm Hg, Wt:228.0lbs, BMI:40.38Index, Ht: 63 in. * Examination: ???General Examination: ?Psychiatry?Normal.?GENERAL APPEARANCE:?Well developed, well nourished, in no acute distress.?MUSCULOSKELETAL:?Normal.?HEAD:?Normocephalic, atraumatic.?EYES:?Pupils equal, round, reactive to light and accommodation, sclera non-icteric.?EARS:?erythematous? bl.?ORAL CAVITY:?Normal.?THROAT:?Clear.?OROPHARYNX?Normal.?NECK/THYROID:?Neck supple, full range of motion, no cervical lymphadenopathy.?SKIN:?Warm and dry, no suspicious lesions.?HEART:?S1, S2 normal, regular rate and rhythm.?LUNGS:?clear to auscultation bilaterally, no wheezes, rales, rhonchi.?BREASTS:?__.?ABDOMEN:?Soft, nontender, nondistended, bowel sounds present, normal.?EXTREMITIES:?reticular veins.?PERIPHERAL PULSES:?Normal.?NEUROLOGIC:?Nonfocal,? appropriate?motor strength normal upper and lower extremities, sensory exam intact.?FEMALE GENITOURINARY:?__.?MALE GENITOURINARY:?__.?PODIATRIC:?Normal.?Home Energy Consultant? .? Assessment: * Assessment: 1.?Essential (primary) hyper tension - I10 (Primary)???2.?Otalgia, unspecified ear - H92.09???3.?Calcaneal spur, unspecified foot - M77.30??? Mrs. Blanco is a 48-year-old lady with DM type II with neuropathy and she sees spd tech, hypertension, hyperlipidemia, acid reflux and chronic back pain and follows up with physiatry Dr. Priest here here for follow-up on BP check. Plan as follows: HTN: - Blood pressure is well controlled. Continue the same regimen. Advised on reducing salt intake. Increase hydration. Weight loss with excercising is also recommended Otalgia: - She recently had sinusitis. Ears are erythematous BL. No signs of exudate or bulging. I will start patient on abx ear drop. Calcaneal spur - We will refer patient to chief technician I have rendered the services for this patient under direct supervision of Dr. Taveras, who did not see the patient but was available upon request Plan: * Treatment: 2.?Calcaneal spur, unspecifi ed foot? Referral To:Podiatry ?Reason:Please evaluate and treat * Procedure Codes:?3078F DIAST BP < 80 MM [id number] SYST BP GE 130 - 139MM HG * Follow Up:?6 Months * * Sign off status: Completed true * Provider:?Mario Jesus Date:?09/03/19 25 Generated for Glenn eden/Rajinder/Aaron on:?10/26/2024 01:45 PM EDT History and Physical Notes * HPI (History of Present Illness) Category Sub-Category Detail Notes Category Not es Internal Medicine Mrs. Dalia biarra is a 48-year-old lady with DM type II with neuropathy and she sees spd tech, hypertension, hyperlipidemia, acid reflux and chronic back pain and follows up with physiatry Dr. Priest here here for follow-up on BP check. She does not measure her BP at home. She recently started taking Diltiazem 120mg ER 12 HR capsule. As before she was missing dosage or taking a half pill. She denies CP, SOB, CHAVEZ. She also states that she has been experiencing ear pain BL ever since she had sinusitis about a week ago. She denies fever, chills, n/v. She denies any other active issues. Examination Category Sub-Category Detail Notes Category Not es General Examination GENERAL APPEARANCE: Well dev eloped, well nourished, in no acute distress HEAD: Normocephalic, atrau matic EYES: Pupils equal, round, reactive to light and accommodation, sclera non-icteric EARS: erythematous bl THROAT: Clear NECK/THYROID: Neck supple, full ra nge of motion, no cervical lymphadenopathy HEART: S1, S2 normal, regul ar rate and rhythm LUNGS: clear to auscultatio n bilaterally, no wheezes, rales, rhonchi ABDOMEN: Soft, nontender, non distended, bowel sounds present, normal NEUROLOGIC: Nonfocal, appropriat e motor strength normal upper and lower extremities, sensory exam intact SKIN: Warm and dry, no nestor picious lesions EXTREMITIES: reticular veins PERIPHERAL PULSES: Normal BREASTS: __ MUSCULOSKELETAL: Normal MALE GENITOURINARY: __ FEMALE GENITOURINARY: __ ORAL CAVITY: Normal PODIATRIC: Normal Psychiatry Normal OROPHARYNX Normal Home Energy Consultant Consultation Request Notes Referral Date Referring Provider Referred Provider Not es 09/05/2024 Mario Jesus , Please eval uate and treat
--- OUTSIDE RECORDS SUMMARY | 2024-10-26 13:46 | XMS_ITS | Patient Health Record ---
Author Organization [facility] Address [address] [place] [address] Care Team Providers Care Leaf Stripper Name Role Phone ABIGAIL TAVERAS Primary Care Provider Mario Jesus Unavailable [phone] Allergies No Known Allergies Results Component Value Reference Range Notes THYROID STIMULATING HORMONE WITH REFLEX TO FREE T4 AND FREE T3 Reviewed date:10/22/2024 04:10:07 PM Interpretation: Performing Lab: Notes/Report: TSH 1.61 0.40-4.00 mcIU/mL VITAMIN D 25 HYDROXY Reviewed date:10/22/2024 04:10:31 PM Interpretation: Performing Lab: Notes/Report: Vit D, 25-Hydroxy 20.4 30.0-80.0 ng/mL COMPREHENSIVE METABOLIC PANE L Reviewed date:10/22/2024 04:11:39 PM Interpretation: Performing Lab: Notes/Report: Sodium 140 133-145 mmol/L Potassium 4.0 3.5-5.5 mmol/L Chloride 107 96-110 mmol/L CO2 24 21-32 mmol/L Anion Gap 9 3-11 Glucose 81 70-100 mg/dL BUN 13 5-25 mg/dL Creatinine 0.60 0.50-1.10 mg/dL eGFR 112 >=60 mL/min/1.73m2 Calculation based on the Chronic Kidney Disease Epidemiology Collaboration (CKD-EPI) equation refit without adjustment for race. BUN/Creatinine Ratio 21.7 Calcium 9.4 8.5-10.5 mg/dL AST (SGOT) 15 10-42 unit/L ALT (SGPT) 17 10-60 unit/L Alkaline Phosphatase 61 42-121 unit/L Total Protein 6.8 6.0-8.0 g/dL Albumin 3.6 3.2-5.0 g/dL Total Bilirubin 0.3 0.0-1.4 mg/dL VITAMIN B12 Reviewed date:10/22/2024 04:10:56 PM Interpretation: Performing Lab: Notes/Report: Vitamin B-12 796 250-900 pcg/mL CBC WITH AUTO DIFFERENTIAL Reviewed date:09/30/2024 05:21:50 PM Interpretation: Performing Lab: Notes/Report: WBC 6.1 4.8-10.8 K/mcL RBC 4.60 3.80-4.80 M/mcL Hemoglobin 12.9 11.5-16.0 g/dL Hematocrit 40.1 35.0-47.0 % MCV 87.7 79.0-98.0 FL MCH 28.2 27.0-32.0 pcg MCHC 32.2 32.0-37.0 g/dL RDW 13.4 11.0-15.0 % Platelets 277 130-400 K/mcL MPV 10.2 7.0-11.0 FL NRBC 0.0 <1.0 % NRBC Absolute 0.00 <0.10 K/mcL Neutrophils Relative 54.5 Lymphocytes Relative 28.8 Monocytes Relative 9.4 Eosinophils Relative 6.0 Basophils Relative 0.8 Immature Granulocytes Relative 0.5 Neutrophils Absolute 3.34 1.50-7.00 K/mcL Lymphocytes Absolute 1.77 1.00-5.00 K/mcL Monocytes Absolute 0.58 0.20-1.00 K/mcL Eosinophils Absolute 0.37 0.00-0.50 K/mcL Basophils Absolute 0.05 0.00-0.20 K/mcL Immature Granulocytes Absolute 0.03 0.00-0.03 K/mcL SEDIMENTATION RATE Reviewed date:10/22/2024 04:12:39 PM Interpretation: Performing Lab: Notes/Report: Sed Rate 5 0-20 mm/hr RHEUMATOID FACTOR Reviewed date:10/22/2024 04:12:11 PM Interpretation: Performing Lab: Notes/Report: Rheumatoid Factor <10.0 <15.0 I Unit/mL MICROALB/CREAT RATIO, RANDOM Reviewed date:02/20/2024 01:52:43 PM Interpretation: Performing Lab: Notes/Report: Original Ordering Provider: ABIGAIL TAVERAS MD [employer], [place] [address] Gold Leaf Printer - Lara Argueta MD MICROALBUMIN, RANDOM 22.5 [...] Notes/Report: Original Ordering Provider: ABIGAIL TAVERAS MD [employer], [place] [address] [employer] - Lara Argueta MD GLYCATED HEMOGLOBIN A1C 5.8 <6.5 % ESTIMATED AVERAGE GLUCOSE 120 ESR Reviewed date:02/20/2024 01:53:00 PM Interpretation: Performing Lab: Notes/Report: [employer], [place] [address] Gold Leaf Printer - Lara Argueta MD ESR 8 0-20 mm/hr C-REACTIVE PROTEIN Reviewed date:02/20/2024 01:52:46 PM Interpretation: Performing Lab: Notes/Report: [employer], [place] [address] Gold Leaf Printer - Lara Argueta MD C-REACTIVE PROTEIN 0.34 [...] date:02/24/2024 12:28:54 PM Interpretation: Performing Lab: Notes/Report: [employer], [place] [address] Gold Leaf Printer - Lara Argueta MD CCP NEGATIVE NEGATIVE [...] TAVERAS MD ANTI-NUCLEAR ANTIBODY SCREEN NEGATIVE NEGATIVE MAGNESIUM Reviewed date:09/30/2024 05:21:47 PM Interpretation: Performing Lab: Notes/Report: Magnesium 1.8 1.9-2.6 mg/dL COMPREHENSIVE METABOLIC PANE L Reviewed date:09/30/2024 05:21:44 PM Interpretation: Performing Lab: Notes/Report: Sodium 139 133-145 mmol/L Potassium 3.7 3.5-5.5 mmol/L Chloride 107 96-110 mmol/L CO2 27 21-32 mmol/L Anion Gap 5 3-11 Glucose 175 70-100 mg/dL BUN 14 5-25 mg/dL Creatinine 0.65 0.50-1.10 mg/dL eGFR 109 >=60 mL/min/1.73m2 Calculation based on the Chronic Kidney Disease Epidemiology Collaboration (CKD-EPI) equation refit without adjustment for race. BUN/Creatinine Ratio 21.5 Calcium 9.1 8.5-10.5 mg/dL AST (SGOT) 7 10-42 unit/L ALT (SGPT) 16 10-60 unit/L Alkaline Phosphatase 56 42-121 unit/L Total Protein 6.4 6.0-8.0 g/dL Albumin 3.4 3.2-5.0 g/dL Total Bilirubin 0.2 0.0-1.4 mg/dL LIPID PANEL WITH REFLEX TO D IRECT LDL Reviewed date:09/30/2024 05:21:31 PM Interpretation: Performing Lab: Notes/Report: Cholesterol 140 0-200 mg/dL Triglycerides 81 0-150 mg/dL HDL 43 >=40 mg/dL LDL Calculated 81 0-100 mg/dL VLDL Cholesterol Gorge 16.2 Non HDL Chol. (LDL+VLDL) 97 <145 mg/dL Chol/HDL Ratio 3.3 0.0-4.4 Anti-CCP Ab, IgG/IgA-[id number] Reviewed date:03/26/2024 07:43:35 AM Interpretation: Performing Lab:[facility], Phone - [phone], - Tracey Notes/Report: Anti-CCP Ab, IgG/IgA 3 0-19 units Negative <20 Weak positive 20 - 39 Moderate positive 40 - 59 Strong positive >59 CBC, Platelet, No Differenti al-[id number] Reviewed date:03/26/2024 07:43:37 AM Interpretation: Performing Lab:[facility], Phone - [phone], Director Surjit Webb Notes/Report: WBC 4.7 3.4-10.8 x10E3/uL RBC 5.12 3.77-5.28 x10E6/uL Hemoglobin 14.1 11.1-15.9 g/dL Hematocrit 44.3 34.0-46.6 % MCV 87 79-97 fL MCH 27.5 26.6-33.0 pg MCHC 31.8 31.5-35.7 g/dL RDW 19.3 11.7-15.4 % Platelets 268 150-450 x10E3/uL Sedimentation Rate-[place]ester[place] n-[id number] Reviewed date:03/26/2024 07:43:39 AM Interpretation: Performing Lab:[facility], Phone - [phone], Director Surjit Webb Notes/Report: Sedimentation Rate-[place]estergren 2 0-32 mm/hr C-Reactive Protein, Quant-00 6627 Reviewed date:03/26/2024 07:43:41 AM Interpretation: Performing Lab:[facility], Phone - [phone], Director Surjit Webb Notes/Report: C-Reactive Protein, Quant 1 0-10 mg/L Rheumatoid Factor (RF)-41255 2 Reviewed date:03/26/2024 07:43:43 AM Interpretation: Performing Lab:[address], Phone - [phone], Director Surjit Webb Notes/Report: Rheumatoid Factor (RF) <10.0 <14.0 IU/mL Antinuclear Ab by Multiplex- [id number] Reviewed date:03/26/2024 07:44:26 AM Interpretation: Performing Lab:[address], Phone - [phone], Director Surjit RUIZEvdry Notes/Report: JAQUELINE Direct Negative Negative Lipid Panel-[id number] Reviewed date:03/26/2024 07:44:32 AM Interpretation: Performing Lab:[facility], [address] [place] [address], Phone - [phone], Director - Mjdry Notes/Report: Cholesterol, Total 115 100-199 mg/dL Triglycerides 72 0-149 mg/dL HDL Cholesterol 43 >39 mg/dL VLDL Cholesterol Gorge 15 5-40 mg/dL LDL Chol Calc (NIH) 57 0-99 mg/dL Comp. Metabolic Panel (14)-3 Reviewed date:03/26/2024 07:45:16 AM Interpretation: Performing Lab:[facility], [address] [place] [address], Phone - [phone], Director - MDEvdry Notes/Report: Glucose 143 70-99 mg/dL BUN 11 [...] ALT (SGPT) 10 0-32 IU/L Albumin/Creatinine Ratio,Uri ne-[id number] Reviewed date:03/26/2024 07:45:21 AM Interpretation: Performing Lab:[facility], [address] [place] [address], [place], Phone - [phone], Director - Mjdry Notes/Report: Creatinine, Urine 85.7 Not Estab. mg/dL Albumin, Urine 26.1 Not Estab. ug/mL Alb/Creat Ratio 30 0-29 mg/g creat Normal: 0 - 29 Moderately increased: 30 - 300 Severely increased: >300 Hemoglobin C0x-[id number] Reviewed date:03/26/2024 07:46:22 AM Interpretation: Performing Lab:[facility], Brandee Sor[address] [place], [place], Phone - [phone], Director - Tracey Notes/Report: Hemoglobin A1c 6.2 4.8-5.6 % . Prediabetes: 5.7 - 6.4 Diabetes: >6.4 Glycemic control for adults with diabetes: <7.0 XR FOOT 3+ VIEWS RIGHT Reviewed date:07/21/2024 12:34:45 PM Interpretation: Performing Lab: Notes/Report: Note See Note [facility], a member of [facility] Patient Name: NELL BLANCO Date of : 1975 Reason for Exam: pain Exam Date: 07/16/2024 [id number] EST Report Status: Final Ordering Provider: CRISTHIAN PRIEST PCP: ABIGAIL TAVERAS EXAMINATION: RIGHT FOOT [...] Signed Date: 025 08:19 ET Workstation ID: [id number] Transcribed By: Self Edit Transcribed Date: 07/21/2024 08:17 ET Hgb A1c with eAG Estimation- [id number] Reviewed date:03/25/2024 07:47:27 AM Interpretation: Performing Lab:[facility], [address], [place], Phone - [phone], Director - Tracey Notes/Report: Hemoglobin A1c 6.7 4.8-5.6 % . Prediabetes: 5.7 - 6.4 Diabetes: >6.4 Glycemic control for adults with diabetes: <7.0 Estim. Avg Glu (eAG) 146 CBC, Platelet, No Differenti al-[id number] Reviewed date:03/25/2024 07:47:36 AM Interpretation: Performing Lab:[facility], [address] [place] [address], Phone - [phone], Director - Tracey Notes/Report: WBC 4.7 3.4-10.8 x10E3/uL RBC 5.25 3.77-5.28 x10E6/uL Hemoglobin 14.1 11.1-15.9 g/dL Hematocrit 44.8 34.0-46.6 % MCV 85 79-97 fL MCH 26.9 26.6-33.0 pg MCHC 31.5 31.5-35.7 g/dL RDW 18.5 11.7-15.4 % Platelets 284 150-450 x10E3/uL Ferritin-107551 Reviewed date:03/25/2024 07:34:29 AM Interpretation: Performing Lab:[facility] [place], [address] [place] [address], Phone - [phone], Director - Tracey Notes/Report: Ferritin 99 15-150 ng/mL TSH-[id number] Reviewed date:03/25/2024 07:34:36 AM Interpretation: Performing Lab:[facility], [address] [place] [address], Phone - [phone], Director - Tracey Notes/Report: TSH 1.530 0.450-4.500 uIU/mL Iron and TIBC-134733 Reviewed date:03/25/2024 07:47:29 AM Interpretation: Performing Lab:[facility] [place], [address] [place] [address], Phone - [phone], Director - Tracey Notes/Report: Iron Bind.Cap.(TIBC) 339 250-450 ug/dL UIBC 262 131-425 ug/dL Iron 77 27-159 ug/dL Iron Saturation 23 15-55 % LIPASE Reviewed date:03/04/2024 06:18:09 PM Interpretation: Performing Lab: Notes/Report: [employer], a member of [address] [address] [employer] Leaf Printer - Lara Argueta MD LIPASE 40 13-75 [...] Performing Lab: Notes/Report: Original Ordering Provider: BLAKE [employer], a member of [address] [address] Gold Leaf Printer - Lara Argueta MD WBC 5.5 4.8-10.8 [...] x10-3/uL IMMATURE GRANULOCYTES # 0.06 0-0.03 x10-3/uL Reason For Referral Reason Evaluation and manag ement - colonoscopy Diagnosis 1 Encounter for screen ing for malignant neoplasm of colon (Z12.11) Referral Organization [facility] Referring Provider First Name ABIGAIL Referring Provider Last Name MIRIAM Referring Provider Speciality Internal edicine Referred Provider Specialty Gastroentero logy General Notes Referral sent to [facility] Gastroenterology - Office will call patient for scheduling., Edu Lieberman 02/18/2024 09:32:34 AM > Referral Priority Routine Reason Evaluation and manag ement Diagnosis 1 Varicose veins of bi lateral lower extremities with pain (I83.813) Referral Organization [facility] Referring Provider First Name ABIGAIL Referring Provider Last Name MIRIAM Referring Provider Speciality Internal edicine Referred Provider Specialty Vascular Andrez jeanette General Notes Referral sent to [facility] - Office will call patient for scheduling.Luisana Latraya 02/18/2024 09:33:50 AM > Referral Priority Routine Reason Please evaluate and treat Diagnosis 1 Calcaneal spur, unsp ecified foot (M77.30) Referral Organization [facility] Referring Provider First Name Mario Referring Provider Last Name Edin Referred Provider Specialty Podiatry General Notes Referral was faxed [facility]. Please contact patient for scheduling., Liliam Burks 09/06/2024 09:48:24 AM > Referral Priority Routine Reason Diabetic foot exam; [facility] Pod[facility] Please evaluate and treat Diagnosis 1 Type 2 diabetes dea itus with unspecified complications (E11.8) Referral Organization [facility] Referring Provider First Name ABIGAIL Referring Provider Last Name MIRIAM Referring Provider Speciality Internal edicine Referred Provider Specialty Podiatry General Notes Please call the sp ent to schedule the appointment, Sary Kendall 10/05/2024 04:02:25 PM > Referral Priority Routine Medications Medication SIG (Take, Route, Frequency, Duration) Notes Start Date End Date Status guaiFENesin AC 100-10 MG/5ML 10 mL as needed Orally TID for 7 days 08/15/2022 Not-Taking Rybelsus 7 MG 1 tablet at least 30 minutes before first food, beverage or other oral medicine of the day Orally Once a day Active glipiZIDE 10 MG 1 tablet 30 minutes before breakfast Orally Once a day Active Melatonin 3 MG 1 tablet at bedtime as needed Orally Once a day Active Baclofen 5 MG 1 tablet as needed Orally Once a day Active hydrOXYzine Pamoate 25 MG 1 capsule Orally twice daily as needed Active buPROPion HCl ER (SR) 150 MG 1 tablet in the morning Orally Once a day Active Clotrimazole-Betamethas one 1-0.05 % 1 application to affected area Externally Twice a day Not-Taking Propafenone HCl 225 MG 1 tablet Orally t wice daily Active Sertraline HCl 100 MG 1.5 tablet Orally Once a day Not-Taking Topamax 25 MG 1 tablet Orally Once a day Dr Priest Not-Taking Diclofenac Sodium 1 % as directed Transdermal Not-Taking Lisinopril-hydroCHLOROt hiazide 20-25 MG TAKE 1 TABLET BY MOUTH EVERY DAY for 30 Not-Taking Jardiance 25 MG 1 tablet Orally Once a day Not-Taking Meloxicam 7.5 MG 1 tablet Orally Once a day Not-Taking Diclofenac Sodium 75 MG 1 tablet as need ed Orally Twice a day for 30 days 04/08/2022 Not-Taking Mirtazapine 45 MG 1 tablet at bedtime Orally Once a day for 30 day(s) Not-Taking DULoxetine HCl 30 MG 1 capsule Orally Twice a day Not-Taking Actos 30 MG 1 tablet Orally Once a day Active Gabapentin 100 MG 1 capsule Orally Onc e a day Dr. Priest Active Nhfpqymx-Vjsclizty-SK 3.5-75141-4 4 drops into affected ear Otic Three times a day for 7 days 09/03/2024 Active Vitamin D3 25 MCG (1000 UT) 1 tablet Orally Once a day Active Atorvastatin Calcium 40 MG 1 tablet Orally Once a day for 90 days Active Amoxicillin 500 MG 1 capsule Orally [...] Twice a day for 90 days Not-Taking traMADol HCl 50 MG 1 tablet as needed Orally Once a day Dr Priest Not-Taking Protonix 20 MG 1 tablet Orally Once a day for 30 day(s) 02/20/2022 Not-Taking Victoza 18 MG/3ML as directed Subcutaneous once a day Not-Taking Loratadine 10 MG 1 tablet Orally Once a day for 90 days Not-Taking Magnesium 250 MG 1 tablet with a meal Orally Once a day for 30 day(s) 10/01/2022 Not-Taking Griseofulvin Ultramicrosize 250 MG 1 tablet after a meal Orally twice a day Not-Taking Metoprolol Tartrate 25 MG TAKE 1/2 TABLET WITH FOOD ORALLY TWICE A DAY 90 DAYS for 90 Not-Taking Biotin 300 MCG 1 tablet Orally Once a day for 30 day(s) Not-Taking Zinc 50 MG 1 tablet Orally Once a day for 30 day(s) 08/15/2022 Not-Taking Augmentin 875-125 MG 1 tablet Orally mark ry 12 hrs for 7 day(s) 08/15/2022 Not-Taking traZODone HCl 50 MG 1 tablet at bedtime as needed Orally Once a day Not-Taking Immunizations Vaccine Route Administration Date Status Comme [...] Status Risk Notes Problem Iron deficiency anemia (73434029) Iron deficiency anemia, unspecified (D50.9) Active confirmed Problem Disorder due to type 2 diabetes mellitus (541850581) Type 2 diabetes mellitus with unspecified complications (E11.8) Active confirmed Problem Type II diabetes mellitus without complication (807688407) Type 2 diabetes mellitus without complications (E11.9) Active confirmed Problem Morbid obesity (disorder) (960311420) Morbid (severe) obesity due to excess calories (E66.01) Active confirmed Problem Moderate recurrent major depression (84131854) Major depressive disorder, recurrent, moderate (F33.1) Active confirmed Problem Insomnia (362363099) Insomnia, unspecified (G47.00) Active confirmed Problem Pain co-occurrent and due to varicose veins of bilateral legs (92308730946210260) Varicose veins of bilateral lower extremities with pain (I83.813) Active confirmed Problem Gastro-esophageal reflux disease without esophagitis (412446134) Gastro-esophageal reflux disease without esophagitis (K21.9) Active confirmed Problem Degeneration of thoracolumbar intervertebral disc (97241647) Other intervertebral disc degeneration, 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) Active confirmed Problem Essential hypertension (54780929) Essential (primary) hypertension (I10) Active confirmed Problem Supraventricular tachycardia (5367799) Supraventricular tachycardia (I47.1) Active confirmed Vital Signs Heart Rate 86 /min 09/03/2024 Temperature 97.3 degrees Fahrenheit 09/03/2024 Blood pressure diastolic 78 mm Hg 09/03/2024 Oximetry 97 % 09/03/2024 Height 63 in 09/03/2024 Blood pressure systolic 130 mm Hg 09/03/2024 Weight 228.0 lbs 09/03/2024 BMI 40.38 kg/m2 09/03/2024 Encounters Encounter Location Date Provider Diagnosis [address] [address] 02/17/2024 ABIGAIL TAVERAS Type 2 diabetes mellitus with unspecified complications E11.8 ; Encounter for general adult medical examination without abnormal findings Z00.00 ; Essential (primary) hypertension I10 ; Major depressive disorder, recurrent, moderate F33.1 ; Insomnia, unspecified G47.00 ; Iron deficiency anemia, unspecified D50.9 and Pain in unspecified joint M25.[address] [address] 08/20/2024 Mario Jesus Type 2 diabetes mellitus with unspecified complications E11.8 ; Essential (primary) hypertension I10 ; Major depressive disorder, recurrent, moderate F33.1 ; Insomnia, unspecified G47.00 ; Iron deficiency anemia, unspecified D50.9 ; Pain in unspecified joint M25.50 and Acute sinusitis, unspecified J01.[address] [address] 09/03/2024 Luismitchmalvin Gill Essential (primary) hypertension I10 ; Otalgia, unspecified ear H92.09 and Calcaneal spur, unspecified foot M77.[address] [address] 04/13/[address] [address] 04/26/[address] [address] 08/23/2024 gerry Jesus [address] [address] 08/26/[address] [address] 09/06/2024 HAYES GU Assessments Encounter Date Diagnosis (ICD Code) Assessment Notes Treatment Notes Treatment Clinical Notes Section Notes 02/17/2024 Type 2 diabetes mellitus with unspecified complications (ICD-10 - E11.8) Mrs. Blanco is a 48-year-old lady with DM type II with neuropathy and she sees card cutter, hypertension, hyperlipidemia, acid reflux and chronic back pain and follows up with physiatry Dr. Priest here here for annual physical. Plan is as follows: Type II diabetes mellitus with neuropathy. A1c 6.0. Fasting sugars 126. She is on right medications. She has seen her employment programs analyst in the past 1 year. Foot care [...] and transportation Eye screening. She sees her employment programs analyst regularly. Dental screening. She sees dentist regularly. Colon cancer screening. Referred to GI for colonoscopy. Breast cancer screening. She is up-to-date on her mammogram. Female screening. She follows up with her intermodal owner operator truck driver for breast and pelvic exams. Immunizations. She [...] Patient agrees to use of scribes services. 08/20/2024 Type 2 diabetes mellitus with unspecified complications (ICD-10 - E11.8) Mrs. Blanco is a 48-year-old lady with DM type II with neuropathy and she sees card cutter, hypertension, hyperlipidemia, acid reflux and chronic back pain and follows up with physiatry Dr. Priest here here for Follow-up. Plan is as follows: Type II diabetes mellitus with neuropathy. -A1c 6.2. Fasting sugars 126. She is on right medications. She has seen her employment programs analyst in the past 1 year. Foot care discussed. She follows with endocrinology and recently they added Semaglutide tablets to the regimen. Hypertension. -Blood pressure Is elevated in the office today. She admits that home it runs high with symptoms of headache. She has been taken half a pill daily. Patient is supposed to be on diltiazem 120 mg daily, I have advised her to take a full pill of diltiazem 120 mg daily and we will check blood pressure in 1 week if blood pressure is elevated then we will increase the dosage to 120 mg twice daily. Also advised on measured blood pressure at home. Reduce salt intake, increase hydration and exercise with weight loss. Hyperlipidemia. -Last lipid panel within normal limits. Continue Atorvastatin 40 MG at night. Generalized anxiety/Major depressive disorder. - Mood stable on current regimen. She follows with psychiatrist. GERD. -Continue Protonix 20 MG daily. Insomnia. -Sleep is stable on hydroxyzine. Iron deficiency anemia. - She gets iron infusions every [address] Nash. CBC is within normal limits Morbid obesity. -Advised dietary restrictions and regimental exercise. Goal is to lose 5-6 lbs a month. Reticular veins. -She was seen by vascular surgeon sclerotherapy was recommended but she defers that for now. Degenerative disc disease/osteoarthr itis. -She follows up with physiatry and she has intra-articular injection bilateral knee joints and she uses a cane to walk. She needs help with activities of daily living at home especially lifting, bathing, toileting and transportation Acute sinusitis - She states that has been ongoing for the past 2 weeks. She admits to nasal congestion with reported nose. She admits to facial pressure. Physical examination is remarkable for tenderness along the sinuses area. I have started patient on amoxicillin, Flonase for nasal congestion as she can also take Tylenol as needed for pain. General health concerns discussed with patient. I have rendered the services for this patient under direct supervision of Dr. Taveras, who did not see the patient but was available upon request 02/17/2024 Encounter for general adult medical examination without abnormal findings (ICD-10 - Z00.00) Mrs. Blanco is a 48-year-old lady with DM type II with neuropathy and she sees card cutter, hypertension, hyperlipidemia, acid reflux and chronic back pain and follows up with physiatry Dr. Priest here here for annual physical. Plan is as follows: Type II diabetes mellitus with neuropathy. A1c 6.0. Fasting sugars 126. She is on right medications. She has seen her employment programs analyst in the past 1 year. Foot care [...] and transportation Eye screening. She sees her employment programs analyst regularly. Dental screening. She sees dentist regularly. Colon cancer screening. Referred to GI for colonoscopy. Breast cancer screening. She is up-to-date on her mammogram. Female screening. She follows up with her intermodal owner operator truck driver for breast and pelvic exams. Immunizations. She [...] Patient agrees to use of scribes services. 09/03/2024 Otalgia, unspecified ear (ICD-10 - H92.09) Mrs. Blanco is a 48-year-old lady with DM type II with neuropathy and she sees card cutter, hypertension, hyperlipidemia, acid reflux and chronic back [...] spur - We will refer patient to stamp pad maker I have rendered the services for this patient under direct supervision of Dr. Taveras, who did not see the patient but was available upon request 09/03/2024 Essential (primary) hypertension (ICD-10 - I10) Mrs. Blanco is a 48-year-old lady with DM type II with neuropathy and she sees card cutter, hypertension, hyperlipidemia, acid reflux and chronic back [...] spur - We will refer patient to stamp pad maker I have rendered the services for this patient under direct supervision of Dr. Taveras, who did not see the patient but was available upon request 08/20/2024 Essential (primary) hypertension (ICD-10 - I10) Mrs. Blanco is a 48-year-old lady with DM type II with neuropathy and she sees card cutter, hypertension, hyperlipidemia, acid reflux and chronic back pain and follows up with physiatry Dr. Priest here here for Follow-up. Plan is as follows: Type II diabetes mellitus with neuropathy. -A1c 6.2. Fasting sugars 126. She is on right medications. She has seen her employment programs analyst in the past 1 year. Foot care discussed. She follows with endocrinology and recently they added Semaglutide tablets to the regimen. Hypertension. -Blood pressure Is elevated in the office today. She admits that home it runs high with symptoms of headache. She has been taken half a pill daily. Patient is supposed to be on diltiazem 120 mg daily, I have advised her to take a full pill of diltiazem 120 mg daily and we will check blood pressure in 1 week if blood pressure is elevated then we will increase the dosage to 120 mg twice daily. Also advised on measured blood pressure at home. Reduce salt intake, increase hydration and exercise with weight loss. Hyperlipidemia. -Last lipid panel within normal limits. Continue Atorvastatin 40 MG at night. Generalized anxiety/Major depressive disorder. - Mood stable on current regimen. She follows with psychiatrist. GERD. -Continue Protonix 20 MG daily. Insomnia. -Sleep is stable on hydroxyzine. Iron deficiency anemia. - She gets iron infusions every [address] Nash. CBC is within normal limits Morbid obesity. -Advised dietary restrictions and regimental exercise. Goal is to lose 5-6 lbs a month. Reticular veins. -She was seen by vascular surgeon sclerotherapy was recommended but she defers that for now. Degenerative disc disease/osteoarthr itis. -She follows up with physiatry and she has intra-articular injection bilateral knee joints and she uses a cane to walk. She needs help with activities of daily living at home especially lifting, bathing, toileting and transportation Acute sinusitis - She states that has been ongoing for the past 2 weeks. She admits to nasal congestion with reported nose. She admits to facial pressure. Physical examination is remarkable for tenderness along the sinuses area. I have started patient on amoxicillin, Flonase for nasal congestion as she can also take Tylenol as needed for pain. General health concerns discussed with patient. I have rendered the services for this patient under direct supervision of Dr. Taveras, who did not see the patient but was available upon request 09/03/2024 Calcaneal spur, unspecified foot (ICD-10 - M77.30) Mrs. Blanco is a 48-year-old lady with DM type II with neuropathy and she sees card cutter, hypertension, hyperlipidemia, acid reflux and chronic back [...] spur - We will refer patient to stamp pad maker I have rendered the services for this patient under direct supervision of Dr. Taveras, who did not see the patient but was available upon request 02/17/2024 Essential (primary) hypertension (ICD-10 - I10) Mrs. Blanco is a 48-year-old lady with DM type II with neuropathy and she sees card cutter, hypertension, hyperlipidemia, acid reflux and chronic back pain and follows up with physiatry Dr. Priest here here for annual physical. Plan is as follows: Type II diabetes mellitus with neuropathy. A1c 6.0. Fasting sugars 126. She is on right medications. She has seen her employment programs analyst in the past 1 year. Foot care [...] and transportation Eye screening. She sees her employment programs analyst regularly. Dental screening. She sees dentist regularly. Colon cancer screening. Referred to GI for colonoscopy. Breast cancer screening. She is up-to-date on her mammogram. Female screening. She follows up with her intermodal owner operator truck driver for breast and pelvic exams. Immunizations. She [...] Patient agrees to use of scribes services. 08/20/2024 Major depressive disorder, recurrent, moderate (ICD-10 - F33.1) Mrs. Blanco is a 48-year-old lady with DM type II with neuropathy and she sees card cutter, hypertension, hyperlipidemia, acid reflux and chronic back pain and follows up with physiatry Dr. Priest here here for Follow-up. Plan is as follows: Type II diabetes mellitus with neuropathy. -A1c 6.2. Fasting sugars 126. She is on right medications. She has seen her employment programs analyst in the past 1 year. Foot care discussed. She follows with endocrinology and recently they added Semaglutide tablets to the regimen. Hypertension. -Blood pressure Is elevated in the office today. She admits that home it runs high with symptoms of headache. She has been taken half a pill daily. Patient is supposed to be on diltiazem 120 mg daily, I have advised her to take a full pill of diltiazem 120 mg daily and we will check blood pressure in 1 week if blood pressure is elevated then we will increase the dosage to 120 mg twice daily. Also advised on measured blood pressure at home. Reduce salt intake, increase hydration and exercise with weight loss. Hyperlipidemia. -Last lipid panel within normal limits. Continue Atorvastatin 40 MG at night. Generalized anxiety/Major depressive disorder. - Mood stable on current regimen. She follows with psychiatrist. GERD. -Continue Protonix 20 MG daily. Insomnia. -Sleep is stable on hydroxyzine. Iron deficiency anemia. - She gets iron infusions every [address] Nash. CBC is within normal limits Morbid obesity. -Advised dietary restrictions and regimental exercise. Goal is to lose 5-6 lbs a month. Reticular veins. -She was seen by vascular surgeon sclerotherapy was recommended but she defers that for now. Degenerative disc disease/osteoarthr itis. -She follows up with physiatry and she has intra-articular injection bilateral knee joints and she uses a cane to walk. She needs help with activities of daily living at home especially lifting, bathing, toileting and transportation Acute sinusitis - She states that has been ongoing for the past 2 weeks. She admits to nasal congestion with reported nose. She admits to facial pressure. Physical examination is remarkable for tenderness along the sinuses area. I have started patient on amoxicillin, Flonase for nasal congestion as she can also take Tylenol as needed for pain. General health concerns discussed with patient. I have rendered the services for this patient under direct supervision of Dr. Taveras, who did not see the patient but was available upon request 02/17/2024 Major depressive disorder, recurrent, moderate (ICD-10 - F33.1) Mrs. Blanco is a 48-year-old lady with DM type II with neuropathy and she sees card cutter, hypertension, hyperlipidemia, acid reflux and chronic back pain and follows up with physiatry Dr. Priest here here for annual physical. Plan is as follows: Type II diabetes mellitus with neuropathy. A1c 6.0. Fasting sugars 126. She is on right medications. She has seen her employment programs analyst in the past 1 year. Foot care [...] and transportation Eye screening. She sees her employment programs analyst regularly. Dental screening. She sees dentist regularly. Colon cancer screening. Referred to GI for colonoscopy. Breast cancer screening. She is up-to-date on her mammogram. Female screening. She follows up with her intermodal owner operator truck driver for breast and pelvic exams. Immunizations. She [...] type II with neuropathy and she sees card cutter, hypertension, hyperlipidemia, acid reflux and chronic back pain and follows up with physiatry Dr. Priest here here for annual physical. Plan is as follows: Type II diabetes mellitus with neuropathy. A1c 6.0. Fasting sugars 126. She is on right medications. She has seen her employment programs analyst in the past 1 year. Foot care [...] and transportation Eye screening. She sees her employment programs analyst regularly. Dental screening. She sees dentist regularly. Colon cancer screening. Referred to GI for colonoscopy. Breast cancer screening. She is up-to-date on her mammogram. Female screening. She follows up with her intermodal owner operator truck driver for breast and pelvic exams. Immunizations. She [...] Patient agrees to use of scribes services. 08/20/2024 Insomnia, unspecified (ICD-10 - G47.00) Mrs. Blanco is a 48-year-old lady with DM type II with neuropathy and she sees card cutter, hypertension, hyperlipidemia, acid reflux and chronic back pain and follows up with physiatry Dr. Priest here here for Follow-up. Plan is as follows: Type II diabetes mellitus with neuropathy. -A1c 6.2. Fasting sugars 126. She is on right medications. She has seen her employment programs analyst in the past 1 year. Foot care discussed. She follows with endocrinology and recently they added Semaglutide tablets to the regimen. Hypertension. -Blood pressure Is elevated in the office today. She admits that home it runs high with symptoms of headache. She has been taken half a pill daily. Patient is supposed to be on diltiazem 120 mg daily, I have advised her to take a full pill of diltiazem 120 mg daily and we will check blood pressure in 1 week if blood pressure is elevated then we will increase the dosage to 120 mg twice daily. Also advised on measured blood pressure at home. Reduce salt intake, increase hydration and exercise with weight loss. Hyperlipidemia. -Last lipid panel within normal limits. Continue Atorvastatin 40 MG at night. Generalized anxiety/Major depressive disorder. - Mood stable on current regimen. She follows with psychiatrist. GERD. -Continue Protonix 20 MG daily. Insomnia. -Sleep is stable on hydroxyzine. Iron deficiency anemia. - She gets iron infusions every [address] Nash. CBC is within normal limits Morbid obesity. -Advised dietary restrictions and regimental exercise. Goal is to lose 5-6 lbs a month. Reticular veins. -She was seen by vascular surgeon sclerotherapy was recommended but she defers that for now. Degenerative disc disease/osteoarthr itis. -She follows up with physiatry and she has intra-articular injection bilateral knee joints and she uses a cane to walk. She needs help with activities of daily living at home especially lifting, bathing, toileting and transportation Acute sinusitis - She states that has been ongoing for the past 2 weeks. She admits to nasal congestion with reported nose. She admits to facial pressure. Physical examination is remarkable for tenderness along the sinuses area. I have started patient on amoxicillin, Flonase for nasal congestion as she can also take Tylenol as needed for pain. General health concerns discussed with patient. I have rendered the services for this patient under direct supervision of Dr. Taveras, who did not see the patient but was available upon request 02/17/2024 Iron deficiency anemia, unspecified (ICD-10 - D50.9) Mrs. Blanco is a 48-year-old lady with DM type II with neuropathy and she sees card cutter, hypertension, hyperlipidemia, acid reflux and chronic back pain and follows up with physiatry Dr. Priest here here for annual physical. Plan is as follows: Type II diabetes mellitus with neuropathy. A1c 6.0. Fasting sugars 126. She is on right medications. She has seen her employment programs analyst in the past 1 year. Foot care [...] and transportation Eye screening. She sees her employment programs analyst regularly. Dental screening. She sees dentist regularly. Colon cancer screening. Referred to GI for colonoscopy. Breast cancer screening. She is up-to-date on her mammogram. Female screening. She follows up with her intermodal owner operator truck driver for breast and pelvic exams. Immunizations. She [...] Patient agrees to use of scribes services. 08/20/2024 Iron deficiency anemia, unspecified (ICD-10 - D50.9) Mrs. Blanco is a 48-year-old lady with DM type II with neuropathy and she sees card cutter, hypertension, hyperlipidemia, acid reflux and chronic back pain and follows up with physiatry Dr. Priest here here for Follow-up. Plan is as follows: Type II diabetes mellitus with neuropathy. -A1c 6.2. Fasting sugars 126. She is on right medications. She has seen her employment programs analyst in the past 1 year. Foot care discussed. She follows with endocrinology and recently they added Semaglutide tablets to the regimen. Hypertension. -Blood pressure Is elevated in the office today. She admits that home it runs high with symptoms of headache. She has been taken half a pill daily. Patient is supposed to be on diltiazem 120 mg daily, I have advised her to take a full pill of diltiazem 120 mg daily and we will check blood pressure in 1 week if blood pressure is elevated then we will increase the dosage to 120 mg twice daily. Also advised on measured blood pressure at home. Reduce salt intake, increase hydration and exercise with weight loss. Hyperlipidemia. -Last lipid panel within normal limits. Continue Atorvastatin 40 MG at night. Generalized anxiety/Major depressive disorder. - Mood stable on current regimen. She follows with psychiatrist. GERD. -Continue Protonix 20 MG daily. Insomnia. -Sleep is stable on hydroxyzine. Iron deficiency anemia. - She gets iron infusions every [address] Nash. CBC is within normal limits Morbid obesity. -Advised dietary restrictions and regimental exercise. Goal is to lose 5-6 lbs a month. Reticular veins. -She was seen by vascular surgeon sclerotherapy was recommended but she defers that for now. Degenerative disc disease/osteoarthr itis. -She follows up with physiatry and she has intra-articular injection bilateral knee joints and she uses a cane to walk. She needs help with activities of daily living at home especially lifting, bathing, toileting and transportation Acute sinusitis - She states that has been ongoing for the past 2 weeks. She admits to nasal congestion with reported nose. She admits to facial pressure. Physical examination is remarkable for tenderness along the sinuses area. I have started patient on amoxicillin, Flonase for nasal congestion as she can also take Tylenol as needed for pain. General health concerns discussed with patient. I have rendered the services for this patient under direct supervision of Dr. Taveras, who did not see the patient but was available upon request 08/20/2024 Pain in unspecified joint (ICD-10 - M25.50) Mrs. Blanco is a 48-year-old lady with DM type II with neuropathy and she sees card cutter, hypertension, hyperlipidemia, acid reflux and chronic back pain and follows up with physiatry Dr. Priest here here for Follow-up. Plan is as follows: Type II diabetes mellitus with neuropathy. -A1c 6.2. Fasting sugars 126. She is on right medications. She has seen her employment programs analyst in the past 1 year. Foot care discussed. She follows with endocrinology and recently they added Semaglutide tablets to the regimen. Hypertension. -Blood pressure Is elevated in the office today. She admits that home it runs high with symptoms of headache. She has been taken half a pill daily. Patient is supposed to be on diltiazem 120 mg daily, I have advised her to take a full pill of diltiazem 120 mg daily and we will check blood pressure in 1 week if blood pressure is elevated then we will increase the dosage to 120 mg twice daily. Also advised on measured blood pressure at home. Reduce salt intake, increase hydration and exercise with weight loss. Hyperlipidemia. -Last lipid panel within normal limits. Continue Atorvastatin 40 MG at night. Generalized anxiety/Major depressive disorder. - Mood stable on current regimen. She follows with psychiatrist. GERD. -Continue Protonix 20 MG daily. Insomnia. -Sleep is stable on hydroxyzine. Iron deficiency anemia. - She gets iron infusions every [address] Nash. CBC is within normal limits Morbid obesity. -Advised dietary restrictions and regimental exercise. Goal is to lose 5-6 lbs a month. Reticular veins. -She was seen by vascular surgeon sclerotherapy was recommended but she defers that for now. Degenerative disc disease/osteoarthr itis. -She follows up with physiatry and she has intra-articular injection bilateral knee joints and she uses a cane to walk. She needs help with activities of daily living at home especially lifting, bathing, toileting and transportation Acute sinusitis - She states that has been ongoing for the past 2 weeks. She admits to nasal congestion with reported nose. She admits to facial pressure. Physical examination is remarkable for tenderness along the sinuses area. I have started patient on amoxicillin, Flonase for nasal congestion as she can also take Tylenol as needed for pain. General health concerns discussed with patient. I have rendered the services for this patient under direct supervision of Dr. Taveras, who did not see the patient but was available upon request 02/17/2024 Pain in unspecified joint (ICD-10 - M25.50) Mrs. Blanco is a 48-year-old lady with DM type II with neuropathy and she sees card cutter, hypertension, hyperlipidemia, acid reflux and chronic back pain and follows up with physiatry Dr. Priest here here for annual physical. Plan is as follows: Type II diabetes mellitus with neuropathy. A1c 6.0. Fasting sugars 126. She is on right medications. She has seen her employment programs analyst in the past 1 year. Foot care [...] and transportation Eye screening. She sees her employment programs analyst regularly. Dental screening. She sees dentist regularly. Colon cancer screening. Referred to GI for colonoscopy. Breast cancer screening. She is up-to-date on her mammogram. Female screening. She follows up with her intermodal owner operator truck driver for breast and pelvic exams. Immunizations. She [...] Patient agrees to use of scribes services. 08/20/2024 Acute sinusitis, unspecified (ICD-10 - J01.90) Mrs. Blanco is a 48-year-old lady with DM type II with neuropathy and she sees card cutter, hypertension, hyperlipidemia, acid reflux and chronic back pain and follows up with physiatry Dr. Priest here here for Follow-up. Plan is as follows: Type II diabetes mellitus with neuropathy. -A1c 6.2. Fasting sugars 126. She is on right medications. She has seen her employment programs analyst in the past 1 year. Foot care discussed. She follows with endocrinology and recently they added Semaglutide tablets to the regimen. Hypertension. -Blood pressure Is elevated in the office today. She admits that home it runs high with symptoms of headache. She has been taken half a pill daily. Patient is supposed to be on diltiazem 120 mg daily, I have advised her to take a full pill of diltiazem 120 mg daily and we will check blood pressure in 1 week if blood pressure is elevated then we will increase the dosage to 120 mg twice daily. Also advised on measured blood pressure at home. Reduce salt intake, increase hydration and exercise with weight loss. Hyperlipidemia. -Last lipid panel within normal limits. Continue Atorvastatin 40 MG at night. Generalized anxiety/Major depressive disorder. - Mood stable on current regimen. She follows with psychiatrist. GERD. -Continue Protonix 20 MG daily. Insomnia. -Sleep is stable on hydroxyzine. Iron deficiency anemia. - She gets iron infusions every [address] Nash. CBC is within normal limits Morbid obesity. -Advised dietary restrictions and regimental exercise. Goal is to lose 5-6 lbs a month. Reticular veins. -She was seen by vascular surgeon sclerotherapy was recommended but she defers that for now. Degenerative disc disease/osteoarthr itis. -She follows up with physiatry and she has intra-articular injection bilateral knee joints and she uses a cane to walk. She needs help with activities of daily living at home especially lifting, bathing, toileting and transportation Acute sinusitis - She states that has been ongoing for the past 2 weeks. She admits to nasal congestion with reported nose. She admits to facial pressure. Physical examination is remarkable for tenderness along the sinuses area. I have started patient on amoxicillin, Flonase for nasal congestion as she can also take Tylenol as needed for pain. General health concerns discussed with patient. I have rendered the services for this patient under direct supervision of Dr. Taveras, who did not see the patient but was available upon request Plan Of Treatment Pending Test Test Name [...] 08/20/2023 Next Appt Details Provider Name:Mario dean, 03/03/2025 08:00:00 AM, [address] [place] [address], [id number], Insurance Providers Payer Name Payer Address Payer Phone Subscriber Number Group Number Insured Name Patient Relationship to Insured Coverage Start Date Coverage End Date [facility]) [address] [address] [place] [address] [id number] Nell Blanco Self - patient is the insured Medical (General) History Medical History History ICD Code type II diabetes see Dr Penny Adan at [facility] Endocrinology And see ophthalmology every year hypertension, benign acid reflux Upper endoscopy in 2018 and was negative depression see a Councellor and Prescrib er Y Laryazan Back pain and she sees varicose veins Surgical History Surgery Date(Month/Year) left arm surgery
== END 2024-10-26 12:30 | disposition home or self-care (01) ==
LOC: HO.HSMS 11:26
PROVIDERS: PCP Hospitalist; Visit Provider Physician Assistant Medical
DX: M54.2 Cervicalgia (principal); G47.00 Insomnia, unspecified; R51.9 Headache, unspecified; G57.93 Unspecified mononeuropathy of bilateral lower limbs; R20.0 Anesthesia of skin; R20.2 Paresthesia of skin; R68.89 Other general symptoms and signs; R06.83 Snoring
CPT/HCPCS: 99214; G2211

== ENCOUNTER → 2024-10-26 11:25 | Outpatient (BNVA) | payer OTHER, SELFPAY | PROVIDERS: PCP Hospitalist; Visit Provider Physician Assistant Medical | DX: G43.909 Migraine, unspecified, not intractable, without status migrainosus (principal); G47.00 Insomnia, unspecified; G57.93 Unspecified mononeuropathy of bilateral lower limbs; M54.2 Cervicalgia; R20.0 Anesthesia of skin; R20.2 Paresthesia of skin; R68.89 Other general symptoms and signs; R06.83 Snoring | CPT/HCPCS: 99212 ==

== ENCOUNTER 2024-11-01 10:19 | Outpatient (AMB) | payer OTHER, SELFPAY ==
--- NOTE | 2024-11-01 10:28 | A.OFFVIS_ITS ---
Vital Signs 11/01/24 10:36 Height 5 ft 3 in Weight 229 lb 4.492 oz BMI 40.6 BP 153/80 H Blood Pressure Location Lt brachial Position Sitting Pulse 80 Intake Visit Reasons: 4 months f/u Intake Note: Nell presents in the office as a 4 month follow up. 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 Allergies No Known Allergies [No Known Allergies*] Allergy (Verified 11/01/24 10:41) HPI HPI 4 months f/u: Details: 49 yr old f here for f/u RECAP: she has chronic joint pains in back and spine--takes gabapentin ongoing depression with poor sleep--erratic hours EGD July 2019 with biopsies no H pylori, inactive gastritis GES was nml CT 03/2021-- ileus, fluid filled colon, wall thickening of distal stomach, EGD: 09/2021-- essentially normal US 03/28- GB with sludge vs polyp, otherwise nml GES 06/2022-- nml 4 hr emptying, fast in the 1st hour HIDA- 06/27---nml INTERIM: she feels 70-80% she thinks its the lansoprazole, she never took the colchcine, not sure why she still has headaches denies nausea or vomiting stress is the same very minimal abdominal pain EXAM: GENERAL: The patient is relaxed VITAL SIGNS:see workflow HEENT: Nonicteric sclerae, PERRLA, EOMI. Oropharynx clear. Moist mucous membranes. Conjunctivae appear well perfused. No thyroid mass. CHEST: Chest wall is nontender. HEART: Regular rate and rhythm without murmurs. LUNGS: Clear to auscultation bilaterally. ABDOMEN: Soft, positive bowel sounds, tender epigastrium, no organomegaly.no flank tenderness SKIN: No rash, no excessive bruising, petechiae, or purpura. NEUROLOGIC: Cranial nerves II-XII intact without motor/sensory deficit. A/P: 1/sx with upper abdo pain, reflux, depression---PPI helps but not fully, no other cause on imaging-- PLAN: 1/ cont with PPI, -lansoprazole --can reconsider colchicine if needed at future date [facility] Medical History Insomnia Hypotension Multinodular thyroid HLD (hyperlipidemia) HTN (hypertension) T2DM (type 2 diabetes mellitus) Vitamin D deficiency Surgical History History of esophagogastroduodenoscopy (EGD) Hx of colonoscopy Hx of esophagogastroduodenoscopy History of carpal tunnel surgery of left wrist Family History Father No family history of disorders History of high blood pressure Mother No family history of disorders Social History Household Members: Spouse and Children Housing: House Housing Other:: spouse/ kids Are you a primary director of career resources to a significant other at home: Yes Do you presently have visiting nurse or other home services: No Alcohol intake: never Patient Tobacco Use Status: Never used Tobacco service: No Current occupational status: unemployed Physical Exam Vital Signs: Last Vital Signs Pulse 80 11/01/24 10:36 BP 153/80 H 11/01/24 10:36 BMI result Body Mass Index 40.6 Assessment & Plan Assessment & Plan (1) Chronic GERD: Code(s): K21.9 - Gastro-esophageal reflux disease without esophagitis Category: Medical Plan: as above Medications: Refilled lansoprazole 30 mg PO BID 90 caps 3RF Coding Level of Care Code Est Pt Level 3 (75107) Diagnoses Chronic GERD K21.9
[2024-11-01 10:36] VITALS: BP 153/80; PULSE 80; BMI 40.6
--- OUTSIDE RECORDS SUMMARY | 2024-11-01 12:00 | XMS_ITS | Clinical Summary ---
Author Organization [facility] Address [address] [place] [address] Care Team Providers Care Manager Vehicle Name Role Phone Rochelle Engel PA-C Primary Care Provider [phone] Source Comments PLEASE NOTE, if this patient is a minor, it may be UNLAWFUL to discuss sensitive information that is contained in these records (such as FAMILY PLANNING, MENTAL HEALTH or SUBSTANCE ABUSE) with the minor patient's parent or other person without the patient's specific authorization.[facility] Allergies No known active allergies Medications blood-glucose meter monitoring kitIndications:DM type 2 (diabetes mellitus, type 2) ([facility]) as needed for blood glucose monitoring. Quantity: 1 meter freestyle lite. DX: 250.00 for a lifetime. 1 Each 0 08/19/19 15 Active lancetsIndication s:Type 2 diabetes mellitus without complication ([facility]) FREESTYLE. USE BID PRN. DX: 250.00 50 Each 11 03/20/20 15 Active etonogestrel-ethi nyl estradiol (NUVARING) 0.12-0.015 mg/24 hr vaginal ringIndications:F amily planning, contraceptive checking and surveillance Place 1 Each vaginally once. PER ROTARY MACHINE OPERATOR. Leave in place for 3 consecutive weeks, then remove for 1 week. 1 Each 08/11/19 16 Active Miscellaneous Medical Supply miscIndications:E ssential hypertension by miscellaneous route once daily. BLOOD PRESSURE MACHINE. DX: HTN 1 Each 0 12/12/19 16 Active fluticasone (FLONASE) 50 mcg/actuation nasal sprayIndications: Allergic otitis media of both ears, unspecified chronicity Place 1 [place] into the nostril(s) once daily. 16 g 1 02/26/20 16 Active metFORMIN (GLUMETZA) 500 mg 24 hr tabletIndications :Type 2 diabetes mellitus without complication, without long-term current use of insulin ([facility]) Take 2 Tabs by mouth once daily with dinner. Swallow whole. Do not break, crush or chew. 180 Tab 1 02/26/20 16 Active pregabalin (LYRICA) 50 mg capsuleIndication s:Fibromyalgia Take 1 Cap by mouth 2 (two) times daily. PER DR. RODRIGUEZ 05/23/20 16 Active blood sugar diagnostic (FREESTYLE TEST) stripsIndications :Type 2 diabetes mellitus without complication, without long-term current use of insulin ([facility]) 1 Strip 2 (two) times daily. Pt [...] Active Problems Problem Noted Date Diagnosed Date Non-Tuvaluan speaking patient- Turkish speaking control counseling 04/24/2016 Overview (04/24/2016): Advised stop NR- and ref to meterman for ? Tubal 04/24/16 Essential hypertension 05/23/2015 [...] Morbid obesity with BMI of 40.0-44.9, adult ([facility]) 09/28/2008 TB lung, latent 09/28/2008 Overview (07/15/2013): +PPD=10 mm 09/30/08; TX 12/13/08 @ [facility] Hirsutism Overview (07/15/2013): Per Derm Dr. Woodall Varicosities of leg Fibromyalgia Overview (07/15/2013): Dx: 2009 per [facility] Depression Overview (08/11/2015): Per psych Dr. Granado. Currently does not see anyone. Seeing Dania here. Insomnia Overview (08/11/2015): Formerly seen by Dr. Granado. Now seeing socially responsible investment adviser Dania. Immunizations Immunization Administration Dates Next Due [...] [facility] D[facility] MED[facility] Care Teams Manager Vehicle Relationship Specialty Start Date End Date Rochelle Engel PA-C [address] [place] [address] PCP - General 09/01/18
--- OUTSIDE RECORDS SUMMARY | 2024-11-01 12:00 | XMS_ITS ---
Author Organization [facility] Address [address] [place] [address] Care Team Providers Care Medical Coding Auditor Name Role Phone ABIGAIL TAVERAS Primary Care Provider [phone] Mario Jesus Unavailable [phone] Allergies No Known Allergies Reason For Referral Reason Please evaluate and treat Diagnosis 1 Calcaneal spur, unsp ecified foot (M77.30) Referral Organization [facility] ter Referring Provider First Name Mario Referring [...] 1 tablet Orally t wice daily Active Miseqjsn-Lhhdobyhd-AH 3.5-25594-6 4 drops into affected ear Otic Three [...] 09/03/2024 Encounters Encounter Location Date Provider Diagnosis [facility] [address] [address] 09/03/2024 Alexismalvin Wenmarissa Essential (primary) hypertension I10 ; Otalgia, unspecified ear H92.09 and Calcaneal spur, unspecified foot M77.30 Assessments Encounter Date Diagnosis (ICD Code) Assessment Notes Treatment Notes Treatment Clinical Notes Section Notes 09/03/2024 Essential (primary) hypertension (ICD-10 - I10) Mrs. Blanco is a 48-year-old lady with DM type II with neuropathy and she sees cutter in, hypertension, hyperlipidemia, acid reflux and chronic back [...] spur - We will refer patient to glue machine operator I have rendered the services for this patient under direct supervision of Dr. Taveras, who did not see the patient but was available upon request 09/03/2024 Otalgia, unspecified ear (ICD-10 - H92.09) Mrs. Blanco is a 48-year-old lady with DM type II with neuropathy and she sees cutter in, hypertension, hyperlipidemia, acid reflux and chronic back [...] spur - We will refer patient to glue machine operator I have rendered the services for this patient under direct supervision of Dr. Taveras, who did not see the patient but was available upon request 09/03/2024 Calcaneal spur, unspecified foot (ICD-10 - M77.30) Mrs. Blanco is a 48-year-old lady with DM type II with neuropathy and she sees cutter in, hypertension, hyperlipidemia, acid reflux and chronic back [...] spur - We will refer patient to glue machine operator I have rendered the services for this patient under direct supervision of Dr. Taveras, who did not see the patient but was available upon request Plan Of Treatment Medication Medication Name Sig Start Date Stop Date Notes Imlwqnhm-Urpmtokal-YU 3.5-73875-6 4 drops into affected ear Otic Three times a day for 7 days 09/03/2024 Referrals Referral Date Details 09/05/2024 09/05/2024, Please e valuate and treat Next Appt Details Follow Up: 6 Months, Reason: Provider Name:Mario Zamudio jermaine, 03/03/2025 08:00:00 AM, [address] [address], [place], [address], Progress Notes * Nell BLANCODOB: [birth year] (48 yo F)Acc No.[id number]:09/03/2024 Progress Notes Patient:?Nell BLANCO Provider:?Mario Gillanalisa :1975???Age:48 Y???Sex:Female D ate:09/03/2024 Address:[address] [place], [place] [id number] Pcp:ABIGAIL TAVERAS Subjective: * Chief Complaints: * ???1 week follow up * HPI: ???Internal Medicine:?Mrs. Blanco is a 48-year-old lady with DM type II with neuropathy and she sees cutter in, hypertension, hyperlipidemia, acid reflux and chronic back [...] and lower extremities, sensory exam intact.?FEMALE GENITOURINARY:?__.?MALE GENITOURINARY:?__.?PODIATRIC:?Normal.?Web Application Developer? .? Assessment: * Assessment: 1.?Essential (primary) hyper tension - I10 (Primary)???2.?Otalgia, unspecified ear - H92.09???3.?Calcaneal spur, unspecified foot - M77.30??? Mrs. Blanco is a 48-year-old lady with DM type II with neuropathy and she sees cutter in, hypertension, hyperlipidemia, acid reflux and chronic back [...] spur - We will refer patient to glue machine operator I have rendered the services for this patient under direct supervision of Dr. Taveras, who did not see the patient but was available upon request Plan: * Treatment: 2.?Calcaneal spur, unspecifi ed foot? Referral To:Podiatry ?Reason:Please evaluate and treat * Procedure Codes:?3078F DIAST BP < 80 MM DE8530G SYST BP GE 130 - 139MM HG * Follow Up:?6 Months * * Sign off status: Completed true * Provider:?Mario Jesus Date:?09/03/19 Generated for Glenn eden/Rajinder/Aaron on:?11/01/2024 12:00 PM EDT History and Physical Notes * HPI (History of Present Illness) Category Sub-Category Detail Notes Category Not es Internal Medicine Mrs. Dalia ibarra is a 48-year-old lady with DM type II with neuropathy and she sees cutter in, hypertension, hyperlipidemia, acid reflux and chronic back [...] Normal PODIATRIC: Normal Psychiatry Normal OROPHARYNX Normal Web Application Developer Consultation Request Notes Referral Date Referring Provider Referred Provider Not es 09/05/2024 Mario Jesus , Please eval uate and treat
--- OUTSIDE RECORDS SUMMARY | 2024-11-01 12:00 | XMS_ITS | Clinical Summary ---
Author Organization [facility] Address [address] [place] [address] Phone Care Team Providers Care Airborne Operations Name Role Phone Brianna Arauz MD Primary Care Provider [phone] Allergies No known active allergies Medications pioglitazone [...] CT scan is recommended by the [employer] chest pain guidelines (level [...] Last Assessment & Plan: This delightful 47-year-old Mohawk woman has recurrent palpitations that appear to [...] and ablation strategies with her using a cook room supervisor. I went through the procedure for an [...] Encounters Date Type Department Care Team Description 10/27/2024 2:30 PM EDT Evaluation [facility] [address] [place] [address] Delia Oneil, PT Bilateral foot pain (Primary Dx); Calcaneal spur of both feet 10/13/2024 3:00 PM EDT Ancillary Procedure [facility] [address] [place] [id number] Atrial tachycardia ([facility] V24) 09/24/2024 Telephone [facility] [address] [facility] [address] [place] [address] Andi Terrell MD Appointment (Coronary CTA) 09/17/2024 10:20 AM EDT Office Visit [facility] [address] [place] [address] Andi Terrell MD Atrial tachycardia ([facility] V24) (Primary Dx); Essential hypertension; Pure hypercholesterolem ia; Other chest pain; Atrial fibrillation, unspecified type (CMS/HCC V24, CMS/HCC V28) 09/17/2024 Telephone [facility] [address] [place] [address] Andi Terrell MD from Last [...] Upcoming Encounters Date Type Department Care Team (Late st Contact Info) Description 11/15/2024 12:30 PM EDT Ancillary Procedure [facility] [address] [place] [address] Health Maintenance Due Date Last Done Comments [...] on patient's age to complete this topic Goals Goal Patient Goal Type Associated Problems Recent Progress Patient-Stated? Author LTGs (x6 visits) General Yes Delia Oneil, PT Note: Improve R ankle dorsiflexion ROM to >/=5 degrees for gait mechanics Improve R ankle plantarflexion ROM to >/=55 for symmetry and gait mechanics Improve R dorsiflexion and plantarflexion strength to 5/5 for improvements in strength and stability for standing and ambulation Decrease R gastroc/soleus myofascial restriction to mild Patient will be independent with HEP for maintenance and progression of gains made in skilled physical therapy Procedures Procedure Name Priority Date/Time Associated Diagnosis [...] LAB CHEMISTRY METHOD 10/21/2024 5:48 PM EDT [facility] Blood Venous blood specimen / Unknown Venipuncture / Unknown 10/21/2024 3:50 PM EDT 10/21/2024 4:11 PM EDT [facility] BLOOD ORDERABLES Final Res ult Performing Organization Address City/[facility]/ZIP Co de Phone Number [facility] [address] [place] [address], [place] [phone] * (ABNORMAL) Vitamin D 25 hydroxy (10/21/2024 3:50 PM EDT) Vit D, 25-Hydroxy 20.4(L) 30.0 - 80.0 ng/mL LAB CHEMISTRY METHOD 10/21/2024 5:47 PM EDT [facility] Blood Venous blood specimen / Unknown Venipuncture / Unknown 10/21/2024 3:50 PM EDT 10/21/2024 4:11 PM EDT [facility] LAB BLOOD ORDERABLES Final Res ult Performing Organization Address [facility] de Phone Number [facility] [address] [place] [address], [place] [phone] * Sedimentation rate (10/21/2024 3:50 PM EDT) Pathologist [facility] Sed Rate 5 0 - 20 mm/hr LAB HEMETOLOGY METHOD 10/21/2024 4:24 PM EDT [facility] Blood Venous blood specimen / Unknown Venipuncture / Unknown 10/21/2024 3:50 PM EDT 10/21/2024 4:10 PM EDT [facility] LAB BLOOD ORDERABLES Final Res ult [facility] [address] [place] [address], [place] [phone] * Rheumatoid factor (10/21/2024 3:50 PM EDT) [facility] Rheumatoid Factor <10.0 <15.0 I Unit/mL LAB CHEMISTRY METHOD 10/21/2024 4:53 PM EDT [facility] Blood Venous blood specimen / Unknown Venipuncture / Unknown 10/21/2024 3:50 PM EDT 10/21/2024 4:11 PM EDT [facility] BLOOD ORDERABLES Final Res ult Performing Organization Address [facility]/ZIP Co de Phone Number [facility] [address] [place] [address], [place] [phone] * Vitamin B12 (10/21/2024 3:50 PM EDT) [facility] Vitamin B-12 796 250 - 900 pcg/mL LAB CHEMISTRY METHOD 10/21/2024 5:17 PM EDT [facility] Blood Venous blood specimen / Unknown Venipuncture / Unknown 10/21/2024 3:50 PM EDT 10/21/2024 4:11 PM EDT [facility] LAB BLOOD ORDERABLES Final Res ult [facility] [address] [place] [address], [place] [phone] * Comprehensive metabolic panel (10/21/2024 3:50 PM EDT) Only the most recent of2 resultswithin the time period is included. [facility] Sodium 140 133 - 145 mmol/L LAB CHEMISTRY METHOD 10/21/2024 5:17 PM EDT [facility] Potassium 4.0 3.5 - 5.5 mmol/L LAB CHEMISTRY METHOD 10/21/2024 5:17 PM [facility] Chloride 107 96 - 110 mmol/L LAB CHEMISTRY METHOD 10/21/2024 5:17 PM [facility] CO2 24 21 - 32 mmol/L LAB CHEMISTRY METHOD 10/21/2024 5:17 PM [facility] Anion Gap 9 3 - 11 LAB CHEMISTRY METHOD 10/21/2024 5:17 PM [facility] Glucose 81 70 - 100 mg/dL LAB CHEMISTRY METHOD 10/21/2024 5:17 PM [facility] BUN 13 5 - 25 mg/dL LAB CHEMISTRY METHOD 10/21/2024 5:17 PM [facility] Creatinine 0.60 0.50 - 1.10 mg/dL LAB CHEMISTRY METHOD 10/21/2024 5:17 PM [facility] eGFR 112 >=60 mL/min/1. 73m2 LAB CHEMISTRY METHOD 10/21/2024 5:17 PM [facility] Comment:Calculation based on the??Chronic Kidney Disease Epidemiology Collaboration (CKD-EPI) equation refit??without adjustment for race. BUN/Creatinine Ratio 21.7 LAB CHEMISTRY METHOD 10/21/2024 5:17 PM [facility] Calcium 9.4 8.5 - 10.5 mg/dL LAB CHEMISTRY METHOD 10/21/2024 5:17 PM [facility] AST (SGOT) 15 10 - 42 unit/L LAB CHEMISTRY METHOD 10/21/2024 5:17 PM [facility] ALT (SGPT) 17 10 - 60 unit/L LAB CHEMISTRY METHOD 10/21/2024 5:17 PM [facility] Alkaline Phosphatase 61 42 - 121 unit/L LAB CHEMISTRY METHOD 10/21/2024 5:17 PM [facility] Total Protein 6.8 6.0 - 8.0 g/dL LAB CHEMISTRY METHOD 10/21/2024 5:17 PM EDT [facility] Albumin 3.6 3.2 - 5.0 g/dL LAB CHEMISTRY METHOD 10/21/2024 5:17 PM EDT [facility] Total Bilirubin 0.3 0.0 - 1.4 mg/dL LAB CHEMISTRY METHOD 10/21/2024 5:17 PM EDT [facility] Blood Venous blood specimen / Unknown Venipuncture / Unknown 10/21/2024 3:50 PM EDT 10/21/2024 4:11 PM EDT us Bella Priest DO LAB BLOOD ORDERABLES Final Res ult [facility] [address] [place] [address], [place] [phone] * Lipid panel with reflex to direct LDL (09/30/2024 10:19 AM EDT) Cholesterol 140 0 - 200 mg/dL LAB CHEMISTRY METHOD 09/30/2024 11:48 AM [facility] Triglycerides 81 0 - 150 mg/dL LAB CHEMISTRY METHOD 09/30/2024 11:48 AM [facility] HDL 43 >=40 mg/dL LAB CHEMISTRY METHOD 09/30/2024 11:48 AM T [facility] LDL Calculated 81 0 - 100 mg/dL LAB CHEMISTRY METHOD 09/30/2024 11:48 AM T [facility] VLDL Cholesterol Gorge 16.2 mg/dL LAB CHEMISTRY METHOD 09/30/2024 11:48 AM EDT [facility] Non HDL Chol. (LDL+VLDL) 97 <145 mg/dL LAB CHEMISTRY METHOD 09/30/2024 11:48 AM [facility] Chol/HDL Ratio 3.3 0.0 - 4.4 LAB CHEMISTRY METHOD 09/30/2024 11:48 AM EDT [facility] Blood Venous blood specimen / Unknown Venipuncture / Unknown 09/30/2024 10:19 AM EDT 09/30/2024 10:47 AM EDT Andi Terrell MD LAB BLOOD ORDERABLES F inal Result [facility] [address] [place] [address], * CBC auto differential (09/30/2024 10:19 AM EDT) WBC 6.1 4.8 - 10.8 K/mcL LAB HEMETOLOGY METHOD 09/30/2024 11:09 AM [facility] RBC 4.60 3.80 - 4.80 M/mcL LAB HEMETOLOGY METHOD 09/30/2024 11:09 AM [facility] Hemoglobin 12.9 11.5 - 16.0 g/dL LAB HEMETOLOGY METHOD 09/30/2024 11:09 AM [facility] Hematocrit 40.1 35.0 - 47.0 % LAB HEMETOLOGY METHOD 09/30/2024 11:09 AM [facility] MCV 87.7 79.0 - 98.0 FL LAB HEMETOLOGY METHOD 09/30/2024 11:09 AM [facility] MCH 28.2 27.0 - 32.0 pcg LAB HEMETOLOGY METHOD 09/30/2024 11:09 AM [facility] MCHC 32.2 32.0 - 37.0 g/dL LAB HEMETOLOGY METHOD 09/30/2024 11:09 AM [facility] RDW 13.4 11.0 - 15.0 % LAB HEMETOLOGY METHOD 09/30/2024 11:09 AM [facility] Platelets 277 130 - 400 K/mcL LAB HEMETOLOGY METHOD 09/30/2024 11:09 AM [facility] MPV 10.2 7.0 - 11.0 FL LAB HEMETOLOGY METHOD 09/30/2024 11:09 AM [facility] NRBC 0.0 <1.0 % LAB HEMETOLOGY METHOD 09/30/2024 11:09 AM [facility] NRBC Absolute 0.00 <0.10 K/mcL LAB HEMETOLOGY METHOD 09/30/2024 11:09 AM [facility] Neutrophils Relative 54.5 % LAB HEMETOLOGY METHOD 09/30/2024 11:09 AM [facility] Lymphocytes Relative 28.8 % LAB HEMETOLOGY METHOD 09/30/2024 11:09 AM [facility] Monocytes Relative 9.4 % LAB HEMETOLOGY METHOD 09/30/2024 11:09 AM [facility] Eosinophils Relative 6.0 % LAB HEMETOLOGY METHOD 09/30/2024 11:09 AM [facility] Basophils Relative 0.8 % LAB HEMETOLOGY METHOD 09/30/2024 11:09 AM [facility] Immature Granulocytes Relative 0.5 % LAB HEMETOLOGY METHOD 09/30/2024 11:09 AM [facility] Neutrophils Absolute 3.34 1.50 - 7.00 K/mcL LAB HEMETOLOGY METHOD 09/30/2024 11:09 AM [facility] Lymphocytes Absolute 1.77 1.00 - 5.00 K/mcL LAB HEMETOLOGY METHOD 09/30/2024 11:09 AM [facility] Monocytes Absolute 0.58 0.20 - 1.00 K/mcL LAB HEMETOLOGY METHOD 09/30/2024 11:09 AM [facility] Eosinophils Absolute 0.37 0.00 - 0.50 K/[facility] LAB HEMETOLOGY METHOD 09/30/2024 11:09 AM EDT [facility] Basophils Absolute 0.05 0.00 - 0.20 K/[facility] LAB HEMETOLOGY METHOD 09/30/2024 11:09 AM EDT [facility] Immature Granulocytes Absolute 0.03 0.00 - 0.03 K/[facility] LAB HEMETOLOGY METHOD 09/30/2024 11:09 AM EDT [facility] Blood Venous blood specimen / Unknown Venipuncture / Unknown 09/30/2024 10:19 AM EDT 09/30/2024 10:54 AM EDT Andi Terrell MD LAB BLOOD ORDERABLES F inal Result Performing Organization Address City/[facility]/ZIP Co de Phone Number [facility] [address] [place] [address], [place] [phone] * (ABNORMAL) Magnesium (09/30/2024 10:19 AM EDT) Pathologist [facility] Magnesium 1.8(L) 1.9 - 2.6 mg/dL LAB CHEMISTRY METHOD 09/30/2024 11:40 AM EDT [facility] Blood Venous blood specimen / Unknown Venipuncture / Unknown 09/30/2024 10:19 AM EDT 09/30/2024 10:47 AM EDT Andi Terrell MD LAB BLOOD ORDERABLES F inal Result [facility] [address] [place] [address], [place] [phone] * ECG 12 lead (09/17/2024 10:41 AM EDT) Ventricular Rate ECG 77 BPM GEMUSE Atrial Rate 77 BPM GEMUSE P-R Interval 170 ms GEMUSE QRS Duration 84 ms GEMUSE Q-T Interval 382 ms GEMUSE QTc 432 ms GEMUSE P Wave [place] 64 degrees GEMUSE R [place] 72 degrees GEMUSE T [place] 70 degrees GEMUSE ECG Interpretation Normal sinus [...] Result GEMUSE from Last 3 Months Insurance [facility] Care Teams Airborne Operations Relationship Specialty Start Date End Date Brianna Arauz MD [address] [place] [id number] PCP - General Internal Medicine 01/26/20
--- OUTSIDE RECORDS SUMMARY | 2024-11-01 12:00 | XMS_ITS | Encounter Summary ---
Author Organization [facility] Address [address] [place] [address] Care Team Providers Care Pals Specialist Name Role Phone Brianna Arauz MD Primary Care Provider [phone] Reason for Visit * Consultation (Routine) - Authorized Specialty Diagnoses / Procedures Referred By Contrio begum Referred To Contact Physical Therapy Diagnoses Bilateral foot pain Calcaneal spur of both feet Bella Priest DO [address] [place] [address] Phone: tel: fax: [address] [address] Phone: tel: fax: Referral ID Status Reason Start Date Expiration Date Visits Requested Visits Authorized [id number] Authorized Specialty Services Required 09/13/2024 09/13/2025 20 20 Encounter Details Date Type Department Care Team (Latest Contact Info) Description 10/27/2024 2:30 PM EDT Evaluation [address] [address] Delia Oneil, PT Bilateral foot pain (Primary Dx); Calcaneal spur of both feet Social History Tobacco Use Types Packs/Day Years [...] as of this encounter Progress Notes * Delia Oneil, PT - 10/27/2024 2:30 PM EDT Images from the original note were not included. [facility] - Outpatient PHYSICAL THERAPY EVALUATION Date: 10/27/2024 Visit Number: 1 Patient Name: Nell Gomezammed : 1975 Age: 48 y.o. Gender: female Diagnosis: ICD-10-CM ICD-9-CM 1. Bilateral foot pain M79.671 729.5 Ambulatory referral to Physical Therapy and Athletic Training M79.672 2. Calcaneal spur of both feet M77.31 726.73 Ambulatory referral to Physical Therapy and Athletic Training M77.32 Date of Onset/Surgery: 10/27/2024 Referring Provider: Bella Priest DO Insurance: [facility] ScheduleSoft PLAN / Plan: [employer]ICA[employer] / Product Type: *No Product type* / Patient identified by: Delia Oneil, PT Language: Video Shipping [employer] Receiving Associate service provided for pt. preferred language of Macedonian. Shipping And Receiving Associate # [id number] Chart Reviewed: Yes Medications: Current Outpatient Medications on File Prior to Visit Medication Sig Dispense Refill ANTIFUNGAL, CLOTRIMAZOLE, TOP Apply topically. aspirin 81 mg EC tablet Take 1 tablet (81 mg total) by mouth 1 (one) time each day. 90 each 3 atorvastatin (LIPITOR) 10 mg tablet Take 1 tablet (10 mg total) by mouth at bedtime. baclofen (LIORESAL) 5 mg tablet Take 1 tablet (5 mg total) by mouth 3 (three) times a day. cholecalciferol (Vitamin D3) 5,000 Units tablet Take 1 tablet (5,000 Units total) by mouth 1 (one) time each day. DICLOFENAC SODIUM TOP Place on the skin. dilTIAZem CD (CARDIZEM CD) 120 mg 24 hr capsule Take 1 capsule (120 mg total) by mouth 1 (one) timeeach day. 30 each 11 DULoxetine (CYMBALTA) [address] capsule Take 1 capsule (30 mg total) by mouth 1 (one) time each day.Do not crush or chew. empagliflozin (Jardiance) 25 mg tablet Take 1 tablet (25 mg total) by mouth 1 (one) time each day. gabapentin (NEURONTIN) 300 mg capsule 1 capsule (300 mg total). hydrocortisone 1 % lotion Apply topically 2 (two) times a day. hydrOXYzine pamoate (VISTARIL) 25 mg capsule Take 1 capsule (25 mg total) by mouth 3 (three) times a day if needed for itching. liraglutide (SAXENDA) 3 mg/0.5 mL (18 mg/3 mL) injection Inject under the skin 1 (one) time each day. lisinopriL (PRINIVIL,ZESTRIL) 10 mg tablet Take 1 tablet (10 mg total) by mouth 1 (one) time each day. LORazepam (ATIVAN) 0.5 mg tablet Take 1 tablet (0.5 mg total) by mouth every 6 (six) hours if needed for anxiety. Max Daily Amount: 2 mg multivitamin with minerals tablet Take 1 tablet by mouth 1 (one) time each day. pioglitazone (ACTOS) 30 mg tablet Take 1 tablet (30 mg total) by mouth 1 (one) time each day. propafenone SR (RYTHMOL SR) 225 mg 12 hr capsule Take 1 capsule (225 mg total) by mouth 2 (two) times a day. Do not crush, chew, or split. 60 capsule 11 senna (SENOKOT) 8.6 mg tablet Take 1 tablet (8.6 mg total) by mouth 1 (one) time each day. zolpidem (AMBIEN) 10 mg tablet Take 1 tablet (10 mg total) by mouth at bedtime as needed for sleep.Max Daily Amount: 10 mg No current facility-administered medications on file prior to visit. Discussed current medications that may impact therapy. Medication list obtained and reviewed. Referto document in medical record. Advised Patient to contact MD with any questions regarding medications and importance of managing medication information. has a past medical history of Acid reflux, Back pain, Chronic back pain, GERD (gastroesophageal reflux disease), HTN (hypertension), Hypercholesterolemia, Hypertension (12/31/2022), Other chest pain (09/17/2024), Supraventricular tachycardia (CMS/HCC V24) (12/24/2022), and Type 2 diabetes mellitus (CMS/HCC V24, CMS/HCC V28). has a past surgical history that includes Hand surgery. has No Known Allergies. Precautions: None Concurrent Services: No Concurrent Services Previous Medical Care/Therapy: NA SUBJECTIVE History of Present Illness/Subjective Report: Reporting that she has been having heel pain on both feet. Reporting that pain on R side is worse than pain on L side. Reporting that she first noticed this pain in March,. Reporting that she had an x ray and then received a cortisone shot. Reporting that she had mild pain relief with shot, but this did not last. Reporting that the pain is worst when she is standing, especially when she is standing for a long periods of time. Reporting it is impacting her ability to complete her ADLs and household tasks due to high amount of pain when in standing position. Reporting she even worries about being able to get to the restroom due to having to stand up to walk in. Reporting she needs tosit down to relieve pain. Reporting that tylenol and ibuprofen do not help with her pain, nor does heat or ice. XR Foot 3+ Views Right 07/21/2024 IMPRESSION: Calcaneal spurring. Degenerative changes first MTP joint Current Functional Limitations: Reported by Patient Is the patient at Risk for Falls: No Pain: R foot - 10/10 L foot - Prior Level of Function: Independent OBJECTIVE General Observations/Comments: Ambulating into clinic unassisted Vitals: There were no vitals filed for this visit.; General/Functional Assessments/Extremity Assessments: Mobility: weight shift onto LLE during stance. decreased stance time on RLE vs LLE during ambulation. Decreased step length on LLE due to reduced stance time on RLE. Ambulating on toes on RLE with foot in plantarflexion. Palpation: RLE: TTP medial and posterior calcaneal borders, TTP 1st met, moderate - severe myofascial restriction to gastroc/soleus LLE: TTP medial and posterior calcaneal borders, mild myofascial restriction to gastroc/soleus Range of Motion: Lower Extremity Range of Motion: Lower Body Range of Motion: Evaluation (10/27/24) Progress Note Left (AROM/PROM) Right (AROM/PROM) Left (AROM/PROM) Right (AROM/PROM) Ankle Plantarflexion 60 degrees 45 degrees Ankle Dorsiflexion 10 degrees 0 degrees Ankle Inversion 35 degrees 32 degrees Ankle Eversion 10 degrees 10 degrees Great Toe Extension WNL WNL Strength: Lower Body Manual Muscle Testing: Lower Body Manual Muscle Test: [] WNL Evaluation (10/27/24) Progress Note Left Right Left Right Ankle Plantarflexion 5/5: Normal 4/5: Good Ankle Dorsiflexion 5/5: Normal 4/5: Good Ankle Inversion 5/5: Normal 5/5: Normal Ankle Eversion 5/5: Normal 5/5: Normal Great Toe Flexion 4/5: Good 4/5: Good Great Toe Extension 4/5: Good 4/5: Good TREATMENT INTERVENTION Modalities: None performed Procedures: Therapeutic Exercise: 15 minutes 3x30 second bilateral gastroc stretch with strap 3x30 second bilateral soleus stretch with strap 3x10 toe towel scrunches bilateral HEP: Seated gastroc and soleus stretch with strap Toe towel scrunches ASSESSMENT/Response to Treatment: Nell Blanco is a 48 y.o. female presenting for outpatient physical therapy evaluation with complaints of bilateral heel and foot pain with R>L. Significant clinical findings include: decreased R sided dorsiflexion and plantarflexion ROM, moderate-severe myofascial restriction in R gastroc and soleus, impairments in gait due to limitations in range of motion, strength, and pain. Patients pr ogress may be limited by calcaneal spurring. Skilled Physical therapy is medically necessary to improve patients range of motion, muscle flexibility, strength and stability to improve ability to stand and ambulate in order to complete ADLs and functional mobility in the household and community. Rehabilitation Potential: Rehab Potential: Condition Has Potential to Improve Motivation for Rehab: Fair Support Structure: Good Learning Needs: Were Patient Learning needs assessed: Yes Learning Preferences: Explanation, Demonstration, and Printed Materials Barriers to Learning: No Barriers to Learning Patient Education: [x] Discussed, with patient and/or caregiver, the recommended plan of care/goals, the importance oftherapy and appointment compliance in order to achieve goals in a timely manner. Education provided: Educated on HEP and provided print out. Educated on goals of physical therapy. Education provided on plan of care and re-evaluation with plan to refer back to MD if pt feels she is not making progress or pain / function is not being impacted by therapy. Education Provided To: Patient utilizing Explanation, Demonstration, and Printed Material as mode(s) of education. Response to Education: Applied Knowledge and Verbal Understanding GOALS Goals Addressed This Visit's Progress LTGs (x6 visits) (pt-stated) Improve R ankle dorsiflexion ROM to >/=5 [...] of gains made in skilled physical therapy PLAN POC Development/Review: Initial Evaluation; Participants: Patient Skilled Therapy Plan Required: YES- Reasons for Rehab and Medical Necessity -- Reduce Need for Assist with Functional Activity/ADL's/Mobility and Function in Community Planned Therapy Interventions: Cold Pack, Gait Training, Hot Pack, Kinesiotaping, Manual Therapy, Neuromuscular Re-education, Patient / Family Education, Soft Tissue Mobility, Therapeutic Activity, and Therapeutic Exercise Recommended Consults: none Equipment Recommended: none; Equipment Provided: none Frequency/Duration: 1x/week for 6 visits BILLING TOTAL TREATMENT TIME: 45 Minutes Evaluation Medium Complexity Justification ::: A history of present problem with 1 - 2 personal factors and/or co-morbidities that impact the plan of care, An examination of body systems using standardized tests and measures in addressing a total of 3 or more elements from any of the following bodystructures and functions, activity limitations, and/or participation restrictions, and Moderate time effort (typically 30 minutes) spent [id number] with the patient and/or family Documentation completed by Delia Oneil PT [facility] [address] [address] Dept: [phone] Dept PATIENT NAME: Nell Blanco : 1975 Certification: This is to certify that the above named patient, who is under my care, requires skilled Therapy services as described in the above treatment plan. I further certify that the services outlined in this plan are skilled and medically necessary. I have reviewed this plan for rehabilitation services, and I recommend that these services continue to meet the above stated goals and plan. SIGNATURE: DATE Bella Priest DO Referring provider documented in this encounter Plan of Treatment Upcoming Encounters Date Type Department Care Team (Late st Contact Info) Description 11/15/2024 12:30 PM EDT Ancillary Procedure [facility] [address] [place] [address] documented as of this encounter Goals Goal Patient Goal Type Associated Problems Recent Progress Patient-Stated? Author LTGs (x6 visits) General Yes Delia Oneil PT Note: Improve R ankle dorsiflexion ROM [...] of gains made in skilled physical therapy documented as of this encounter Visit Diagnoses Diagnosis Bilateral foot pain- Primary Calcaneal spur of both feet documented in this encounter Orders Outpatient Referral Count Last Ordered Date Fir st Ordered Date AMB REFERRAL TO [facility]ICAL [facility] 1 10/27/2024 documented in this encounter Care Teams Pals Specialist Relationship Specialty Start Date End Date Brianna Arauz MD [address] [place] [address] PCP - General Internal Medicine 01/26/20 documented as of this encounter
--- OUTSIDE RECORDS SUMMARY | 2024-11-01 12:01 | XMS_ITS ---
Author Organization [facility] Address [address] [address] Care Team Providers Care Tripe Scraper Name Role Phone NITIN ABIGAIL Primary Care Provider Reason For Referral Reason Diabetic foot exam; [facility] Please evaluate and treat Diagnosis 1 Type 2 diabetes dea itus with unspecified complications (E11.8) Referral Organization [facility] Referring Provider First Name ABIGAIL Referring Provider Last Name NITIN Referring Provider Speciality Internal M edicine Referred Provider Specialty Podiatry General Notes Please call the sp ent to schedule the appointment, Sary Kendall 10/05/2024 04:02:25 PM > Referral Priority Routine REASON FOR VISIT Podiatry Encounters Encounter Location Date Provider Diagnosis [address] [address] 09/06/2024 ABIGAIL TAVERAS Plan Of Treatment Referrals Referral Date Details 09/27/2024 09/27/2024, Diabetic foot exam; [facility] Please evaluate and treat Next Appt Details Provider Name:Mario dean, 03/03/2025 08:00:00 AM, [address] [place] [address] [address], [place], [address], Progress Notes * Nell BLANCODOB: 7 (48 yo F)Acc No.[id number]:09/06/2024 Patient:?Nell BLANCO :1975???Age:48 Y???Sex:Female Address:[address] [place] [phone] Subjective: * Chief Complaints: * ???Podiatry * Medical History:? * Surgical History:? * Hospitalization/Major Diagno stic Procedure:? * Medications:? Objective: * Vitals:? * Physical Examination:? Assessment: Plan: * Treatment: * Procedure Codes:? * true * Date:? Generated for Glenn eden/Rajinder/eTelvissmitting on:?11/01/2024 12:00 PM EDT Consultation Request Notes Referral Date Referring Provider Referred Provider Not es 09/27/2024 ABIGAIL TAVERAS , Diabetic foot exam; [facility] Please evaluate and treat
--- OUTSIDE RECORDS SUMMARY | 2024-11-01 12:01 | XMS_ITS ---
Author Organization [facility] Address [address] [place] [address] [address] [place] [address] Care Team Providers Care Doughnut Dough Mixer Name Role Phone ABIGAIL TAVERAS Primary Care Provider [phone] REASON FOR VISIT reschedule Encounters Encounter Location Date Provider Diagnosis [facility] [address] [facility] [address] [place] [address] 08/26/2024 ABIGAIL TAVERAS Plan Of Treatment Next Appt Details Provider Name:Alexismalvin Behzadantionette dean, 03/03/2025 08:00:00 AM, [address] [facility] [address], [place], [address], Progress Notes * Nell BLANCODOB: 7 (48 yo F)Acc No.[id number]:08/26/2024 Patient:?Nell BLANCO :1975???Age:48 Y???Sex:Female Address:[address] [place] [phone] * true * Date:? Generated for Printi karey/Rajinder/eTransmitting on:?11/01/2024 12:00 PM EDT
--- OUTSIDE RECORDS SUMMARY | 2024-11-01 12:01 | XMS_ITS | Patient Health Record ---
Author Organization [facility] Address [address] [facility] [address] [place] [address] Care Team Providers Care Hurl Shaker Name Role Phone ABIGAIL TAVERAS Primary Care Provider Mario Jesus Unavailable [phone] Allergies No Known Allergies Results Component Value [...] Lab: Notes/Report: Vitamin B-12 796 250-900 pcg/mL LIPASE Reviewed date:03/04/2024 06:18:09 PM Interpretation: Performing Lab: Notes/Report: [facility], a member of [address] [address] Health Information Systems Technician - Lara Argeuta MD LIPASE 40 13-75 U/L COMPREHENSIVE METABOLIC PANE L Reviewed date:03/04/2024 06:18:23 PM Interpretation: Performing Lab: Notes/Report: Original Ordering Provider: BLAKE ER GLUCOSE 107 70-100 mg/dL Reference range [...] Performing Lab: Notes/Report: Original Ordering Provider: BLAKE ER [facility], a member of [address] [address] Health Information Systems Technician - Lara Argueta MD WBC 5.5 4.8-10.8 [...] Notes/Report: Original Ordering Provider: ABIGAIL TAVERAS MD [facility] [address] Health Information Systems Technician - Lara Argueta MD MICROALBUMIN, RANDOM 22.5 [...] Notes/Report: Original Ordering Provider: ABIGAIL TAVERAS MD [facility], a member of [address] [address] Health Information Systems Technician - Lara Argueta MD GLYCATED HEMOGLOBIN A1C 5.8 <6.5 % ESTIMATED AVERAGE GLUCOSE 120 ESR Reviewed date:02/20/2024 01:53:00 PM Interpretation: Performing Lab: Notes/Report: [facility], a member of [address] [address] Health Information Systems Technician - Lara Argueta MD ESR 8 0-20 mm/hr C-REACTIVE PROTEIN Reviewed date:02/20/2024 01:52:46 PM Interpretation: Performing Lab: Notes/Report: [facility], a member of [address] [address] Health Information Systems Technician - Lara Argueta MD C-REACTIVE PROTEIN 0.34 [...] date:02/24/2024 12:28:54 PM Interpretation: Performing Lab: Notes/Report: [facility], a member of [address] [address] Health Information Systems Technician - Lara Argueta MD CCP NEGATIVE NEGATIVE [...] TAVERAS MD ANTI-NUCLEAR ANTIBODY SCREEN NEGATIVE NEGATIVE SEDIMENTATION RATE Reviewed date:10/22/2024 04:12:39 PM Interpretation: Performing Lab: Notes/Report: Sed Rate 5 0-20 mm/hr RHEUMATOID FACTOR Reviewed date:10/22/2024 04:12:11 PM Interpretation: Performing Lab: Notes/Report: Rheumatoid Factor <10.0 <15.0 I Unit/mL CBC WITH AUTO DIFFERENTIAL Reviewed date:09/30/2024 05:21:50 [...] K/mcL Immature Granulocytes Absolute 0.03 0.00-0.03 K/mcL Anti-CCP Ab, IgG/IgA-[id number] Reviewed date:03/26/2024 07:43:35 AM Interpretation: Performing Lab:[facility], [address] [facility], Phone - [phone], Director - MDJodry Notes/Report: Anti-CCP Ab, IgG/IgA 3 0-19 units Negative <20 Weak positive 20 - 39 Moderate positive 40 - 59 Strong positive >59 CBC, Platelet, No Differenti al-[id number] Reviewed date:03/26/2024 07:43:37 AM Interpretation: Performing Lab:[facility] [place], [address] [facility], Phone - [phone], Director - MDJodry Notes/Report: WBC 4.7 3.4-10.8 x10E3/uL RBC 5.12 3.77-5.28 x10E6/uL Hemoglobin 14.1 11.1-15.9 g/dL Hematocrit 44.3 34.0-46.6 % MCV 87 79-97 fL MCH 27.5 26.6-33.0 pg MCHC 31.8 31.5-35.7 g/dL RDW 19.3 11.7-15.4 % Platelets 268 150-450 x10E3/uL Sedimentation Rate-[facility] n-[id number] Reviewed date:03/26/2024 07:43:39 AM Interpretation: Performing Lab:[facility] [place], Phone - [phone], [facility] Notes/Report: Sedimentation Rate-Westergren 2 0-32 mm/hr C-Reactive Protein, Quant-00 6627 Reviewed date:03/26/2024 07:43:41 AM Interpretation: Performing Lab:[facility] [address], Phone - [phone], [facility] Notes/Report: C-Reactive Protein, Quant 1 0-10 mg/L Rheumatoid Factor (RF)-57408 2 Reviewed date:03/26/2024 07:43:43 AM Interpretation: Performing Lab:[facility] [place], [address] [place] [address], Phone - [phone], [facility] Notes/Report: Rheumatoid Factor (RF) <10.0 <14.0 IU/mL Antinuclear Ab by [facility]- [id number] Reviewed date:03/26/2024 07:44:26 AM Interpretation: Performing Lab:[facility] [place], Phone - [phone], [facility] Notes/Report: JAQUELINE Direct Negative Negative Lipid Panel-[id number] Reviewed date:03/26/2024 07:44:32 AM Interpretation: Performing Lab:[facility] [place], Phone - [phone], [facility] Notes/Report: Cholesterol, Total 115 100-199 mg/dL Triglycerides 72 0-149 mg/dL HDL Cholesterol 43 >39 mg/dL VLDL Cholesterol Gorge 15 5-40 mg/dL LDL Chol Calc (NIH) 57 0-99 mg/dL Comp. Metabolic Panel (14)-3 16442 Reviewed date:03/26/2024 07:45:16 AM Interpretation: Performing Lab:[facility] [place], Phone - [phone], [facility] Notes/Report: Glucose 143 70-99 mg/dL BUN 11 [...] ALT (SGPT) 10 0-32 IU/L Albumin/Creatinine Ratio,Uri ne-[id number] Reviewed date:03/26/2024 07:45:21 AM Interpretation: Performing Lab:[facility], [address] [facility], Phone - [phone], Director - MDJodry Notes/Report: Creatinine, Urine 85.7 Not Estab. mg/dL Albumin, Urine 26.1 Not Estab. ug/mL Alb/Creat Ratio 30 0-29 mg/g creat Normal: 0 - 29 Moderately increased: 30 - 300 Severely increased: >300 Hemoglobin A6u-[id number] Reviewed date:03/26/2024 07:46:22 AM Interpretation: Performing Lab:[facility], [address] [facility], Phone - [phone], Director - MDJodry Notes/Report: Hemoglobin A1c 6.2 4.8-5.6 % . Prediabetes: 5.7 - 6.4 Diabetes: >6.4 Glycemic control for adults with diabetes: <7.0 MAGNESIUM Reviewed date:09/30/2024 05:21:47 PM Interpretation: Performing [...] 97 <145 mg/dL Chol/HDL Ratio 3.3 0.0-4.4 Hgb A1c with eAG Estimation- [id number] Reviewed date:03/25/2024 07:47:27 AM Interpretation: Performing Lab:[facility] [place], [address] [facility], Phone - [phone], Director - Tracey Notes/Report: Hemoglobin A1c 6.7 4.8-5.6 % . Prediabetes: 5.7 - 6.4 Diabetes: >6.4 Glycemic control for adults with diabetes: <7.0 Estim. Avg Glu (eAG) 146 CBC, Platelet, No Differenti al-[id number] Reviewed date:03/25/2024 07:47:36 AM Interpretation: Performing Lab:[facility] [place], [address] [facility] [place], Phone - [phone], Director - Tracey Notes/Report: WBC 4.7 3.4-10.8 x10E3/uL RBC 5.25 3.77-5.28 x10E6/uL Hemoglobin 14.1 11.1-15.9 g/dL Hematocrit 44.8 34.0-46.6 % MCV 85 79-97 fL MCH 26.9 26.6-33.0 pg MCHC 31.5 31.5-35.7 g/dL RDW 18.5 11.7-15.4 % Platelets 284 150-450 x10E3/uL Ferritin-[id number] Reviewed date:03/25/2024 07:34:29 AM Interpretation: Performing Lab:[facility] [place], [address] [place] [address], Phone - [phone], Director - [facility] Notes/Report: Ferritin 99 15-150 ng/mL TSH-[id number] Reviewed date:03/25/2024 07:34:36 AM Interpretation: Performing Lab:[facility] [place], [address] [place] [address], Phone - [phone], Director - [facility] Notes/Report: TSH 1.530 0.450-4.500 uIU/mL Iron and TIBC-223179 Reviewed date:03/25/2024 07:47:29 AM Interpretation: Performing Lab:[facility] [place], [address] [place] [address], Phone - [phone], Director - Notes/Report: Iron Bind.Cap.(TIBC) 339 250-450 ug/dL UIBC 262 131-425 ug/dL Iron 77 27-159 ug/dL Iron Saturation 23 15-55 % XR FOOT 3+ VIEWS RIGHT Reviewed date:07/21/2024 12:34:45 PM Interpretation: Performing Lab: Notes/Report: Note See Note [facility], a member of [facility] Patient Name: NELL BLANCO Date of : 1975 Reason for Exam: pain Exam Date: 07/16/2024 [id number] EST Report Status: Final Ordering Provider: CRISTHIAN [...] Signed Date: 025 08:19 ET Workstation ID: [id number] Transcribed By: Self Edit Transcribed Date: 07/21/2024 08:17 ET Reason For Referral Reason Evaluation and manag ement - colonoscopy Diagnosis 1 Encounter for screen ing for malignant neoplasm of colon (Z12.11) Referral Organization [facility] Referring Provider First Name ABIGAIL Referring Provider Last Name MIRIAM Referring Provider Speciality Internal edicine Referred Provider Specialty Gastroentero logy General Notes Referral sent to [facility] - Office will call patient for scheduling.Luisana Latraya 02/18/2024 09:32:34 AM > Referral Priority Routine Reason Evaluation and manag ement Diagnosis 1 Varicose veins of bi lateral lower extremities with pain (I83.813) Referral Organization [facility] Referring Provider First Name ABIGAIL Referring Provider Last Name MIRIAM Referring Provider Speciality Internal edicine Referred Provider Specialty Vascular Andrez jeanette General Notes Referral sent to [facility] for Vein Restorationist - Office will call patient for scheduling.Luisana Latraya 02/18/2024 09:33:50 AM > Referral Priority Routine Reason Please evaluate and treat Diagnosis 1 Calcaneal spur, unsp ecified foot (M77.30) Referral Organization [facility] Referring Provider First Name Mario Referring Provider Last Name Edin Referred Provider Specialty Podiatry General Notes Referral was faxed [facility]. Please contact patient for scheduling.Vitaliy Rashida 09/06/2024 09:48:24 AM > Referral Priority Routine Reason Diabetic foot exam; [facility] Please evaluate and treat Diagnosis 1 Type 2 diabetes dea itus with unspecified complications (E11.8) Referral Organization [facility] Referring Provider First Name ABIGAIL Referring Provider Last Name NITIN Referring Provider Speciality Internal edicine Referred Provider [...] Onc e a day Dr. Priest Active Qljfntyv-Hlqdwchpn-LO 3.5-82659-4 4 drops into affected ear Otic Three [...] Status Risk Notes Problem Iron deficiency anemia (32999121) Iron deficiency anemia, unspecified (D50.9) Active confirmed Problem Disorder due to type 2 diabetes mellitus (020277855) Type 2 diabetes mellitus with unspecified complications (E11.8) Active confirmed Problem Type II diabetes mellitus without complication (526331020) Type 2 diabetes mellitus without complications (E11.9) Active confirmed Problem Morbid obesity (disorder) (618010047) Morbid (severe) obesity due to excess calories (E66.01) Active confirmed Problem Moderate recurrent major depression (08115609) Major depressive disorder, recurrent, moderate (F33.1) Active confirmed Problem Insomnia (169203883) Insomnia, unspecified (G47.00) Active confirmed Problem Pain co-occurrent and due to varicose veins of bilateral legs (20497923331717459) Varicose veins of bilateral lower extremities with pain (I83.813) Active confirmed Problem Gastro-esophageal reflux disease without esophagitis (842695170) Gastro-esophageal reflux disease without esophagitis (K21.9) Active confirmed Problem Degeneration of thoracolumbar intervertebral disc (85906790) Other intervertebral disc degeneration, 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) Active confirmed Problem Essential hypertension (07680689) Essential (primary) hypertension (I10) Active confirmed Problem Supraventricular tachycardia (1485917) Supraventricular tachycardia (I47.1) Active confirmed Vital Signs Heart Rate 86 /min 09/03/2024 Temperature 97.3 degrees Fahrenheit 09/03/2024 Blood pressure diastolic 78 mm Hg 09/03/2024 Oximetry 97 % 09/03/2024 Height 63 in 09/03/2024 Blood pressure systolic 130 mm Hg 09/03/2024 Weight 228.0 lbs 09/03/2024 BMI 40.38 kg/m2 09/03/2024 Encounters Encounter Location Date Provider Diagnosis [address] [address] 02/17/2024 ABIGAIL TAVERAS Type 2 diabetes mellitus with unspecified complications E11.8 ; Encounter for general adult medical examination without abnormal findings Z00.00 ; Essential (primary) hypertension I10 ; Major depressive disorder, recurrent, moderate F33.1 ; Insomnia, unspecified G47.00 ; Iron deficiency anemia, unspecified D50.9 and Pain in unspecified joint M25.[address] [address] 08/20/2024 Mario Jesus Type 2 diabetes mellitus with unspecified complications E11.8 ; Essential (primary) hypertension I10 ; Major depressive disorder, recurrent, moderate F33.1 ; Insomnia, unspecified G47.00 ; Iron deficiency anemia, unspecified D50.9 ; Pain in unspecified joint M25.50 and Acute sinusitis, unspecified J01.[address] [address] 09/03/2024 Luismitchmalvin Gill Essential (primary) hypertension I10 ; Otalgia, unspecified ear H92.09 and Calcaneal spur, unspecified foot M77.[address] [address] 04/13/[address] [address] 04/26/[address] [address] 08/23/2024 gerry Jesus [address] [address] 08/26/[address] [address] 09/06/2024 HAYES GU Assessments Encounter Date Diagnosis (ICD Code) Assessment Notes Treatment Notes Treatment Clinical Notes Section Notes 02/17/2024 Type 2 diabetes mellitus with unspecified complications (ICD-10 - E11.8) Mrs. Blanco is a 48-year-old lady with DM type II with neuropathy and she sees blade groover, hypertension, hyperlipidemia, acid reflux and chronic back pain and follows up with physiatry Dr. Priest here here for annual physical. Plan is as follows: Type II diabetes mellitus with neuropathy. A1c 6.0. Fasting sugars 126. She is on right medications. She has seen her aquaculture farm manager in the past 1 year. Foot care [...] and transportation Eye screening. She sees her aquaculture farm manager regularly. Dental screening. She sees dentist regularly. Colon cancer screening. Referred to GI for colonoscopy. Breast cancer screening. She is up-to-date on her mammogram. Female screening. She follows up with her solid waste technician for breast and pelvic exams. Immunizations. She is up-to-date on her COVID, TDAP vaccinations. General health concerns discussed with patient. Scribe services used to formulate this note under HIPAA compliance and under [place] law mandated for scribe services. Patient aware [...] type II with neuropathy and she sees blade groover, hypertension, hyperlipidemia, acid reflux and chronic back pain and follows up with physiatry Dr. Priest here here for annual physical. Plan is as follows: Type II diabetes mellitus with neuropathy. A1c 6.0. Fasting sugars 126. She is on right medications. She has seen her aquaculture farm manager in the past 1 year. Foot care [...] and transportation Eye screening. She sees her aquaculture farm manager regularly. Dental screening. She sees dentist regularly. Colon cancer screening. Referred to GI for colonoscopy. Breast cancer screening. She is up-to-date on her mammogram. Female screening. She follows up with her solid waste technician for breast and pelvic exams. Immunizations. She is up-to-date on her COVID, TDAP vaccinations. General health concerns discussed with patient. Scribe services used to formulate this note under HIPAA compliance and under [place] law mandated for scribe services. Patient aware [...] type II with neuropathy and she sees blade groover, hypertension, hyperlipidemia, acid reflux and chronic back pain and follows up with physiatry Dr. Priest here here for Follow-up. Plan is as follows: Type II diabetes mellitus with neuropathy. -A1c 6.2. Fasting sugars 126. She is on right medications. She has seen her aquaculture farm manager in the past 1 year. Foot care [...] type II with neuropathy and she sees blade groover, hypertension, hyperlipidemia, acid reflux and chronic back [...] spur - We will refer patient to dining room busser I have rendered the services for this patient under direct supervision of Dr. Taveras, who did not see the patient but was available upon request 09/03/2024 Essential (primary) hypertension (ICD-10 - I10) Mrs. Blanco is a 48-year-old lady with DM type II with neuropathy and she sees blade groover, hypertension, hyperlipidemia, acid reflux and chronic back [...] spur - We will refer patient to dining room busser I have rendered the services for this patient under direct supervision of Dr. Taveras, who did not see the patient but was available upon request 08/20/2024 Essential (primary) hypertension (ICD-10 - I10) Mrs. Blanco is a 48-year-old lady with DM type II with neuropathy and she sees blade groover, hypertension, hyperlipidemia, acid reflux and chronic back pain and follows up with physiatry Dr. Priest here here for Follow-up. Plan is as follows: Type II diabetes mellitus with neuropathy. -A1c 6.2. Fasting sugars 126. She is on right medications. She has seen her aquaculture farm manager in the past 1 year. Foot care [...] type II with neuropathy and she sees blade groover, hypertension, hyperlipidemia, acid reflux and chronic back [...] spur - We will refer patient to dining room busser I have rendered the services for this patient under direct supervision of Dr. Taveras, who did not see the patient but was available upon request 02/17/2024 Essential (primary) hypertension (ICD-10 - I10) Mrs. Blanco is a 48-year-old lady with DM type II with neuropathy and she sees blade groover, hypertension, hyperlipidemia, acid reflux and chronic back pain and follows up with physiatry Dr. Priest here here for annual physical. Plan is as follows: Type II diabetes mellitus with neuropathy. A1c 6.0. Fasting sugars 126. She is on right medications. She has seen her aquaculture farm manager in the past 1 year. Foot care [...] and transportation Eye screening. She sees her aquaculture farm manager regularly. Dental screening. She sees dentist regularly. Colon cancer screening. Referred to GI for colonoscopy. Breast cancer screening. She is up-to-date on her mammogram. Female screening. She follows up with her solid waste technician for breast and pelvic exams. Immunizations. She is up-to-date on her COVID, TDAP vaccinations. General health concerns discussed with patient. Scribe services used to formulate this note under HIPAA compliance and under [place] law mandated for scribe services. Patient aware [...] type II with neuropathy and she sees blade groover, hypertension, hyperlipidemia, acid reflux and chronic back pain and follows up with physiatry Dr. Zayda ngo here for annual physical. Plan is as follows: Type II diabetes mellitus with neuropathy. A1c 6.0. Fasting sugars 126. She is on right medications. She has seen her aquaculture farm manager in the past 1 year. Foot care [...] and transportation Eye screening. She sees her aquaculture farm manager regularly. Dental screening. She sees dentist regularly. Colon cancer screening. Referred to GI for colonoscopy. Breast cancer screening. She is up-to-date on her mammogram. Female screening. She follows up with her solid waste technician for breast and pelvic exams. Immunizations. She is up-to-date on her COVID, TDAP vaccinations. General health concerns discussed with patient. Scribe services used to formulate this note under HIPAA compliance and under [place] law mandated for scribe services. Patient aware [...] type II with neuropathy and she sees blade groover, hypertension, hyperlipidemia, acid reflux and chronic back pain and follows up with physiatry Dr. Mawla here here for Follow-up. Plan is as follows: Type II diabetes mellitus with neuropathy. -A1c 6.2. Fasting sugars 126. She is on right medications. She has seen her aquaculture farm manager in the past 1 year. Foot care [...] patient but was available upon request 08/20/2024 Insomnia, unspecified (ICD-10 - G47.00) Mrs. Blanco is a 48-year-old lady with DM type II with neuropathy and she sees blade groover, hypertension, hyperlipidemia, acid reflux and chronic back pain and follows up with physiatry Dr. Priest here here for Follow-up. Plan is as follows: Type II diabetes mellitus with neuropathy. -A1c 6.2. Fasting sugars 126. She is on right medications. She has seen her aquaculture farm manager in the past 1 year. Foot care [...] patient but was available upon request 02/17/2024 Insomnia, unspecified (ICD-10 - G47.00) Mrs. Blanco is a 48-year-old lady with DM type II with neuropathy and she sees blade groover, hypertension, hyperlipidemia, acid reflux and chronic back pain and follows up with physiatry Dr. Priest here here for annual physical. Plan is as follows: Type II diabetes mellitus with neuropathy. A1c 6.0. Fasting sugars 126. She is on right medications. She has seen her aquaculture farm manager in the past 1 year. Foot care [...] and transportation Eye screening. She sees her aquaculture farm manager regularly. Dental screening. She sees dentist regularly. Colon cancer screening. Referred to GI for colonoscopy. Breast cancer screening. She is up-to-date on her mammogram. Female screening. She follows up with her solid waste technician for breast and pelvic exams. Immunizations. She is up-to-date on her COVID, TDAP vaccinations. General health concerns discussed with patient. Scribe services used to formulate this note under HIPAA compliance and under [place] law mandated for scribe services. Patient aware [...] type II with neuropathy and she sees blade groover, hypertension, hyperlipidemia, acid reflux and chronic back pain and follows up with physiatry Dr. Priest here here for Follow-up. Plan is as follows: Type II diabetes mellitus with neuropathy. -A1c 6.2. Fasting sugars 126. She is on right medications. She has seen her aquaculture farm manager in the past 1 year. Foot care [...] type II with neuropathy and she sees blade groover, hypertension, hyperlipidemia, acid reflux and chronic back pain and follows up with physiatry Dr. Priest here here for annual physical. Plan is as follows: Type II diabetes mellitus with neuropathy. A1c 6.0. Fasting sugars 126. She is on right medications. She has seen her aquaculture farm manager in the past 1 year. Foot care [...] and transportation Eye screening. She sees her aquaculture farm manager regularly. Dental screening. She sees dentist regularly. Colon cancer screening. Referred to GI for colonoscopy. Breast cancer screening. She is up-to-date on her mammogram. Female screening. She follows up with her solid waste technician for breast and pelvic exams. Immunizations. She is up-to-date on her COVID, TDAP vaccinations. General health concerns discussed with patient. Scribe services used to formulate this note under HIPAA compliance and under [place] law mandated for scribe services. Patient aware of service. Verbal consent and written consent taken from the patient. Patient understands and verbalizes understanding of the scribes services and all questions answered regarding scribes services. Patient agrees to use of scribes services. 08/20/2024 Pain in unspecified joint (ICD-10 - M25.50) Mrs. Blanco is a 48-year-old lady with DM type II with neuropathy and she sees blade groover, hypertension, hyperlipidemia, acid reflux and chronic back pain and follows up with physiatry Dr. Priest here here for Follow-up. Plan is as follows: Type II diabetes mellitus with neuropathy. -A1c 6.2. Fasting sugars 126. She is on right medications. She has seen her aquaculture farm manager in the past 1 year. Foot care [...] type II with neuropathy and she sees blade groover, hypertension, hyperlipidemia, acid reflux and chronic back pain and follows up with physiatry Dr. Priest here here for annual physical. Plan is as follows: Type II diabetes mellitus with neuropathy. A1c 6.0. Fasting sugars 126. She is on right medications. She has seen her aquaculture farm manager in the past 1 year. Foot care [...] and transportation Eye screening. She sees her aquaculture farm manager regularly. Dental screening. She sees dentist regularly. Colon cancer screening. Referred to GI for colonoscopy. Breast cancer screening. She is up-to-date on her mammogram. Female screening. She follows up with her solid waste technician for breast and pelvic exams. Immunizations. She is up-to-date on her COVID, TDAP vaccinations. General health concerns discussed with patient. Scribe services used to formulate this note under HIPAA compliance and under [place] law mandated for scribe services. Patient aware of service. Verbal consent and written consent taken from the patient. Patient understands and verbalizes understanding of the scribes services and all questions answered regarding scribes services. Patient agrees to use of scribes services. 08/20/2024 Acute sinusitis, unspecified (ICD-10 - J01.90) Mrs. Blanco is a 48-year-old lady with DM type II with neuropathy and she sees blade groover, hypertension, hyperlipidemia, acid reflux and chronic back pain and follows up with physiatry Dr. Priest here here for Follow-up. Plan is as follows: Type II diabetes mellitus with neuropathy. -A1c 6.2. Fasting sugars 126. She is on right medications. She has seen her aquaculture farm manager in the past 1 year. Foot care [...] Details Provider Name:Mario dean, 03/03/2025 08:00:00 AM, [address] [place] [address], [phone], Insurance Providers Payer Name Payer Address Payer Phone Subscriber Number Group Number Insured Name Patient Relationship to Insured Coverage Start Date Coverage End Date [facility]) [address] [address] [place] [address] [id number] Nell Blanco Self - patient is the [...]
== END 2024-11-01 11:20 | disposition home or self-care (01) ==
PROVIDERS: PCP Hospitalist; Visit Provider Internal Medicine Gastroenterology
DX: K21.9 Gastro-esophageal reflux disease without esophagitis (principal)
CPT/HCPCS: 99213

== ENCOUNTER → 2024-11-01 10:19 | Outpatient (BNVA) | payer OTHER, SELFPAY | PROVIDERS: PCP Hospitalist; Visit Provider Internal Medicine Gastroenterology | DX: K21.9 Gastro-esophageal reflux disease without esophagitis (principal) | CPT/HCPCS: 99212 ==

== ENCOUNTER 2024-11-17 10:52 | Outpatient (AMB) | payer OTHER, SELFPAY ==
--- NOTE | 2024-11-17 11:01 | A.OFFVIS_ITS ---
Vital Signs 11/17/24 11:02 Height 5 ft 3 in Weight 229 lb 4.492 oz BMI 40.6 BP 132/78 Blood Pressure Location Rt brachial Position Sitting Pulse 80 Pulse Source Pulse Oximeter Pulse Oximetry (%) 98 Oxygen Delivery Method Room Air Intake Visit Reasons: follow up meds Intake Note: Patient presents today for a follow-up on Type 2 Diabetes Mellitus: Last Diabetic eye exam was on: 08/2024 Last Podiatry exam was on: Patient does not see a Coordinate Measuring Machine Technician Most recent HbA1c: 6.5%, 10/20/2024 Random Glucose- 131 mg/dL, Today Resource Analyst Required: Yes Resource Analyst Language: Hebrew Resource Analyst Services: Resource Analyst Present Resource Analyst Name: #[id number] Accompanied by: Self / Same As Patient Allergies No Known Allergies [No Known Allergies*] Allergy (Verified 11/01/24 10:41) HPI Comments Details: 48 year old female with past medical history of T2DM, Nontoxic MNG 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 Current prescriptions is Metformin 500mg twice daily (decrease from 1000mg twice daily), rybelsus 7mg changed to ozempic last visit but very intolerant-just took one dose, glipizide and pioglitazone.She is frustrated by weight gain and attributes it to the actos. Previously on victoza with mild SE. Plan at last visit was to stop the victoza and start rybelsus to aid weight loss if covered. This was covered. Also hoping that in near future we could decrease metformin to improve GI upset. Was on jardiance but was having very frequent yeast infection. She feels tired a lot-thinks this may be due to lower glucose readings. Denies BG <70. Has chronic abdominal upset. She is frustrated with weight gain/difficulty losing weight. Traditional freestyle glucometer- range from 74-159 with average 134, checking 1.2/day. 100% at TGT. HbA1c 6.5% from HbA1C 12/18 6.1% from 6.3%. She notes that she feels quite low when her BG is in the 80s. Patient has gained 13 pounds despite no change in diet. Denies a family history of T2DM. Has eyes checked yearly, states UTD Has neuropathy-mild, stable Has nephropathy, on Lisinopril 20 mg Has HLD, On Atorvastatin 40 mg Denies any history of CAD. Declines diabetes education. NTMNG: Has longstanding nontoxic MNG. Had prior FNA biopsy by Dr. Washington 12/05/16 of the L lower pole 1.2 cm nodule, with benign cytology. FNA biopsy of left inferi or 1.6cm nodule 2020-benign. Had thyroid u/s ordered by Dr Farooq 11/2023, underwent recent u/s biopsy at [facility]-tells me this was benign 1. A 1.8 x 1.3 x 1.3 cm left mid TR 4 thyroid nodule meets criteria for biopsy and measured 1.7 x 1.0 x 1.2 cm, volume 1.1 mL. Correlation with prior biopsy results and clinical exam recommended to determine further management. 2. Additional subcentimeter thyroid nodules as detailed above including 0.9 cm left upper TR 5 thyroid nodule for which follow-up ultrasound in one year is recommended. ROS CONSTITUTIONAL: Denies weight loss, fever and chills. HEENT: Denies changes in vision and hearing. RESPIRATORY: Denies SOB and cough. CV: Denies palpitations and CP GI: Denies abdominal pain, nausea, vomiting and diarrhea. : Denies dysuria and urinary frequency. MSK: Denies new myalgia and joint pain. SKIN: Denies rash and pruritus. NEUROLOGICAL: Denies headache PSYCHIATRIC: Denies recent changes in mood. PHYSICAL EXAM: GENERAL: Alert and oriented x 3. NAD EYES: EOMI. Anicteric. HENT: Moist mucous membranes. No scleral icterus. No cervical lymphadenopathy. LUNGS: Clear to auscultation bilaterally. CARDIOVASCULAR: Regular rate and rhythm. No murmur. No JVD. ABDOMEN: Soft, non-tender +bs EXTREMITIES: No edema. Non-tender. SKIN: No rashes or lesions. Warm. NEUROLOGIC: No focal neurological deficits. CN II-XII grossly intact PSYCHIATRIC: Cooperative. Appropriate mood and affect ? [facility] Medical History Insomnia Hypotension Multinodular thyroid HLD (hyperlipidemia) HTN (hypertension) T2DM (type 2 diabetes mellitus) Vitamin D deficiency Surgical History History of esophagogastroduodenoscopy (EGD) Hx of colonoscopy Hx of esophagogastroduodenoscopy History of carpal tunnel surgery of left wrist Family History Father No family history of disorders History of high blood pressure Mother No family history of disorders Social History Household Members: Spouse and Children Housing: House Housing Other:: spouse/ kids Are you a primary field care advocate to a significant other at home: Yes Do you presently have visiting nurse or other home services: No Alcohol intake: never Patient Tobacco Use Status: Never used Tobacco service: No Current occupational status: unemployed Physical Exam Vital Signs: Last Vital Signs Pulse 80 11/17/24 11:02 BP 132/78 11/17/24 11:02 Pulse Ox 98 11/17/24 11:02 Oxygen Delivery Method Room Air 11/17/24 11:02 BMI result Body Mass Index 40.6 Results Reviewed Results Reviewed: Laboratory Last Values Glucose (Clinic) 131 mg/dL (60-115) H 11/17/24 11:09 Assessment & Plan Assessment & Plan (1) T2DM (type 2 diabetes mellitus): Code(s): E11.9 - Type 2 diabetes mellitus without complications Category: Medical Qualifiers: Diabetes mellitus jail insulin use: without terminal operations manager use Diabetes mellitus complication status: with hyperglycemia Qualified Code(s): E11.65 - Type 2 diabetes mellitus with hyperglycemia (2) Weight gain: Code(s): R63.5 - Abnormal weight gain Category: Medical Plan 49 year old with well controlled diabetes, intolerant to multiple medications Still struggling with weight gain. Will have her return to [facility], continue metformin and glipizide. stop actos for now. start phentermine Follow up in 6 weeks or sooner as needed to monitor progress Medications: New phentermine If not covered by insurance please run with [facility] [id number] [facility] [id number] Member [id number] 37.5 mg PO DAILY 30 caps 3RF Coding Level of Care Code Est Pt Level 4 (01120) Diagnoses Type 2 diabetes mellitus with hyperglycemia, without long-term current use of insulin E11.65 Diabetes mellitus jail insulin use: without terminal operations manager use Diabetes mellitus complication status: with hyperglycemia Weight gain R63.5
[2024-11-17 11:02] VITALS: BP 132/78; PULSE 80; O2SAT 98; BMI 40.6
[2024-11-17 11:14] LABS: Glucose, Whole Blood 131 mg/dL (60-115)
--- OUTSIDE RECORDS SUMMARY | 2024-11-17 11:55 | XMS_ITS | Clinical Summary ---
Author Organization [facility] Address [address] [place] [address] Care Team Providers Care Gas Fitter Apprentice Name Role Phone Rochelle Engel PA-C Primary Care Provider [phone] Source Comments PLEASE NOTE, if this patient is a minor, it may be UNLAWFUL to discuss sensitive information that is contained in these records (such as FAMILY PLANNING, MENTAL HEALTH or SUBSTANCE ABUSE) with the minor patient's parent or other person without the patient's specific authorization.[facility] Allergies No known active allergies Medications blood-glucose meter monitoring kitIndications:DM type 2 (diabetes mellitus, type 2) ([facility]) as needed for blood glucose monitoring. Quantity: 1 meter freestyle lite. DX: 250.00 for a lifetime. 1 Each 0 08/19/19 15 Active lancetsIndication s:Type 2 diabetes mellitus without complication ([facility]) FREESTYLE. USE BID PRN. DX: 250.00 50 Each 11 03/20/20 15 Active etonogestrel-ethi nyl estradiol (NUVARING) 0.12-0.015 mg/24 hr vaginal ringIndications:F amily planning, contraceptive checking and surveillance Place 1 Each vaginally once. PER INDUSTRIAL PIPEFITTER JOURNEYMAN. Leave in place for 3 consecutive weeks, then remove for 1 week. 1 Each 08/11/19 16 Active Miscellaneous Medical Supply miscIndications:E ssential hypertension by miscellaneous route once daily. BLOOD PRESSURE MACHINE. DX: HTN 1 Each 0 12/12/19 16 Active fluticasone (FLONASE) 50 mcg/actuation nasal sprayIndications: Allergic otitis media of both ears, unspecified chronicity Place 1 [place] into the nostril(s) once daily. 16 g 1 02/26/20 16 Active metFORMIN (GLUMETZA) 500 mg 24 hr tabletIndications :Type 2 diabetes mellitus without complication, without long-term current use of insulin ([facility]) Take 2 Tabs by mouth once daily with dinner. Swallow whole. Do not break, crush or chew. 180 Tab 1 02/26/20 16 Active pregabalin (LYRICA) 50 mg capsuleIndication s:Fibromyalgia Take 1 Cap by mouth 2 (two) times daily. PER DR. RODRIGUEZ 05/23/20 16 Active blood sugar diagnostic (FREESTYLE TEST) stripsIndications :Type 2 diabetes mellitus without complication, without long-term current use of insulin ([facility]) 1 Strip 2 (two) times daily. Pt [...] Active Problems Problem Noted Date Diagnosed Date Non-Frisian speaking patient- Macedonian speaking control counseling 04/24/2016 Overview (04/24/2016): Advised stop NR- and ref to filling hand for ? 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 Woodall Varicosities of leg Fibromyalgia Overview (07/15/2013): Dx: 2010 per [facility] Depression Overview (08/11/2015): Per psych Dr. Granado. Currently does not see anyone. Seeing Dania here. Insomnia Overview (08/11/2015): Formerly seen by Dr. Granado. Now seeing social media developer Dania. Immunizations Immunization Administration Dates Next Due HEP A-HEP B ([place]) 07/10/2009 Hep B, Adult/Adol (ENERGIX/RECOMBIVAX) 9,11/08/2008 INFLUENZA, SEASONAL, INJECTABLE 04/06/2015,08/24,04/02/2012 IPV (IPOL) 12/27/2008,09/28/2008 MMR (MMR II/Priorix) 11/08/2008,09/28/2008 PNEUMOCOCCAL POLYSACCHARIDE PPV23 (Pneumovax 23) 08/24/2013 PPD 09/28/2008 Td(adult),2 Lf tetanus toxoi [...] of Treatment Not on file Insurance [facility]ICA[facility] Care Teams Gas Fitter Apprentice Relationship Specialty Start Date End Date Rochelle Engel PA-C [address] [place] [address] PCP - General 09/01/18
--- OUTSIDE RECORDS SUMMARY | 2024-11-17 11:55 | XMS_ITS | Encounter Summary ---
Author Organization [facility] Address [address] [place] [address] Care Team Providers Care Splitter Tender Name Role Phone Brianna Arauz MD Primary Care Provider [phone] Reason for Visit * Imaging (Routine) - Authorized Specialty Diagnoses / Procedures Referred By Contac t Referred To Contact Cardiology Diagnoses Atrial tachycardia (CMS/HCC V24) Other chest pain Procedures Transthoracic echocardiogram (TTE) complete with PRN contrast, bubble, strain, and 3D order panel MN TTE W 2D IMAGE COMPLETE W DOPPLER ECHO & COLOR FLOW DOPPLER ECHO MN CRUZ 2D COMPLETE W/CONTRAST OR W & WO CONTRAST WITH DOPPLER Duglas Cummings MD [address] [place] [address] Dr Zaragoza [address] [place] [id number] Phone: tel: fax: [facility] Referral ID Status Reason Start Date Expiration Date V isits Requested Visits Authorized [id number] Authorized 09/17/2024 09/17/2025 1 1 Encounter Details Date Type Department Care Team (Latest Contact Info) Description 11/15/2024 12:30 PM EDT Ancillary Procedure [facility] [address] [place] [id number] Atrial tachycardia (CMS/HCC V24); Other chest pain Social History Tobacco Use Types Packs/Day Years [...] on file documented as of this encounter Last Filed Vital Signs Vital Sign Reading Time Taken Comments Blood Pressure 135/80 11/15/2024 1:07 PM EDT Pulse - - Temperature - - Respiratory Rate - - Oxygen Saturation - - Inhaled Oxygen Concentration - - Weight 104 kg (229 lb) 11/15/2024 1:07 PM EDT Height 160 cm (5' 3 ) 11/15/2024 1:07 PM EDT Body Mass Index 40.57 11/15/2024 1:07 PM EDT documented in this encounter Plan of Treatment Upcoming Encounters Date Type Department Care Team (Late st Contact Info) Description 11/17/2024 3:30 PM EDT Treatment [facility] [address] [address] Zara Saxena, PT 11/24/2024 3:00 PM EDT Treatment [facility] [address] [address] Ted Chi, PRODUCTION SPECIALIST 12/01/2024 1:00 PM EDT Treatment [facility] [address] [address] Zara Saxena, PT 12/08/2024 4:00 PM EDT Treatment [facility] [address] [address] Zara Saxena, PT 12/15/2024 3:30 PM EDT Treatment [facility] [address] [address] Zara Saxena, PT 12/22/2024 3:00 PM EDT Treatment [facility] [address] [address] Zara Saxena, PT Pending Results Name Type Priority Associated Diagnoses Date/Time Transthoracic echocardiogram (TTE) complete with PRN contrast, bubble, strain, and 3D order panel Echocardiography Routine Atrial tachycardia (CMS/HCC V24) Other chest pain 11/15/2024 1:07 PM EDT documented as of this encounter Goals Goal [...] as of this encounter Visit Diagnoses Diagnosis Atrial tachycardia (CMS/HCC V24) Other specified cardiac dysrhythmias Other chest pain documented in this encounter Care Teams Splitter Tender Relationship Specialty Start Date End Date Brianna Arauz MD [address] [place] [address] PCP - General Internal Medicine 01/26/20 documented as of this encounter
--- OUTSIDE RECORDS SUMMARY | 2024-11-17 11:55 | XMS_ITS | Clinical Summary ---
Author Organization [facility] Address [address] [place] [address] Phone Care Team Providers Care Utility Bag Assembler Name Role Phone Brianna Arauz MD Primary Care Provider [phone] Allergies No known active allergies Medications pioglitazone [...] CT scan is recommended by the [employer] chest pain guidelines (level [...] Last Assessment & Plan: This delightful 47-year-old [place] woman has recurrent palpitations that appear to [...] and ablation strategies with her using a pediatric anesthesiologist. I went through the procedure for an [...] Encounters Date Type Department Care Team Description 11/15/2024 12:30 PM EDT Ancillary Procedure [facility] [address] [place] [phone] Atrial tachycardia (CMS/HCC V24); Other chest pain 10/27/2024 2:30 PM EDT Evaluation [facility] [address] [place] [phone] Delia Oneil, PT Bilateral foot pain (Primary Dx); Calcaneal spur of both feet 10/13/2024 3:00 PM EDT Ancillary Procedure [facility] - [address] [place] [phone] Atrial tachycardia (CMS/HCC V24) 09/24/[address] [facility] [address] [place] [address] Andi Terrell MD Appointment (Coronary CTA) 09/17/2024 10:20 AM EDT Office Visit [facility] [address] [place] [address] Andi Terrell MD Atrial tachycardia (CMS/HCC V24) (Primary Dx); Essential hypertension; Pure hypercholesterolem ia; Other chest pain; Atrial fibrillation, unspecified type (CMS/HCC V24, CMS/HCC V28) 09/17/[address] [facility] [address] [place] [address] Andi Terrell MD from Last [...] pain DX:Chronic paris k pain Supraventricular tachycardia ([facility] V24) 2022 DX:Supraventricular tachycardia (HCC) Hypertension 12/31/2022 [...] Pressure 135/80 11/15/2024 1:07 PM EDT Pulse 77 09/17/2024 10:34 AM EDT Temperature - - Respiratory Rate - - Oxygen Saturation 96% 09/17/2024 10:34 AM EDT Inhaled Oxygen Concentration - - Weight 104 kg (229 lb) 11/15/2024 1:07 PM EDT Height 160 cm (5' 3 ) 11/15/2024 1:07 PM EDT Body Mass Index 40.57 11/15/2024 1:07 PM EDT Plan of Treatment Upcoming Encounters Date Type Department Care Team (Late st Contact Info) Description 11/17/2024 3:30 PM EDT Treatment [facility] [address] [phone] Zara Saxena PT 11/24/2024 3:00 PM EDT Treatment [address] [phone] Ted Chi PTA 12/01/2024 1:00 PM EDT Treatment [address] [address] Zara Saxena, PT 12/08/2024 4:00 PM EDT Treatment [facility] [address] [place] [address] Zara Saxena, PT 12/15/2024 3:30 PM EDT Treatment [facility] [address] [address] Zara Saxena, PT 12/22/2024 3:00 PM EDT Treatment [facility] [address] [address] Zara Saxena, PT Health Maintenance Due Date Last Done Comments [...] and free t3 (10/21/2024 3:50 PM EDT) [facility] TSH 1.61 0.40 - 4.00 mcIU/mL LAB CHEMISTRY METHOD 10/21/2024 5:[address] [facility] Blood Venous blood specimen / Unknown Venipuncture / Unknown 10/21/2024 3:50 PM EDT 10/21/2024 4:11 PM EDT us Bella Priest DO LAB BLOOD ORDERABLES Final Res ult [facility] [address] [place] [address], * (ABNORMAL) Vitamin D 25 hydroxy (10/21/2024 3:50 PM EDT) [facility] Vit D, 25-Hydroxy 20.4(L) 30.0 - 80.0 ng/mL LAB CHEMISTRY METHOD 10/21/2024 5:[address] [facility] Blood Venous blood specimen / Unknown Venipuncture / Unknown 10/21/2024 3:50 PM EDT 10/21/2024 4:11 PM EDT [facility] LAB BLOOD ORDERABLES Final Res ult Performing Organization Address City/[facility]/ZIP Co de Phone Number [facility] [address] [place] [address], [place] [phone] * Sedimentation rate (10/21/2024 3:50 PM EDT) [facility] Sed Rate 5 0 - 20 mm/hr LAB HEMETOLOGY METHOD 10/21/2024 4:[address] [facility] Blood Venous blood specimen / Unknown Venipuncture / Unknown 10/21/2024 3:50 PM EDT 10/21/2024 4:10 PM EDT [facility] LAB BLOOD ORDERABLES Final Res ult Performing Organization Address [facility] Co de Phone Number [facility] [address] [place] [address], [place] [phone] * Rheumatoid factor (10/21/2024 3:50 PM EDT) [facility] Rheumatoid Factor <10.0 <15.0 I Unit/mL LAB CHEMISTRY METHOD 10/21/2024 4:[address] [facility] Blood Venous blood specimen / Unknown Venipuncture / Unknown 10/21/2024 3:50 PM EDT 10/21/2024 4:11 PM EDT [facility] LAB BLOOD ORDERABLES Final Res ult [facility] [address] [place] [address], [place] [phone] * Vitamin B12 (10/21/2024 3:50 PM EDT) [facility] Vitamin B-12 796 250 - 900 pcg/mL LAB CHEMISTRY METHOD 10/21/2024 5:[address] [facility] Blood Venous blood specimen / Unknown Venipuncture / Unknown 10/21/2024 3:50 PM EDT 10/21/2024 4:11 PM EDT us Bella Priest LAB BLOOD ORDERABLES Final Res ult [facility] [address] [place] [address], [place] [phone] * Comprehensive metabolic panel (10/21/2024 3:50 PM EDT) Only the most recent of2 resultswithin the time period is included. [facility] Sodium 140 133 - 145 mmol/L LAB CHEMISTRY METHOD 10/21/2024 5:[address] [facility] Potassium 4.0 3.5 - 5.5 mmol/L LAB CHEMISTRY METHOD 10/21/2024 5:17 PM [facility] Chloride 107 96 - 110 mmol/L LAB CHEMISTRY METHOD 10/21/2024 5:17 PM [facility] CO2 24 21 - 32 mmol/L LAB CHEMISTRY METHOD 10/21/2024 5:17 PM [facility] Anion Gap 9 3 - 11 LAB CHEMISTRY METHOD 10/21/2024 5:17 PM [facility] Glucose 81 70 - 100 mg/dL LAB CHEMISTRY METHOD 10/21/2024 5:17 PM [facility] BUN 13 5 - 25 mg/dL LAB CHEMISTRY METHOD 10/21/2024 5:17 PM [facility] Creatinine 0.60 0.50 - 1.10 mg/dL LAB CHEMISTRY METHOD 10/21/2024 5:[address] [facility] eGFR 112 >=60 mL/min/1. 73m2 LAB CHEMISTRY METHOD 10/21/2024 5:17 PM [facility] Comment:Calculation based on the??Chronic Kidney Disease Epidemiology Collaboration (CKD-EPI) equation refit??without adjustment for race. BUN/Creatinine Ratio 21.7 LAB CHEMISTRY METHOD 10/21/2024 5:[address] [facility] Calcium 9.4 8.5 - 10.5 mg/dL LAB CHEMISTRY METHOD 10/21/2024 5:17 PM [facility] AST (SGOT) 15 10 - 42 unit/L LAB CHEMISTRY METHOD 10/21/2024 5:17 PM [facility] ALT (SGPT) 17 10 - 60 unit/L LAB CHEMISTRY METHOD 10/21/2024 5:17 PM [facility] Alkaline Phosphatase 61 42 - 121 unit/L LAB CHEMISTRY METHOD 10/21/2024 5:17 PM [facility] Total Protein 6.8 6.0 - 8.0 g/dL LAB CHEMISTRY METHOD 10/21/2024 5:17 PM [facility] Albumin 3.6 3.2 - 5.0 g/dL LAB CHEMISTRY METHOD 10/21/2024 5:17 PM [facility] Total Bilirubin 0.3 0.0 - 1.4 mg/dL LAB CHEMISTRY METHOD 10/21/2024 5:17 PM [facility] Blood Venous blood specimen / Unknown Venipuncture / Unknown 10/21/2024 3:50 PM EDT 10/21/2024 4:11 PM EDT us Bella Priest DO LAB BLOOD ORDERABLES Final Res ult [facility] [address] [place] [address], [place] [phone] * Lipid panel with reflex to direct LDL (09/30/2024 10:19 AM EDT) Cholesterol 140 0 - 200 mg/dL LAB CHEMISTRY METHOD 09/30/2024 11:[address] [facility] Triglycerides 81 0 - 150 mg/dL LAB CHEMISTRY METHOD 09/30/2024 11:[address] [facility] HDL 43 >=40 mg/dL LAB CHEMISTRY METHOD 09/30/2024 11:[address] [facility] LDL Calculated 81 0 - 100 mg/dL LAB CHEMISTRY METHOD 09/30/2024 11:[address] [facility] VLDL Cholesterol Gorge 16.2 mg/dL LAB CHEMISTRY METHOD 09/30/2024 11:[address] [facility] Non HDL Chol. (LDL+VLDL) 97 <145 mg/dL LAB CHEMISTRY METHOD 09/30/2024 11:[address] [facility] Chol/HDL Ratio 3.3 0.0 - 4.4 LAB CHEMISTRY METHOD 09/30/2024 11:[address] [facility] Blood Venous blood specimen / Unknown Venipuncture / Unknown 09/30/2024 10:19 AM EDT 09/30/2024 10:47 AM EDT Andi Terrell MD LAB BLOOD ORDERABLES F inal Result [facility] [address] [place] [address], [place] [phone] * CBC auto differential (09/30/2024 10:19 AM EDT) WBC 6.1 4.8 - 10.8 K/mcL LAB HEMETOLOGY METHOD 09/30/2024 11:09 AM [facility] RBC 4.60 3.80 - 4.80 M/mcL LAB HEMETOLOGY METHOD 09/30/2024 11:09 AM [facility] Hemoglobin 12.9 11.5 - 16.0 g/dL LAB HEMETOLOGY METHOD 09/30/2024 11:09 AM [facility] Hematocrit 40.1 35.0 - 47.0 % LAB HEMETOLOGY METHOD 09/30/2024 11:09 AM [facility] MCV 87.7 79.0 - 98.0 FL LAB HEMETOLOGY METHOD 09/30/2024 11:09 AM [facility] MCH 28.2 27.0 - 32.0 pcg LAB HEMETOLOGY METHOD 09/30/2024 11:09 AM [facility] MCHC 32.2 32.0 - 37.0 g/dL LAB HEMETOLOGY METHOD 09/30/2024 11:09 AM [facility] RDW 13.4 11.0 - 15.0 % LAB HEMETOLOGY METHOD 09/30/2024 11:09 AM [facility] Platelets 277 130 - 400 K/mcL LAB HEMETOLOGY METHOD 09/30/2024 11:09 AM [facility] MPV 10.2 7.0 - 11.0 FL LAB HEMETOLOGY METHOD 09/30/2024 11:09 AM [facility] NRBC 0.0 <1.0 % LAB HEMETOLOGY METHOD 09/30/2024 11:09 AM [facility] NRBC Absolute 0.00 <0.10 K/mcL LAB HEMETOLOGY METHOD 09/30/2024 11:09 AM [facility] Neutrophils Relative 54.5 % LAB HEMETOLOGY METHOD 09/30/2024 11:09 AM [facility] Lymphocytes Relative 28.8 % LAB HEMETOLOGY METHOD 09/30/2024 11:09 AM [facility] Monocytes Relative 9.4 % LAB HEMETOLOGY METHOD 09/30/2024 11:09 AM [facility] Eosinophils Relative 6.0 % LAB HEMETOLOGY METHOD 09/30/2024 11:09 AM [facility] Basophils Relative 0.8 % LAB HEMETOLOGY METHOD 09/30/2024 11:09 AM [facility] Immature Granulocytes Relative 0.5 % LAB HEMETOLOGY METHOD 09/30/2024 11:09 AM [facility] Neutrophils Absolute 3.34 1.50 - 7.00 K/mcL LAB HEMETOLOGY METHOD 09/30/2024 11:09 AM [facility] Lymphocytes Absolute 1.77 1.00 - 5.00 K/mcL LAB HEMETOLOGY METHOD 09/30/2024 11:09 AM [facility] Monocytes Absolute 0.58 0.20 - 1.00 K/mcL LAB HEMETOLOGY METHOD 09/30/2024 11:09 AM [facility] Eosinophils Absolute 0.37 0.00 - 0.50 K/mcL LAB HEMETOLOGY METHOD 09/30/2024 11:09 AM [facility] Basophils Absolute 0.05 0.00 - 0.20 K/mcL LAB HEMETOLOGY METHOD 09/30/2024 11:09 AM [facility] Immature Granulocytes Absolute 0.03 0.00 - 0.03 K/mcL LAB HEMETOLOGY METHOD 09/30/2024 11:09 AM [facility] Blood Venous blood specimen / Unknown Venipuncture / Unknown 09/30/2024 10:19 AM EDT 09/30/2024 10:54 AM EDT Andi Terrell MD LAB BLOOD ORDERABLES F inal Result Performing Organization Address [facility] Co de Phone Number [facility] [address] [place] [address], [place] [phone] * (ABNORMAL) Magnesium (09/30/2024 10:19 AM EDT) Magnesium 1.8(L) 1.9 - 2.6 mg/dL LAB CHEMISTRY METHOD 09/30/2024 11:[address] [facility] Blood Venous blood specimen / Unknown Venipuncture / Unknown 09/30/2024 10:19 AM EDT 09/30/2024 10:47 AM EDT Andi Terrell MD LAB BLOOD ORDERABLES F inal Result Performing Organization Address [facility] de Phone Number [facility] [address] [place] [address], [place] [phone] * ECG 12 lead (09/17/2024 10:41 AM EDT) Ventricular Rate ECG 77 BPM G[facility] Atrial Rate 77 BPM [facility] P-R Interval 170 ms GEMUSE QRS Duration 84 ms GEMUSE Q-T Interval 382 ms GEMUSE QTc 432 ms GEMUSE P Wave [place] 64 degrees GEMUSE R [place] 72 degrees GEMUSE T [place] 70 degrees GEMUSE ECG Interpretation Normal sinus rhythm Normal ECG When compared with ECG of 30-SEP-2022 02:17, Premature atrial complexes are no longer Present Vent. rate has decreased BY ??49 BPM Confirmed by ANDI TERRELL ([id number]) on 09/17/2024 11:18:11 AM GEMUSE 09/17/2024 10:4 1 AM EDT 09/17/2024 11:18 AM EDT Andi Terrell MD ECG ORDERABLES Final Result Performing Organization Address [facility]/State/ZIP Co de Phone Number G[facility] from Last 3 Months Insurance [facility] Care Teams Utility Bag Assembler Relationship Specialty Start Date End Date Brianna Arauz MD [address] [place] [phone] PCP - General Internal Medicine 01/26/20
--- OUTSIDE RECORDS SUMMARY | 2024-11-17 11:55 | XMS_ITS | Continuity of Care Document ---
Author Organization [facility] Address [address] [place] [address] [address] [place] [address] Phone Care Team Providers Care Skirt Clipper Name Role Phone Orion RUIZ, YANNA, William [...] Mi- [place] & [place] [facility], [address] [place] [address] Dr [address], [id number], tel:[phone] [facility] Varicose veins of bilateral lower extremities with other complicationsPa in in right lower legPain in left lower legPain in right legRestless legs syndromeEssenti al (primary) hypertensionPru ritus, unspecifiedPain in left legCramp and spasmLocalized edema 4 Orion RUIZ, BRII RAINES. [address] [facility], [facility] [address], [place], [place], [id number] , [place]. tel:[phone] Referring Provider: Brianna Arauz MD, [address] [place], [address]. tel:[phone] [facility], [address] [place] [address] [address], [id number], tel:[phone] R [facility] [place] [facility] [place] Chronic venous hypertension (idiopathic) with other complications of bilateral lower extremity Orion RUIZ, RVT, RPCAROLE Thomas. [address] [facility], [address], [place], [place], [id number] , [place]. tel:[phone] Referring Provider: Brianna Arauz MD, [address] [place], [address]. tel:[phone] Family History Family Member Type Diagnosis Age At Onset No Information Payers Payer name Insurance type Covered democrat ID Leti barahona(s) [facility] [id number] 0 Social History Type Description Quantity Date [...]
== END 2024-11-17 11:27 | disposition home or self-care (01) ==
LOC: HO.ENCR 10:53
PROVIDERS: PCP Hospitalist; Visit Provider Internal Medicine
DX: E11.65 Type 2 diabetes mellitus with hyperglycemia (principal); R63.5 Abnormal weight gain

== ENCOUNTER → 2024-11-17 10:52 | Outpatient (BNVA) | payer OTHER, SELFPAY | PROVIDERS: PCP Hospitalist; Visit Provider Internal Medicine | DX: E11.65 Type 2 diabetes mellitus with hyperglycemia (principal); R63.5 Abnormal weight gain | CPT/HCPCS: 82947; 99212 ==

== ENCOUNTER 2024-12-03 14:39 | Outpatient (REF) | payer OTHER, SELFPAY ==
--- OUTSIDE RECORDS SUMMARY | 2024-12-03 14:43 | XMS_ITS | Clinical Summary ---
Author Organization [facility] Address [address] [place] [address] Care Team Providers Care Movable Bulkhead Installer Name Role Phone Rochelle Engel PA-C Primary Care Provider [phone] Source Comments PLEASE NOTE, if this patient is a minor, it may be UNLAWFUL to discuss sensitive information that is contained in these records (such as FAMILY PLANNING, MENTAL HEALTH or SUBSTANCE ABUSE) with the minor patient's parent or other person without the patient's specific authorization.[facility] Allergies No known active allergies Medications blood-glucose meter monitoring kitIndications:DM type 2 (diabetes mellitus, type 2) ([facility]) as needed for blood glucose monitoring. Quantity: 1 meter freestyle lite. DX: 250.00 for a lifetime. 1 Each 0 08/19/19 15 Active lancetsIndication s:Type 2 diabetes mellitus without complication ([facility]) FREESTYLE. USE BID PRN. DX: 250.00 50 Each 11 03/20/20 15 Active etonogestrel-ethi nyl estradiol (NUVARING) 0.12-0.015 mg/24 hr vaginal ringIndications:F amily planning, contraceptive checking and surveillance Place 1 Each vaginally once. PER PICTURES EDITOR. Leave in place for 3 consecutive weeks, then remove for 1 week. 1 Each 08/11/19 16 Active Miscellaneous Medical Supply miscIndications:E ssential hypertension by miscellaneous route once daily. BLOOD PRESSURE MACHINE. DX: HTN 1 Each 0 12/12/19 16 Active fluticasone (FLONASE) 50 mcg/actuation nasal sprayIndications: Allergic otitis media of both ears, unspecified chronicity Place 1 Roslyn into the nostril(s) once daily. 16 g 1 02/26/20 16 Active metFORMIN (GLUMETZA) 500 mg 24 hr tabletIndications :Type 2 diabetes mellitus without complication, without long-term current use of insulin ([facility]) Take 2 Tabs by mouth [...] complication, without long-term current use of insulin ([facility]) 1 Strip 2 (two) times daily. Pt [...] Active Problems Problem Noted Date Diagnosed Date Non-Bengali speaking patient- Nepali speaking control counseling 04/24/2016 Overview (04/24/2016): Advised stop NR- and ref to chemistry intern for ? Tubal 04/24/16 Essential hypertension 05/23/2015 [...] Morbid obesity with BMI of 40.0-44.9, adult ([facility]) 09/28/2008 TB lung, latent 09/28/2008 Overview (07/15/2013): +PPD=10 mm 09/30/08; [place] 12/13/08 @ [facility] Hirsutism Overview (07/15/2013): Per Derm Dr. Woodall Varicosities of leg Fibromyalgia Overview (07/15/2013): Dx: 2010 per [facility] Depression Overview (08/11/2015): Per psych Dr. Granado. Currently does not see anyone. Seeing Dania here. Insomnia Overview (08/11/2015): Formerly seen by Dr. Granado. Now seeing social service technician Dania. Immunizations Immunization Administration Dates Next Due [...] Plan of Treatment Not on file [facility] Care Teams Movable Bulkhead Installer Relationship Specialty Start Date End Date Rochelle Engel PA-C [address] [place] [address] PCP - General 09/01/18
[2024-12-03 14:49] LABS: MANUAL DIFF FLAG NO
[2024-12-03 15:14] LABS: Basophils Absolute Auto 0.1 X10*3/uL (0.0-0.2); Basophils Percent Auto 0.9 % (0-2); Eosinophils Absolute Auto 0.4 X10*3/uL (0.0-0.4); Eosinophils Percent Auto 5.1 % (0-4); Hematocrit 39.3 % (37.0-47.0); Hemoglobin 13.1 g/dl (12.0-16.0); Imm Gran Abs Auto 0.05 X10*3/uL (0.00-0.03); Imm Gran Pct Auto 0.7 % (0.0-0.4); Lymphocytes Absolute Auto 1.9 X10*3/uL (1.2-4.9); Lymphocytes Percent Auto 27.7 % (20-40); Mean Corpuscular HGB Conc 33.3 g/dl (31.0-35.0); Mean Corpuscular Hemoglobin 26.8 pg (27.0-33.0); Mean Corpuscular Volume 80.5 fL (80.0-98.0); Monocytes Absolute Auto 0.5 X10*3/uL (0.1-1.2); Monocytes Percent Auto 7.6 % (2-11); Platelet Count 300 X10*3/uL (160-400); Red Blood Count 4.88 X10*6/uL (4.20-5.50); Red Cell Distribution Width 13.6 % (11.0-16.0); White Blood Count 6.9 X10*3/uL (4.8-10.8)
[2024-12-03 15:56] LABS: Ferritin 10 ng/mL (10-250)
== END 2024-12-03 14:40 | disposition home or self-care (01) ==
LOC: HO.LAB 14:39
PROVIDERS: PCP Hospitalist; Visit Provider Nurse Practitioner Family
DX: D64.9 Anemia, unspecified (principal)
CPT/HCPCS: 36415; 82728; 85025

== ENCOUNTER 2024-12-29 15:03 | Outpatient (AMB) | payer OTHER, SELFPAY ==
--- NOTE | 2024-12-29 15:07 | A.OFFPC_ITS ---
Intake Visit Reasons: weight and glucose Intake Note: Patient presents today for a follow-up on Type 2 Diabetes Mellitus: Last Diabetic eye exam was on: 08/2024 Last Podiatry exam was on: Patient does not see a Transmission Line Engineer Most recent HbA1c: 6.5%, 10/20/2024 Random Glucose- mg/dL, Today Wide Area Network Administrator Required: Yes Wide Area Network Administrator Language: Chinese Information Interpreted: non-clinical & clinical Accompanied by: Self / Same As Patient Allergies No Known Allergies (No Known Allergies*) Allergy (Verified 12/29/24 15:16) HPI HPI Comments History of Present Illness Details 48 year old female with past medical history of T2DM, Nontoxic MNG presenting for follow up Chinese lang interpreter Initially diagnosed with T2DM in 2011. Current prescriptions is Rybelsus, metformin glipizide. phentermine stop actos for now. start phentermine Metformin 500mg twice daily (decrease from 1000mg twice daily), rybelsus 7mg changed to ozempic last visit but very intolerant-just took one dose, glipizide and pioglitazone.She is frustrated by weight gain and attributes it to the actos. Previously on victoza with mild SE. Plan at last visit was to stop the victoza and start rybelsus to aid weight loss if covered. This was covered. Also hoping that in near future we could decrease metformin to improve GI upset. Was on jardiance but was having very frequent yeast infection. She feels tired a lot-thinks this may be due to lower glucose readings. Denies BG <70. Has chronic abdominal upset. She is frustrated with weight gain/difficulty losing weight. Traditional freestyle glucometer- range from 74-159 with average 134, checking 1.2/day. 100% at TGT. HbA1c 6.5% from HbA1C 12/18 6.1% from 6.3%. She notes that she feels quite low when her BG is in the 80s. Patient has gained 13 pounds de spite no change in diet. Denies a family history of T2DM. Has eyes checked yearly, states UTD Has neuropathy-mild, stable Has nephropathy, on Lisinopril 20 mg Has HLD, On Atorvastatin 40 mg Denies any history of CAD. Declines diabetes education. NTMNG: Has longstanding nontoxic MNG. Had prior FNA biopsy by Dr. Washington 12/05/16 of the L lower pole 1.2 cm nodule, with benign cytology. FNA biopsy of left inferior 1.6cm nodule 2020-benign. Had thyroid u/s ordered by Dr Farooq 11/2023, underwent recent u/s biopsy at [facility]-tells me this was benign 1. A 1.8 x 1.3 x 1.3 cm left mid TR 4 th yroid nodule meets criteria for biopsy and measured 1.7 x 1.0 x 1.2 cm, volume 1.1 mL. Correlation with prior biopsy results and clinical exam recommended to determine further management. 2. Additional subcentimeter thyroid nodu les as detailed above including 0.9 cm left upper TR 5 thyroid nodule fo r which follow-up ultrasound in one year is recommended. ROS CONSTITUTIONAL: Denies weight loss, fever and chills. HEENT: Denies changes in vision and hearing. RESPIRATORY: Denies SOB and cough. CV: Denies palpitations and CP GI: Denies abdominal pain, nausea, vomiting and diarrhea. : Denies dysuria and urinary frequency. MSK: Denies new myalgia and joint pain. SKIN: Denies rash and pruritus. NEUROLOGICAL: Denies headache PSYCHIATRIC: Denies recent changes in mood. PHYSICAL EXAM: GENERAL: Alert and oriented x 3. NAD EYES: EOMI. Anicteric. HENT: Moist mucous membranes. No scleral icterus. No cervical lymphadenopathy. LUNGS: Clear to auscultation bilaterally. CARDIOVASCULAR: Regular rate and rhythm. No murmur. No JVD. ABDOMEN: Soft, non-tender +bs EXTREMITIES: No edema. Non-tender. SKIN: No rashes or lesions. Warm. NEUROLOGIC: No focal neurological deficits. CN II-XII grossly intact PSYCHIATRIC: Cooperative. Appropriate mood and affect ? [facility] Medical History Insomnia Hypotension Multinodular thyroid HLD (hyperlipidemia) HTN (hypertension) T2DM (type 2 diabetes mellitus) Vitamin D deficiency Surgical History History of esophagogastroduodenoscopy (EGD) Hx of colonoscopy Hx of esophagogastroduodenoscopy History of carpal tunnel surgery of left wrist Family History Father No family history of disorders History of high blood pressure Mother No family history of disorders Social History Household Members: Spouse and Children Housing: House Housing Other:: spouse/ kids Are you a primary care administrative tech to a significant other at home: Yes Do you presently have visiting nurse or other home services: No Alcohol intake: never Patient Tobacco Use Status: Never used Tobacco service: No Current occupational status: unemployed Physical exam (Primary Care) Tobacco/Smoking Status: Tobacco use Status Patient Tobacco Use Status Never used Tobacco 12/29/24 15:08 Coding
--- NOTE | 2024-12-29 15:16 | A.OFFVIS_ITS ---
Vital Signs 12/29/24 15:17 Height 5 ft 3 in Weight 222 lb 10.67 oz BMI 39.4 BP 130/78 Blood Pressure Location Rt brachial Position Sitting Pulse 85 Pulse Source Pulse Oximeter Pulse Oximetry (%) 96 Oxygen Delivery Method Room Air Intake Visit Reasons: weight and glucose Intake Note: Patient presents today for a follow-up on Type 2 Diabetes Mellitus: Last Diabetic eye exam was on: 08/2024 Last Podiatry exam was on: Patient does not see a Cook Specialty Most recent HbA1c: 6.5%, 10/20/2024 Random Glucose- 117 mg/dL, Today Brick Chimney Builder Required: Yes Brick Chimney Builder Language: Wolof Brick Chimney Builder Services: Brick Chimney Builder Present Brick Chimney Builder Name: #[id number] Accompanied by: Self / Same As Patient Allergies No Known Allergies (No Known Allergies*) Allergy (Verified 12/29/24 15:16) HPI Comments Details: 48 year old female with past medical history of T2DM, Nontoxic MNG presenting for follow up Wolof poker prop player [id number] Initially diagnosed with T2DM in 2011. Current prescriptions is Metformin 500mg twice daily (decrease from 1000mg twice daily), Rybelsus 7mg Glipizide 10mg daily On phentermine to aid weight loss since last visit. Patient stopped eating most bread and rice. She has lost 11 pounds Stopped pioglitazone 2/2 weight gain Intolerant ozempic, jardiance Previously on victoza with mild SE. Plan at last visit was to stop the victoza and start rybelsus to aid weight loss if covered. This was covered. Also hoping that in near future we could decrease metformin to improve GI upset. Was on jardiance but was having very frequent yeast infection. She feels tired a lot- thinks this may be due to lower glucose readings. Denies BG <70. Has chronic abdominal upset. She is frustrated with weight gain/difficulty losing weight. Traditional freestyle glucometer- range from 127-242 with average 166 from 134, checking 1.2/day. 94% at TGT. Last HbA1c 6.5% from HbA1C 06/23 6.1% from 6.3%. Glucose has been higher since stopping actos. Denies a family history of T2DM. Has eyes checked yearly, states UTD Has neuropathy-mild, stable Has nephropathy, on Lisinopril 20 mg Has HLD, On Atorvastatin 40 mg Denies any history of CAD. Declines diabetes education. NTMNG: Has longstanding nontoxic MNG. Had prior FNA biopsy by Dr. Washington 12/05/16 of the L lower pole 1.2 cm nodule, with benign cytology. FNA biopsy of left inferior 1.6cm nodule 2020-benign. Had thyroid u/s ordered by Dr Farooq 11/2023, underwent recent u/s biopsy at [facility]-tells me this was benign 1. A 1.8 x 1.3 x 1.3 cm left mid TR 4 thyroid nodule meets criteria for biopsy and measured 1.7 x 1.0 x 1.2 cm, volume 1.1 mL. Correlation with prior biopsy results and clinical exam recommended to determine further management. 2. Additional subcentimeter thyroid nodules as detailed above including 0.9 cm left upper TR 5 thyroid nodule for which follow-up ultrasound in one year is recommended. ROS CONSTITUTIONAL: Denies weight loss, fever and chills. HEENT: Denies changes in vision and hearing. RESPIRATORY: Denies SOB and cough. CV: Denies palpitations and CP GI: Denies abdominal pain, nausea, vomiting and diarrhea. : Denies dysuria and urinary frequency. MSK: Denies new myalgia and joint pain. SKIN: Denies rash and pruritus. NEUROLOGICAL: Denies headache PSYCHIATRIC: Denies recent changes in mood. PHYSICAL EXAM: GENERAL: Alert and oriented x 3. NAD EYES: EOMI. Anicteric. HENT: Moist mucous membranes. No scleral icterus. No cervical lymphadenopathy. LUNGS: Clear to auscultation bilaterally. CARDIOVASCULAR: Regular rate and rhythm. No murmur. No JVD. ABDOMEN: Soft, non-tender +bs EXTREMITIES: No edema. Non-tender. SKIN: No rashes or lesions. Warm. NEUROLOGIC: No focal neurological deficits. CN II-XII grossly intact PSYCHIATRIC: Cooperative. Appropriate mood and affect ? [facility] Medical History Insomnia Hypotension Multinodular thyroid HLD (hyperlipidemia) HTN (hypertension) T2DM (type 2 diabetes mellitus) Vitamin D deficiency Surgical History History of esophagogastroduodenoscopy (EGD) Hx of colonoscopy Hx of esophagogastroduodenoscopy History of carpal tunnel surgery of left wrist Family History Father No family history of disorders History of high blood pressure Mother No family history of disorders Social History Household Members: Spouse and Children Housing: House Housing Other:: spouse/ kids Are you a primary care asst to a significant other at home: Yes Do you presently have visiting nurse or other home services: No Alcohol intake: never Patient Tobacco Use Status: Never used Tobacco service: No Current occupational status: unemployed Physical Exam Vital Signs: Last Vital Signs Pulse 85 12/29/24 15:17 BP 130/78 12/29/24 15:17 Pulse Ox 96 12/29/24 15:17 Oxygen Delivery Method Room Air 12/29/24 15:17 BMI result Body Mass Index 39.4 Results Reviewed Results Reviewed: Laboratory Last Values Glucose (Clinic) 117 mg/dL (60-115) H 12/29/24 15:22 Assessment & Plan Assessment & Plan (1) T2DM (type 2 diabetes mellitus): Code(s): E11.9 - Type 2 diabetes mellitus without complications Category: Medical Qualifiers: Diabetes mellitus complication status: with hyperglycemia Diabetes mellitus long term care administrator insulin use: without long term care administrator use Qualified Code(s): E11.65 - Type 2 diabetes mellitus with hyperglycemia (2) HTN (hypertension): Code(s): I10 - Essential (primary) hypertension Category: Medical Qualifiers: Hypertension type: unspecified Qualified Code(s): I10 - Essential (primary) hypertension Plan 49 yo for follow up Running higher glucose off actos despite weight loss Increase rybelsus to 14mg. She will return for A1C in one month. Can increase glipizide if glucose is till running high Medications: New semaglutide (Rybelsus) 14 mg PO DAILY 90 tabs 3RF Coding Level of Care Code Est Pt Level 4 (84734) Diagnoses Type 2 diabetes mellitus with hyperglycemia, without long-term current use of insulin E11.65 Diabetes mellitus complication status: with hyperglycemia Diabetes mellitus long term care administrator insulin use: without long term care administrator use Hypertension, unspecified type I10 Hypertension type: unspecified
[2024-12-29 15:17] VITALS: BP 130/78; PULSE 85; O2SAT 96; BMI 39.4
[2024-12-29 15:33] LABS: Glucose, Whole Blood 117 mg/dL (60-115)
--- OUTSIDE RECORDS SUMMARY | 2024-12-29 17:58 | XMS_ITS | Clinical Summary ---
Author Organization [facility] Address [address] [place] [address] Care Team Providers Care Crime Scene Evidence Technician Name Role Phone Rochelle Engel PA-C Primary Care Provider [phone] Source Comments PLEASE NOTE, if this patient is a minor, it may be UNLAWFUL to discuss sensitive information that is contained in these records (such as FAMILY PLANNING, MENTAL HEALTH or SUBSTANCE ABUSE) with the minor patient's parent or other person without the patient's specific authorization.[facility] Allergies No known active allergies Medications blood-glucose meter monitoring kitIndications:DM type 2 (diabetes mellitus, type 2) ([facility]) as needed for blood glucose monitoring. Quantity: 1 meter freestyle lite. DX: 250.00 for a lifetime. 1 Each 0 08/19/19 15 Active lancetsIndication s:Type 2 diabetes mellitus without complication ([facility]) FREESTYLE. USE BID PRN. DX: 250.00 50 Each 11 03/20/20 15 Active etonogestrel-ethi nyl estradiol (NUVARING) 0.12-0.015 mg/24 hr vaginal ringIndications:F amily planning, contraceptive checking and surveillance Place 1 Each vaginally once. PER INSPECTOR QUALITY ASSURANCE. Leave in place for 3 consecutive weeks, then remove for 1 week. 1 Each 08/11/19 16 Active Miscellaneous Medical Supply miscIndications:E ssential hypertension by miscellaneous route once daily. BLOOD PRESSURE MACHINE. DX: HTN 1 Each 0 12/12/19 16 Active fluticasone (FLONASE) 50 mcg/actuation nasal sprayIndications: Allergic otitis media of both ears, unspecified chronicity Place 1 [place] into the nostril(s) once daily. 16 g 1 08/22/20 16 Active metFORMIN (GLUMETZA) 500 mg 24 hr tabletIndications :Type 2 diabetes mellitus without complication, without long-term current use of insulin ([facility]) Take 2 Tabs by mouth once daily with dinner. Swallow whole. Do not break, crush or chew. 180 Tab 1 02/26/20 16 Active pregabalin (LYRICA) 50 mg capsuleIndication s:Fibromyalgia Take 1 Cap by mouth 2 (two) times daily. PER DR. RODRIGUEZ 05/23/20 16 Active blood sugar diagnostic (FREESTYLE TEST) stripsIndications :Type 2 diabetes mellitus without complication, without long-term current use of insulin ([facility]) 1 Strip 2 (two) times daily. Pt [...] Noted Date Diagnosed Date Non-Ethiopian speaking patient- Estonian speaking control counseling 04/24/2016 Overview (04/24/2016): Advised stop NR- and ref to skeiner for ? Tubal 04/24/16 Essential hypertension 05/23/2015 [...] Morbid obesity with BMI of 40.0-44.9, adult ([facility]) 09/28/2008 TB lung, latent 09/28/2008 Overview (07/15/2013): +PPD=10 mm 09/30/08; [place] 12/13/08 @ [facility] Hirsutism Overview (07/15/2013): Per Derm Dr. Woodall Varicosities of leg Fibromyalgia Overview (07/15/2013): Dx: 2009 per [facility] Depression Overview (08/11/2015): Per psych Dr. Granado. Currently does not see anyone. Seeing Dania here. Insomnia Overview (08/11/2015): Formerly seen by Dr. Granado. Now seeing social worker clinical Dania. Immunizations Immunization Administration Dates Next Due [...] 80 05/23/2016 10:15 AM EST Temperature 36.9 C (98.4 F) 05/23/2016 10:15 AM EST Respiratory Rate 16 05/23/2016 10:15 AM EST Oxygen Saturation 99% 06/07/2015 1:57 PM EST RA Inhaled Oxygen Concentration - - Weight 101.2 kg (223 lb) 09/03/2016 2:51 PM EST Height 160 cm (5' 2.99 ) 09/03/2016 2:51 PM EST Body Mass Index 39.51 09/03/2016 2:51 PM EST Plan of Treatment Not on file Insurance [facility] Care Teams Crime Scene Evidence Technician Relationship Specialty Start Date End Date Rochelle Engel PA-C [address] [place] [address] PCP - General 09/01/18
== END 2024-12-29 16:04 | disposition home or self-care (01) ==
LOC: HO.ENCR 15:04
PROVIDERS: PCP Hospitalist; Visit Provider Internal Medicine
DX: E11.65 Type 2 diabetes mellitus with hyperglycemia (principal); I10 Essential (primary) hypertension

== ENCOUNTER → 2024-12-29 15:03 | Outpatient (BNVA) | payer OTHER, SELFPAY | PROVIDERS: PCP Hospitalist; Visit Provider Internal Medicine | DX: E11.65 Type 2 diabetes mellitus with hyperglycemia (principal); I10 Essential (primary) hypertension | CPT/HCPCS: 82947; 99212 ==

== ENCOUNTER 2025-01-11 08:18 | Outpatient (REF) | payer OTHER, SELFPAY ==
--- OUTSIDE RECORDS SUMMARY | 2024-03-03 10:30 | XMS_ITS | Continuity of Care Document ---
Author Organization [facility] Address [address] [place] [address] [address] [place] [phone] Phone Care Team Providers Care Gastrointestinal Technician Name Role Phone Orion RUIZ, YANNA, William [...] Mi- CT & [place] Agata [facility] Vein Confucian[facility], [address] [place] [address] Dr Mendoza 1000[address] 1000Maci [place], [id number], tel:[phone] R [facility] Varicose veins of bilateral lower extremities with other complicationsPa in in right lower legPain in left lower legPain in right legRestless legs syndromeEssenti al (primary) hypertensionPru ritus, unspecifiedPain in left legCramp and spasmLocalized edema 4 Orion RUIZ, BRII RAINES. [address] [facility], [facility] [address], [place], [place], [id number] , [place]. tel:[phone] Referring Provider: Brianna Arauz MD, [address] [place], [address]. tel:[phone] Ag[facility] Vein [facility], [address] [place] [address] [address]Maci [place], [id number], tel:[phone] R - [place] - [place] Chronic venous hypertension (idiopathic) with other complications of bilateral lower extremity Orion RUIZ, RVT, RPCAROLE Thomas. [address] [facility], [address], [place], [place], [id number] , [place]. tel:[phone] Referring Provider: Brianna Arauz MD, [address] [place], [address]. tel:[phone] Family History Family Member Type Diagnosis Age At Onset No Information Payers Payer name Insurance type Covered green party ID Leti barahona(s) [facility] [id number] 0 Social History Type Description Quantity Date [...]
--- NOTE | 2025-01-11 08:21 | EMG_ITS ---
Bilateral tibial and peroneal motor studies were performed. Bilateral superficial peroneal, sural, and medial and lateral mixed plantar sensory studies were performed. Tibial H reflexes were obtained, and needle examination was performed. 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 Please see the attached neurophysiology data report MD BAILEY Vaca/ROSANA / [id number] MTDD
--- OUTSIDE RECORDS SUMMARY | 2025-01-11 08:21 | XMS_ITS | Clinical Summary ---
Author Organization [facility] Address [address] [place] [address] Care Team Providers Care Surgery Specialist Name Role Phone Rochelle Engel PA-C Primary Care Provider [phone] Source Comments PLEASE NOTE, if this patient is a minor, it may be UNLAWFUL to discuss sensitive information that is contained in these records (such as FAMILY PLANNING, MENTAL HEALTH or SUBSTANCE ABUSE) with the minor patient's parent or other person without the patient's specific authorization.[facility] Allergies No known active allergies Medications blood-glucose meter monitoring kitIndications:DM type 2 (diabetes mellitus, type 2) ([facility]) as needed for blood glucose monitoring. Quantity: 1 meter freestyle lite. DX: 250.00 for a lifetime. 1 Each 0 08/19/19 15 Active lancetsIndication s:Type 2 diabetes mellitus without complication ([facility]) FREESTYLE. USE BID PRN. DX: 250.00 50 Each 11 03/20/20 15 Active etonogestrel-ethi nyl estradiol (NUVARING) 0.12-0.015 mg/24 hr vaginal ringIndications:F amily planning, contraceptive checking and surveillance Place 1 Each vaginally once. PER BUSINESS QUALITY ASSURANCE ANALYST. Leave in place for 3 consecutive weeks, then remove for 1 week. 1 Each 08/11/19 16 Active Miscellaneous Medical Supply miscIndications:E ssential hypertension by miscellaneous route once daily. BLOOD PRESSURE MACHINE. DX: HTN 1 Each 0 12/12/19 16 Active fluticasone (FLONASE) 50 mcg/actuation nasal sprayIndications: Allergic otitis media of both ears, unspecified chronicity Place 1 [place] into the nostril(s) once daily. 16 g 1 02/26/20 16 Active metFORMIN (GLUMETZA) 500 mg 24 hr tabletIndications :Type 2 diabetes mellitus without complication, without long-term current use of insulin ([facility]) Take 2 Tabs by mouth [...] complication, without long-term current use of insulin ([facility]) 1 Strip 2 (two) times daily. Pt [...] Active Problems Problem Noted Date Diagnosed Date Non-Citizen Of [place] speaking patient- Romanian speaking control counseling 04/24/2016 Overview (04/24/2016): Advised stop NR- and ref to appraiser irrigation tax for ? Tubal 04/24/16 Essential hypertension 05/23/2015 H. pylori infection, tx 12/09/14 12/09/2014 Overview (12/09/2014): Positive urea breath test Iron deficiency anemia 12/06/2014 Overview (05/23/2016): Non-compliant with feso4. Vitamin B12 deficiency 12/06/2014 Overview (05/23/2016): 298. Non compliant with vitamin b 12. Type 2 diabetes mellitus wit hout complication ([facility]) 11/16/2012 Hand paresthesias, bilateral 09/11/2012 Overview (07/15/2013): [...] Morbid obesity with BMI of 40.0-44.9, adult ([facility]) 09/28/2008 TB lung, latent 09/28/2008 Overview (07/15/2013): +PPD=10 mm 09/30/08; [place] 12/13/08 @ [facility] Hirsutism Overview (07/15/2013): Per Derm Dr. Woodall Varicosities of leg Fibromyalgia Overview (07/15/2013): Dx: 2009 per [facility] Depression Overview (08/11/2015): Per psych Dr. Granado. Currently does not see anyone. Seeing Dania here. Insomnia Overview (08/11/2015): Formerly seen by Dr. Granado. Now seeing rn social services Dania. Immunizations Immunization Administration Dates Next Due HEP A-HEP B ([place]) 07/10/2009 Hep B, Adult/Adol ([id number]/RECOMBIVAX-ADULT) 12/27/2008,11/08/2008 INFLUENZA, SEASONAL, INJECTABLE 04/06/2015,08/24,04/02/2012 IPV (IPOL) 12/27/2008,09/28/2008 MMR (MMR II/Priorix) 11/08/2008,09/28/2008 PNEUMOCOCCAL POLYSACCHARIDE PPV23 (Pneumovax 23) 08/24/2013 PPD 09/28/2008 Td (adult),2 Lf tetanus toxo id (TDVAX), preservative free 11/08/2008,09/28/2008 Social History Tobacco Use Types [...] Plan of Treatment Not on file Insurance [facility] [place] MEDICAID Care Teams Surgery Specialist Relationship Specialty Start Date End Date Rochelle Engel PA-C [address] [place] [address] PCP - General 09/01/18
--- OUTSIDE RECORDS SUMMARY | 2025-01-11 08:21 | XMS_ITS | Clinical Summary ---
Author Organization [facility] Address [address] [place] [address] Phone Care Team Providers Care Instrument/Control Technician Name Role Phone Brianna Arauz MD Primary Care Provider [phone] Allergies No known active allergies Medications pioglitazone [...] CT scan is recommended by the [employer] chest pain guidelines (level [...] Last Assessment & Plan: This delightful 47-year-old Lithuanian woman has recurrent palpitations that appear to [...] and ablation strategies with her using a marzipan molder. I went through the procedure for an [...] Encounters Date Type Department Care Team Description 12/22/2024 3:00 PM EDT Treatment [address] [phone] Zara Saxena, PT Bilateral foot pain (Primary Dx); Calcaneal spur of both feet 12/20/2024 2:30 PM EDT Treatment [address] [phone] Zara Saxena, PT Bilateral foot pain (Primary Dx); Calcaneal spur of both feet 12/15/2024 3:30 PM EDT Treatment [address] [phone] Zara Saxena, PT Bilateral foot pain (Primary Dx); Calcaneal spur of both feet 12/08/2024 4:00 PM EDT Treatment [address] [phone] Zara Saxena, PT Bilateral foot pain (Primary Dx); Calcaneal spur of both feet 12/01/2024 1:00 PM EDT Treatment [address] [phone] Zara Saxena, PT Bilateral foot pain (Primary Dx); Calcaneal spur of both feet 11/24/2024 3:00 PM EDT Treatment [address] [phone] Ted Chi, SUPERVISOR NET [employer] Bilateral foot pain (Primary Dx); Calcaneal spur of both feet 11/17/2024 3:30 PM EDT Treatment [facility] [address] [place] [phone] Zara Saxena, PT Bilateral foot pain (Primary Dx); Calcaneal spur of both feet 11/15/2024 12:30 PM EDT Ancillary Procedure [facility] [address] [place] [phone] Atrial tachycardia (CMS/HCC V24); Other chest pain 10/27/2024 2:30 PM EDT Evaluation [facility] [address] [place] [phone] Thad, Delia, PT Bilateral foot pain (Primary Dx); Calcaneal spur of both feet 10/13/2024 3:00 PM EDT Ancillary Procedure [facility] [address] [place] [phone] Atrial tachycardia (CMS/HCC V24) from Last 3 Months Surgical History Surgery [...] Care Team (Late st Contact Info) Description 01/11/2025 2:30 PM EDT Treatment [facility] [address] [phone] Ted Chi PTA Health Maintenance Due Date Last Done Comments Breast Cancer Screening 1976 Diabetes: Annual Foot Exam 1986 Diabetes: Annual Retina Eye Exam 1986 Cervical Cancer Screening: Pap Smear 1997 IPV Vaccines (3 of 3 - Adult catch-up series) 06/28/2009 12/27/2008, 09/28/2008 Colorectal Cancer Screening: Colonoscopy 06/15/2022 Depression Screening 06/15/2022 HIV Screening 06/15/2022 Hepatitis C Screening 06/15/2022 Social Influencers of Health Screening 06/15/2022 COVID-19 Vaccine ( - season) 2024 02/22/2021, 02/01/2021 Diabetes: Annual Urine Albumin-Creatinine Ratio (uACR) 11/18/2024 Diabetes: Blood Sugar Control Test (HGBA1C) 11/18/2024 Influenza Vaccine (#1) 2025 8, 04/28/2017, 04/06/2015, Additional history exists Diabetes: Annual GFR (Glomerular Filtration Rate) 10/21/2025 10/21/2024, 09/30/2024 Hypertension/CHF/CAD Annual BMP Blood Test 10/21/2025 10/21/2024, [...] 5 Years) and At-Risk Patients (6 to 49 Years) Aged Out 03/30/2018, 08/24/2013 No longer [...] ROM to >/=5 degrees for gait mechanics - MET Improve R ankle plantarflexion ROM to >/=55 for symmetry and gait mechanics Improve R dorsiflexion and plantarflexion strength to 5/5 for improvements in strength and stability for standing and ambulation Decrease R gastroc/soleus myofascial restriction to mild - MET Patient will be independent with HEP for [...] 3:50 PM EDT Muscle pain Avitaminosis D CARDIAC HOLTER MONITOR (REPORT GENERATED IN HOUSE) Routine 10/13/2024 3:09 PM EDT Atrial tachycardia (CMS/HCC V24) LIPID PANEL WITH REFLEX TO DIRECT LDL Routine 09/30/2024 10:19 AM EDT Essential hypertension Pure hypercholesterolemia from Last 3 Months or Most Recently Relevant to Health Maintenance Results * Thyroid stimulating hormone with reflex to free t4 and free t3 (10/21/2024 3:50 PM EDT) Pathologist [facility] TSH 1.61 0.40 - 4.00 mcIU/mL LAB CHEMISTRY METHOD 10/21/2024 5:48 PM EDT [facility] Blood Venous blood specimen / Unknown Venipuncture / Unknown 10/21/2024 3:50 PM EDT 10/21/2024 4:11 PM EDT us Bella Priest DO LAB BLOOD ORDERABLES Final Res ult [facility] [address] [place] [address], [place] [phone] * (ABNORMAL) Vitamin D 25 hydroxy (10/21/2024 3:50 PM EDT) Pathologist [facility] Vit D, 25-Hydroxy 20.4(L) 30.0 - 80.0 ng/mL LAB CHEMISTRY METHOD 10/21/2024 5:47 PM EDT [facility] Blood Venous blood specimen / Unknown Venipuncture / Unknown 10/21/2024 3:50 PM EDT 10/21/2024 4:11 PM EDT [facility] LAB BLOOD ORDERABLES Final Res ult Performing Organization Address [facility]/ZIP Co de Phone Number [facility] [address] [place] [address], [place] [phone] * Sedimentation rate (10/21/2024 3:50 PM EDT) Pathologist [facility] Sed Rate 5 0 - 20 mm/hr LAB HEMETOLOGY METHOD 10/21/2024 4:24 PM EDT [facility] Blood Venous blood specimen / Unknown Venipuncture / Unknown 10/21/2024 3:50 PM EDT 10/21/2024 4:10 PM EDT [facility] LAB BLOOD ORDERABLES Final Res ult Performing Organization Address [facility]/ZIP Co de Phone Number [facility] [address] [place] [address], [place] [phone] * Rheumatoid factor (10/21/2024 3:50 PM EDT) Rheumatoid Factor <10.0 <15.0 I Unit/mL LAB CHEMISTRY METHOD 10/21/2024 4:53 PM EDT [facility] Blood Venous blood specimen / Unknown Venipuncture / Unknown 10/21/2024 3:50 PM EDT 10/21/2024 4:11 PM EDT [facility] LAB BLOOD ORDERABLES Final Res ult Performing Organization Address City/[facility]/ZIP Co de Phone Number [facility] [address] [place] [address], [place] [phone] * Vitamin B12 (10/21/2024 3:50 PM EDT) Pathologist [facility] Vitamin B-12 796 250 - 900 pcg/mL LAB CHEMISTRY METHOD 10/21/2024 5:17 PM EDT [facility] Blood Venous blood specimen / Unknown Venipuncture / Unknown 10/21/2024 3:50 PM EDT 10/21/2024 4:11 PM EDT us Bellahetal Priest DO LAB BLOOD ORDERABLES Final Res ult [facility] [address] [place] [address], [place] [phone] * Comprehensive metabolic panel (10/21/2024 3:50 PM EDT) [facility] Sodium 140 133 - 145 mmol/L LAB CHEMISTRY METHOD 10/21/2024 5:17 PM [facility] Potassium 4.0 3.5 - 5.5 [...] 73m2 LAB CHEMISTRY METHOD 10/21/2024 5:17 PM EDT [facility] Comment:Calculation based on the Chronic Kidney Disease Epidemiology Collaboration (CKD-EPI) equation refit without adjustment for race. BUN/Creatinine Ratio 21.7 LAB CHEMISTRY METHOD 10/21/2024 5:17 PM EDT [facility] Calcium 9.4 8.5 - 10.5 mg/dL LAB CHEMISTRY METHOD 10/21/2024 5:17 PM EDT [facility] AST (SGOT) 15 10 - [...] 10/21/2024 5:17 PM [facility] Albumin 3.6 3.2 - 5.0 g/dL LAB CHEMISTRY METHOD 10/21/2024 5:17 PM [facility] Total Bilirubin 0.3 0.0 - 1.4 mg/dL LAB CHEMISTRY METHOD 10/21/2024 5:17 PM [facility] Blood Venous blood specimen / Unknown Venipuncture / Unknown 10/21/2024 3:50 PM EDT 10/21/2024 4:11 PM EDT us Bella Priest DO LAB BLOOD ORDERABLES Final Res ult [facility] [address] [place] [address], [place] [phone] * CARDIAC HOLTER MONITOR (REPORT GENERATED IN HOUSE) (10/13/2024 3:09 PM EDT) Anatomical Region Laterality Modality Cardiac Diagnost ic Narrative 11/26/2024 1:56 PM EDT [facility]STIC [facility]ING DEPARTMENT [id number], [place] [address] TEL: FAX: Type of Test: 48 Hour Holter Monitor Date of Test: 10/13/2024 Ordering Provider: Duglas Yoder MD Reason for Test: Atrial Tachycardia Findings: 1: The predominant rhythm is Normal Sinus Rhythm. 2: Rare PACs. No PVCs. No sustained arrhythmias. 3: No pause noted, longest R-R was 1.2 seconds at 8:22 AM. 4: Diary returned with no symptoms noted. us Duglas Cummings MD [facility] SC OCEDURES Final Result * Lipid panel with reflex to direct LDL (09/30/2024 10:19 AM EDT) Cholesterol 140 0 - 200 mg/dL LAB CHEMISTRY METHOD 09/30/2024 11:48 AM [facility] Triglycerides 81 0 - 150 mg/dL LAB CHEMISTRY METHOD 09/30/2024 11:48 AM [facility] HDL 43 >=40 mg/dL LAB CHEMISTRY METHOD 09/30/2024 11:48 AM [facility] LDL Calculated 81 0 - 100 mg/dL LAB CHEMISTRY METHOD 09/30/2024 11:48 AM [facility] VLDL Cholesterol Gorge 16.2 mg/dL LAB CHEMISTRY METHOD 09/30/2024 11:48 AM [facility] Non HDL Chol. (LDL+VLDL) 97 <145 mg/dL LAB CHEMISTRY METHOD 09/30/2024 11:48 AM [facility] Chol/HDL Ratio 3.3 0.0 - 4.4 LAB CHEMISTRY METHOD 09/30/2024 11:48 AM [facility] Blood Venous blood specimen / Unknown Venipuncture / Unknown 09/30/2024 10:19 AM EDT 09/30/2024 10:47 AM EDT Duglas Cummings MD LAB BLOOD ORDERABLES F inal Result [facility] [address] [place] [address], from Last 3 Months or Most Recently Relevant to Health Maintenance Insurance [facility] [employer] Care Teams Instrument/Control Technician Relationship Specialty Start Date End Date Brianna Arauz MD [address] [place] [address] PCP - General Internal Medicine 01/26/20
== END 2025-01-11 08:19 | disposition home or self-care (01) ==
LOC: HO.NEURO 08:18
PROVIDERS: PCP Hospitalist; Visit Provider Physician Assistant Medical
DX: R20.0 Anesthesia of skin (principal); R20.2 Paresthesia of skin; G57.93 Unspecified mononeuropathy of bilateral lower limbs
CPT/HCPCS: 95886; 95913

== ENCOUNTER → 2025-01-11 08:21 | Outpatient (BNV) | payer OTHER, SELFPAY | PROVIDERS: PCP Hospitalist; Visit Provider Psychiatry & Neurology Neurology | DX: G62.9 Polyneuropathy, unspecified (principal) | CPT/HCPCS: 95886; 95913 ==

== ENCOUNTER 2025-01-24 12:07 | Outpatient (AMB) | payer OTHER, SELFPAY ==
--- OUTSIDE RECORDS SUMMARY | 2024-03-03 10:30 | XMS_ITS | Continuity of Care Document ---
Author Organization [facility] Address [address] [place] [address] [address] [place] [address] Phone Care Team Providers Care Gynecology Teacher Name Role Phone Orion RUIZ, YANNA, William [...] Mi- [place] & [place] Agata [facility] Vein [facility], [address] [place] [address] Dr Mendoza 1000[address]Maci [place], [id number], tel:[phone] R [facility] Varicose veins of bilateral lower extremities with other complicationsPa in in right lower legPain in left lower legPain in right legRestless legs syndromeEssenti al (primary) hypertensionPru ritus, unspecifiedPain in left legCramp and spasmLocalized edema 4 Orion RUIZ, BRII RAINES. [address] [facility], [facility] [address], [place], [place], [id number] , [place]. tel:[phone] Referring Provider: Brianna Arauz MD, [address] [place], [address]. tel:[phone] [facility], [address] [place] [address] [address]Mac[place], [id number], tel:[phone] R - [place] - [place] Chronic venous hypertension (idiopathic) with other complications of bilateral lower extremity Orion RUIZ, RVT, RPCAROLE Thomas. [address] [facility], [address], [place], [place], [id number] , [place]. tel:[phone] Referring Provider: Brianna Arauz MD, [address] [place], [address]. tel:[phone] Family History Family Member Type Diagnosis Age At Onset No Information Payers Payer name Insurance type Covered democrat ID Leti barahona(s) [facility] [id number] 0 Social History Type Description Quantity Date [...]
--- OUTSIDE RECORDS SUMMARY | 2025-01-21 23:59 | XMS_ITS | Continuity of Care Document ---
Author Organization [facility] Address [address], [address] [place] [address]- Care Team Providers Care Biodiesel Production Associate Name Role Phone Brianna Arauz MD Primary Care Physician [phone] [id number] Date(s): 12/22/24 - 01/21/25 [facility] [employer] [address] [place], [place] [address] Encounter Type: Triage Allergies, Adverse Reactions, Alerts No Known Allergies Medications Aygestin 5 mg oral tablet 1 tablet = 5 mg, By Mouth, Daily, # 10 tablet, 0 Refills, Maintenance, 08/06/24 4:06:00 PM EST, Tablet, [id number], Partial fill upon patient request if the prescription is for a schedule II opioid drug., 158, cm, 08/06/24 13:26:00 EST, Height, 59, kg, 08/06/24 13:26:00 EST, Dry Weight Start Date: 08/06/24 Status: Ordered Quantity: 10.0 Unit: tablet Repeat number: 1 Indications: Abnormal uterine and vaginal bleeding, unspecified; Celebrate Vitamin D3 Quick-Melt = 5,000 International_Units, By Mouth, Daily, 0 Refills, Maintenance, 11/13/16 9:07:44 AM EDT Start Date: 11/13/16 Status: Ordered Repeat number: 1 fluconazole 150 mg oral tablet 1 tablet = 150 mg, By Mouth, Every week, One tablet once a week for 6 months, # 12 tablet, 1 Refills, Soft Stop, 04/15/23 2:33:00 PM EDT, [id number], Partial fill upon patient request if the prescription is for a schedule II opioid drug., 158, cm, 04/09/23 17:19:00 EDT, Height, 96.8, kg, 03/05/23 14:02:00 EDT, Dry Weight Start Date: 04/15/23 Status: Ordered Quantity: 12.0 Unit: tablet Repeat number: 2 Jardiance 25 mg oral tablet 1 tablet = 25 mg, By Mouth, Daily in AM, 0 Refills, Maintenance, 05/02/22 1:03:00 PM EDT, Partial fill upon patient request if the prescription is for a schedule II opioid drug. Start Date: 05/02/22 Status: Ordered Repeat number: 1 lisinopril 10 mg oral tablet 10 mg, 1, tablet, By Mouth, Daily, # 30 tablet, Refills 0, Maintenance, 02/05/17 11:14:37 AM EDT Start Date: 02/05/17 Status: Ordered Quantity: 30.0 Unit: tablet Repeat number: 1 Metformin By Mouth, 0 Refills, Maintenance, 11/13/16 9:09:08 AM EDT Start Date: 11/13/16 Status: Ordered Repeat number: 1 metronidazole topical 0.75% gel with applicator 1 application, Vaginally, Every Friday and , # 70 Gm, 3 Refills, Soft Stop, 09/05/23 8:11:00 AM EST, Gel, [id number], to begin following the BID dose of Metronidazole 500 mg, 1 application Vaginally Every Friday and , 158, cm, 08/04/23 15:55:00 EST, Height, 99.5, kg, 08/04/23 15:55:00 EST, Dry Weight Start Date: 09/05/23 Status: Ordered Quantity: 70.0 Unit: g Repeat number: 4 omeprazole 40 mg oral enteric coated capsule 1 capsule = 40 mg, By Mouth, Daily, 0 Refills, Maintenance, 04/25/20 9:00:00 AM EDT Start Date: 04/25/20 Status: Ordered Repeat number: 1 pantoprazole 20 mg oral delayed release tablet 20 mg, 1, tablet, By Mouth, Daily, Refills 0, Maintenance, 02/05/17 11:17:05 AM EDT Start Date: 02/05/17 Status: Ordered Repeat number: 1 Slynd 4 mg oral tablet 1 tablet = 4 mg, By Mouth, Daily, # 84 tablet, 1 Refills, Maintenance, 11/25/24 11:27:00 AM EDT, Tablet, [facility] #[id number], Partial fill upon patient request if the prescription is for a schedule II opioid drug., 158, cm, 11/25/24 10:45:00 EDT, Height, 105.36, kg, 11/25/24 10:45:00 EDT, Dry Weight Start Date: 11/25/24 Status: Ordered Quantity: 84.0 Unit: tablet Repeat number: 2 topiramate 50 mg oral tablet 1 tablet = 50 mg, By Mouth, 2 times a day, 0 Refills, Maintenance, 04/25/20 9:06:00 AM EDT Start Date: 04/25/20 Status: Ordered Repeat number: 1 Victoza 18 mg/3 mL subcutaneous solution Subcutaneous Infusion, Daily, 0 Refills, Maintenance, 04/25/20 9:03:00 AM EDT Start Date: 04/25/20 Status: Ordered Repeat number: 1 Zolpidem Daily at bedtime, 0 Refills, Maintenance, 04/25/20 9:05:00 AM EDT Start Date: 04/25/20 Status: Ordered Repeat number: 1 Problem List Condition Confirmation Course Effective Dates Status Health St atus Informant Last pap smear 04/18/17 negative with negative HPV Confirmed Active Diabetes mellitus Confirmed Active Essential hypertension Confirmed Active Sinhala-speaking patient, internet technology manager required Confirmed Active Obesity Confirmed Active Positive PPD Confirmed Active Severe obesity Confirmed Active Refuses male providers Confirmed Active Abnormal thyroid blood test Confirmed Active Varicose veins Confirmed Active Social History Social History Type Response Smoking Status Never smoker entered on: 04/18/17 Sex Female Sex Representation Female (finding) Patient Care team information Care Team Personnel Name: Brianna Arauz MD Position: [facility] Physician - Primary Care Member Role: PCP Address: [address] [place] [address]- Telecom: Care Team Related Persons Name: ALTA BHATTI Name: BRENDAN MORROW Name: AMMON MORROW Insurance Providers Guarantor name: MORIAH MORROW Health Plan Information #: 1 Payer: [employer] Payer Identifier: ADA Member Number: [id number] Group Number: [id number] Subscriber Identifier: [id number] Relationship to Subscriber: self Coverage Type: Medicaid (Managed Care) Coverage Verification Date: ADA Telecom: ADA Address: ADA [address] [facility] Information #: 2 Payer: [employer] CUST[employer]ER [employer]ICE Payer Identifier: ADA Member Number: [id number] Group Number: ADA Subscriber Identifier: [id number] Relationship to Subscriber: self Coverage Type: MEDICAID Coverage Verification Date: ADA Telecom: ADA Address:
--- NOTE | 2025-01-24 12:13 | MHC.OFFVIS ---
Vital Signs 01/24/25 12:14 Height 5 ft 3 in Weight 215 lb BMI 38.1 BP 126/73 Blood Pressure Location Lt brachial Position Sitting Pulse 97 Pulse Oximetry (%) 96 Oxygen Delivery Method Room Air Intake Visit Reasons: GI consult Intake Note: Patient new consult for Patient cc: abdominal pain with discomfort, 10 days ago was with N/V she went to the Urgent care, and heartburn. Denies any other GI issues. Rail Bender Required: No Accompanied by: Spouse Allergies No Known Allergies (No Known Allergies*) Allergy (Verified 01/24/25 12:13) HPI HPI GI consult: Details: 49 yr old f here for f/u RECAP: she has chronic joint pains in back and spine--takes gabapentin ongoing depression with poor sleep--erratic hours EGD July 2019 with biopsies no H pylori, inactive gastritis GES was nml CT 03/2021-- ileus, fluid filled colon, wall thickening of distal stomach, EGD: 09/2021-- essentially normal US 03/28- GB with sludge vs polyp, otherwise nml GES 06/2022-- nml 4 hr emptying, fast in the 1st hour HIDA- 06/27---nml INTERIM: she was sick 10 d ago she had nausea and vomiting she noted epigastric pain she has normal stools, denies blood in stool she was given amoxil by urgent care and told she had urine infection EXAM: GENERAL: The patient is relaxed VITAL SIGNS:see workflow HEENT: Nonicteric sclerae, PERRLA, EOMI. Oropharynx clear. Moist mucous membranes. Conjunctivae appear well perfused. No thyroid mass. CHEST: Chest wall is nontender. HEART: Regular rate and rhythm without murmurs. LUNGS: Clear to auscultation bilaterally. ABDOMEN: Soft, positive bowel sounds, tender epigastrium, no organomegaly.no flank tenderness SKIN: No rash, no excessive bruising, petechiae, or purpura. NEUROLOGIC: Cranial nerves II-XII intact without motor/sensory deficit. A/P: 1/Upper and lower abdominal pain, nausea- undifferentiated PLAN: 1/ cont with PPI, -lansoprazole -and zofran 2/ re check labs inc lipase 3/ US abdomen PFS Medical History Insomnia Hypotension Multinodular thyroid HLD (hyperlipidemia) HTN (hypertension) T2DM (type 2 diabetes mellitus) Vitamin D deficiency Surgical History History of esophagogastroduodenoscopy (EGD) Hx of colonoscopy Hx of esophagogastroduodenoscopy History of carpal tunnel surgery of left wrist Family History Father No family history of disorders History of high blood pressure Mother No family history of disorders Social History Household Members: Spouse and Children Housing: House Housing Other:: spouse/ kids 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 - Other chronic pain Category: Medical Plan: as above Orders: Orders C Reactive Protein 01/24/25. - Other chronic pain, R10.11 - Right upper quadrant pain Lactoferrin, Fecal, Quant. 01/26/25. - Other chronic pain, K51.50 - Left sided colitis without complications, R10.11 - Right upper quadrant pain Ferritin 01/24/25. - Other chronic pain, R10.11 - Right upper quadrant pain US abdomen complete 01/24/25. - Other chronic pain, R10.11 - Right upper quadrant pain Complete Blood Count Auto Diff 01/24/25 - Other chronic pain, R10.11 - Right upper quadrant pain Comprehensive Met. Panel 01/24/25 - Other chronic pain, K75.81 - Nonalcoholic steatohepatitis (PANTOJA), R10.11 - Right upper quadrant pain UA CC w/rflx Micro + Cult 07/21/25 G89.29 - Other chronic pain, R10.11 - Right upper quadrant pain, R30.0 - Dysuria Lipase 01/24/25 G89.29 - Other chronic pain, R10.11 - Right upper quadrant pain Hemoglobin A1c 01/24/25 G89.29 - Other chronic pain, R10.11 - Right upper quadrant pain Coding Level of Care Code Est Pt Level 3 (58386) Diagnoses Chronic RUQ pain R10.11; G89.29
[2025-01-24 12:14] VITALS: BP 126/73; PULSE 97; O2SAT 96; BMI 38.1
--- OUTSIDE RECORDS SUMMARY | 2025-01-24 13:02 | XMS_ITS | Clinical Summary ---
Author Organization [facility] Address [address] [place] [address] Phone Care Team Providers Care Inside Sales Administrator Name Role Phone Brianna Arauz MD Primary Care Provider [phone] Allergies No known active allergies Medications pioglitazone [...] CT scan is recommended by the 202 [employer] chest pain guidelines (level [...] Last Assessment & Plan: This delightful 47-year-old Sami woman has recurrent palpitations that appear to [...] and ablation strategies with her using a sales department clerk. I went through the procedure for an [...] Team Description 12/22/2024 3:00 PM EDT Treatment [address] [phone] Zara Saxena, PT Bilateral foot pain (Primary Dx); Calcaneal spur of both feet 12/20/2024 2:30 PM EDT Treatment [address] [phone] Zara Saxena, PT Bilateral foot pain (Primary Dx); Calcaneal spur of both feet 12/15/2024 3:30 PM EDT Treatment [address] [phone] Zara Saxena, PT Bilateral foot pain (Primary Dx); Calcaneal spur of both feet 12/08/2024 4:00 PM EDT Treatment [address] [phone] Zara Saxena, PT Bilateral foot pain (Primary Dx); Calcaneal spur of both feet 12/01/2024 1:00 PM EDT Treatment [address] [phone] Zara Saxena, PT Bilateral foot pain (Primary Dx); Calcaneal spur of both feet 11/24/2024 3:00 PM EDT Treatment [address] [phone] Ted Chi, SAP SOLUTION MANAGER CONSULTANT Bilateral foot pain (Primary Dx); Calcaneal spur of both feet 11/17/2024 3:30 PM EDT Treatment [facility] [address] [place] [phone] Zara Saxena, PT Bilateral foot pain (Primary Dx); Calcaneal spur of both feet 11/15/2024 12:30 PM EDT Ancillary Procedure [facility] [address] [place] [phone] Atrial tachycardia (CMS/HCC V24); Other chest pain 10/27/2024 2:30 PM EDT Evaluation [facility] [address] [place] [phone] Delia Oneil, PT Bilateral foot pain (Primary Dx); Calcaneal spur of both feet from Last 3 Months Surgical History Surgery [...] 11/15/2024 1:07 PM EDT Plan of Treatment Health Maintenance Due Date Last Done Comments Breast Cancer Screening 1976 Diabetes: Annual Foot Exam 1986 Diabetes: Annual Retina Eye Exam 1986 Cervical Cancer Screening: Pap Smear 1997 IPV Vaccines (3 of 3 - Adult catch-up series) 06/28/2009 12/27/2008, 09/28/2008 Colorectal Cancer Screening: Colonoscopy 06/15/2022 HIV Screening 06/15/2022 Hepatitis C Screening 06/15/2022 Social Influencers of Health Screening 06/15/2022 COVID-19 Vaccine ( season) 2024 02/22/2021, 02/01/2021 Depression Screening 07/07/2024 Diabetes: Annual Urine Albumin-Creatinine Ratio (uACR) 11/18/2024 [...] Procedure Name Priority Date/Time Associated Diagnosis Comments TRANSTHORACIC ECHOCARDIOGRAM (TTE) COMPLETE Routine 11/15/2024 1:07 PM EDT Atrial tachycardia (CMS/HCC V24) Other chest pain COMPREHENSIVE METABOLIC PANEL Routine 10/21/2024 3:50 PM EDT Muscle pain Avitaminosis D LIPID PANEL WITH REFLEX TO DIRECT LDL Routine 09/30/2024 10:19 AM EDT Essential hypertension Pure hypercholesterolemia from Last 3 Months or Most Recently Relevant to Health Maintenance Results * (ABNORMAL) TRANSTHORACIC ECHOCARDIOGRAM (TTE) COMPLETE (11/15/2024 1:07 PM EDT) Left Atrium Minor Douglas 5.4 cm CV PACS Left Atrium Major Douglas 5.3 cm CV PACS LA Area Sys (A2C) 20 cm2 CV PACS LA Area Sys (A4C) 20 cm2 CV PACS LA Volume (BP) 61 mL CV PACS RA Area 15.7 cm2 CV PACS RA 2D Volume 38 mL CV PACS Aortic Sinus Valsalva 3.1 cm CV PACS Ascending Aorta 3.4 cm CV PACS IVC Proximal 1.4 cm CV PACS IVC Proximal 0.5 cm CV PACS IVSD 1.0(A) 0.6 - 0.9 cm CV PACS LVIDD 4.7 3.8 - 5.2 cm CV PACS LVIDS 2.5 2.2 - 3.5 cm CV PACS LVOT Diameter 2.1 cm CV PACS LVOT Mean Kyler 0.6 m/s CV PACS LVOT Mean Grad 2 mmHg CV PACS LVOT Peak VTI 18.6 cm CV PACS LVOT Peak Kyler 0.9 m/s CV PACS LVOT Peak Gradient 4 mmHg CV PACS LVPWD 1.0(A) 0.6 - 0.9 cm CV PACS MV E' Tissue Velocity Lateral 7 cm/s CV PACS MV E' Tissue Velocity Septal 6 cm/s CV PACS LVOT Area 3.5 cm2 CV PACS LVOT Stroke Volume 64 mL CV PACS E Wave Deceleration Time 169 119 - 242 ms CV PACS MV Peak A Kyler 0.57 m/s CV PACS MV Peak E Kyler 0.76 m/s CV PACS PV Acceleration Time 155 ms CV PACS RV Diastolic Basal Dimension 3.4 2.5 - 4.1 cm CV PACS RV S' 12 cm/s CV PACS TAPSE 25 mm CV PACS E/E' Ratio Septal 13 CV PACS E/E' Ratio Averaged 12 CV PACS Relative Wall Thickness ratio 0.43 CV PACS FS 47 % CV PACS LV Mass 2D 164 g CV PACS LVOT flow 208 mL/s CV PACS E/A Ratio 1.3 CV PACS E/E' Ratio Lateral 11 CV PACS BSA 2.15 m2 CV PACS LA Volume Index (BP) 30 mL/m2 CV PACS LVIDD Index 2.29 cm/m2 CV PACS LVIDS Index 1.22 cm/m2 CV PACS LV Mass Index 2D 80 44 - 88 g/m2 CV PACS LVOT Stroke Index 31 mL/m2 CV PACS RA 2D Volume Index 19 15 - 27 mL/m2 CV PACS Ascending Aorta Index 1.66 cm/m2 CV PACS Anatomical Region Laterality Modality Ultrasound Narrative 01/11/2025 11:58 AM EDT Left ventricle cavity size is normal. There is borderline concentric hypertrophy. Systolic function is normal with an ejection fraction of 60-65%. There are no regional LV wall motion abnormalities. There is no diastolic dysfunction. Right ventricle cavity is normal. Right ventricular systolic function is normal. The atria are normal in size. No hemodynamically significant valve disease. See remainder of the report for additional findings. Left Ventricle Left ventricle cavity size is normal. There is borderline concentric hypertrophy. Systolic function is normal with an ejection fraction of 60-65%. There are no regional LV wall motion abnormalities. There is no diastolic dysfunction. Right Ventricle Right ventricle cavity appears normal. Systolic function is normal. Left Atrium Left atrium cavity size is normal. Right Atrium Right atrium cavity is normal. IVC/SVC Inferior vena cava structure is normal. RA pressures is estimated to be 3 mmHg (IVC diameter <21 mm and decreases >50% during inspiration). Mitral Valve Mitral valve structure is normal. There is trace regurgitation. There is no significant stenosis noted. Tricuspid Valve Tricuspid valve structure is normal. There is trace regurgitation. Tricuspid regurgitation is inadequate for estimation of right ventricular systolic pressure. There is no significant tricuspid valve stenosis. Aortic Valve The aortic valve is trileaflet. The leaflets are not thickened and exhibit normal excursion. There is no regurgitation or stenosis. Pulmonic Valve The pulmonic valve was not well visualized. No significant pulmonic valve regurgitation. No significant pulmonary valve stenosis noted. Ascending Aorta The aorta appears normal in size. Pericardium Pericardium appears normal. There is no pericardial effusion. Study Details Overall the study quality was adequate. us Duglas Cummings MD CV ECHO PROCEDURES Fin al Result * Comprehensive metabolic panel (10/21/2024 3:50 PM EDT) Sodium 140 133 - 145 mmol/L LAB CHEMISTRY METHOD 10/21/2024 5:17 PM EDT [facility] Potassium 4.0 3.5 - 5.5 mmol/L LAB CHEMISTRY METHOD 10/21/2024 5:17 PM EDT [facility] Chloride 107 96 - 110 mmol/L LAB CHEMISTRY METHOD 10/21/2024 5:17 PM [facility] CO2 24 21 - 32 mmol/L LAB CHEMISTRY METHOD 10/21/2024 5:17 PM [facility] Anion Gap 9 3 - 11 LAB CHEMISTRY METHOD 10/21/2024 5:17 PM [facility] Glucose 81 70 - 100 mg/dL LAB CHEMISTRY METHOD 10/21/2024 5:17 PM [facility] BUN 13 5 - 25 mg/dL LAB CHEMISTRY METHOD 10/21/2024 5:17 PM [facility] Creatinine 0.60 0.50 - 1.10 mg/dL LAB CHEMISTRY METHOD 10/21/2024 5:17 PM [facility] eGFR 112 >=60 mL/min/1. 73m2 LAB CHEMISTRY METHOD 10/21/2024 5:17 PM [facility] Comment:Calculation based on the Chronic Kidney Disease Epidemiology Collaboration (CKD-EPI) equation refit without adjustment for race. BUN/Creatinine Ratio 21.7 LAB CHEMISTRY METHOD 10/21/2024 5:17 PM [facility] Calcium 9.4 8.5 - 10.5 mg/dL LAB CHEMISTRY METHOD 10/21/2024 5:17 PM [facility] AST (SGOT) 15 10 - 42 unit/L LAB CHEMISTRY METHOD 10/21/2024 5:17 PM [facility] ALT (SGPT) 17 10 - 60 unit/L LAB CHEMISTRY METHOD 10/21/2024 5:17 PM [facility] Alkaline Phosphatase 61 42 - 121 unit/L LAB CHEMISTRY METHOD 10/21/2024 5:17 PM [facility] Total Protein 6.8 6.0 - 8.0 g/dL LAB CHEMISTRY METHOD 10/21/2024 5:17 PM [facility] Albumin 3.6 3.2 - 5.0 g/dL LAB CHEMISTRY METHOD 10/21/2024 5:17 PM EDT [facility] Total Bilirubin 0.3 0.0 - 1.4 mg/dL LAB CHEMISTRY METHOD 10/21/2024 5:17 PM T [facility] Blood Venous blood specimen / Unknown Venipuncture / Unknown 10/21/2024 3:50 PM EDT 10/21/2024 4:11 PM EDT us Bella Lacila DO LAB BLOOD ORDERABLES Final Res ult [facility] [address] [place] [address], [place] [phone] * Lipid panel with reflex to direct LDL (09/30/2024 10:19 AM EDT) Cholesterol 140 0 - 200 mg/dL LAB CHEMISTRY METHOD 09/30/2024 11:48 AM [facility] Triglycerides 81 0 - 150 mg/dL LAB CHEMISTRY METHOD 09/30/2024 11:48 AM [facility] HDL 43 >=40 mg/dL LAB CHEMISTRY METHOD 09/30/2024 11:48 AM [facility] LDL Calculated 81 0 - 100 mg/dL LAB CHEMISTRY METHOD 09/30/2024 11:48 AM [facility] VLDL Cholesterol Gorge 16.2 mg/dL LAB CHEMISTRY METHOD 09/30/2024 11:48 AM [facility] Non HDL Chol. (LDL+VLDL) 97 <145 mg/dL LAB CHEMISTRY METHOD 09/30/2024 11:48 AM [facility] Chol/HDL Ratio 3.3 0.0 - 4.4 LAB CHEMISTRY METHOD 09/30/2024 11:48 AM [facility] Blood Venous blood specimen / Unknown Venipuncture / Unknown 09/30/2024 10:19 AM EDT 09/30/2024 10:47 AM EDT Duglas Cummings MD LAB BLOOD ORDERABLES F inal Result [facility] [address] [place] [address], from Last 3 Months or Most Recently Relevant to Health Maintenance Insurance [facility] [employer] Care Teams Inside Sales Administrator Relationship Specialty Start Date End Date Brianna Arauz MD [address] [place] [address] PCP - General Internal Medicine 01/26/20
--- OUTSIDE RECORDS SUMMARY | 2025-01-24 13:02 | XMS_ITS | Clinical Summary ---
Author Organization [facility] Address [address] [phone] Phone Care Team Providers Care Rotary Kiln Operator Name Role Phone Unavailable Primary Care Provider Unavailabl e Social History Tobacco Use Types Packs/Day Years Used Date Smoking Tobacco: Never Assessed Education Answer Date Recorded Are you interested in more education? Not on elizabeth e 11/01/2022 Are you concerned about learning? Not on file 11/01/2022 No 11/01/2022 No 11/01/2022 Digital Access Answer Date Recorded No 12/03/2022 No 12/03/2022 Reliable internet access at home? Not on file 12/03/2022 Device with a working camera? Not on file Comments Unknown Sex and Gender Information Value Date Recorded Sex Assigned at Not on file Legal Sex Female 11:55 AM EST Gender Identity Not on file Sexual Orientation Not on file Plan of Treatment Not on file Medical Devices Not on file Insurance [employer] [place] [address] [address] ESSENTIAL [employer] [place] [address] [place] [address] [employer] [address] [address] [employer] [facility] Additional Source Comments The information contained in this document represents components of the legal health record. It is not the complete legal health record.[facility]
--- OUTSIDE RECORDS SUMMARY | 2025-01-24 13:02 | XMS_ITS | Clinical Summary ---
Author Organization [facility] Address [address] [place] [address] Care Team Providers Care Machine Adjuster Leader Name Role Phone Rochelle Engel PA-C Primary Care Provider [phone] Source Comments PLEASE NOTE, if this patient is a minor, it may be UNLAWFUL to discuss sensitive information that is contained in these records (such as FAMILY PLANNING, MENTAL HEALTH or SUBSTANCE ABUSE) with the minor patient's parent or other person without the patient's specific authorization.[facility] Allergies No known active allergies Medications blood-glucose meter monitoring kitIndications:DM type 2 (diabetes mellitus, type 2) ([facility]) as needed for blood glucose monitoring. Quantity: 1 meter freestyle lite. DX: 250.00 for a lifetime. 1 Each 0 08/19/19 15 Active lancetsIndication s:Type 2 diabetes mellitus without complication ([facility]) FREESTYLE. USE BID PRN. DX: 250.00 50 Each 11 03/20/20 15 Active etonogestrel-ethi nyl estradiol (NUVARING) 0.12-0.015 mg/24 hr vaginal ringIndications:F amily planning, contraceptive checking and surveillance Place 1 Each vaginally once. PER STORE STOCK HELP. Leave in place for 3 consecutive weeks, then remove for 1 week. 1 Each 08/11/19 16 Active Miscellaneous Medical Supply miscIndications:E ssential hypertension by miscellaneous route once daily. BLOOD PRESSURE MACHINE. DX: HTN 1 Each 0 12/12/19 16 Active fluticasone (FLONASE) 50 mcg/actuation nasal sprayIndications: Allergic otitis media of both ears, unspecified chronicity Place 1 [place] into the nostril(s) once daily. 16 g 1 02/26/20 16 Active metFORMIN (GLUMETZA) 500 mg 24 hr tabletIndications :Type 2 diabetes mellitus without complication, without long-term current use of insulin ([facility]) Take 2 Tabs by mouth once daily with dinner. Swallow whole. Do not break, crush or chew. 180 Tab 1 02/26/20 16 Active pregabalin (LYRICA) 50 mg capsuleIndication s:Fibromyalgia Take 1 Cap by mouth 2 (two) times daily. PER DR. RODRIGUEZ 05/23/20 16 Active blood sugar diagnostic (FREESTYLE TEST) stripsIndications :Type 2 diabetes mellitus without complication, without long-term current use of insulin ([facility]) 1 Strip 2 (two) times daily. Pt [...] Active Problems Problem Noted Date Diagnosed Date Non-Turkish speaking patient- Lithuanian speaking control counseling 04/24/2016 Overview (04/24/2016): Advised stop NR- and ref to rn oncology research for ? Tubal 04/24/16 Essential hypertension 05/23/2015 H. pylori infection, tx 12/09/14 12/09/2014 Overview (12/09/2014): Positive urea breath test Iron deficiency anemia 12/06/2014 Overview (05/23/2016): Non-compliant with feso4. Vitamin B12 deficiency 12/06/2014 Overview (05/23/2016): 298. Non compliant with vitamin b 12. Type 2 diabetes mellitus wit hout complication ([facility]) 11/16/2012 Hand paresthesias, bilateral 09/11/2012 Overview (07/15/2013): [...] Morbid obesity with BMI of 40.0-44.9, adult ([facility]) 09/28/2008 TB lung, latent 09/28/2008 Overview (07/15/2013): +PPD=10 mm 09/30/08; [place] 12/13/08 @ [facility] Hirsutism Overview (07/15/2013): Per Derm Dr. Woodall Varicosities of leg Fibromyalgia Overview (07/15/2013): Dx: 2009 per PSSP Depression Overview (08/11/2015): Per psych Dr. Granado. Currently does not see anyone. Seeing Dania here. Insomnia Overview (08/11/2015): Formerly seen by Dr. Granado. Now seeing social worker psychiatric Dania. Immunizations Immunization Administration Dates Next Due HEP A-HEP B ([facility]) 07/10/2009 Hep B, Adult/Adol ([id number]/RECOMBIVAX-ADULT) 12/27/2008,11/08/2008 INFLUENZA, SEASONAL, INJECTABLE 04/06/2015,08/24,04/02/2012 IPV (IPOL) [...] Plan of Treatment Not on file Insurance [facility] [place] MEDICAID Care Teams Machine Adjuster Leader Relationship Specialty Start Date End Date Rochelle Engel PA-C [address] [place] [address] PCP - General 09/01/18
== END 2025-01-24 13:19 | disposition home or self-care (01) ==
PROVIDERS: PCP Hospitalist; Visit Provider Internal Medicine Gastroenterology
DX: R10.11 Right upper quadrant pain (principal); G89.29 Other chronic pain
CPT/HCPCS: 99213

== ENCOUNTER 2025-01-24 12:07 | Outpatient (REF) | payer OTHER, SELFPAY ==
[2025-01-24 13:49] LABS: MANUAL DIFF FLAG NO
[2025-01-24 14:16] LABS: Hematocrit 41.2 % (37.0-47.0); Hemoglobin 13.5 g/dl (12.0-16.0); Imm Gran Abs Auto 0.03 X10*3/uL (0.00-0.03); Imm Gran Pct Auto 0.4 % (0.0-0.4); Lymphocytes Absolute Auto 2.0 X10*3/uL (1.2-4.9); Mean Corpuscular HGB Conc 32.8 g/dl (31.0-35.0); Mean Corpuscular Hemoglobin 26.1 pg (27.0-33.0); Mean Corpuscular Volume 79.7 fL (80.0-98.0); NRBC Abs Auto 0.000 X10*3/uL (0.0-0.012); NRBC Pct Auto 0.0 /100WBC (0.0-0.2); Platelet Count 343 X10*3/uL (160-400); Red Blood Count 5.17 X10*6/uL (4.20-5.50); White Blood Count 7.0 X10*3/uL (4.8-10.8)
[2025-01-24 14:43] LABS: Hemoglobin A1C 192.1699 umol/L; Total Hemoglobin (HGBA1C) 4296.4023 umol/L
[2025-01-24 14:54] LABS: Alanine Aminotransferase 24 U/L (0-31); Albumin Level 4.6 g/dL (3.5-5.0); Alkaline Phosphatase 55 U/L (39-117); Anion Gap 14 (12-20); Aspartate Amino Transferase 18 U/L (5-31); Blood Urea Nitrogen 9 mg/dL (9-16); Calcium 9.3 mg/dL (8.4-10.2); Carbon Dioxide 23 mmol/L (22-29); Chloride 109 mmol/L (96-108); Estimated Glomerular Filt Rate > 60; Lipase 54 U/L (8-78); Potassium 4.5 mmol/L (3.3-5.1); Sodium 141 mmol/L (135-145); Total Protein 7.1 g/dL (6.5-8.0)
[2025-01-24 14:55] LABS: Appearance Urine Clear; Glucose Urine UA 500 mg/dL (Negative); PH 6.0 (5.0-9.0); Specific Gravity - Urine 1.020 (1.005-1.025)
[2025-01-24 14:59] LABS: Ferritin 7 ng/mL (10-250)
== END 2025-01-24 12:08 | disposition home or self-care (01) ==
LOC: HO.LAB 12:07
PROVIDERS: PCP Hospitalist; Visit Provider Internal Medicine Gastroenterology
DX: R10.11 Right upper quadrant pain (principal); G89.29 Other chronic pain; R10.13 Epigastric pain; R30.0 Dysuria; K75.81 Nonalcoholic steatohepatitis (NASH); K51.50 Left sided colitis without complications
CPT/HCPCS: 36415; 80053; 81003; 82728; 83036; 83690; 85025; 86140; 99212

== ENCOUNTER 2025-01-26 12:50 | Outpatient (REF) | payer OTHER, SELFPAY ==
--- OUTSIDE RECORDS SUMMARY | 2024-03-03 10:30 | XMS_ITS | Continuity of Care Document ---
Author Organization [facility] Address [address] [place] [address] [address] [place] [address] Phone Care Team Providers Care Street And Building Decorator Name Role Phone Orion RUIZ, YANNA, William [...] Mi- CT & [place] [facility] Vein [facility], [address] [place] [address] Dr Mendoza 1000[address] 1000Maci [place], [id number], tel:[phone] R [facility] Varicose veins of bilateral lower extremities with other complicationsPa in in right lower legPain in left lower legPain in right legRestless legs syndromeEssenti al (primary) hypertensionPru ritus, unspecifiedPain in left legCramp and spasmLocalized edema 4 Orion RUIZ, BRII RAINES. [address] [facility], [facility] [address], [place], [place], [id number] , [place]. tel:[phone] Referring Provider: Brianna Arauz MD, [address] [place], [address]. tel:[phone] [facility], [address] [place] [address] [address]Mac[place], [id number], tel:[phone] R - [place] - [place] Chronic venous hypertension (idiopathic) with other complications of bilateral lower extremity Orion RUIZ, RVT, RPCAROLE Thomas. [address] [facility], [address], [place], [place], [id number] , [place]. tel:[phone] Referring Provider: Brianna Arauz MD, [address] [place], [address]. tel:[phone] Family History Family Member Type Diagnosis Age At Onset No Information Payers Payer name Insurance type Covered alliance party ID Leti barahona(s) [facility] [id number] 0 Social History Type Description Quantity Date [...]
--- OUTSIDE RECORDS SUMMARY | 2025-01-26 13:11 | XMS_ITS | Clinical Summary ---
Author Organization [facility] Address [address] [place] [address] Care Team Providers Care Market Consultant Name Role Phone Rochelle Engel PA-C Primary Care Provider [phone] Source Comments PLEASE NOTE, if this patient is a minor, it may be UNLAWFUL to discuss sensitive information that is contained in these records (such as FAMILY PLANNING, MENTAL HEALTH or SUBSTANCE ABUSE) with the minor patient's parent or other person without the patient's specific authorization.[facility] Allergies No known active allergies Medications blood-glucose meter monitoring kitIndications:DM type 2 (diabetes mellitus, type 2) ([facility]) as needed for blood glucose monitoring. Quantity: 1 meter freestyle lite. DX: 250.00 for a lifetime. 1 Each 0 08/19/19 15 Active lancetsIndication s:Type 2 diabetes mellitus without complication ([facility]) FREESTYLE. USE BID PRN. DX: 250.00 50 Each 11 03/20/20 15 Active etonogestrel-ethi nyl estradiol (NUVARING) 0.12-0.015 mg/24 hr vaginal ringIndications:F amily planning, contraceptive checking and surveillance Place 1 Each vaginally once. PER MARKETING EXECUTIVE. Leave in place for 3 consecutive weeks, then remove for 1 week. 1 Each 08/11/19 16 Active Miscellaneous Medical Supply miscIndications:E ssential hypertension by miscellaneous route once daily. BLOOD PRESSURE MACHINE. DX: HTN 1 Each 0 12/12/19 16 Active fluticasone (FLONASE) 50 mcg/actuation nasal sprayIndications: Allergic otitis media of both ears, unspecified chronicity Place 1 [place] into the nostril(s) once daily. 16 g 1 02/26/20 16 Active metFORMIN (GLUMETZA) 500 mg 24 hr tabletIndications :Type 2 diabetes mellitus without complication, without long-term current use of insulin ([facility]) Take 2 Tabs by mouth [...] complication, without long-term current use of insulin ([facility]) 1 Strip 2 (two) times [...] Active Problems Problem Noted Date Diagnosed Date Non-Luxembourgish speaking patient- Occitan speaking control counseling 04/24/2016 Overview (04/24/2016): Advised stop NR- and ref to magazine keeper for ? Tubal 04/24/16 Essential hypertension 05/23/2015 H. pylori infection, tx 12/09/14 12/09/2014 Overview (12/09/2014): Positive urea breath test Iron deficiency anemia 12/06/2014 Overview (05/23/2016): Non-compliant with feso4. Vitamin B12 deficiency 12/06/2014 Overview (05/23/2016): 298. Non compliant with vitamin b 12. Type 2 diabetes mellitus wit hout complication ([facility]) 11/16/2012 Hand paresthesias, bilateral 09/11/2012 [...] Morbid obesity with BMI of 40.0-44.9, adult ([facility]) 09/28/2008 TB lung, latent 09/28/2008 Overview (07/15/2013): +PPD=10 mm 09/30/08; [place] 12/13/08 @ [facility] Hirsutism Overview (07/15/2013): Per Derm Dr. Woodall Varicosities of leg Fibromyalgia Overview (07/15/2013): Dx: 2009 per [facility]SS[facility] Depression Overview (08/11/2015): Per psych Dr. Granado. Currently does not see anyone. Seeing Dania here. Insomnia Overview (08/11/2015): Formerly seen by Dr. Granado. Now seeing child protective services social worker Dania. Immunizations Immunization Administration Dates Next Due HEP A-HEP B ([place]) 07/10/2009 Hep B, Adult/Adol ([id number]/RECOMBIVAX-ADULT) 12/27/2008,11/08/2008 INFLUENZA, SEASONAL, INJECTABLE 04/06/2015,08/24,04/02/2012 IPV (IPOL) [...] Plan of Treatment Not on file Insurance [facility] [place] MEDICAID Care Teams Market Consultant Relationship Specialty Start Date End Date Rochelle Engel PA-C [address] [place] [address] PCP - General 09/01/18
--- OUTSIDE RECORDS SUMMARY | 2025-01-26 13:11 | XMS_ITS | Clinical Summary ---
Author Organization [email or web address] Address [address] [phone] Phone Care Team Providers Care Bottling Room Worker Name Role Phone Unavailable Primary Care Provider [...] file Medical Devices Not on file Insurance [employer] [place] [place] [address] ESSENTIAL [employer] [place] [address] [place] [address] [email or web address] [place] [address] [place] [address] [email or web address] [email or web address] [email or web address] MCO [email or web address] Additional Source Comments The information contained in this document represents components of the legal health record. It is not the complete legal health record.[facility]
--- OUTSIDE RECORDS SUMMARY | 2025-01-26 13:11 | XMS_ITS | Clinical Summary ---
Author Organization [facility] Address [address] [place] [address] Phone Care Team Providers Care Dobby Loom Fixer Name Role Phone Brianna Arauz MD Primary Care Provider [phone] Allergies No known active allergies Medications pioglitazone [...] CT scan is recommended by the [employer] chest pain guidelines (level [...] and ablation strategies with her using a art museum docent. I went through the procedure for an [...] Team Description 12/22/2024 3:00 PM EDT Treatment [address] [phone] Zara Saxena, PT Bilateral foot pain (Primary Dx); Calcaneal spur of both feet 12/20/2024 2:30 PM EDT Treatment [address] [address] Zara Saxena, PT Bilateral foot pain (Primary Dx); Calcaneal spur of both feet 12/15/2024 3:30 PM EDT Treatment [address] [phone] Zara Saxena, PT Bilateral foot pain (Primary Dx); Calcaneal spur of both feet 12/08/2024 4:00 PM EDT Treatment [address] [phone] Zara Saxena, PT Bilateral foot pain (Primary Dx); Calcaneal spur of both feet 12/01/2024 1:00 PM EDT Treatment [address] [phone] Zara Saxena, PT Bilateral foot pain (Primary Dx); Calcaneal spur of both feet 11/24/2024 3:00 PM EDT Treatment [address] [phone] Ted Chi, BOAT OUTBOARD ENGINE MECHANIC Bilateral foot pain (Primary Dx); Calcaneal spur of both feet 11/17/2024 3:30 PM EDT Treatment [facility] [address] [place] [phone] Zara Saxena, PT Bilateral foot pain (Primary Dx); Calcaneal spur of both feet 11/15/2024 12:30 PM EDT Ancillary Procedure [facility] [address] [place] [phone] Atrial tachycardia (CMS/HCC V24); Other chest pain 10/27/2024 2:30 PM EDT Evaluation [facility] [address] [place] [phone] Delia Oneil, PT Bilateral foot pain (Primary [...] (11/15/2024 1:07 PM EDT) Left Atrium Minor [place] 5.4 cm CV PACS Left Atrium Major [place] 5.3 cm CV PACS [place] Area Sys [...] LAB CHEMISTRY METHOD 10/21/2024 5:17 PM EDT [facility] Potassium 4.0 3.5 - 5.5 mmol/L LAB CHEMISTRY METHOD 10/21/2024 5:17 PM EDT [facility] Chloride 107 96 - 110 mmol/L LAB CHEMISTRY METHOD 10/21/2024 5:17 PM [facility] CO2 24 21 - 32 mmol/L LAB CHEMISTRY METHOD 10/21/2024 5:17 PM [facility] Anion Gap 9 3 - 11 LAB CHEMISTRY METHOD 10/21/2024 5:17 PM [facility] Glucose 81 70 - 100 mg/dL LAB CHEMISTRY METHOD 10/21/2024 5:17 PM [facility] BUN 13 5 - 25 mg/dL LAB CHEMISTRY METHOD 10/21/2024 5:17 PM [facility] Creatinine 0.60 0.50 - 1.10 mg/dL LAB CHEMISTRY METHOD 10/21/2024 5:17 PM [facility] eGFR 112 >=60 mL/min/1. 73m2 LAB CHEMISTRY METHOD 10/21/2024 5:17 PM [facility] Comment:Calculation based on the Chronic Kidney Disease Epidemiology Collaboration (CKD-EPI) equation refit without adjustment for race. BUN/Creatinine Ratio 21.7 LAB CHEMISTRY METHOD 10/21/2024 5:17 PM [facility] Calcium 9.4 8.5 - 10.5 mg/dL LAB CHEMISTRY METHOD 10/21/2024 5:17 PM [facility] AST (SGOT) 15 10 - 42 unit/L LAB CHEMISTRY METHOD 10/21/2024 5:17 PM [facility] ALT (SGPT) 17 10 - 60 unit/L LAB CHEMISTRY METHOD 10/21/2024 5:17 PM [facility] Alkaline Phosphatase 61 42 - 121 unit/L LAB CHEMISTRY METHOD 10/21/2024 5:17 PM [facility] Total Protein 6.8 6.0 - 8.0 g/dL LAB CHEMISTRY METHOD 10/21/2024 5:17 PM [facility] Albumin 3.6 3.2 - 5.0 g/dL LAB CHEMISTRY METHOD 10/21/2024 5:17 PM EDT [facility] Total Bilirubin 0.3 0.0 - 1.4 mg/dL LAB CHEMISTRY METHOD 10/21/2024 5:17 PM T [facility] Blood Venous blood specimen / Unknown Venipuncture / Unknown 10/21/2024 3:50 PM EDT 10/21/2024 4:11 PM EDT us Bella Lacila DO LAB BLOOD ORDERABLES Final Res ult [facility] [address] [place] [address], [place] [phone] * Lipid panel with reflex to direct LDL (09/30/2024 10:19 AM EDT) Cholesterol 140 0 - 200 mg/dL LAB CHEMISTRY METHOD 09/30/2024 11:48 AM [facility] Triglycerides 81 0 - 150 mg/dL LAB CHEMISTRY METHOD 09/30/2024 11:48 AM [facility] HDL 43 >=40 mg/dL LAB CHEMISTRY METHOD 09/30/2024 11:48 AM [facility] LDL Calculated 81 0 - 100 mg/dL LAB CHEMISTRY METHOD 09/30/2024 11:48 AM [facility] VLDL Cholesterol Gorge 16.2 mg/dL LAB CHEMISTRY METHOD 09/30/2024 11:48 AM [facility] Non HDL Chol. (LDL+VLDL) 97 <145 mg/dL LAB CHEMISTRY METHOD 09/30/2024 11:48 AM [facility] Chol/HDL Ratio 3.3 0.0 - 4.4 LAB CHEMISTRY METHOD 09/30/2024 11:48 AM [facility] Blood Venous blood specimen / Unknown Venipuncture / Unknown 09/30/2024 10:19 AM EDT 09/30/2024 10:47 AM EDT Duglas Cummings MD LAB BLOOD ORDERABLES F inal Result [facility] [address] [place] [address], from Last 3 Months or Most Recently Relevant to Health Maintenance Insurance [facility] [employer] Care Teams Dobby Loom Fixer Relationship Specialty Start Date End Date Brianna Arauz MD [address] [place] [address] PCP - General Internal Medicine 01/26/20
[2025-02-02 22:53] LABS: Lactoferrin, Fecal, Quant. <6.25 mcg/mL (<7.25)
== END 2025-01-26 12:51 | disposition home or self-care (01) ==
LOC: HO.LNP 12:50
PROVIDERS: Visit Provider Internal Medicine Gastroenterology
DX: K51.50 Left sided colitis without complications (principal); R10.11 Right upper quadrant pain; G89.29 Other chronic pain
CPT/HCPCS: 83631

== ENCOUNTER 2025-02-10 15:20 | Outpatient (AMB) | payer OTHER, SELFPAY ==
[2025-02-10 15:17] VITALS: BP 120/70; PULSE 96; O2SAT 99
--- NOTE | 2025-02-10 15:17 | MHC.OFFVIS ---
Vital Signs 02/10/25 15:17 Height 5 ft 3 in BP 120/70 Blood Pressure Location Rt brachial Position Sitting Pulse 96 Pulse Source Pulse Oximeter Pulse Oximetry (%) 99 Oxygen Delivery Method Room Air Intake Visit Reasons: Follow-up Intake Note: Follow up Bilateral headaches. Headaches appear to be the same Manufacturing Quality Inspector Required: No Accompanied by: Self / Same As Patient Allergies No Known Allergies (No Known Allergies*) Allergy (Verified 02/10/25 15:23) Medication List - Last Reconciled 02/16/25 by Jade Luu MD blood sugar diagnostic (FreeStyle Lite Strips) TEST 3 TIMES A DAY blood sugar diagnostic (Blood Glucose Test strips) 3x daily bupropion HCl (smoking deter) 150 mg PO DAILY diltiazem HCl CD 120 mg PO DAILY duloxetine 30 mg PO DAILY FreeStyle Lancets (lancets) once daily NS FreeStyle Lite Meter (blood-glucose meter) As directed NS gabapentin 300 mg PO BEDTIME glipizide ER 10 mg PO DAILY lancets once daily One touch lancets LROEE NS lansoprazole 30 mg PO BID metformin 500 mg (1/2 x 1,000 mg) PO BID 90 days OneTouch Verio test strips (blood sugar diagnostic) one daily NS pen needle, diabetic (BD Ultra-Fine Mini Pen Needle) USE 4 TIMES A DAY propafenone 225 mg PO BID pyridoxine (vitamin B6) 25 mg PO DAILY semaglutide (Rybelsus) 14 mg PO DAILY HPI Comments Details: 49 y/o female patient presents for follow up for headaches and sleep problems.she still has 1-3 headaches per week.It can last the whole day.The headache starts in the posterior neck and radiates to the whole head.she has light and noise sensitivity . she denies nauses or aura. patient did not bring her medication list and not sure if she is taking imitrex she is on gabapentin 300mg qhs and is helping her tingling in her feet. she is not taking melatonin . she sleeps 3-5 hrs a night . Yi Manufacturing Quality Inspector on Ipad HST and PST completed no evidence of sleep apnea, however she continues to snore loudly and wakes herself up Sleep has improved with 11pm -3am, she goes to bed at various times as she continues to have difficulty falling asleep. She takes Melatonin 10mg at 9pm at night and she feels dizzy in the morning. She takes Melatonin each night, which has helped with arousals but still takes 2 hrs to initiate sleep. She feel a lot of pressure on her jaw at night, she wakes up with bilateral jaw pain and headaches in the AM lasting until the afternoon, 3-4 times a week. She says they radiate from front of the forehead, with punching and stabbing pain, 6-7 in intensity, they can become into migraines with photo/phonophobia nausea, no vomiting but vertigo, dizziness, blurry vision, and spots. She takes Tylenol otc and it subsides and or eats a meal if she is hungry. Sometimes warm tea helps to alleviate the pain. or drinks tea RLS: She has bilateral pins and needles, muscle cramps at night bilaterally and has a surgical consult for heel pain. She constantly moves her feet at night and has an uncomfortable sensation bilaterally all the way up to her shins. Gabapentin 300mg helps to alleviate pain also, but makes her more tired. Her memory tends to be poor, she continues to forget tasks, misplaces things, going into rooms and not remembering why she is there. Her mood is more irritable and sees a therapist once a month. Her diet is okay she is seeing endocrine to manage her ozempic and A1c levels. [facility] Medical History Insomnia Hypotension Multinodular thyroid HLD (hyperlipidemia) HTN (hypertension) T2DM (type 2 diabetes mellitus) Vitamin D deficiency Surgical History History of esophagogastroduodenoscopy (EGD) Hx of colonoscopy Hx of esophagogastroduodenoscopy History of carpal tunnel surgery of left wrist Family History Father No family history of disorders History of high blood pressure Mother No family history of disorders Social History Household Members: Spouse and Children Housing: House Housing Other:: spouse/ kids Are you a primary coronary care unit nurse to a significant other at home: Yes Do you presently have visiting nurse or other home services: No Alcohol intake: never Patient Tobacco Use Status: Never used Tobacco service: No Current occupational status: unemployed Physical Exam Vital Signs: Last Vital Signs Pulse 96 02/10/25 15:17 BP 120/70 02/10/25 15:17 Pulse Ox 99 02/10/25 15:17 Oxygen Delivery Method Room Air 02/10/25 15:17 Const General: cooperative, comfortable and no acute distress Orientation/consciousness: patient oriented x3 HEENT Face and sinus: Yes normal facial exam and Yes face symmetric Teeth and gingiva: other Eyes Pupils: Equal, round and reactive pupils present Neck Neck: Yes full ROM Resp Effort & Inspection: normal respiratory effort and able to speak in complete sentences Neuro General: patient oriented x3 Cranial nerves: Yes CN's II-XII intact bilaterally, Yes Facial sensation intact/muscles of mastication intact, Yes Equal, round and reactive pupils present, Yes Normal accommodation reflex present, Yes Bilaterally intact EOM present, Yes Nystagmus not present, Yes Normal facial strength present, Yes Midline tongue present, Yes Ability to bilaterally rotate head present and Yes Ability to bilaterally elevate shoulders present Gait exam (Neuro): Normal gait present Motor exam (neuro): 5/5 motor strength present throughout, Pronator motor function not present and no tremor noted Psych Appearance: grossly normal Mental Status: mental status grossly normal Speech and movement: Normal speech and movement present Affect: normal affect Attitude: cooperative Insight: Good insight present (Psych) Judgement: Good judgement present (Psych) Assessment & Plan Assessment & Plan (1) Cervicalgia: Comment: with cervicogenic headaches Code(s): M54.2 - Cervicalgia Category: Medical (2) Insomnia: Code(s): G47.00 - Insomnia, unspecified Category: Medical Qualifiers: Insomnia type: unspecified Qualified Code(s): G47.00 - Insomnia, unspecified (3) Numbness and tingling of both feet: Code(s): R20.0 - Anesthesia of skin; R20.2 - Paresthesia of skin Category: Medical Plan Increase gabapentin 300mg 2tabs qhs and restart melatonin 10 mg qhs Medications: Discontinued atorvastatin Discontinued Reason: Patient no longer taking 40 mg PO DAILY 90 days 90 tabs 3RF colchicine Discontinued Reason: Patient no longer taking 0.3 mg (1/2 x 0.6 mg) PO DAILY 14 tabs 0RF melatonin Discontinued Reason: Stopped on Transfer 20 mg (2 x 10 mg) PO BEDTIME 30 days PRN 30 tabs 3RF sleep disturbances G47.00 - Insomnia, unspecified magnesium oxide may take one tablet by mouth daily at bedtime Discontinued Reason: Patient no longer taking 400 mg PO DAILY 30 tabs 3RF headaches MDD 400mg pyridoxine (vitamin B6) May take one tablet at bedtime for neuropathy. Discontinued Reason: Doctor's Order 250 mg PO DAILY 30 tabs 3RF neuropathy MDD 500 sumatriptan succinate Discontinued Reason: Patient no longer taking take 1 tab at onset of headache; if no relief, may repeat 1 tab after at least 2 hrs; max = 2 tabs/24 hrs PO 10 tabs 1RF headaches MDD 200mg PO G47.00 - Insomnia, unspecified, M54.2 - Cervicalgia, R51.9 - Headache, unspecified phentermine If not covered by insurance please run with [facility] [id number] [facility] [id number] Member [id number] Discontinued Reason: Patient no longer taking 37.5 mg PO DAILY 30 caps 3RF semaglutide (Rybelsus) Discontinued Reason: Duplicate 7 mg PO DAILY 90 tabs 3RF Coding Level of Care Code Est Pt Level 4 (24959) Diagnoses Cervicalgia M54.2 Insomnia, unspecified type G47.00 Insomnia type: unspecified Numbness and tingling of both feet R20.0; R20.2
--- OUTSIDE RECORDS SUMMARY | 2025-02-10 15:23 | XMS_ITS | Clinical Summary ---
Author Organization [facility] Address [address] [place] [address] Phone Care Team Providers Care Jet Handler Name Role Phone Brianna Arauz MD Primary Care Provider [phone] Allergies No known active allergies Medications pioglitazone [...] CT scan is recommended by the [employer] chest pain guidelines (level [...] Last Assessment & Plan: This delightful 47-year-old Yi woman has recurrent palpitations that appear to [...] and ablation strategies with her using a social services. I went through the procedure for an [...] Encounters Date Type Department Care Team Description 02/08/2025 8:30 AM EDT Treatment [address] [phone] Hollie Rios, PT Bilateral foot pain (Primary Dx) 12/22/2024 3:00 PM EDT Treatment [address] [phone] Zara Saxena, PT Bilateral foot pain (Primary Dx); Calcaneal spur of both feet 12/20/2024 2:30 PM EDT Treatment [address] [phone] Zara Saxena, PT Bilateral foot pain (Primary Dx); Calcaneal spur of both feet 12/15/2024 3:30 PM EDT Treatment [address] [phone] Zara Saxena, PT Bilateral foot pain (Primary Dx); Calcaneal spur of both feet 12/08/2024 4:00 PM EDT Treatment [address] [phone] Zara Saxena, PT Bilateral foot pain (Primary Dx); Calcaneal spur of both feet 12/01/2024 1:00 PM EDT Treatment [address] [phone] Zara Saxena, PT Bilateral foot pain (Primary Dx); Calcaneal spur of both feet 11/24/2024 3:00 PM EDT Treatment [address] [place] [phone] Alon, Ted, REHABILITATION CONSULTANT Bilateral foot pain (Primary Dx); Calcaneal spur of both feet 11/17/2024 3:30 PM EDT Treatment [facility] [address] [facility] [address] [place] [phone] Heatherivanadrian Zara, PT Bilateral foot pain (Primary Dx); Calcaneal spur of both feet 11/15/2024 12:30 PM EDT Ancillary Procedure [facility] [address] [facility] [address] [place] [phone] Atrial tachycardia (CMS/[facility] V24); Other chest pain from Last 3 Months Surgical History Surgery [...] pain DX:Chronic paris k pain Supraventricular tachycardia (CMS/[facility] V24) 2022 DX:Supraventricular tachycardia (HCC) Hypertension 12/31/2022 [...] Care Team (Late st Contact Info) Description 02/28/2025 11:00 AM EDT Treatment [address] [phone] Hollie Rios, PT 03/03/2025 1:00 PM EDT Treatment [address] [phone] Hollie Rios, PT 03/08/2025 4:00 PM EDT Treatment [address] [phone] Hollie Rios, PT 03/10/2025 11:30 AM EDT Treatment [address] [phone] Hollie Rios, PT 03/14/2025 12:30 PM EDT Treatment [address] [phone] Hollie Rios, PT 03/16/2025 12:30 PM EDT Treatment [address] [phone] Zara Saxena, PT 03/21/2025 12:30 PM EDT Treatment [address] [phone] Hollie Rios, PT 03/23/2025 11:00 AM EDT Treatment [address] [phone] Hollie Rios, PT Health Maintenance Due Date Last Done [...] (11/15/2024 1:07 PM EDT) Left Atrium Minor [place] 5.4 cm CV PACS Left Atrium Major [place] 5.3 cm CV PACS LA Area Sys [...] mmol/L LAB CHEMISTRY METHOD 10/21/2024 5:17 PM [facility] Potassium 4.0 3.5 - 5.5 mmol/L LAB CHEMISTRY METHOD 10/21/2024 5:17 PM [facility] Chloride 107 96 - 110 mmol/L LAB CHEMISTRY METHOD 10/21/2024 5:17 PM [facility] CO2 24 21 - 32 mmol/L LAB CHEMISTRY METHOD 10/21/2024 5:17 PM [facility] Anion Gap 9 3 - 11 LAB CHEMISTRY METHOD 10/21/2024 5:17 PM [facility] Glucose 81 70 - 100 mg/dL LAB CHEMISTRY METHOD 10/21/2024 5:17 PM [facility] BUN 13 5 - 25 mg/dL LAB CHEMISTRY METHOD 10/21/2024 5:17 PM [facility] Creatinine 0.60 0.50 - 1.10 mg/dL LAB CHEMISTRY METHOD 10/21/2024 5:17 PM [facility] eGFR 112 >=60 mL/min/1. 73m2 LAB CHEMISTRY METHOD 10/21/2024 5:17 PM [facility] Comment:Calculation based on the Chronic Kidney Disease Epidemiology Collaboration (CKD-EPI) equation refit without adjustment for race. BUN/Creatinine Ratio 21.7 LAB CHEMISTRY METHOD 10/21/2024 5:17 PM [facility] Calcium 9.4 8.5 - 10.5 mg/dL LAB CHEMISTRY METHOD 10/21/2024 5:17 PM [facility] AST (SGOT) 15 10 - 42 unit/L LAB CHEMISTRY METHOD 10/21/2024 5:17 PM [facility] ALT (SGPT) 17 10 - 60 unit/L LAB CHEMISTRY METHOD 10/21/2024 5:17 PM [facility] Alkaline Phosphatase 61 42 - 121 unit/L LAB CHEMISTRY METHOD 10/21/2024 5:17 PM [facility] Total Protein 6.8 6.0 - 8.0 g/dL LAB CHEMISTRY METHOD 10/21/2024 5:17 PM [facility] Albumin 3.6 3.2 - 5.0 g/dL LAB CHEMISTRY METHOD 10/21/2024 5:17 PM [facility] Total Bilirubin 0.3 0.0 - 1.4 mg/dL LAB CHEMISTRY METHOD 10/21/2024 5:17 PM [facility] Blood Venous blood specimen / Unknown Venipuncture / Unknown 10/21/2024 3:50 PM EDT 10/21/2024 4:11 PM EDT Bella Priest LAB BLOOD ORDERABLES Final Res ult [facility] [address] [place] [address], [place] [phone] * Lipid panel with reflex to direct LDL (09/30/2024 10:19 AM EDT) Cholesterol 140 0 - 200 mg/dL LAB CHEMISTRY METHOD 09/30/2024 11:48 AM EDT [facility] Triglycerides 81 0 - 150 mg/dL LAB CHEMISTRY METHOD 09/30/2024 11:48 AM EDT [facility] HDL 43 >=40 mg/dL LAB CHEMISTRY METHOD 09/30/2024 11:48 AM EDT [facility] LDL Calculated 81 0 - 100 mg/dL LAB CHEMISTRY METHOD 09/30/2024 11:48 AM EDT [facility] VLDL Cholesterol Gorge 16.2 mg/dL LAB CHEMISTRY METHOD 09/30/2024 11:48 AM EDT [facility] Non HDL Chol. (LDL+VLDL) 97 <145 mg/dL LAB CHEMISTRY METHOD 09/30/2024 11:48 AM EDT [facility] Chol/HDL Ratio 3.3 0.0 - 4.4 LAB CHEMISTRY METHOD 09/30/2024 11:48 AM T [facility] Blood Venous blood specimen / Unknown Venipuncture / Unknown 09/30/2024 10:19 AM EDT 09/30/2024 10:47 AM EDT Duglas Cummings MD LAB BLOOD ORDERABLES F inal Result Performing Organization Address City/[facility]/ZIP Co de Phone Number [facility] [address] [place] [address], [place] [phone] from Last 3 Months or Most Recently Relevant to Health Maintenance Insurance [facility] [employer] Care Teams Jet Handler Relationship Specialty Start Date End Date Brianna Arauz MD [address] [place] [address] PCP - General Internal Medicine 01/26/20
--- OUTSIDE RECORDS SUMMARY | 2025-02-10 15:23 | XMS_ITS | Clinical Summary ---
Author Organization [facility] Address [address] [place] [address] Care Team Providers Care Ship Cleaner Name Role Phone Rochelle Engel PA-C Primary Care Provider [phone] Source Comments PLEASE NOTE, if this patient is a minor, it may be UNLAWFUL to discuss sensitive information that is contained in these records (such as FAMILY PLANNING, MENTAL HEALTH or SUBSTANCE ABUSE) with the minor patient's parent or other person without the patient's specific authorization.[facility] Allergies No known active allergies Medications blood-glucose meter monitoring kitIndications:DM type 2 (diabetes mellitus, type 2) ([facility]) as needed for blood glucose monitoring. Quantity: 1 meter freestyle lite. DX: 250.00 for a lifetime. 1 Each 0 08/19/19 15 Active lancetsIndication s:Type 2 diabetes mellitus without complication ([facility]) FREESTYLE. USE BID PRN. DX: 250.00 50 Each 11 03/20/20 15 Active etonogestrel-ethi nyl estradiol (NUVARING) 0.12-0.015 mg/24 hr vaginal ringIndications:F amily planning, contraceptive checking and surveillance Place 1 Each vaginally once. PER CAD APPLICATION SUPPORT SPECIALIST. Leave in place for 3 consecutive weeks, then remove for 1 week. 1 Each 08/11/19 16 Active Miscellaneous Medical Supply miscIndications:E ssential hypertension by miscellaneous route once daily. BLOOD PRESSURE MACHINE. DX: HTN 1 Each 0 12/12/19 16 Active fluticasone (FLONASE) 50 mcg/actuation nasal sprayIndications: Allergic otitis media of both ears, unspecified chronicity Place 1 [place] into the nostril(s) once daily. 16 g 1 02/26/20 16 Active metFORMIN (GLUMETZA) 500 mg 24 hr tabletIndications :Type 2 diabetes mellitus without complication, without long-term current use of insulin ([facility]) Take 2 Tabs by mouth once daily with dinner. Swallow whole. Do not break, crush or chew. 180 Tab 1 02/26/20 16 Active pregabalin (LYRICA) 50 mg capsuleIndication s:Fibromyalgia Take 1 Cap by mouth 2 (two) times daily. PER DR. RODRIGUEZ 05/23/20 16 Active blood sugar diagnostic (FREESTYLE TEST) stripsIndications :Type 2 diabetes mellitus without complication, without long-term current use of insulin ([facility]) 1 Strip 2 (two) times daily. [...] Active Problems Problem Noted Date Diagnosed Date Non-Tongan speaking patient- Urdu speaking control counseling 04/24/2016 Overview (04/24/2016): Advised stop NR- and ref to virtual assistant for advertisers for ? Tubal 04/24/16 Essential hypertension 05/23/2015 H. pylori infection, tx 12/09/14 12/09/2014 Overview (12/09/2014): Positive urea breath test Iron deficiency anemia 12/06/2014 Overview (05/23/2016): Non-compliant with feso4. Vitamin B12 deficiency 12/06/2014 Overview (05/23/2016): 298. Non compliant with vitamin b 12. Type 2 diabetes mellitus wit hout complication ([facility]) 11/16/2012 Hand paresthesias, bilateral 09/11/2012 Overview (07/15/2013): [...] Morbid obesity with BMI of 40.0-44.9, adult ([facility]) 09/28/2008 TB lung, latent 09/28/2008 Overview (07/15/2013): +PPD=10 mm 09/30/08; TX 12/13/08 @ [facility] Hirsutism Overview (07/15/2013): Per Derm Dr. Woodall Varicosities of leg Fibromyalgia Overview (07/15/2013): Dx: 2009 per PSSP Depression Overview (08/11/2015): Per psych Dr. Granado. Currently does not see anyone. Seeing Dania here. Insomnia Overview (08/11/2015): Formerly seen by Dr. Granado. Now seeing social work lecturer Dania. Immunizations Immunization Administration Dates Next Due HEP A-HEP B ([facility]) 07/10/2009 Hep B, Adult/Adol (RYZFWLG-V-GEZKD/RECOMBIVAX-ADULT) 12/27/2008,11/08/2008 INFLUENZA, SEASONAL, INJECTABLE 04/06/2015,08/24,04/02/2012 IPV (IPOL) [...] Plan of Treatment Not on file Insurance [facility] D[facility] [place] MEDICAID Care Teams Ship Cleaner Relationship Specialty Start Date End Date Rochelle Engel PA-C [address] [place] [address] PCP - General 09/01/18
--- OUTSIDE RECORDS SUMMARY | 2025-02-10 15:23 | XMS_ITS | Clinical Summary ---
Author Organization [facility] ([facility] Address [address] [phone] Phone Care Team Providers Care Cyber Legal Advisor Name Role Phone Unavailable Primary Care Provider [...] file Medical Devices Not on file Insurance [employer] [facility] [place] [address] [address] ESSENTIAL skillsbite[employer] [place] [address] [place] [address] [address] [place] [address] [place] [address] [employer] Additional Source Comments The information contained in this document represents components of the legal health record. It is not the complete legal health record.[facility]
== END 2025-02-10 15:48 | disposition home or self-care (01) ==
LOC: HO.HSMS 15:21
PROVIDERS: PCP Hospitalist; Visit Provider Psychiatry & Neurology Neurology
DX: M54.2 Cervicalgia (principal); G47.00 Insomnia, unspecified; R20.0 Anesthesia of skin; R20.2 Paresthesia of skin
CPT/HCPCS: 99214

== ENCOUNTER → 2025-02-10 15:20 | Outpatient (BNVA) | payer OTHER, SELFPAY | PROVIDERS: PCP Hospitalist; Visit Provider Psychiatry & Neurology Neurology | DX: M54.2 Cervicalgia (principal); R51.9 Headache, unspecified; G47.00 Insomnia, unspecified; G57.93 Unspecified mononeuropathy of bilateral lower limbs; R20.0 Anesthesia of skin; R20.2 Paresthesia of skin | CPT/HCPCS: 99212 ==

== ENCOUNTER 2025-02-28 11:24 | Outpatient (REF) | payer OTHER, SELFPAY ==
--- OUTSIDE RECORDS SUMMARY | 2024-03-03 10:30 | XMS_ITS | Continuity of Care Document ---
Author Organization [facility] Address [address] [place] [address] [address] [place] [phone] Phone Care Team Providers Care Risk And Compliance Analytics Director Name Role Phone Orion RUIZ, YANNA, William [...] Mi- CT & [place] Agata For Vein Buddhist [facility], [address] [place] [address] Dr Mendoza 1000[address] 1000Maci [place], [id number], tel:[phone] R [facility] Varicose veins of bilateral lower extremities with other complicationsPa in in right lower legPain in left lower legPain in right legRestless legs syndromeEssenti al (primary) hypertensionPru ritus, unspecifiedPain in left legCramp and spasmLocalized edema 4 Orion RUIZ, BRII RAINES. [address] [facility], [facility] [address], [place], [place], [id number] , [place]. tel:[phone] Referring Provider: Brianna Arauz MD, [address] [place], [address]. tel:[phone] Ag[facility] Vein [facility], [address] [place] [address] [address]Maci [place], [id number], tel:[phone] R - [place] - [place] Chronic venous hypertension (idiopathic) with other complications of bilateral lower extremity Orion RUIZ, RVT, RPCAROLE Thomas. [address] [facility], [address], [place], [place], [id number] , [place]. tel:[phone] Referring Provider: Brianna Arauz MD, [address] [place], [address]. tel:[phone] Family History Family Member Type Diagnosis Age At Onset No Information Payers Payer name Insurance type Covered republican ID Leti barahona(s) [facility] [id number] 0 Social History Type Description Quantity Date [...]
--- NOTE | ~2025-02-28 | US_ITS ---
CLINICAL HISTORY: R10.11 - Right upper quadrant pain and lower abd pain --- Additional Notes or Special Instructions: upper and lower abdo pain US abdomen complete Comparison: 03/29/2022 Findings: Gallbladder unremarkable, no stone formation or wall thickening. Previous polyp no longer identified. Common duct measures 2.0 mm. No sonographic Gutierrez sign. Fatty infiltration of the liver without focal abnormality. Main portal vein patent with normal direction of flow. Pancreas is unremarkable. Aorta and IVC patent and normal in caliber. The right kidney is normal, 11.9 cm in length. No focal abnormality or hydronephrosis. The left kidney is normal, 11.5 cm in length. No focal abnormality or hydronephrosis. The spleen is normal, 12.7 cm in length. No focal abnormality. Impression: No significant abnormalities. This document has been electronically signed by: Ozzy Bradford MD on 02/28/2025 19:06:20
--- OUTSIDE RECORDS SUMMARY | 2025-02-28 07:00 | XMS_ITS | Encounter Summary ---
Author Organization [facility] Address [address] [place] [address] Care Team Providers Care Telecom Sales Consultant Name Role Phone Brianna Arauz MD Primary Care Provider [phone] Reason for Visit * Consultation (Routine) - Authorized Specialty Diagnoses / Procedures Referred By Contac t Referred To Contact Physical Therapy Diagnoses Bilateral foot pain Calcaneal spur of both feet Bella Priest DO [address] [place] [address] Phone: tel: fax: [address] [address] Phone: tel: fax: Referral ID Status Reason Start Date Expiration Date Visits Requested Visits Authorized [id number] Authorized Specialty Services Required 09/13/2024 09/13/2025 20 20 Encounter Details Date Type Department Care Team (Late st Contact Info) Description 02/28/2025 7:00 AM EDT Treatment [address] [phone] Zara Saxena PT Bilateral foot pain (Primary Dx) Social History Tobacco Use Types Packs/Day Years [...] as of this encounter Progress Notes * Zara Saxena PT - 02/28/2025 7:00 AM EDT [facility] - Outpatient PHYSICAL THERAPY DAILY TREATMENT NOTE - OP Date: 02/28/2025 Visit Number: [id number] Patient Name: Nell Blanco : 1975 Age: 49 y.o. Gender: female Diagnosis: ICD-10-CM ICD-9-CM 1. Bilateral foot pain M79.671 729.5 M79.672 Date of Onset/Surgery: 10/27/2024 Referring Provider: Bella Priest DO Insurance: Payor: [employer] / Plan: [employer] MEDICAID / Product Type: *No Product type* / Patient Identified by: Zara Saxena PT Language: Speaks and understands Mongolian as preferred language with no modeling analyst required Medications: Current Outpatient Medications on File Prior [...] facility-administered medications on file prior to visit. Allergies: has No Known Allergies. Precautions: none Fall risk: No SUBJECTIVE Subjective Report: Patient reports her foot is still bothering her. The patient reports discomfort in her R>L. Chart Reviewed: Yes Pain: 7/10 sharp pain in right heel TREATMENT INTERVENTION: Therapeutic exercise: NuStep level 4 x 5 min Standing gastroc stretch 3 x 30 seconds on wedge Continue with stretches at home Passive plantar fascia stretch 3 x 30 seconds Manual: STM/MFR to R plantar fascia ASSESSMENT/Response to Treatment Good The patient tolerated therapeutic exercise with minimal complaints of discomfort in her foot. The patient had improved myofascial mobility following manual therapy interventions. Patient Education: Education provided: HEP - plantar fascia roll out, gastroc/soleus stretch Education Provided To: Patient utilizing Explanation and Demonstration mode(s) of education Response to Education: Applied Knowledge, Verbal Understanding, and Demonstrated Skills PLAN POC Development/Review: No Change in the Plan of Care; Participants: Patient Interventions Time Entry: Therapeutic procedures: Manual Therapy Time Entry: 15 Therapeutic Exercise Time Entry: 10 Total Treatment Time: 25 mins Documentation completed by Zara Saxena PT documented in this encounter Plan of Treatment Upcoming Encounters Date Type Department Care Team (Late st Contact Info) Description 03/03/2025 1:00 PM EDT Treatment [address] [phone] Hollie Rios, PT 03/08/2025 4:00 PM EDT Treatment [address] [phone] Hollie Rios, PT 03/10/2025 11:30 AM EDT Treatment [address] [phone] Hollie Rios, PT 03/14/2025 12:30 PM EDT Treatment [address] [phone] Hollie Rios, PT 03/16/2025 12:30 PM EDT Treatment [address] [phone] Zara Saxena, PT 03/21/2025 12:30 PM EDT Treatment [address] [phone] Hollie Rios, PT 03/23/2025 11:00 AM EDT Treatment [address] [address] Hollie Rios, PT documented as of this encounter Goals Goal [...] Visit Diagnoses Diagnosis Bilateral foot pain- Primary documented in this encounter Care Teams Telecom Sales Consultant Relationship Specialty Start Date End Date Brianna Arauz MD [address] [place] [address] PCP - General Internal Medicine 01/26/20 documented as of this encounter
--- OUTSIDE RECORDS SUMMARY | 2025-02-28 12:55 | XMS_ITS | Clinical Summary ---
Author Organization [facility] Address [address] [place] [address] Care Team Providers Care Camera Systems Engineer Name Role Phone Rochelle Engel PA-C Primary Care Provider [phone] Source Comments PLEASE NOTE, if this patient [...] mellitus, type 2) ([facility]) as needed for blood glucose monitoring. Quantity: 1 meter freestyle lite. DX: 250.00 for a lifetime. 1 Each 0 08/19/19 15 Active lancetsIndication s:Type 2 diabetes mellitus without complication ([facility]) FREESTYLE. USE BID PRN. DX: 250.00 50 Each 11 03/20/20 15 Active etonogestrel-ethi nyl estradiol (NUVARING) 0.12-0.015 mg/24 hr vaginal ringIndications:F amily planning, contraceptive checking and surveillance Place 1 Each vaginally once. PER BACK FACER. Leave in place for 3 consecutive weeks, then remove for 1 week. 1 Each 08/11/19 16 Active Miscellaneous Medical Supply miscIndications:E ssential hypertension by miscellaneous route once daily. BLOOD PRESSURE MACHINE. DX: HTN 1 Each 0 12/12/19 16 Active fluticasone (FLONASE) 50 mcg/actuation nasal sprayIndications: Allergic otitis media of both ears, unspecified chronicity Place 1 [place] into the nostril(s) once daily. 16 g 1 02/26/20 16 Active metFORMIN (GLUMETZA) 500 mg 24 hr tabletIndications :Type 2 diabetes mellitus without complication, without long-term current use of insulin ([facility]) Take 2 Tabs by [...] use of insulin ([facility]) 1 Strip 2 (two) [...] Active Problems Problem Noted Date Diagnosed Date Non-Zimbabwean speaking patient- Korean speaking control counseling 04/24/2016 Overview (04/24/2016): Advised stop NR- and ref to electric train driver for ? Tubal 04/24/16 Essential hypertension 05/23/2015 H. pylori infection, tx 12/09/14 12/09/2014 Overview (12/09/2014): Positive urea breath test Iron deficiency anemia 12/06/2014 Overview (05/23/2016): Non-compliant with feso4. Vitamin B12 deficiency 12/06/2014 Overview (05/23/2016): 298. Non compliant with vitamin b 12. Type 2 diabetes mellitus wit hout complication ([facility]) 11/16/2012 Hand paresthesias, bilateral [...] of 40.0-44.9, adult ([facility]) 09/28/2008 TB lung, latent 09/28/2008 Overview (07/15/2013): +PPD=10 mm 09/30/08; TX 12/13/08 @ [facility] Hirsutism Overview (07/15/2013): Per Derm Dr. Woodall Varicosities of leg Fibromyalgia Overview (07/15/2013): Dx: 2009 per [facility] Depression Overview (08/11/2015): Per psych Dr. Granado. Currently does not see anyone. Seeing Dania here. Insomnia Overview (08/11/2015): Formerly seen by Dr. Granado. Now seeing licensed clinical social worker Dania. Immunizations Immunization Administration Dates Next Due HEP A-HEP B ([facility]) 07/10/2009 Hep B, Adult/Adol (GRYSJPF-D-RPSHF/RECOMBIVAX-ADULT) 12/27/2008,11/08/2008 INFLUENZA, SEASONAL, INJECTABLE 04/06/2015,08/24,04/02/2012 IPV (IPOL) [...] Plan of Treatment Not on file Insurance [facility] [place] MEDICAID Care Teams Camera Systems Engineer Relationship Specialty Start Date End Date Rochelle Engel PA-C [address] [place] [address] PCP - General 09/01/18
--- OUTSIDE RECORDS SUMMARY | 2025-02-28 12:55 | XMS_ITS | Clinical Summary ---
Author Organization [facility] Address [address] [phone] Phone Care Team Providers Care Marine Mammal Trainer Name Role Phone Unavailable Primary Care Provider [...] file Medical Devices Not on file Insurance [employer] [place] [address] [address] ESSENTIAL Protagonist TherapeuticsHE[employer] [place] [address] [place] [address] [place] Electronic Certificate Authority [facility] [address] [place] [address] [place] Electronic Certificate Authority [facility] [place] Electronic Certificate [facility] [place] [facility] [place] Electronic Certificate Authority [facility] Additional Source Comments The information contained in this document represents components of the legal health record. It is not the complete legal health record.[facility]
== END 2025-02-28 11:25 | disposition home or self-care (01) ==
LOC: HO.HMGCX 11:24
PROVIDERS: PCP Hospitalist; Visit Provider Internal Medicine Gastroenterology
DX: R10.11 Right upper quadrant pain (principal); G89.29 Other chronic pain
CPT/HCPCS: 76700

== ENCOUNTER → 2025-02-28 11:26 | Outpatient (BNV) | payer OTHER, SELFPAY | PROVIDERS: PCP Hospitalist; Visit Provider Radiology Diagnostic Radiology | DX: R10.11 Right upper quadrant pain (principal) | CPT/HCPCS: 76700 ==

== ENCOUNTER 2025-03-09 11:23 | Outpatient (AMB) | payer OTHER, SELFPAY ==
--- OUTSIDE RECORDS SUMMARY | 2025-03-04 23:59 | XMS_ITS | Continuity of Care Document ---
Author Organization [facility] Address [address] [place] [address], [address] [place] [address]- Care Team Providers Care School Age Program Associate Name Role Phone Brianna Arauz MD Primary Care Physician [phone] Encounter [facility] NBR [id number] Date(s): 02/25/25 - [facility] [address] [place] [address]- Attending Physician: Mariel Bolaños MD Encounter Type: Office Visit Allergies, Adverse Reactions, Alerts No Known Allergies Medications Celebrate Vitamin D3 Quick-Melt = 5,000 International_Units, By Mouth, Daily, 0 Refills, Maintenance, 11/13/16 9:07:44 AM EDT Start Date: 11/13/16 Status: Ordered Medication Dispense Status: Completed Total Allowed Fills: 1 Fills Dispensed: 0 Jardiance 25 mg oral tablet 1 tablet = 25 mg, By Mouth, Daily in AM, 0 Refills, Maintenance, 05/02/22 1:03:00 PM EDT, Partial fill upon patient request if the prescription is for a schedule II opioid drug. Start Date: 05/02/22 Status: Ordered Medication Dispense Status: Completed Total Allowed Fills: 1 Fills Dispensed: 0 lisinopril 10 mg oral tablet 10 mg, 1, tablet, By Mouth, Daily, # 30 tablet, Refills 0, Maintenance, 02/05/17 11:14:37 AM EDT Start Date: 02/05/17 Status: Ordered Medication Dispense Status: Completed Quantity: 30.0 Unit: tablet Total Allowed Fills: 1 Fills Dispensed: 0 Metformin By Mouth, 0 Refills, Maintenance, 11/13/16 9:09:08 AM EDT Start Date: 11/13/16 Status: Ordered Medication Dispense Status: Completed Total Allowed Fills: 1 Fills Dispensed: 0 metronidazole topical 0.75% gel with applicator 1 application, Vaginally, Every Friday and , # 70 Gm, 3 Refills, Soft Stop, 09/05/23 8:11:00 AM EST, Gel, [facility]/pharmacy #[id number], to begin following the BID dose of Metronidazole 500 mg, 1 application Vaginally Every Friday and , 158, cm, 08/04/23 15:55:00 EST, Height, 99.5, kg, 08/04/23 15:55:00 EST, Dry Weight Start Date: 09/05/23 Status: Ordered Medication Dispense Status: Completed Quantity: 70.0 Unit: g Total Allowed Fills: 4 Fills Dispensed: 0 omeprazole 40 mg oral enteric coated capsule 1 capsule = 40 mg, By Mouth, Daily, 0 Refills, Maintenance, 04/25/20 9:00:00 AM EDT Start Date: 04/25/20 Status: Ordered Medication Dispense Status: Completed Total Allowed Fills: 1 Fills Dispensed: 0 pantoprazole 20 mg oral delayed release tablet 20 mg, 1, tablet, By Mouth, Daily, Refills 0, Maintenance, 02/05/17 11:17:05 AM EDT Start Date: 02/05/17 Status: Ordered Medication Dispense Status: Completed Total Allowed Fills: 1 Fills Dispensed: 0 Slynd 4 mg oral tablet 1 tablet = 4 mg, By Mouth, Daily, # 84 tablet, 1 Refills, Maintenance, 11/25/24 11:27:00 AM EDT, Tablet, [facility]/pharmacy #[id number], Partial fill upon patient request if the prescription is for a schedule II opioid drug., 158, cm, 11/25/24 10:45:00 EDT, Height, 105.36, kg, 11/25/24 10:45:00 EDT, Dry Weight Start Date: 11/25/24 Status: Ordered Medication Dispense Status: Completed Quantity: 84.0 Unit: tablet Total Allowed Fills: 2 Fills Dispensed: 0 topiramate 50 mg oral tablet 1 tablet = 50 mg, By Mouth, 2 times a day, 0 Refills, Maintenance, 04/25/20 9:06:00 AM EDT Start Date: 04/25/20 Status: Ordered Medication Dispense Status: Completed Total Allowed Fills: 1 Fills Dispensed: 0 Victoza 18 mg/3 mL subcutaneous solution Subcutaneous Infusion, Daily, 0 Refills, Maintenance, 04/25/20 9:03:00 AM EDT Start Date: 04/25/20 Status: Ordered Medication Dispense Status: Completed Total Allowed Fills: 1 Fills Dispensed: 0 Zolpidem Daily at bedtime, 0 Refills, Maintenance, 04/25/20 9:05:00 AM EDT Start Date: 04/25/20 Status: Ordered Medication Dispense Status: Completed Total Allowed Fills: 1 Fills Dispensed: 0 Problem List Condition Confirmation Course Effective Dates Status Health St atus Informant Diabetes mellitus Confirmed Active Essential hypertension Confirmed Active Telugu-speaking patient, historic interpreter required Confirmed Active Obesity Confirmed Active Positive PPD Confirmed Active Severe obesity (BMI 35.0-39.9) with comorbidity Confirmed Active Refuses male providers Confirmed Active Abnormal thyroid blood test Confirmed Active Varicose veins Confirmed Active Social History Social History Type Response Smoking Status Never smoker entered on: 04/18/17 Sex Female Sex Representation Female (finding) Patient Care team information Care Team Personnel Name: Brianna Arauz MD Position: [facility] Physician - Primary Care Member Role: PCP Address: [address] [place], [place] [address] Telecom: Care Team Related Persons Name: ALTA BHATTI Name: BRENDAN MORROW Name: AMMON MORROW Insurance Providers Guarantor name: MORIAH MORROW Health Plan Information #: 1 Payer: [employer] [facility] Payer Identifier: NA Member Number: [id number] Group Number: [id number] Subscriber Identifier: [id number] Relationship to Subscriber: self Coverage Type: Medicaid (Managed Care) Coverage Verification Date: NA Telecom: NA Address:
[2025-03-09 11:29] VITALS: BP 118/80; PULSE 88; O2SAT 97; BMI 37.1
--- NOTE | 2025-03-09 11:29 | A.OFFVIS_ITS ---
Vital Signs 03/09/25 11:29 Height 5 ft 3 in Weight 209 lb 7.026 oz BMI 37.1 BP 118/80 Blood Pressure Location Rt brachial Position Sitting Pulse 88 Pulse Source Pulse Oximeter Pulse Oximetry (%) 97 Oxygen Delivery Method Room Air Intake Visit Reasons: T2DM, A1C Intake Note: Patient presents today for a follow-up on Type 2 Diabetes Mellitus: Last Diabetic eye exam was on: 08/2024 Last Podiatry exam was on: Patient does not see a Financial Secretary Most recent HbA1c: 6.2%, 01/24/2025 Random Glucose- 174 mg/dL, Today Business Representative Required: Yes Business Representative Language: Slovak Business Representative Services: Business Representative Present (via [employer]) Business Representative Name: Adar #[id number] Accompanied by: Self / Same As Patient Allergies No Known Allergies (No Known Allergies*) Allergy (Verified 02/10/25 15:23) HPI Comments Details: 48 year old female with past medical history of T2DM, Nontoxic MNG 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 Current prescriptions is Metformin 500mg twice daily (decrease from 1000mg twice daily-GI side effects) Rybelsus 14mg -has been out for the past week Glipizide 10mg daily On phentermine to aid weight loss since last visit. Patient stopped eating most bread and rice. She has lost 24 pounds Stopped pioglitazone 2/2 weight gain Intolerant ozempic, jardiance Previously on victoza with mild SE. Plan at last visit was to stop the victoza and start rybelsus to aid weight loss if covered. This was covered. Also hoping that in near future we could decrease metformin to improve GI upset. Was on jardiance but was having very frequent yeast infection. She feels tired a lot- thinks this may be due to lower glucose readings. Denies BG <70. Has chronic abdominal upset. She is frustrated with weight gain/difficulty losing weight. Traditional freestyle glucometer- range from 134-170 average 150-she is frustrated by increased glucose for the past one month. A1c in January was 6.2% Denies a family history of T2DM. Has eyes checked yearly, states UTD Has neuropathy-mild, stable Has nephropathy, on Lisinopril 20 mg Has HLD-stopped Atorvastatin 40 mg Denies any history of CAD. Declines diabetes education. NTMNG: Has longstanding nontoxic MNG. Had prior FNA biopsy by Dr. Washington 12/05/16 of the L lower pole 1.2 cm nodule, with benign cytology. FNA biopsy of left inferior 1.6cm nodule 2020-benign. Had thyroid u/s ordered by Dr Farooq 11/2023, underwent recent u/s biopsy at [facility]-tells me this was benign 1. A 1.8 x 1.3 x 1.3 cm left mid TR 4 thyroid nodule meets criteria for biopsy and measured 1.7 x 1.0 x 1.2 cm, volume 1.1 mL. Correlation with prior biopsy results and clinical exam recommended to determine further management. 2. Additional subcentimeter thyroid nodules as detailed above including 0.9 cm left upper TR 5 thyroid nodule for which follow-up ultrasound in one year is recommended. ROS CONSTITUTIONAL: Denies weight loss, fever and chills. HEENT: Denies changes in vision and hearing. RESPIRATORY: Denies SOB and cough. CV: Denies palpitations and CP GI: Denies abdominal pain, nausea, vomiting and diarrhea. : Denies dysuria and urinary frequency. MSK: Denies new myalgia and joint pain. SKIN: Denies rash and pruritus. NEUROLOGICAL: Denies headache PSYCHIATRIC: Denies recent changes in mood. PHYSICAL EXAM: GENERAL: Alert and oriented x 3. NAD EYES: EOMI. Anicteric. HENT: Moist mucous membranes. No scleral icterus. No cervical lymphadenopathy. LUNGS: Clear to auscultation bilaterally. CARDIOVASCULAR: Regular rate and rhythm. No murmur. No JVD. ABDOMEN: Soft, non-tender +bs EXTREMITIES: No edema. Non-tender. SKIN: No rashes or lesions. Warm. NEUROLOGIC: No focal neurological deficits. CN II-XII grossly intact PSYCHIATRIC: Cooperative. Appropriate mood and affect ? [facility] Medical History Insomnia Hypotension Multinodular thyroid HLD (hyperlipidemia) HTN (hypertension) T2DM (type 2 diabetes mellitus) Vitamin D deficiency Surgical History History of esophagogastroduodenoscopy (EGD) Hx of colonoscopy Hx of esophagogastroduodenoscopy History of carpal tunnel surgery of left wrist Family History Father No family history of disorders History of high blood pressure Mother No family history of disorders Social History Household Members: Spouse and Children Housing: House Housing Other:: spouse/ kids Are you a primary direct care worker to a significant other at home: Yes Do you presently have visiting nurse or other home services: No Alcohol intake: never Patient Tobacco Use Status: Never used Tobacco service: No Current occupational status: unemployed Assessment & Plan Assessment & Plan (1) T2DM (type 2 diabetes mellitus): Code(s): E11.9 - Type 2 diabetes mellitus without complications Category: Medical Qualifiers: 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 Continue 14mg rybelsus. Intolerant of injection ozempic, victoza Increase glipizide to 10mg twice daily Treat hypoglycemia by rules of 15s. Medications: New phentermine must administer 30 minutes before or 1-2 hours after breakfast GOOD RX 37.5 mg PO DAILY 30 caps 3RF Changed From glipizide ER 10 mg PO DAILY 90 tabs 3RF To glipizide ER 10 mg PO BID 180 tabs 3RF 90 days Refilled semaglutide (Rybelsus) 14 mg PO DAILY 90 tabs 3RF semaglutide (Rybelsus) 14 mg PO DAILY 30 tabs 3RF E11.65 - Type 2 diabetes mellitus with hyperglycemia, E78.5 - Hyperlipidemia, unspecified Coding Level of Care Code Est Pt Level 4 (92776) Diagnoses Type 2 diabetes mellitus with hyperglycemia, without long-term current use of insulin E11.65 Diabetes mellitus retirement insulin use: without retirement use Diabetes mellitus complication status: with hyperglycemia
[2025-03-09 11:38] LABS: Glucose, Whole Blood 174 mg/dL (60-115)
== END 2025-03-09 11:54 | disposition home or self-care (01) ==
LOC: HO.ENCR 11:24
PROVIDERS: PCP Hospitalist; Visit Provider Internal Medicine
DX: E11.65 Type 2 diabetes mellitus with hyperglycemia (principal)

== ENCOUNTER → 2025-03-09 11:23 | Outpatient (BNVA) | payer OTHER, SELFPAY | PROVIDERS: PCP Hospitalist; Visit Provider Internal Medicine | DX: E11.65 Type 2 diabetes mellitus with hyperglycemia (principal) | CPT/HCPCS: 82947; 99212 ==

== ENCOUNTER 2025-05-11 11:23 | Outpatient (AMB) | payer OTHER, SELFPAY ==
--- OUTSIDE RECORDS SUMMARY | 2024-03-03 09:30 | XMS_ITS | Continuity of Care Document ---
Author Organization [facility] Address [address] [place] [address] [address] [place] [address] Phone Care Team Providers Care Registered Nurse Step Down Name Role Phone Orion RUIZ, YANNA, William TERESA Unavailable U navailable Procedures Procedure Date Offic Cons New/estab Mod 40 Mi- CT & [place] Duplex Scan-extrem Veins; Comp- CT & [place] Advance Directives Directive Yes / No Effective Date File Name No Information Encounters Encounter Description Practice Location Reason(s) For Visit Diagnoses Date Provider Providers Copied on Encounter Offic Cons New/estab Mod 40 Mi- CT & [place] Agata For Vein [facility], [address] [place] [address] Dr Mendoza [address], [id number], tel:[phone] R [facility] Varicose veins of bilateral lower extremities with other complicationsPa in in right lower legPain in left lower legPain in right legRestless legs syndromeEssenti al (primary) hypertensionPru ritus, unspecifiedPain in left legCramp and spasmLocalized edema 4 Orion RUIZ, BRII RAINES. [address] [facility], [facility] [address], [place], [place], [id number] , [place]. tel:[phone] Referring Provider: Brianna Arauz MD, [address] [place], [address]. tel:[phone] [facility], [address] [place] [address] [address], [id number], tel:[phone] R - [place] - [place] Chronic venous hypertension (idiopathic) with other complications of bilateral lower extremity Orion RUIZ, RVT, RPCAROLE Thomas. [address] [facility], [address], [place], [place], [id number] , [place]. tel:[phone] Referring Provider: Brianna Arauz MD, [address] [place], [address]. tel:[phone] Family History Family Member Type Diagnosis Age At Onset No Information Payers Payer name Insurance type Covered libertarian ID Leti barahona(s) [facility] [id number] 0 Social History Type Description Quantity Date Captured Comments Alcohol Use Details Unknown Caffeine Use Details Unknown Tobacco Use Status Current non-smoker Smoking Status Never Smoker Non-Smoking Tobacco Use Details : No Details Available : No Details Available Sex Female Vital Signs Date / Time: Height Weight BMI Pulse Rate Blood Pressure Temperature Respiratory Rate Body Surface Area Head Circumference Head Circ. Percentile Wt./Jong. Percentile BMI percentile Pulse Ox Inhaled Ox 99.790 kg (220.00 lbs) 39.0 3 kg/m eter (2) 132/82 mm[Hg] Chief Complaint And Reason For Visit No Information Reason For Referral Reason For Referral No Information Plan Of Treatment Date Type Action Status Goal Diet education completed Referral Ordered: Weight management: Referral to physician timeframe: 3 Months (related to Body mass index (BMI) 39.0-39.9, adult) ordered History Of Present Illness Encounter Date Complaint History Of Prese nt Illness No Information Functional Status Date Functional Assessmen t No Information Instructions Date Instruction Additional Infor mation Giving Encouragement to exercise Related to Body mass index (BMI) 39.0-39.9, adult Patient education booklet given Related to Varicose veins of bilateral lower extremities with other complications Pre and post instruc tions reviewed and provided Related to Varicose veins of bilateral lower extremities with other complications Diet education Related to Body mass index (BMI) 39.0-39.9, adult Lifestyle education Related to B james mass index (BMI) 39.0-39.9, adult Assessments Type Assessment Date No Information Patient Care Teams Name Effective Dates (start - stop) Status Members No Information
--- NOTE | 2025-05-11 11:27 | A.OFFVIS_ITS ---
Vital Signs 05/11/25 11:28 Height 5 ft 3 in Weight 209 lb 7.026 oz BMI 37.1 BP 132/78 Blood Pressure Location Rt brachial Position Sitting Pulse 93 Pulse Source Pulse Oximeter Pulse Oximetry (%) 98 Oxygen Delivery Method Room Air Intake Visit Reasons: diabetes follow up A1c Intake Note: Patient presents today for a follow-up on Type 2 Diabetes Mellitus: Last Diabetic eye exam was on: 08/2024 Last Podiatry exam was on: Patient does not see a Global Safety Officer Most recent HbA1c: 6.3%, 05/11/2025 Random Glucose- 135 mg/dL, Today 11:35 AM Conical Mixer Required: Yes Conical Mixer Language: Frisian Conical Mixer Services: Conical Mixer Present (via [employer]) Conical Mixer Name: #[id number] Information Interpreted: clinical only Accompanied by: Self / Same As Patient Allergies No Known Allergies (No Known Allergies*) Allergy (Verified 05/11/25 11:28) HPI Comments Details: 48 year old female with past medical history of T2DM, Nontoxic MNG 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 Current prescriptions is Metformin 500mg twice daily (decrease from 1000mg twice daily-GI side effects) Rybelsus 14mg -has been out for the past 2 months. This was recently approved and she is in receipt of the medication Glipizide 10mg twice daily (increased from once) Patient stopped eating most bread and rice. She has lost 30 pounds. She has continued phentermin Stopped pioglitazone 2/2 weight gain Intolerant ozempic, jardiance Previously on victoza with mild SE. Plan at last visit was to stop the victoza and start rybelsus to aid weight loss if covered. This was covered. Also hoping that in near future we could decrease metformin to improve GI upset. Was on jardiance but was having very frequent yeast infection. She feels tired a lot- thinks this may be due to lower glucose readings. Denies BG <70. Has chronic abdominal upset. She is frustrated with weight gain/difficulty losing weight. Traditional freestyle glucometer-not downloaded today Denies a family history of T2DM. Has eyes checked yearly, states UTD Has neuropathy-mild, stable Has nephropathy, on Lisinopril 20 mg Has HLD-stopped Atorvastatin 40 mg Denies any history of CAD. Declines diabetes education. NTMNG: Has longstanding nontoxic MNG. Had prior FNA biopsy by Dr. Washington 12/05/16 of the L lower pole 1.2 cm nodule, with benign cytology. FNA biopsy of left inferior 1.6cm nodule 2020-benign. Had thyroid u/s ordered by Dr Farooq 11/2023, underwent recent u/s biopsy at [facility]-tells me this was benign 1. A 1.8 x 1.3 x 1.3 cm left mid TR 4 thyroid nodule meets criteria for biopsy and measured 1.7 x 1.0 x 1.2 cm, volume 1.1 mL. Correlation with prior biopsy results and clinical exam recommended to determine further management. 2. Additional subcentimeter thyroid nodules as detailed above including 0.9 cm left upper TR 5 thyroid nodule for which follow-up ultrasound in one year is recommended. ROS CONSTITUTIONAL: Denies weight loss, fever and chills. HEENT: Denies changes in vision and hearing. RESPIRATORY: Denies SOB and cough. CV: Denies palpitations and CP GI: Denies abdominal pain, nausea, vomiting and diarrhea. : Denies dysuria and urinary frequency. MSK: Denies new myalgia and joint pain. SKIN: Denies rash and pruritus. NEUROLOGICAL: Denies headache PSYCHIATRIC: Denies recent changes in mood. PHYSICAL EXAM: GENERAL: Alert and oriented x 3. NAD EYES: EOMI. Anicteric. HENT: Moist mucous membranes. No scleral icterus. No cervical lymphadenopathy. LUNGS: Clear to auscultation bilaterally. CARDIOVASCULAR: Regular rate and rhythm. No murmur. No JVD. ABDOMEN: Soft, non-tender +bs EXTREMITIES: No edema. Non-tender. SKIN: No rashes or lesions. Warm. NEUROLOGIC: No focal neurological deficits. CN II-XII grossly intact PSYCHIATRIC: Cooperative. Appropriate mood and affect ? [facility] Medical History Insomnia Hypotension Multinodular thyroid HLD (hyperlipidemia) HTN (hypertension) T2DM (type 2 diabetes mellitus) Vitamin D deficiency Surgical History History of esophagogastroduodenoscopy (EGD) Hx of colonoscopy Hx of esophagogastroduodenoscopy History of carpal tunnel surgery of left wrist Family History Father No family history of disorders History of high blood pressure Mother No family history of disorders Social History Household Members: Spouse and Children Housing: House Housing Other:: spouse/ kids Are you a primary med care manager to a significant other at home: Yes Do you presently have visiting nurse or other home services: No Alcohol intake: never Patient Tobacco Use Status: Never used Tobacco service: No Current occupational status: unemployed Physical Exam Vital Signs: Last Vital Signs Pulse 93 05/11/25 11:28 BP 132/78 05/11/25 11:28 Pulse Ox 98 05/11/25 11:28 Oxygen Delivery Method Room Air 05/11/25 11:28 BMI result Body Mass Index 37.1 Results AMB Hemoglobin A1c AMB Hemoglobin A1c 6.3 % Last Edit by OLEG Hester on 05/11/25 11:43 Results Reviewed Results Reviewed: Laboratory Last Values Glucose (Clinic) 135 mg/dL (60-115) H 05/11/25 11:34 Hgb A1c (Clinic) 6.3 % (4.0-6.0) H 05/11/25 11:37 Assessment & Plan Assessment & Plan (1) T2DM (type 2 diabetes mellitus): Code(s): E11.9 - Type 2 diabetes mellitus without complications Category: Medical Qualifiers: Diabetes mellitus tank terminal 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 Orders: Orders AMB Hemoglobin A1c Today E11.65 - Type 2 diabetes mellitus with hyperglycemia Medications: Changed From glipizide ER 10 mg PO BID 90 days 180 tabs 3RF To glipizide ER 10 mg PO DAILY 90 tabs 3RF 90 days Coding Level of Care Code Est Pt Level 4 (47039) Diagnoses Type 2 diabetes mellitus with hyperglycemia, without long-term current use of insulin E11.65 Diabetes mellitus tank terminal gauger insulin use: without custodial use Diabetes mellitus complication status: with hyperglycemia
[2025-05-11 11:28] VITALS: BP 132/78; PULSE 93; O2SAT 98; BMI 37.1
[2025-05-11 11:38] LABS: Glucose, Whole Blood 135 mg/dL (60-115)
--- OUTSIDE RECORDS SUMMARY | 2025-05-11 13:55 | XMS_ITS | Encounter Summary ---
Author Organization [facility] Address [address] [place] [address] Phone Care Team Providers Care Air Analysis Technician Name Role Phone Unavailable Primary Care Provider Unavailabl e Encounter Details Date Type Department Care Team (Late st Contact Info) Description 05/17/2020 Ancillary Orders [facility] [address] [facility] [address] [place] [address] Cris Correa MD [address] [facility] [address] [place] [address] [email or web address] Social History Tobacco Use Types Packs/Day Years Used Date Smoking Tobacco: Never Assessed Comments Unknown Sex and Gender Information Value Date Recorded Sex Assigned at Not on file Legal Sex Female 11:55 AM EST Gender Identity Not on file Sexual Orientation Not on file documented as of this encounter Plan of Treatment Not on file documented as of this encounter Visit Diagnoses Not on filedocumented in this encounter Additional Source Comments The information contained in this document represents components of the legal health record. It is not the complete legal health record.[facility]
--- OUTSIDE RECORDS SUMMARY | 2025-05-11 13:55 | XMS_ITS | Clinical Summary ---
Author Organization [employer] [facility] Address [address] [facility] [address] [place], [place] [id number] Phone Care Team Providers Care Editing Intern Name Role Phone Unavailable Primary Care Provider [...] file Medical Devices Not on file Insurance [employer] [facility] [place] [address] [employer] [facility] [place] [place] [address] [employer] [facility] [address] [address] [facility] Additional Source Comments The information contained in this document represents components of the legal health record. It is not the complete legal health record.[facility]
--- OUTSIDE RECORDS SUMMARY | 2025-05-11 13:55 | XMS_ITS | Clinical Summary ---
Author Organization [facility] Address [address] [place] [address] Phone Care Team Providers Care Director Of Medical Staff Services Name Role Phone Brianna Arauz MD Primary Care Provider [phone] Allergies No known active allergies Medications pioglitazone [...] 1 (one) time each day. 90 each 5 09/18/19 26 Active dilTIAZem CD (CARDIZEM [...] split. 60 capsule 5 09/18/19 26 Active propafenone (RYTHMOL) 225 mg tablet TAKE 1 TABLET BY MOUTH TWICE A DAY 180 tablet 3 5 Active Active Problems Problem Noted Date Diagnosed [...] CT scan is recommended by the [employer] chest pain guidelines (level [...] Last Assessment & Plan: This delightful 47-year-old Sinhala woman has recurrent palpitations that appear to [...] and ablation strategies with her using a employment manager. I went through the procedure for [...] Encounters Date Type Department Care Team Description 04/26/2025 11:15 AM EDT Treatment [facility] Occupational Therapy [address] [place] [phone] Siobhan Bro OT Chronic left shoulder pain (Primary Dx) 04/21/2025 11:15 AM EDT Treatment [facility] Occupational Therapy [address] [place] [phone] Yuli Waters COTA/Trey Chronic left shoulder pain (Primary Dx); Nontraumatic pain of left shoulder 04/19/2025 11:15 AM EDT Treatment [facility] Occupational [address] [phone] Yuli Waters COTA/Trey Chronic left shoulder pain (Primary Dx); Nontraumatic pain of left shoulder 04/14/2025 11:30 AM EDT Treatment [facility] Occupational Therapy [address] [place] [phone] Siobhan Bro OT Chronic left shoulder pain (Primary Dx) 04/12/2025 12:30 PM EDT Treatment [facility] Occupational Therapy [address] [place] [phone] Yuli Waters BARAJAS/Trey Nontraumatic pain of left shoulder (Primary Dx); Chronic left shoulder pain 04/07/2025 11:15 AM EDT Treatment [facility] Occupational Therapy [address] [place] [phone] Yuli Waters BARAJAS/L Nontraumatic pain of left shoulder (Primary Dx); Chronic left shoulder pain 04/05/2025 11:15 AM EDT Treatment [facility] [address] [phone] Yuli Waetrs, BARAJAS/L Nontraumatic pain of left shoulder (Primary Dx); Chronic left shoulder pain 04/01/2025 11:30 AM EDT Treatment [address] [phone] Siobhan Bro, OT Nontraumatic pain of left shoulder (Primary Dx); Chronic left shoulder pain 03/30/2025 12:30 PM EDT Treatment [address] [phone] Yuli Waters, BARAJAS/L Nontraumatic pain of left shoulder (Primary Dx); Chronic left shoulder pain 03/28/2025 1:00 PM EDT Treatment [address] [phone] Zara Saxena, PT Bilateral foot pain (Primary Dx) 03/23/2025 11:00 AM EDT Treatment [address] [phone] Hollie Rios, PT Bilateral foot pain (Primary Dx) 03/22/2025 2:45 PM EDT Evaluation [address] [phone] Siobhan Bro, OT Chronic left shoulder pain (Primary Dx); Left shoulder pain; Nontraumatic pain of left shoulder 03/21/2025 12:30 PM EDT Treatment [address] [phone] Hollie Rios, PT Bilateral foot pain (Primary Dx) 03/16/2025 12:30 PM EDT Treatment [address] [phone] Zara Saxena, PT Bilateral foot pain (Primary Dx) 03/10/2025 11:30 AM EDT Treatment [address] [phone] Hollie Rios, PT Bilateral foot pain (Primary Dx) 03/08/2025 4:00 PM EDT Treatment [address] [phone] Zara Saxena, PT Bilateral foot pain (Primary Dx) 03/03/2025 1:00 PM EDT Treatment [address] [phone] Hollie Rios, PT Bilateral foot pain (Primary Dx) 02/28/2025 7:00 AM EDT Treatment [address] [phone] Zara Saxena, PT Bilateral foot pain (Primary Dx) 02/08/2025 8:30 AM EDT Treatment [address] [phone] Hollie Rios, TALHA Bilateral foot pain (Primary Dx) from Last 3 Months Surgical History Surgery Date Site/Laterality Comments HAND SURGERY PROCEDURE: HISTORICAL HAND SURGERY Medical History Medical History Date Comments Type 2 diabetes mellitus ( S/[facility] V24, [facility] V28) DX:Type 2 diabetes mellitus (HCC) GERD (gastroesophageal reflux disease) DX:GERD (gastroesophageal reflux disease) Back pain DX:Back pain Hypercholesterolemia DX:Hypercho lesterolemia HTN (hypertension) DX:HTN (hyper tension) Acid reflux DX:Acid reflux Chronic back pain DX:Chronic paris k pain Supraventricular tachycardia ([facility] V24) 2022 DX:Supraventricular tachycardia (HCC) Hypertension [...] Last Done Comments Breast Cancer Screening 1976 Colorectal Cancer Screening: Colonoscopy 1976 Diabetes: Annual Foot Exam 1986 Diabetes: Annual Retina Eye Exam 1986 Cervical Cancer Screening: Pap Smear 1997 IPV Vaccines (3 of 3 - Adult catch-up series) 06/28/2009 12/27/2008, 09/28/2008 HIV Screening 06/15/2022 Hepatitis C Screening 06/15/2022 Social Influencers of Health Screening 06/15/2022 Depression Screening 07/07/2024 Diabetes: Blood Sugar Control Test (HGBA1C) 11/18/2024 COVID-19 Vaccine ( season) 2025 02/22/2021, 02/01/2021 Influenza Vaccine (#1) 2025 8, 04/28/2017, 04/06/2015, Additional history exists Diabetes: Annual GFR (Glomerular Filtration Rate) 10/21/2025 10/21/2024, 09/30/2024 Hypertension/CHF/CAD Annual BMP Blood Test 10/21/2025 10/21/2024, 09/30/2024 Diabetes: Annual Urine Albumin-Creatinine Ratio (uACR) 02/18/2026 02/18/2025 DTaP,Tdap,and Td Vaccines (5 - Td or Tdap) 03/30/2028 03/30/2018, 03/13/2017, 11/08/2008, Additional history exists Cholesterol Screening (Lipid Panel) 09/30/2029 09/30/2024 RSV Immunization Adult Patients (1 - 1-dose 75+ series) 10/29/2051 MMR Vaccines Aged Out 11/08/2008, 09/28/2008 No [...] Type Associated Problems Recent Progress Patient-Stated? Author OT 6 visits General No change(2024 11:32 AM EDT) Siobhan Cramer, OT Note: Return demo HEP w/ progression (ROM, self stretch) 04/14: Met and ongoing 04/26: Ongoing AAROM L sh flex at least 90, pain-tolerable level 04/14: Achieves 90-93 via AAROM however severe pain 04/26/25: no appreciable change from 04/14 AAROM L sh scap at least 90, pain tolerable level 04/14: Achieves 85 w/ severe pain 04/26/25: no appreciable change from 04/14 4. No greater than 2-3/10 resting pain in L upper quadrant 04/14: Resting pain 6/10; upper arm pain has reduced hower pain in AC joint and superior shoulder 04/26/25: no appreciable change from 04/14 OT ltg - visit General No change(2024 11:33 AM EDT) Siobhan Cramer, OT Note: Indep final HEP (strength, activity progression) At least 3/5 strength LUE elevation Reported tolerance for washing hair, bathing L axilla, reaching cross body to bathe R side, etc Procedures Procedure Name Priority Date/Time Associated Diagnosis Comments CBC WITH AUTO DIFFERENTIAL Routine 02/18/2025 9:41 AM EDT Iron deficiency anemia, unspecified Hypertension, essential Fatigue CBC AND DIFFERENTIAL Routine 02/18/2025 9:41 AM EDT Iron deficiency anemia, unspecified Hypertension, essential Fatigue MICROALBUMIN CREATININE URINE RATIO Routine 02/18/2025 9:41 AM EDT Iron deficiency anemia, unspecified Hypertension, essential Fatigue VITAMIN D 25 HYDROXY Routine 02/18/2025 9:41 AM EDT Iron deficiency anemia, unspecified Hypertension, essential Fatigue COMPREHENSIVE METABOLIC PANEL Routine 10/21/2024 3:50 PM EDT Muscle pain Avitaminosis D LIPID PANEL WITH REFLEX TO DIRECT LDL Routine 09/30/2024 10:19 AM EDT Essential hypertension Pure hypercholesterolemia from Last 3 Months or Most Recently Relevant to Health Maintenance Results * (ABNORMAL) CBC auto differential (02/18/2025 9:41 AM EDT) [facility] WBC 6.6 4.8 - 10.8 K/mcL LAB HEMETOLOGY METHOD 02/18/2025 10:20 AM EDT [facility] RBC 5.20(H) 3.80 - 4.80 M/mcL LAB HEMETOLOGY METHOD 02/18/2025 10:20 AM EDT [facility] Hemoglobin 13.4 11.5 - 16.0 g/dL LAB HEMETOLOGY METHOD 02/18/2025 10:20 AM EDT [facility] Hematocrit 41.5 35.0 - 47.0 % LAB HEMETOLOGY METHOD 02/18/2025 10:20 AM [facility] MCV 80.3 79.0 - 98.0 FL LAB HEMETOLOGY METHOD 02/18/2025 10:20 AM [facility] MCH 25.9(L) 27.0 - 32.0 pcg LAB HEMETOLOGY METHOD 02/18/2025 10:20 AM [facility] MCHC 32.3 32.0 - 37.0 g/dL LAB HEMETOLOGY METHOD 02/18/2025 10:20 AM [facility] RDW 14.2 11.0 - 15.0 % LAB HEMETOLOGY METHOD 02/18/2025 10:20 AM [facility] Platelets 328 130 - 400 K/mcL LAB HEMETOLOGY METHOD 02/18/2025 10:20 AM [facility] MPV 9.4 7.0 - 11.0 FL LAB HEMETOLOGY METHOD 02/18/2025 10:20 AM [facility] NRBC 0.0 <1.0 % LAB HEMETOLOGY METHOD 02/18/2025 10:20 AM [facility] NRBC Absolute 0.00 <0.10 K/mcL LAB HEMETOLOGY METHOD 02/18/2025 10:20 AM [facility] Neutrophils Relative 56.4 % LAB HEMETOLOGY METHOD 02/18/2025 10:20 AM [facility] Lymphocytes Relative 29.1 % LAB HEMETOLOGY METHOD 02/18/2025 10:20 AM [facility] Monocytes Relative 7.9 % LAB HEMETOLOGY METHOD 02/18/2025 10:20 AM [facility] Eosinophils Relative 5.0 % LAB HEMETOLOGY METHOD 02/18/2025 10:20 AM [facility] Basophils Relative 0.8 % LAB HEMETOLOGY METHOD 02/18/2025 10:20 AM EDT [facility] Immature Granulocytes Relative 0.8 % LAB HEMETOLOGY METHOD 02/18/2025 10:20 AM EDT [facility] Neutrophils Absolute 3.73 1.50 - 7.00 K/mcL LAB HEMETOLOGY METHOD 02/18/2025 10:20 AM EDT [facility] Lymphocytes Absolute 1.92 1.00 - 5.00 K/mcL LAB HEMETOLOGY METHOD 02/18/2025 10:20 AM EDT [facility] Monocytes Absolute 0.52 0.20 - 1.00 K/mcL LAB HEMETOLOGY METHOD 02/18/2025 10:20 AM EDT [facility] Eosinophils Absolute 0.33 0.00 - 0.50 K/mcL LAB HEMETOLOGY METHOD 02/18/2025 10:20 AM EDT [facility] Basophils Absolute 0.05 0.00 - 0.20 K/mcL LAB HEMETOLOGY METHOD 02/18/2025 10:20 AM EDT [facility] Immature Granulocytes Absolute 0.05(H) 0.00 - 0.03 K/mcL LAB HEMETOLOGY [facility] Blood Venous blood specimen / Unknown Venipuncture / Unknown 02/18/2025 9:41 AM EDT 02/18/2025 10:03 AM EDT us Mario PEREZ LAB BLOOD ORDERABLES Final Result [facility] [address] [place] [address], * (ABNORMAL) Microalbumin creatinine urine ratio (02/18/2025 9:41 AM EDT) Creatinine, Urine 299.0 mg/dL LAB CHEMISTRY METHOD 02/18/2025 2:43 PM EDT [facility] Microalb, Ur 72.9(H) 0.0 - 29.0 mg/L LAB CHEMISTRY METHOD 02/18/2025 2:43 PM EDT [facility] Microalb/Crea t Ratio 24 <30 mg/g creat LAB CHEMISTRY METHOD 02/18/2025 2:43 PM EDT [facility] Urine Urine specimen obtained by clean catch procedure / Unknown Non-blood Collection / Unknown 02/18/2025 9:41 AM EDT 02/18/2025 10:03 AM EDT Mario PEREZ LAB URINE ORDERABLES Final Result Performing Organization Address [facility]/ZIP Co de Phone Number [facility] [address] [place] [address], [place] [phone] * (ABNORMAL) Vitamin D 25 hydroxy (02/18/2025 9:41 AM EDT) Vit D, 25-Hydroxy 26.9(L) 30.0 - 80.0 ng/mL LAB CHEMISTRY METHOD 02/18/2025 11:03 AM EDT [facility] Blood Venous blood specimen / Unknown Venipuncture / Unknown 02/18/2025 9:41 AM EDT 02/18/2025 10:02 AM EDT us Mario PEREZ LAB BLOOD ORDERABLES Final Result [facility] [address] [place] [address], [place] [phone] * Comprehensive metabolic panel (10/21/2024 3:50 PM EDT) Sodium 140 133 - 145 mmol/L LAB CHEMISTRY METHOD 10/21/2024 5:17 PM EDT [facility] Potassium 4.0 3.5 - 5.5 mmol/L LAB CHEMISTRY METHOD 10/21/2024 5:17 PM [facility] Chloride 107 96 - 110 [...] LAB CHEMISTRY METHOD 10/21/2024 5:17 PM EDT [facility] Albumin 3.6 3.2 - 5.0 g/dL LAB CHEMISTRY METHOD 10/21/2024 5:17 PM EDT [facility] Total Bilirubin 0.3 0.0 - 1.4 mg/dL LAB CHEMISTRY METHOD 10/21/2024 5:17 PM EDT [facility] Blood Venous blood specimen / Unknown Venipuncture / Unknown 10/21/2024 3:50 PM EDT 10/21/2024 4:11 PM EDT us Bella Priest DO LAB BLOOD ORDERABLES Final Res ult [facility] [address] [place] [address], [place] [phone] * Lipid panel with reflex to direct LDL (09/30/2024 10:19 AM EDT) Cholesterol 140 0 - 200 mg/dL LAB CHEMISTRY METHOD 09/30/2024 11:48 AM [facility] Triglycerides 81 0 - 150 mg/dL LAB CHEMISTRY METHOD 09/30/2024 11:48 AM [facility] HDL 43 >=40 mg/dL LAB CHEMISTRY METHOD 09/30/2024 11:48 AM T [facility] LDL Calculated 81 0 - 100 mg/dL LAB CHEMISTRY METHOD 09/30/2024 11:48 AM T [facility] VLDL Cholesterol Gorge 16.2 mg/dL LAB CHEMISTRY METHOD 09/30/2024 11:48 AM EDT [facility] Non HDL Chol. (LDL+VLDL) 97 <145 mg/dL LAB CHEMISTRY METHOD 09/30/2024 11:48 AM [facility] Chol/HDL Ratio 3.3 0.0 - 4.4 LAB CHEMISTRY METHOD 09/30/2024 11:48 AM EDT [facility] Blood Venous blood specimen / Unknown Venipuncture / Unknown 09/30/2024 10:19 AM EDT 09/30/2024 10:47 AM EDT us Duglas Cummings MD LAB BLOOD ORDERABLES F inal Result [facility] ([facility] [address] [place] [address], from Last 3 Months or Most Recently Relevant to Health Maintenance Insurance [facility] [employer] Care Teams Director Of Medical Staff Services Relationship Specialty Start Date End Date Brianna Arauz MD [address] [place] [phone] PCP - General Internal Medicine 01/26/20
--- OUTSIDE RECORDS SUMMARY | 2025-05-11 13:55 | XMS_ITS | Encounter Summary ---
Author Organization [facility] Address [address] [place] [address] Phone Care Team Providers Care Rn Bsn Name Role Phone Unavailable Primary Care Provider Unavailabl e Encounter Details Date Type Department Care Team (Late st Contact Info) Description 05/17/2020 Procedure Pass [facility] [address] [place] [address] [place] [address] Social History Tobacco Use Types Packs/Day Years [...] It is not the complete legal health record.[facility]
--- OUTSIDE RECORDS SUMMARY | 2025-05-11 13:55 | XMS_ITS | Encounter Summary ---
Author Organization [facility] Address [address] [place] [address] Phone Care Team Providers Care Director Meetings Name Role Phone Unavailable Primary Care Provider Unavailabl e Encounter Details Date Type Department Care Team (Late st Contact Info) Description 05/17/2020 Ancillary Orders [facility] [address] [place] [address] Cris Correa MD [address] [facility] [address] [place] [address] [email or web address] Social History Tobacco Use Types Packs/Day Years Used Date Smoking Tobacco: Never Assessed Comments Unknown Sex and Gender Information Value Date Recorded Sex Assigned at Not on file Legal Sex Female 11:55 AM EST Gender Identity Not on file Sexual Orientation Not on file documented as of this encounter Plan of Treatment Not on file documented as of this encounter Results * Holter Monitor 24 Hours (05/17/2020 12:33 PM EST) Anatomical Region Laterality Modality Heart Other Narrative 05/17/2020 1:01 PM EST 24-hour monitor: The baseline rhythm is sinus with a minimum heart rate of 59, maximum 169, average 86 bpm. There are no long pauses present. There are 8 PACs present. There are 2 episodes of SVT, and 1 at 3:51 PM and the other at 11:48 PM. Exact mechanism is difficult to determine. Rate varies from 143 to 161 bpm. Onset sudden, termination gradual, cannot exclude reentrant SVT versus atrial tachycardia. There is no diary submitted. Impression: Abnormal 24-hour monitor, demonstrating 2 episodes of SVT, mechanism unclear, maximum duration 4 minutes. No diary submitted. No patient event markers present. Procedure Note Marshall Chapman MD - 05/17/2020 24-hour monitor: The baseline rhythm is sinus with a minimum heart rate of59, maximum 169, average 86 bpm. There are no long pauses present. Thereare 8 PACs present. There are 2 episodes of SVT, and 1 at 3:51 PM and theother at 11:48 PM. Exact mechanism is difficult to determine. Ratevaries from 143 to 161 bpm. Onset sudden, termination gradual, cannotexclude reentrant SVT versus atrial tachycardia. There is no diarysubmitted. Impression: Abnormal 24-hour monitor, demonstrating 2 episodes of SVT,mechanism unclear, maximum duration 4 minutes. No diary submitted. Nopatient event markers present. Cris Correa MD [facility] ORD ERABLES Final Result documented in this encounter Visit Diagnoses Diagnosis Palpitations Palpitations documented in this encounter Additional Source Comments The information contained in this document represents components of the legal health record. It is not the complete legal health record.[facility]
--- OUTSIDE RECORDS SUMMARY | 2025-05-11 13:55 | XMS_ITS | Clinical Summary ---
Author Organization [facility] Address [address] [place] [address] Care Team Providers Care Professor Of Biblical Studies Name Role Phone Rochelle Engel PA-C Primary Care Provider [phone] Source Comments PLEASE NOTE, if this patient is a minor, it may be UNLAWFUL to discuss sensitive information that is contained in these records (such as FAMILY PLANNING, MENTAL HEALTH or SUBSTANCE ABUSE) with the minor patient's parent or other person without the patient's specific authorization.[facility] Allergies No known active allergies Medications blood-glucose meter monitoring kitIndications:DM type 2 (diabetes mellitus, type 2) as needed for blood glucose monitoring. Quantity: 1 meter freestyle lite. DX: 250.00 for a lifetime. 1 Each 0 08/19/19 15 Active lancetsIndication s:Type 2 diabetes mellitus without complication FREESTYLE. USE BID PRN. DX: 250.00 50 Each 11 03/20/20 15 Active etonogestrel-ethi nyl estradiol (NUVARING) 0.12-0.015 mg/24 hr vaginal ringIndications:F amily planning, contraceptive checking and surveillance Place 1 Each vaginally once. PER COMPONENTS ENGINEER. Leave in place for 3 consecutive weeks, then remove for 1 week. 1 Each 08/11/19 16 Active Miscellaneous Medical Supply miscIndications:E ssential hypertension by miscellaneous route once daily. BLOOD PRESSURE MACHINE. DX: HTN 1 Each 0 12/12/19 16 Active fluticasone (FLONASE) 50 mcg/actuation nasal sprayIndications: Allergic otitis media of both ears, unspecified chronicity Place 1 [place] into the nostril(s) once daily. 16 g 1 02/26/20 16 Active metFORMIN (GLUMETZA) 500 mg 24 hr tabletIndications :Type 2 diabetes mellitus without complication, without long-term current use of insulin Take 2 Tabs by mouth once daily with dinner. Swallow whole. Do not break, crush or chew. 180 Tab 1 02/26/20 16 Active pregabalin (LYRICA) 50 mg capsuleIndication s:Fibromyalgia Take 1 Cap by mouth 2 (two) times daily. PER DR. RODRIGUEZ 05/23/20 16 Active blood sugar diagnostic (FREESTYLE TEST) stripsIndications :Type 2 diabetes mellitus without complication, without long-term current use of insulin 1 Strip 2 (two) times daily. Pt [...] Active Problems Problem Noted Date Diagnosed Date Non-Turkmen speaking patient- Italian speaking control counseling 04/24/2016 Overview (04/24/2016): Advised stop NR- and ref to turpentine distiller for ? Tubal 04/24/16 Essential hypertension 05/23/2015 H. pylori infection, tx 12/09/14 12/09/2014 Overview (12/09/2014): Positive urea breath test Iron deficiency anemia 12/06/2014 Overview (05/23/2016): Non-compliant with feso4. Vitamin B12 deficiency 12/06/2014 Overview (05/23/2016): 298. Non compliant with vitamin b 12. Type 2 diabetes mellitus without complication Hand paresthesias, bilateral 09/11/2012 Overview (07/15/2013): Negative [...] Morbid obesity with BMI of 40.0-44.9, adult 09/05 TB lung, latent 09/28/2008 Overview (07/15/2013): +PPD=10 mm 09/30/08; TX 12/13/08 @ [facility] Hirsutism Overview (07/15/2013): Per Derm Dr. Woodall Varicosities of leg Fibromyalgia Overview (07/15/2013): Dx: 2010 per [facility] Depression Overview (08/11/2015): Per psych Dr. Granado. Currently does not see anyone. Seeing Dania here. Insomnia Overview (08/11/2015): Formerly seen by Dr. Granado. Now seeing social work nurse Dania. Immunizations Immunization Administration Dates Next Due HEP A-HEP B ([place]) 07/10/2009 Hep B, Adult/Adol ([id number]/RECOMBIVAX-ADULT) 12/27/2008,11/08/2008 INFLUENZA, SEASONAL, INJECTABLE 04/06/2015,08/24,04/02/2012 IPV (IPOL) [...] Plan of Treatment Not on file [facility] [place] [facility] Care Teams Professor Of Biblical Studies Relationship Specialty Start Date End Date Rochelle Engel PA-C [address] [place] [address] PCP - General 09/01/18
== END 2025-05-11 11:59 | disposition home or self-care (01) ==
LOC: HO.ENCR 11:23
PROVIDERS: PCP Hospitalist; Visit Provider Internal Medicine
DX: E11.65 Type 2 diabetes mellitus with hyperglycemia (principal)

== ENCOUNTER → 2025-05-11 11:23 | Outpatient (BNVA) | payer OTHER, SELFPAY | PROVIDERS: PCP Hospitalist; Visit Provider Internal Medicine | DX: E11.65 Type 2 diabetes mellitus with hyperglycemia (principal); E04.1 Nontoxic single thyroid nodule | CPT/HCPCS: 82947; 83036; 99212 ==

== ENCOUNTER 2025-05-18 11:00 | Outpatient (RCR) | payer OTHER, SELFPAY ==
[2025-05-11 13:15] VITALS: BP 139/84; PULSE 94; RESP 18; TEMP 36.6
[2025-05-18 10:52] VITALS: BP 142/77; PULSE 99; RESP 18; TEMP 37.2; O2SAT 100
== END 2025-05-18 11:55 | disposition home or self-care (01) ==
LOC: HO.INF 11:00
PROVIDERS: Visit Provider Internal Medicine Medical Oncology
DX: E61.1 Iron deficiency (principal)
CPT/HCPCS: 96365; J1439